=== PATIENT | male | born 1940 | race Caucasian/White ===

== ENCOUNTER 2021-11-13 12:57 | Outpatient (RCR) | payer MEDICARE, SELFPAY ==
[2021-11-13 13:23] VITALS: PULSE 90; TEMP 36.4
--- NOTE | 2021-11-13 15:19 | HP.PCM_ITS ---
History of Present Illness Date of Service: 11/13/21 Chief Complaint: Left plantar foot ulcer History of Wound: Patient is an 81 year old male who presents with an ulcer on the left foot on the lateral plantar surface, just proximal from the 5th toe. Per the patient's , he has had this ulcer about a year. He has a history of Afib on coumadin, insulin controlled type 2 DM, gout, CHF, CKD 3, peripheral vascular disease and a right foot ulcer that required HBOT to help heal. He sees a crm architect in the [place] area and he has been seen at a wound center there starting in 10/09. His states that he developed this sore from his shoe being too tight an rubbing on his foot. From the faxed notes from the [facility], he had a callus removed on 10/18/21. He received antibiotics in the past, Doxycycline then Cipro along with topical gentamicin. Unable to find any culture results. Last Hga1C was 7, per patient's . Left foot x-ray at [facility] on 10/07/21 was unremarkable x-ray examination of the foot. He was referred to us by Bhavin Villagran PA-C because he needs substantial debridement and may need a wound VAC. He presents today with no complaints of fever, chills, nausea and vomiting. He has been wearing a post-surgical shoe on the left foot. Progress of Wound: Left foot ulcer on the lateral plantar surface, proximal to the 5th toe. There is undermining around the entire circumference of the ulcer. He last has a raised, black area on his left lateral leg that has dry, sloughing skin present. When pealing the sloughing skin, the entire raised area easily pealed off, there was thick, white, cheesy exudate present, the base is pink. [facility] Medical History (Updated 11/13/21 @ 16:44 by Alaina Coulter NP, IVÁN-C) Atrial fibrillation Diabetes type 2, uncontrolled Gout Kidney disease Peripheral vascular disease in diabetes mellitus Ulcer of right foot Home Medications diltiazem HCl 30 mg tablet 30 mg PO TID 11/13/21 [History Last Taken Unknown] furosemide 20 mg tablet 20 mg PO BID 11/13/21 [History Last Taken Unknown] spironolactone 25 mg tablet mg 11/13/21 [History Last Taken Unknown] warfarin 5 mg intravenous solution mg IV 11/13/21 [History Last Taken Unknown] Social History (Updated 11/13/21 @ 16:45 by Alaina Coulter NP, [employer]) household members: spouse ROS Constitutional Constitutional: Denies fever(s) or frequent falls Eyes Eyes: Reports requires corrective lenses ENT HEENT: Reports hearing loss Cardiovascular Cardiovascular: Reports dyspnea on exertion, leg edema and leg ulcers; Denies chest pain Respiratory/Chest Respiratory/Chest: Denies cough Gastrointestinal Gastrointestinal: Denies abdominal pain, nausea or vomiting Integumentary Integumentary: Reports skin ulcer and wounds Psychiatric Psychiatric: Denies change in appetite or confusion Vital Signs Vital Signs Vital Signs: 11/13/21 13:23 Temperature 97.5 F L Temperature Source Temporal Pulse Rate 90 Blood Pressure Source Monitor Blood Pressure Position Sitting Blood Pressure Location Right Arm Physical Exam Const alert and no apparent distress General Appearance: cooperative Orientation / Consciousness: awake HEENT normocephalic Resp normal respiratory effort and normal air movement Effort and Inspection: able to speak in complete sentences Cardio regular rate and regular rhythm Cardio Narrative: HR regular rhythm, history of afib Peripheral Pulses: dorsalis pedis pulses present left GI soft to palpation and non-tender Extremity Extremity Narrative: +2-+3 pitting edema bilateral lower extremities. There are thick sloughing plaques of skin present bilaterally where there is hemosiderin staining. The plaques peal off easily. Left dorsalis pedis pulse is +1. Skin Wound Narrative: Left foot ulcer on the lateral plantar surface proximal to the 5th toe. There is 1 cm undermining around the entire circumference of the ulcer. There is a raised, black area on the left lateral leg approx. 1 cm diameter where the flaking plaques are located that easily pealed off with the skin plaques, it had thick,white, cheesy exudate present. The base of the ulcer is pink. Neuro Sensorium / Orientation: awake and alert Psych cooperative Attitude: calm Debridement Note Debridement Note Wound debrided: foot ulcer, plantar surface Laterality: Left Wound Grade/Stage: unstagable Type of Debridement: Excisional debridement Anesthesia Used: 5% Lidocaine Gel Depth: Down to and including healthy tissue and in the subcutaneous layer Percentage of wound debrided: 100 Instrument Used: 3mm curette Tissue Removed: Non viable tissue and slough Severity: Fat Layer Exposed Amount of bleeding with debridement: Mild Bleeding Controlled with: Pressure and Compression and gauze Patient tolerated procedure: Patient tolerated procedure well Debridement Free Text: There is undermining surrounding the entire circumference of the ulcer, unable to determine the true depth of the ulcer Post-Debridement Measurements and Additional Note: Post-Debridement Measurements/Treatment - Nurse 1 - General Ulcer Assessment Start: 11/13/21 13:23 Freq: Status: Active Protocol: SUNSHINE Activity Type Activity Date Activity User E-sign Co-sign Detail Recorded Client Recorded Date Recorded By Document 11/13/21 13:23 WILLIAMS [id number] 11/13/21 13:35 WILLIAMS 11/13/21 13:23 WC - Today's Visit Information Type of service Initial Visit Arrival Mode Wheelchair Patient Identification Verified (Name & Yes ) Blood Sugar Stated by Patient Vital Signs Temperature (97.8 F-99.1 F) 97.5 F L Temperature Source Temporal Pulse Rate (60-100) 90 Pulse Location Monitor Source Monitor Position Sitting Blood Pressure Location Right Arm History Since Last Visit- (Skip if this is Patient's initial visit) Left Footwear Regular Shoe Right Footwear Surgical Shoe with pressure relief insole Pain Scale: 0-10 Numeric Is Patient Pain Free? Yes - Nurse 1 - General Ulcer Measurement Start: 11/13/21 13:23 Freq: Status: Active Protocol: Activity Type Activity Date Activity User E-sign Co-sign Detail Recorded Client Recorded Date Recorded By Document 11/13/21 13:23 WILLIAMS [id number] 11/13/21 13:35 WILLIAMS 11/13/21 13:23 Wound Center Nurse 1 #1 Left Lateral Plantar -Current Size (cm) - Length 0.4 -Current Size (cm) - Width 0.3 -Current Size (cm) - Depth 0.2 -Total Square Cm 0.12 -Date of Last Picture (Recall this 11/13/21 field) -Photo Taken Yes -Tunneling No -Undermining/Tunneling No -Circular Undermining No -Change in Wound Grade/Stage No -Exudate Amt Small -Exudate Type Serosanguineous -Wound Margin Distinct, Outline Attached -Granulation Amt Medium (34-66%) -Granulation Quality Pale,[place] -Slough/Fibrin Yes -Necrosis Amt Large (67-100%) -Necrotic Tissue Type Adherent Slough -Structure Exposed N/A -Texture (Maribel-wound Skin Appearance) Assessed,Callus -Moisture (Maribel-wound Skin Appearance) No Abnormality, Assessed -Color (Maribel-wound Skin Appearance) No Abnormality, Assessed -Temperature (Maribel-wound Skin No Abnormality Appearance) (Pt Warm) -Tenderness on Palpation (Maribel-wound No Skin Appearance) -Ulcer Cleansing Rinsed/ Irrigated with Saline -Foul Odor after Cleansing No -Anesthetic Used 4% Lidocaine Solution Lower Limb Edema Present No WC - Nurse 2 - General Ulcer CM Notes Start: 11/13/21 13:23 Freq: Status: Active Protocol: Activity Type Activity Date Activity User E-sign Co-sign Detail Recorded Client Recorded Date Recorded By Document 11/13/21 13:51 MW [id number] 11/13/21 14:02 MW 11/13/21 13:51 Wound Center Nurse 2 #2 LEFT LATERAL LE -Time 13:59 -Correct Patient Yes -Correct Side, Site, Position Yes -Correct Procedure Yes -Procedure Performed Yes -Type of Procedure Debridement -Clinical Debridement Subcutaneous -Tissue Removed Subcutaneous -Post Debridement (cm) - Length 1.0 -Post Debridement (cm) - Width 1.2 -Post Debridement (cm) - Depth 0.2 -Total Square (Post) (cm) 1.20 -Area of Debridement (cm) - Length 1.0 -Area of Debridement (cm) - Width 1.2 -Total Square (Area) (cm) 1.20 -Tunneling No -Undermining/Tunneling No -Circular Undermining No -Wound/Ulcer Outcome Not Healed -Ulcer Cleansing Rinsed/ Irrigated with Saline -Foul Odor after Cleansing No -Bioengineered Tissue No -Bleeding Controlled with Pressure -Treatment Response Procedure Tolerated Well -Offloading No -Debridement - Subq, 1st 20sq cm No #1 Left Lateral Plantar -Time 13:51 -Correct Patient Yes -Correct Side, Site, Position Yes -Correct Procedure Yes -Procedure Performed Yes -Type of Procedure Debridement -Clinical Debridement Subcutaneous -Tissue Removed Subcutaneous -Post Debridement (cm) - Length 0.6 -Post Debridement (cm) - Width 0.7 -Post Debridement (cm) - Depth 0.3 -Total Square (Post) (cm) 0.42 -Area of Debridement (cm) - Length 0.6 -Area of Debridement (cm) - Width 0.7 -Total Square (Area) (cm) 0.42 -Tunneling No -Undermining/Tunneling No -Circular Undermining No -Wound/Ulcer Outcome Not Healed -Ulcer Cleansing Rinsed/ Irrigated with Saline -Foul Odor after Cleansing No -Bioengineered Tissue No -Bleeding Controlled with Pressure -Treatment Response Procedure Tolerated Well -Offloading No -Debridement - Subq, 1st 20sq cm Yes Pain Scale: 0-10 Numeric Is Patient Pain Free? Yes - Nurse 3 - General Ulcer D/C NN Start: 11/13/21 13:23 Freq: Status: Active Protocol: Activity Type Activity Date Activity User E-sign Co-sign Detail Recorded Client Recorded Date Recorded By Document 11/13/21 15:00 KRAIG [id number] 11/13/21 15:01 KRAIG 11/13/21 15:00 Wound Care Nurse 3 #2 LEFT LATERAL LE -Ulcer Cleansing Rinsed/ Irrigated with Saline -Foul Odor after Cleansing No -Negative Pressure Wound Therapy N/A -Primary Dressing Applied Promogran Tabatha Matter -Primary Dressing Covered/Secured with Dry Gauze & Roll Gauze, Secured with Tape -Promogran Tabatha Matter 1 #1 Left Lateral Plantar -Ulcer Cleansing Rinsed/ Irrigated with Saline -Foul Odor after Cleansing No -Primary Dressing Applied Promogran Tabatha Matter -Primary Dressing Covered/Secured with Dry Gauze & Roll Gauze, Secured with Tape -Promogran Tabatha Matter 0 Left -Lotion applied to leg before No compression wrap -Tubular Bandage Single Layer -Size of Tubigrip Used Size D -Size D ($) 1 Pain Scale: 0-10 Numeric Is Patient Pain Free? Yes - Visit Discharge Discharge Condition Stable Ambulatory Status Ambulatory,Cane ,Wheelchair Transportation Private Auto Accompanied by Medication Reconcilliation completed & Yes provided to patient/care provider Clinical Summary of Care Provided Yes Additional Wound Wound debrided: lateral leg ulcer Laterality: Left Type of Debridement: Excisional debridement Anesthesia Used: 5% Lidocaine Gel Depth: in the subcutaneous layer Percentage of wound debrided: 100 Instrument Used: 3mm curette Tissue Removed: non viable tissue Severity: Fat Layer Exposed Amount of bleeding with debridement: Mild Bleeding Controlled with: Pressure and Compression and gauze Patient tolerated procedure: Patient tolerated procedure well Charges/Coding Visit Charges Office Visits / Consults: 95222 OV L4 New (25 modifier) Procedures Integumentary [id number]: [id number] Polyl subq tissue 20 sq cm/< Assessment/Plan Assessment/Plan (1) 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: CODE(S): E11.621 - Type 2 diabetes mellitus with foot ulcer; L97.529 - Non-pressure chronic ulcer of other part of left foot with unspecified severity (2) Chronic ulcer of left foot with fat layer exposed: CODE(S): L97.522 - Non-pressure chronic ulcer of other part of left foot with fat layer exposed (3) Ulcer of left lower extremity with fat layer exposed: CODE(S): L97.922 - Non-pressure chronic ulcer of unspecified part of left lower leg with fat layer exposed (4) Peripheral vascular disease in diabetes mellitus: CODE(S): E11.51 - Type 2 diabetes mellitus with diabetic peripheral angiopathy without gangrene (5) Diabetes type 2, uncontrolled: PLAN: Plan Patient was evaluated in the wound healing clinic today. A subcutaneous debridement was performed as previously documented. Patient has been seen by a another wound center and a crm architect and was referred here for further evaluation of his left plantar foot ulcer. With the amount of undermining he has present, he would benefit from seeing one of the podiatrists that work at our wound center. This ulcer needs to be de-roofed and may need surgical debridement. I will continue to see him until he is able to establish with one of the podiatrists. The left lateral leg ulcer has a pink base. Will monitor this closely. There is concern with how this presented that it may need to be biopsied. Not comfortable doing a biopsy today due to not knowing his vascular status. Will attempt to obtain his records of previous vascular studies. May need to order current studies depending on how long it has been since his last vascular studies were performed. Wound care - Left plantar foot ulcer, pack Tabatha into the ulcer and top with gauze. May need to use gauze wrap to hold into place. On the left lateral leg ulcer, place Tabatha and cover with gauze daily. Wash both ulcers daily with soap and water. Place single layer tubigrip on left leg for compression. Encouraged patient to lay flat in a bed and not to sleep in a chair. He states that he is not able to get out of bed without significant help, which is why he sleeps in a lift chair. Instructed him to keep legs elevated when sitting to help prevent swelling. Encouraged a low sodium diet with increased protein and vitamin C to help with wound healing. Follow up week with either the crm architect or myself. Call or come in sooner if develop concerns or problems. Time spent with patient, reviewing prior notes and documenting >55 minutes.
== END 2021-11-17 23:59 | disposition home or self-care (01) ==
LOC: WC 12:57
PROVIDERS: PCP Physician Assistant; Visit Provider Nurse Practitioner Family
DX: E11.621 Type 2 diabetes mellitus with foot ulcer (principal); E11.51 Type 2 diabetes mellitus with diabetic peripheral angiopathy without gangrene; L97.522 Non-pressure chronic ulcer of other part of left foot with fat layer exposed; I50.9 Heart failure, unspecified; E11.22 Type 2 diabetes mellitus with diabetic chronic kidney disease; I48.91 Unspecified atrial fibrillation; Z79.4 Long term (current) use of insulin; N18.30 Chronic kidney disease, stage 3 unspecified; Z79.899 Other long term (current) drug therapy; Z79.01 Long term (current) use of anticoagulants
CPT/HCPCS: 11042; 99203; G0463

== ENCOUNTER 2021-12-17 13:30 | Outpatient (RCR) | payer MEDICARE, SELFPAY ==
[2021-11-18 00:41] VITALS: PULSE 90; TEMP 36.4
[2021-11-19 09:46] VITALS: BP 152/77; PULSE 103; RESP 22; TEMP 36.1
--- NOTE | 2021-11-19 10:19 | PCM.WC.HP ---
History of Present Illness Date of Service: 11/19/21 Chief Complaint: Left plantar foot ulcer History of Wound: Patient is an 81 year old male who presents with an ulcer on the left foot on the lateral plantar surface, just proximal from the 5th toe. Per the patient's , he has had this ulcer about a year. He has a history of Afib on coumadin, insulin controlled type 2 DM, gout, CHF, CKD 3, peripheral vascular disease and a right foot ulcer that required HBOT to help heal. Patient denies constitutional symptoms at this time. Patient notes some drainage and pain to the left foot. Along with some redness and swelling. Patient has been offloading site with surgical shoe. Patient has no other complaints at this time. FOR[facility]LY [facility] Medical History Atrial fibrillation Diabetes type 2, uncontrolled Gout Kidney disease Peripheral vascular disease in diabetes mellitus Ulcer of right foot Home Medications diltiazem HCl 30 mg tablet 30 mg PO TID 11/13/21 [History Last Taken Unknown] furosemide 20 mg tablet 20 mg PO BID 11/13/21 [History Last Taken Unknown] spironolactone 25 mg tablet mg 11/13/21 [History Last Taken Unknown] warfarin 5 mg intravenous solution mg IV 11/13/21 [History Last Taken Unknown] Social History household members: spouse ROS Constitutional Constitutional: Denies chills, headache(s) or stops breathing during sleep Eyes Eyes: Denies acute decrease in peripheral vision, blindness or change in vision ENT HEENT: Denies change in voice, dental pain or facial pain Cardiovascular Cardiovascular: Denies abdominal edema, abdominal pain or chest pain with activity Respiratory/Chest Respiratory/Chest: Denies change in phlegm color, chest congestion or dyspnea on exertion Gastrointestinal Gastrointestinal: Denies bloating, change in bowel habits or cramping Genitourinary Genitourinary: Reports dribbling and dysuria; Denies burning urination or difficulty with ejaculations Musculoskeletal Musculoskeletal: Reports loss of height; Denies back pain or deformity Vital Signs Vital Signs Vital Signs: 11/19/21 09:46 Temperature 97 F L Temperature Source Temporal Pulse Rate 103 H Respiratory Rate 22 H Blood Pressure 152/77 H Blood Pressure Mean 102 Blood Pressure Source Monitor Physical Exam Narrative Patient alert oriented person place and time. Patient ambulating surgical shoe to left lower extremity. Vascular: Dorsalis pedis posterior tibial pulses diminished bilaterally. Atrophic skin changes noted. +1 pitting edema to noted to bilateral lower extremity with hemosiderin deposits. Neurologic: Light touch protective sensation absent to bilateral feet. Dermatologic: There are 2 wounds 1 to noted to the anterior lateral left leg with a necrotic base. Debridement postdebridement demonstrates clean granular break base no deep probing or undermining clean postdebridement measurements document nursing notes. No signs of infection. Full-thickness wound noted to the plantar left fifth metatarsal head wound probes down the level of the fifth metatarsal head has significant hyperkeratosis to the periwound area along with some erythema edema no purulent drainage noted at this time upon debridement there is noted to be some healthy bleeding to the site. Pre and postdebridement measurements document nursing notes. 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 No pain with calf squeeze bilaterally. Muscular strength full to bilateral lower extremities. 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 ) Arrival Mode Cane,Wheelchair Transfer Assistance Manual Transfer Assist (Other) x1 Patient Identification Verified (Name & Yes ) Patient Requires Transmission-Based No Precautions Finger Stick Blood Sugar(mg/dl) (if 180 indicated): Blood Sugar Stated by Patient Vital Signs Temperature (97.8 F-99.1 F) 97 F L Temperature Source Temporal Pulse Rate (60-100) 103 H Pulse Location Monitor Respiratory Rate (12-18) 22 H Respiratory rate source Observation Blood Pressure (90/60-120/80) 152/77 H Blood Pressure Mean 102 Source Monitor History Since Last Visit- (Skip if this is Patient's initial visit) Have you changed medications since your No last visit? Any new allergies or adverse reactions No Had a fall/change in ADL's that may No increase risk of falls Signs or symptoms of abuse and/or No neglect since last visit Have you been in the hospital since your No last visit? Has dressing in place as prescribed Yes Has compression in place as prescribed Yes Has offloadiing in place as prescribed Yes Left Footwear Surgical Shoe with pressure relief insole Right Footwear Regular Shoe Pain Scale: 0-10 Numeric Is Patient Pain Free? Yes WC - Nurse 1 - General Ulcer Measurement Start: 11/19/21 09:45 Freq: Status: Active Protocol: Activity Type Activity Date Activity User E-sign Co-sign Detail Recorded Client Recorded Date Recorded By Document 11/19/21 09:46 DL [id number] 11/19/21 09:54 DL 11/19/21 09:46 Wound Center Nurse 1 #2 LEFT LATERAL LE -Current Size (cm) - Length 0.7 -Current Size (cm) - Width 0.8 -Current Size (cm) - Depth 0.1 -Total Square Cm 0.56 -Photo Taken No -Exudate Amt Small -Exudate Type Serosanguineous -Wound Margin Distinct, Outline Attached -Granulation Amt None Present (0 %) -Necrosis Amt Large (67-100%) -Necrotic Tissue Type Eschar -Structure Exposed N/A -Texture (Maribel-wound Skin Appearance) Scarring -Moisture (Maribel-wound Skin Appearance) No Abnormality -Color (Maribel-wound Skin Appearance) Hemosiderin Staining -Temperature (Maribel-wound Skin No Abnormality Appearance) (Pt Warm) -Tenderness on Palpation (Maribel-wound No Skin Appearance) -Ulcer Cleansing Soap and Water -Anesthetic Used 5% Lidocaine Gel #1 Left Lateral Plantar -Current Size (cm) - Length 0.5 -Current Size (cm) - Width 0.8 -Current Size (cm) - Depth 0.4 -Total Square Cm 0.40 -Photo Taken No -Undermining/Tunneling Starts (O'clock 10 ) -Undermining/Tunneling Ends (O'clock) 5 -Maximum Distance (cm) 0.5 -Exudate Type Serosanguineous -Wound Margin Distinct, Outline Attached -Granulation Amt Large (67-100%) -Granulation Quality Red -Necrosis Amt Small (1-33%) -Necrotic Tissue Type Adherent Slough -Structure Exposed N/A -Texture (Maribel-wound Skin Appearance) Scarring -Moisture (Maribel-wound Skin Appearance) Maceration -Color (Maribel-wound Skin Appearance) No Abnormality -Temperature (Maribel-wound Skin No Abnormality Appearance) (Pt Warm) -Ulcer Cleansing Soap and Water -Foul Odor after Cleansing No -Anesthetic Used 5% Lidocaine Gel Right Calf (cm) 36.6 Right Ankle (cm) 24.5 WC - Nurse 2 - General Ulcer CM Notes Start: 11/19/21 09:45 Freq: Status: Active Protocol: Activity Type Activity Date Activity User E-sign Co-sign Detail Recorded Client Recorded Date Recorded By Document 11/19/21 10:03 VICTORINO [id number] 11/19/21 10:14 VICTORINO 11/19/21 10:03 Wound Center Nurse 2 #2 LEFT LATERAL LE -Time 10:13 -Correct Patient Yes -Correct Side, Site, Position Yes -Correct Procedure Yes -Procedure Performed Yes -Type of Procedure Debridement -Clinical Debridement Subcutaneous -Tissue Removed Subcutaneous -Post Debridement (cm) - Length 0.8 -Post Debridement (cm) - Width 0.8 -Post Debridement (cm) - Depth 0.1 -Total Square (Post) (cm) 0.64 -Area of Debridement (cm) - Length 0.8 -Area of Debridement (cm) - Width 0.8 -Total Square (Area) (cm) 0.64 -Tunneling No -Undermining/Tunneling No -Circular Undermining No -Wound/Ulcer Outcome Not Healed -Ulcer Cleansing Rinsed/ Irrigated with Saline -Foul Odor after Cleansing No -Bioengineered Tissue No -Bleeding Controlled with Pressure -Treatment Response Procedure Tolerated Well -Offloading Yes -Type of Offloading Surgical Shoe -Debridement - Subq, 1st 20sq cm No #1 Left Lateral Plantar -Time 10:13 -Correct Patient Yes -Correct Side, Site, Position Yes -Correct Procedure Yes -Procedure Performed Yes -Type of Procedure Debridement -Clinical Debridement Subcutaneous -Tissue Removed Subcutaneous -Post Debridement (cm) - Length 0.6 -Post Debridement (cm) - Width 0.8 -Post Debridement (cm) - Depth 0.4 -Total Square (Post) (cm) 0.48 -Area of Debridement (cm) - Length 0.6 -Area of Debridement (cm) - Width 0.8 -Total Square (Area) (cm) 0.48 -Tunneling No -Undermining/Tunneling No -Circular Undermining No -Wound/Ulcer Outcome Not Healed -Ulcer Cleansing Rinsed/ Irrigated with Saline -Foul Odor after Cleansing No -Bioengineered Tissue No -Bleeding Controlled with Pressure -Treatment Response Procedure Tolerated Well -Offloading Yes -Type of Offloading Surgical Shoe -Debridement - Subq, 1st 20sq cm Yes Pain Scale: 0-10 Numeric Is Patient Pain Free? Yes Assessment/Plan Assessment/Plan (1) Peripheral vascular disease, unspecified: CODE(S): I73.9 - Peripheral vascular disease, unspecified PLAN: Patient examined evaluated, all fine discussed with patient in detail. Due to some erythema edema to the left forefoot concerned about a infection. I have ordered radiographs of the left foot to ensure no bone involvement. I have cultured the site after flushing and debridement. Patient will be started on p.o. doxycycline and ciprofloxacin. The left plantar fifth metatarsal head and lateral leg wound were excisionally debrided down to including level of subcutaneous tissue of all nonviable tissue using a 5 mm dermal curette. Hemostasis obtained with light compression. No no anesthesia due to neuropathy. Patient tolerated procedure well. Pre and postdebridement measurements document nursing notes. Will continue with daily cleansing of foot with soap and water washes, application of silver alginate DSD daily. Patient will heel weight-bear in surgical shoe with a custom made offloading pad to offload the fifth metatarsal head and the left lower extremity. Once we get all of the patient's lab x-rays and arterial studies will create a definitive plan which may include offloading the site with a total contact cast upon resolution of infection versus surgical procedure to remove or offload the fifth metatarsal head which is the apex of the plantar fifth metatarsal head wound site. Patient will follow up in 1 week (2) Type 2 diabetes mellitus with diabetic polyneuropathy: CODE(S): E11.42 - Type 2 diabetes mellitus with diabetic polyneuropathy (3) Non-pressure chronic ulcer of other part of left foot with necrosis of bone: CODE(S): L97.524 - Non-pressure chronic ulcer of other part of left foot with necrosis of bone
--- NOTE | 2021-11-19 11:13 | RAD_ITS ---
INDICATION: chronic ulcer EXAMINATION/TECHNIQUE: X-RAY - LEFT XR Foot Min 3 Views 3 VIEWS COMPARISON: None. FINDINGS: No evidence of cortical irregularity or lucency to suggest a fracture, no evidence of lytic or sclerotic bone lesion is seen. Prominent soft tissue swelling visualized overlying the forefoot, no evidence of periosteal reaction in the underlying bones, no evidence of abnormal densities in the overlying soft tissues. Soft tissue swelling visualized along the lateral aspect of the fifth metatarsophalangeal joints and phalanges. Vascular calcifications are seen. RAD/Foot min 3 Views IMPRESSION: Degenerative changes and soft tissue swelling, no evidence of displaced fracture is seen. Electronically Signed: Gurwinder Marx MD at 16:37 EDT ,
[2021-11-19 11:34] LABS: Absolute Neutrophil Count 6.8 X10^3/uL (2.0-7.7); Basophil# 0.04 X10^3/uL; Basophil% 0.5 % (0-1); Eosinophil# 0.13 X10^3/uL; Eosinophils% 1.5 % (0-5); Hematocrit 36.4 % (40-54); Lymphocyte % 14.7 % (19-41); Mean Corp Hgb Conc 35.7 g/dL (32-36); Mean Corpuscular Hgb 34.7 pg (27.0-32.0); Mean Corpuscular Volume 97.1 fL (80-94); Mean Platelet Vol. 9.3 fl (6.2-12.0); Monocyte# 0.55 X10^3/uL; Monocyte% 6.2 % (0-10); NRBC Flagged by Analyzer 0 % (0-5); Neutrophil # 6.79 X10^3/uL (2.7-7.7); Neutrophil % 76.4 % (47-70); Platelet Count 379 K/mm3 (150-450); RBC Distribution Width CV 14.9 % (11.6-14.6); RBC Distribution Width SD 50.7 fl (35.1-43.9); Red Blood Count 3.75 M/mm3 (4.6-6.2); White Blood Count 8.9 K/mm3 (4.4-11.0)
[2021-11-19 11:35] LABS: Erythrocyte Sedimentation Rate 42 mm/hr (0-20)
[2021-11-19 11:49] LABS: ALB/GLOB Ratio 0.6 RATIO (0.9-2.4); AST(SGOT) 10 U/L (15-37); Alanine Aminotransfer ALT/SGPT 18 U/L (16-61); Albumin, Serum 2.8 g/dL (3.2-5.0); Alkaline Phosphatase 93 U/L (45-117); Anion Gap 2 (5-15); BUN 43 mg/dL (7-18); BUN/Creat Ratio 28.9 RATIO (10-20); Calcium,Total 10.8 mg/dL (8.5-10.1); Chloride 103 mmol/L (98-107); Creatinine, Serum 1.49 mg/dL (0.70-1.30); EST Glomerular Filtration Rate 48 mL/min (>60); Est Glom Filt Rate - Afr Amer 58 mL/min (>60); Globulin 4.4 g/dL (2.2-4.2); Glucose 238 mg/dL (74-106); Potassium 4.4 mmol/L (3.5-5.1); Protein, Total 7.2 g/dL (6.4-8.2); Sodium Level 139 mmol/L (136-145)
[2021-11-19 12:19] LABS: Hemoglobin A1c 7.3 % (3.8-5.6)
[2021-11-26 09:20] VITALS: BP 155/84; PULSE 103; RESP 16; TEMP 36.1
--- NOTE | 2021-11-26 09:37 | PN.PCM_ITS ---
History of Present Illness Date of Service: 11/26/21 Chief Complaint: Left plantar foot ulcer History of Wound: Patient is an 81 year old male who presents with an ulcer on the left foot on the lateral plantar surface, just proximal from the 5th toe. Per the patient's , he has had this ulcer about a year. He has a history of Afib on coumadin, insulin controlled type 2 DM, gout, CHF, CKD 3, peripheral vascular disease and a right foot ulcer that required HBOT to help heal. Patient denies constitutional symptoms at this time. Patient notes some drainage and pain to the left foot. Along with some redness and swelling. Patient has been offloading site with surgical shoe. Patient has no other complaints at this time. Objective Data Objective Data Vital Signs: Vital Signs Temp Pulse Resp BP O2 Del Method 96.9 F L 103 H 16 155/84 H Room Air 11/26/21 09:20 11/26/21 09:20 11/26/21 09:20 11/26/21 09:20 11/26/21 09:20 Oxygen Delivery Method Room Air Lab / Micro Data Result Diagrams: 11/19/21 11:00 11/19/21 11:00 Micro: Microbiology 11/19/21 10:03 Wound Abcess - Left Foot Gram Stain - Final 11/19/21 10:03 Wound Abcess - Left Foot Wound Culture - Final Staphylococcus lugdunensis Enterococcus faecalis Staphylococcus epidermidis 11/19/21 10:03 Wound Abcess - Left Foot Anaerobic Culture - Final Anaerobic cocci Physical Exam Narrative Patient alert oriented person place and time. Patient ambulating surgical shoe to left lower extremity. Vascular: Dorsalis pedis posterior tibial pulses diminished bilaterally. Atrophic skin changes noted. +1 pitting edema to noted to bilateral lower extremity with hemosiderin deposits. Neurologic: Light touch protective sensation absent to bilateral feet. Dermatologic: There are 2 wounds 1 to noted to the anterior lateral left leg with a necrotic base. Debridement postdebridement demonstrates clean granular break base no deep probing or undermining clean postdebridement measurements document nursing notes. No signs of infection. Full-thickness wound noted to the plantar left fifth metatarsal head wound probes down the level of the fifth metatarsal head has significant hyperkeratosis to the periwound area along with some erythema edema no purulent drainage noted at this time upon debridement there is noted to be some healthy bleeding to the site. Pre and postdebridement measurements document nursing notes. 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 No pain with calf squeeze bilaterally. Muscular strength full to bilateral lower extremities. Debridement Note Debridement Note Post-Debridement Measurements and Additional Note: Post-Debridement Measurements/Treatment - Nurse 1 - General Ulcer Assessment Start: 11/19/21 09:45 Freq: Status: Active Protocol: SUNSHINE Activity Type Activity Date Activity User E-sign Co-sign Detail Recorded Client Recorded Date Recorded By Document 11/19/21 09:46 DL [id number] 11/19/21 09:54 DL Document 11/26/21 09:20 BMF [id number] 11/26/21 09:33 BMF 11/19/21 11/26/21 09:46 09:20 - Today's Visit Information Type of service Follow-up Visit Follow-up Visit (Physician/GENERAL OPHTHALMOLOGIST (Physician/GENERAL OPHTHALMOLOGIST ) ) Arrival Mode Cane,Wheelchair Wheelchair Transfer Assistance Manual Other Transfer Assist (Other) x1 1 ASSIST W/ CANE Accompanied by Patient Identification Verified (Name & Yes Yes ) Patient Requires Transmission-Based No No Precautions Finger Stick Blood Sugar(mg/dl) (if 180 indicated): Blood Sugar Stated by Patient Vital Signs Temperature (97.8 F-99.1 F) 97 F L 96.9 F L Temperature Source Temporal Temporal Pulse Rate (60-100) 103 H 103 H Pulse Location Monitor Monitor Respiratory Rate (12-18) 22 H 16 Respiratory rate source Observation Observation Oxygen Delivery Method Room Air Blood Pressure (90/60-120/80) 152/77 H 155/84 H Blood Pressure Mean (mm Hg) 102 107 Source Monitor Monitor Position Sitting Blood Pressure Location Right Arm History Since Last Visit- (Skip if this is Patient's initial visit) Have you changed medications since your No No last visit? Any new allergies or adverse reactions No No Had a fall/change in ADL's that may No No increase risk of falls Signs or symptoms of abuse and/or No No neglect since last visit Have you been in the hospital since your No No last visit? Has dressing in place as prescribed Yes Yes Has compression in place as prescribed Yes Yes Has offloadiing in place as prescribed Yes Yes Experienced any changes in pain level or No management Left Footwear Surgical Shoe Surgical Shoe with pressure with pressure relief insole relief insole Right Footwear Regular Shoe Regular Shoe Pain Scale: 0-10 Numeric Is Patient Pain Free? Yes Yes WC - Nurse 1 - General Ulcer Measurement Start: 11/19/21 09:45 Freq: Status: Active Protocol: Activity Type Activity Date Activity User E-sign Co-sign Detail Recorded Client Recorded Date Recorded By Document 11/19/21 09:46 DL [id number] 11/19/21 09:54 DL Document 11/26/21 09:20 BMF [id number] 11/26/21 09:33 BMF 11/19/21 11/26/21 09:46 09:20 Wound Center Nurse 1 #2 LEFT LATERAL LE -Combined with other wound No -Current Size (cm) - Length 0.7 0.8 -Current Size (cm) - Width 0.8 2.7 -Current Size (cm) - Depth 0.1 0.1 -Total Square Cm 0.56 2.16 -Photo Taken No No -Epithelialization None Present -Tunneling No -Undermining/Tunneling No -Circular Undermining No -Exudate Amt Small Medium -Exudate Type Serosanguineous Serosanguineous -Wound Margin Distinct, Distinct, Outline Outline Attached Attached -Granulation Amt None Present (0 %) -Granulation Quality Red -Slough/Fibrin Yes -Necrosis Amt Large (67-100%) Large (67-100%) -Necrotic Tissue Type Eschar Adherent Slough -Structure Exposed N/A -Texture (Maribel-wound Skin Appearance) Scarring Assessed, Scarring -Moisture (Maribel-wound Skin Appearance) No Abnormality Assessed,Dry/ Scaly -Color (Maribel-wound Skin Appearance) Hemosiderin Assessed, Staining Hemosiderin Staining -Temperature (Maribel-wound Skin No Abnormality No Abnormality Appearance) (Pt Warm) (Pt Warm) -Tenderness on Palpation (Maribel-wound No No Skin Appearance) -Ulcer Cleansing Soap and Water Rinsed/ Irrigated with Saline -Foul Odor after Cleansing No -Anesthetic Used 5% Lidocaine 4% Lidocaine Gel Solution #1 Left Lateral Plantar -Combined with other wound No -Current Size (cm) - Length 0.5 0.8 -Current Size (cm) - Width 0.8 1 -Current Size (cm) - Depth 0.4 0.6 -Total Square Cm 0.40 0.8 -Photo Taken No No -Epithelialization None Present -Tunneling No -Undermining/Tunneling Yes -Undermining/Tunneling Starts (O'clock 10 12 ) -Undermining/Tunneling Ends (O'clock) 5 12 -Maximum Distance (cm) 0.5 0.5 -Circular Undermining Yes -Exudate Amt Medium -Exudate Type Serosanguineous Sanguineous -Wound Margin Distinct, Distinct, Outline Outline Attached Attached -Granulation Amt Large (67-100%) Small (1-33%) -Granulation Quality Red [place] -Slough/Fibrin Yes -Necrosis Amt Small (1-33%) Medium (34-66%) -Necrotic Tissue Type Adherent Slough Adherent Slough -Structure Exposed N/A -Texture (Maribel-wound Skin Appearance) Scarring Assessed, Scarring -Moisture (Maribel-wound Skin Appearance) Maceration Assessed,Dry/ Scaly -Color (Maribel-wound Skin Appearance) No Abnormality Assessed -Temperature (Maribel-wound Skin No Abnormality No Abnormality Appearance) (Pt Warm) (Pt Warm) -Tenderness on Palpation (Maribel-wound No Skin Appearance) -Ulcer Cleansing Soap and Water Rinsed/ Irrigated with Saline -Foul Odor after Cleansing No No -Anesthetic Used 5% Lidocaine 4% Lidocaine Gel Solution Right Calf (cm) 36.6 Right Ankle (cm) 24.5 WC - Nurse 2 - General Ulcer CM Notes Start: 11/19/21 09:45 Freq: Status: Active Protocol: Activity Type Activity Date Activity User E-sign Co-sign Detail Recorded Client Recorded Date Recorded By Document 11/19/21 10:03 VICTORINO [id number] 11/19/21 10:14 VICTORINO 11/19/21 10:03 Wound Center Nurse 2 #2 LEFT LATERAL LE -Time 10:13 -Correct Patient Yes -Correct Side, Site, Position Yes -Correct Procedure Yes -Procedure Performed Yes -Type of Procedure Debridement -Clinical Debridement Subcutaneous -Tissue Removed Subcutaneous -Post Debridement (cm) - Length 0.8 -Post Debridement (cm) - Width 0.8 -Post Debridement (cm) - Depth 0.1 -Total Square (Post) (cm) 0.64 -Area of Debridement (cm) - Length 0.8 -Area of Debridement (cm) - Width 0.8 -Total Square (Area) (cm) 0.64 -Tunneling No -Undermining/Tunneling No -Circular Undermining No -Wound/Ulcer Outcome Not Healed -Ulcer Cleansing Rinsed/ Irrigated with Saline -Foul Odor after Cleansing No -Bioengineered Tissue No -Bleeding Controlled with Pressure -Treatment Response Procedure Tolerated Well -Offloading Yes -Type of Offloading Surgical Shoe -Debridement - Subq, 1st 20sq cm No #1 Left Lateral Plantar -Time 10:13 -Correct Patient Yes -Correct Side, Site, Position Yes -Correct Procedure Yes -Procedure Performed Yes -Type of Procedure Debridement -Clinical Debridement Subcutaneous -Tissue Removed Subcutaneous -Post Debridement (cm) - Length 0.6 -Post Debridement (cm) - Width 0.8 -Post Debridement (cm) - Depth 0.4 -Total Square (Post) (cm) 0.48 -Area of Debridement (cm) - Length 0.6 -Area of Debridement (cm) - Width 0.8 -Total Square (Area) (cm) 0.48 -Tunneling No -Undermining/Tunneling No -Circular Undermining No -Wound/Ulcer Outcome Not Healed -Ulcer Cleansing Rinsed/ Irrigated with Saline -Foul Odor after Cleansing No -Bioengineered Tissue No -Bleeding Controlled with Pressure -Treatment Response Procedure Tolerated Well -Offloading Yes -Type of Offloading Surgical Shoe -Debridement - Subq, 1st 20sq cm Yes Pain Scale: 0-10 Numeric Is Patient Pain Free? Yes WC - Nurse 3 - General Ulcer D/C NN Start: 11/19/21 09:45 Freq: Status: Active Protocol: Activity Type Activity Date Activity User E-sign Co-sign Detail Recorded Client Recorded Date Recorded By Document 11/19/21 10:31 DL [id number] 11/19/21 10:35 DL 11/19/21 10:31 Wound Care Nurse 3 #2 LEFT LATERAL LE -Ulcer Cleansing Rinsed/ Irrigated with Saline -Foul Odor after Cleansing No -Primary Dressing Applied Aquacel AG 2x2 -Primary Dressing Covered/Secured with Dry Gauze, Secured with Tape -Aquacel AG 2x2 1 #1 Left Lateral Plantar -Ulcer Cleansing Rinsed/ Irrigated with Saline -Foul Odor after Cleansing No -Other Dressing aqucel ag -Primary Dressing Covered/Secured with Dry Gauze & Roll Gauze, Secured with Tape Left -Tubular Bandage Double Layer -Size of Tubigrip Used Size D -Size D ($) 2 Treatment Response Procedure Tolerated Well Pain Scale: 0-10 Numeric Is Patient Pain Free? Yes WC - Visit Discharge Discharge Condition Stable Ambulatory Status Ambulatory,Cane ,Wheelchair Transportation Private Auto Assessment/Plan Assessment/Plan (1) Peripheral vascular disease, unspecified: CODE(S): I73.9 - Peripheral vascular disease, unspecified PLAN: Patient examined evaluated, all fine discussed with patient in detail. Resolving cellulitis left foot. Patient to finish course of doxycycline. The left plantar fifth metatarsal head and lateral leg wound were excisionally debrided down to including level of subcutaneous tissue of all nonviable tissue using a 5 mm dermal curette. Hemostasis obtained with light compression. No no anesthesia due to neuropathy. Patient tolerated procedure well. Pre and postdebridement measurements document nursing notes. Will continue with daily cleansing of foot with soap and water washes, application of silver alginate DSD daily. Patient will heel weight-bear in surgical shoe with a custom made offloading pad to offload the fifth metatarsal head and the left lower extremity. Vascular stat studies scheduled for December. Will continue conservative treatment until we receive the results of those. Cultures and radiographs reviewed. No concern for residual deep infection at this time. Patient will continue offloading site in a surgical shoe with offloading pad. If there are any delays in healing we will consider total contact casting versus left fifth metatarsal head resection; however, I feel the patient has significant arterial disease which may limit healing. We will await vascular results. Patient will follow up in 1 week. (2) Type 2 diabetes mellitus with diabetic polyneuropathy: CODE(S): E11.42 - Type 2 diabetes mellitus with diabetic polyneuropathy (3) Non-pressure chronic ulcer of other part of left foot with necrosis of bone: CODE(S): L97.524 - Non-pressure chronic ulcer of other part of left foot with necrosis of bone
[2021-12-03 10:18] VITALS: BP 149/78; PULSE 99; RESP 20; TEMP 36
--- NOTE | 2021-12-03 10:47 | PN.PCM_ITS ---
History of Present Illness Date of Service: 12/03/21 Chief Complaint: Left plantar foot ulcer History of Wound: Patient is an 81 year old male who presents with an ulcer on the left foot on the lateral plantar surface, just proximal from the 5th toe. Per the patient's , he has had this ulcer about a year. He has a history of Afib on coumadin, insulin controlled type 2 DM, gout, CHF, CKD 3, peripheral vascular disease and a right foot ulcer that required HBOT to help heal. Patient denies constitutional symptoms at this time. Patient notes some drainage and pain to the left foot. Along with some redness and swelling. Patient has been offloading site with surgical shoe. Patient has no other complaints at this time. Objective Data Objective Data Vital Signs: Vital Signs Temp Pulse Resp BP O2 Del Method 96.8 F L 99 20 H 149/78 H Room Air 12/03/21 10:18 12/03/21 10:18 12/03/21 10:18 12/03/21 10:18 11/26/21 09:20 Oxygen Delivery Method Room Air Lab / Micro Data Result Diagrams: 11/19/21 11:00 11/19/21 11:00 Micro: Microbiology 11/19/21 10:03 Wound Abcess - Left Foot Gram Stain - Final 11/19/21 10:03 Wound Abcess - Left Foot Wound Culture - Final Staphylococcus lugdunensis Enterococcus faecalis Staphylococcus epidermidis 11/19/21 10:03 Wound Abcess - Left Foot Anaerobic Culture - Final Anaerobic cocci Physical Exam Narrative Patient alert oriented person place and time. Patient ambulating surgical shoe to left lower extremity. Vascular: Dorsalis pedis posterior tibial pulses diminished bilaterally. Atrophic skin changes noted. +1 pitting edema to noted to bilateral lower extremity with hemosiderin deposits. Neurologic: Light touch protective sensation absent to bilateral feet. Dermatologic: There are 2 wounds 1 to noted to the anterior lateral left leg with a necrotic base. Debridement postdebridement demonstrates clean granular break base no deep probing or undermining clean postdebridement measurements document nursing notes. No signs of infection. Full-thickness wound noted to the plantar left fifth metatarsal head wound probes down the level of the fifth metatarsal head has significant hyperkeratosis to the periwound area along with some erythema edema no purulent drainage noted at this time upon debridement there is noted to be some healthy bleeding to the site. Pre and postdebridement measurements document nursing notes. 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 No pain with calf squeeze bilaterally. Muscular strength full to bilateral lower extremities. Debridement Note Debridement Note Post-Debridement Measurements and Additional Note: Post-Debridement Measurements/Treatment - Nurse 1 - General Ulcer Assessment Start: 11/19/21 09:45 Freq: Status: Active Protocol: SUNSHINE Activity Type Activity Date Activity User E-sign Co-sign Detail Recorded Client Recorded Date Recorded By Document 11/19/21 09:46 DL [id number] 11/19/21 09:54 DL Document 11/26/21 09:20 BMF [id number] 11/26/21 09:33 BMF Document 12/03/21 10:18 DL [id number] 12/03/21 10:23 DL 11/19/21 11/26/21 12/03/21 09:46 09:20 10:18 - Today's Visit Information Type of service Follow-up Visit Follow-up Visit Follow-up Visit (Physician/HOME HEALTH CLINICAL SUPERVISOR (Physician/HOME HEALTH CLINICAL SUPERVISOR (Physician/HOME HEALTH CLINICAL SUPERVISOR ) ) ) Arrival Mode Cane,Wheelchair Wheelchair Ambulatory Transfer Assistance Manual Other None Transfer Assist (Other) x1 1 ASSIST W/ CANE Accompanied by Patient Identification Verified (Name & Yes Yes Yes ) Patient Requires Transmission-Based No No No Precautions Finger Stick Blood Sugar(mg/dl) (if 180 145 indicated): Blood Sugar Stated by Stated by Patient Patient Vital Signs Temperature (97.8 F-99.1 F) 97 F L 96.9 F L 96.8 F L Temperature Source Temporal Temporal Temporal Pulse Rate (60-100) 103 H 103 H 99 Pulse Location Monitor Monitor Monitor Respiratory Rate (12-18) 22 H 16 20 H Respiratory rate source Observation Observation Observation Oxygen Delivery Method Room Air Blood Pressure (90/60-120/80) 152/77 H 155/84 H 149/78 H Blood Pressure Mean (mm Hg) 102 107 101 Source Monitor Monitor Monitor Position Sitting Blood Pressure Location Right Arm History Since Last Visit- (Skip if this is Patient's initial visit) Have you changed medications since your No No No last visit? Any new allergies or adverse reactions No No No Had a fall/change in ADL's that may No No No increase risk of falls Signs or symptoms of abuse and/or No No No neglect since last visit Have you been in the hospital since your No No No last visit? Has dressing in place as prescribed Yes Yes Yes Has compression in place as prescribed Yes Yes Yes Has offloadiing in place as prescribed Yes Yes N/A Experienced any changes in pain level or No No management Left Footwear Surgical Shoe Surgical Shoe Surgical Shoe with pressure with pressure with pressure relief insole relief insole relief insole Right Footwear Regular Shoe Regular Shoe Pain Scale: 0-10 Numeric Is Patient Pain Free? Yes Yes Yes WC - Nurse 1 - General Ulcer Measurement Start: 11/19/21 09:45 Freq: Status: Active Protocol: Activity Type Activity Date Activity User E-sign Co-sign Detail Recorded Client Recorded Date Recorded By Document 11/19/21 09:46 DL [id number] 11/19/21 09:54 DL Document 11/26/21 09:20 [facility] [id number] 11/26/21 09:33 BMF Document 12/03/21 10:18 DL [id number] 12/03/21 10:23 DL 11/19/21 11/26/21 12/03/21 09:46 09:20 10:18 Wound Center Nurse 1 #2 LEFT LATERAL LE -Combined with other wound No -Current Size (cm) - Length 0.7 0.8 0.9 -Current Size (cm) - Width 0.8 2.7 0.2 -Current Size (cm) - Depth 0.1 0.1 0.1 -Total Square Cm 0.56 2.16 0.18 -Photo Taken No No No -Epithelialization None Present -Tunneling No -Undermining/Tunneling No -Circular Undermining No -Exudate Amt Small Medium Small -Exudate Type Serosanguineous Serosanguineous Serosanguineous -Wound Margin Distinct, Distinct, Thickened Outline Outline Attached Attached -Granulation Amt None Present (0 Small (1-33%) %) -Granulation Quality Red Red -Slough/Fibrin Yes -Necrosis Amt Large (67-100%) Large (67-100%) Large (67-100%) -Necrotic Tissue Type Eschar Adherent Slough Eschar -Structure Exposed N/A N/A -Texture (Maribel-wound Skin Appearance) Scarring Assessed, Scarring Scarring -Moisture (Maribel-wound Skin Appearance) No Abnormality Assessed,Dry/ Dry/Scaly Scaly -Color (Maribel-wound Skin Appearance) Hemosiderin Assessed, Erythema Staining Hemosiderin Staining -Temperature (Maribel-wound Skin No Abnormality No Abnormality No Abnormality Appearance) (Pt Warm) (Pt Warm) (Pt Warm) -Tenderness on Palpation (Maribel-wound No No No Skin Appearance) -Ulcer Cleansing Soap and Water Rinsed/ Soap and Water Irrigated with Saline -Foul Odor after Cleansing No No -Anesthetic Used 5% Lidocaine 4% Lidocaine 5% Lidocaine Gel Solution Gel #1 Left Lateral Plantar -Combined with other wound No -Current Size (cm) - Length 0.5 0.8 0.7 -Current Size (cm) - Width 0.8 1 0.5 -Current Size (cm) - Depth 0.4 0.6 0.2 -Total Square Cm 0.40 0.8 0.35 -Photo Taken No No No -Epithelialization None Present -Tunneling No -Undermining/Tunneling Yes -Undermining/Tunneling Starts (O'clock 10 12 ) -Undermining/Tunneling Ends (O'clock) 5 12 -Maximum Distance (cm) 0.5 0.5 -Circular Undermining Yes -Exudate Amt Medium Medium -Exudate Type Serosanguineous Sanguineous Serosanguineous -Wound Margin Distinct, Distinct, Distinct, Outline Outline Outline Attached Attached Attached -Granulation Amt Large (67-100%) Small (1-33%) None Present (0 %) -Granulation Quality Red [place] Red -Slough/Fibrin Yes -Necrosis Amt Small (1-33%) Medium (34-66%) Large (67-100%) -Necrotic Tissue Type Adherent Slough Adherent Slough Adherent Slough -Structure Exposed N/A N/A -Texture (Maribel-wound Skin Appearance) Scarring Assessed, Scarring Scarring -Moisture (Maribel-wound Skin Appearance) Maceration Assessed,Dry/ Dry/Scaly Scaly -Color (Maribel-wound Skin Appearance) No Abnormality Assessed Hemosiderin Staining -Temperature (Maribel-wound Skin No Abnormality No Abnormality Appearance) (Pt Warm) (Pt Warm) -Tenderness on Palpation (Maribel-wound No No Skin Appearance) -Ulcer Cleansing Soap and Water Rinsed/ Rinsed/ Irrigated with Irrigated with Saline Saline -Foul Odor after Cleansing No No No -Anesthetic Used 5% Lidocaine 4% Lidocaine 5% Lidocaine Gel Solution Gel Right Calf (cm) 36.6 Right Ankle (cm) 24.5 Left Calf (cm) 36.5 Left Ankle (cm) 22.9 WC - Nurse 2 - General Ulcer CM Notes Start: 11/19/21 09:45 Freq: Status: Active Protocol: Activity Type Activity Date Activity User E-sign Co-sign Detail Recorded Client Recorded Date Recorded By Document 11/19/21 10:03 [id number] 11/19/21 10:14 Document 11/26/21 09:43 [id number] 11/26/21 09:46 Document 12/03/21 10:31 [id number] 12/03/21 10:35 11/19/21 11/26/21 12/03/21 10:03 09:43 10:31 Wound Center Nurse 2 #2 LEFT LATERAL LE -Time 10:13 09:44 10:31 -Correct Patient Yes Yes Yes -Correct Side, Site, Position Yes Yes Yes -Correct Procedure Yes Yes Yes -Procedure Performed Yes Yes Yes -Type of Procedure Debridement Debridement Debridement -Clinical Debridement Subcutaneous Subcutaneous Subcutaneous -Tissue Removed Subcutaneous Subcutaneous Subcutaneous -Post Debridement (cm) - Length 0.8 0.8 0.6 -Post Debridement (cm) - Width 0.8 2.8 1.1 -Post Debridement (cm) - Depth 0.1 0.1 0.1 -Total Square (Post) (cm) 0.64 2.24 0.66 -Area of Debridement (cm) - Length 0.8 0.8 0.6 -Area of Debridement (cm) - Width 0.8 2.8 1.1 -Total Square (Area) (cm) 0.64 2.24 0.66 -Tunneling No No No -Undermining/Tunneling No No No -Circular Undermining No No No -Wound/Ulcer Outcome Not Healed Not Healed Not Healed -Ulcer Cleansing Rinsed/ Rinsed/ Rinsed/ Irrigated with Irrigated with Irrigated with Saline Saline Saline -Foul Odor after Cleansing No No No -Bioengineered Tissue No No No -Bleeding Controlled with Pressure Pressure Pressure -Treatment Response Procedure Procedure Procedure Tolerated Well Tolerated Well Tolerated Well -Offloading Yes No No -Type of Offloading Surgical Shoe -Debridement - Subq, 1st 20sq cm No Yes No #1 Left Lateral Plantar -Time 10:13 09:43 10:32 -Correct Patient Yes Yes Yes -Correct Side, Site, Position Yes Yes Yes -Correct Procedure Yes Yes Yes -Procedure Performed Yes Yes Yes -Type of Procedure Debridement Debridement Debridement -Clinical Debridement Subcutaneous Muscle / Fascia Subcutaneous -Tissue Removed Subcutaneous Muscle Subcutaneous -Post Debridement (cm) - Length 0.6 0.8 0.8 -Post Debridement (cm) - Width 0.8 1.1 0.5 -Post Debridement (cm) - Depth 0.4 0.5 0.3 -Total Square (Post) (cm) 0.48 0.88 0.40 -Area of Debridement (cm) - Length 0.6 0.8 0.8 -Area of Debridement (cm) - Width 0.8 1.1 0.5 -Total Square (Area) (cm) 0.48 0.88 0.40 -Tunneling No No No -Undermining/Tunneling No No No -Circular Undermining No No No -Wound/Ulcer Outcome Not Healed Not Healed Not Healed -Ulcer Cleansing Rinsed/ Rinsed/ Rinsed/ Irrigated with Irrigated with Irrigated with Saline Saline Saline -Foul Odor after Cleansing No No No -Bioengineered Tissue No No No -Bleeding Controlled with Pressure Pressure Pressure -Treatment Response Procedure Procedure Procedure Tolerated Well Tolerated Well Tolerated Well -Offloading Yes Yes Yes -Type of Offloading Surgical Shoe Surgical Shoe Surgical Shoe -Debridement - Subq, 1st 20sq cm Yes No Yes -Debridement - Muscle / Fascia, 1st Yes 20sq cm Pain Scale: 0-10 Numeric Is Patient Pain Free? Yes Yes Yes WC - Nurse 3 - General Ulcer D/C NN Start: 11/19/21 09:45 Freq: Status: Active Protocol: Activity Type Activity Date Activity User E-sign Co-sign Detail Recorded Client Recorded Date Recorded By Document 11/19/21 10:31 DL [id number] 11/19/21 10:35 DL Document 11/26/21 10:08 [facility] [id number] 11/26/21 10:09 BMF 11/19/21 11/26/21 10:31 10:08 Wound Care Nurse 3 #2 LEFT LATERAL LE -Ulcer Cleansing Rinsed/ Rinsed/ Irrigated with Irrigated with Saline Saline -Foul Odor after Cleansing No No -Primary Dressing Applied Aquacel AG 2x2 Aquacel AG 2x2 -Primary Dressing Covered/Secured with Dry Gauze, Dry Gauze & Secured with Roll Gauze, Tape Secured with Tape -Aquacel AG 2x2 1 1 #1 Left Lateral Plantar -Ulcer Cleansing Rinsed/ Rinsed/ Irrigated with Irrigated with Saline Saline -Foul Odor after Cleansing No No -Primary Dressing Applied Aquacel AG 2x2 -Other Dressing aqucel ag -Primary Dressing Covered/Secured with Dry Gauze & Dry Gauze, Roll Gauze, Secured with Secured with Tape Tape -Aquacel AG 2x2 0 Left -Tubular Bandage Double Layer Double Layer -Size of Tubigrip Used Size D Size E -Size D ($) 2 -Size E ($) 1 Treatment Response Procedure Procedure Tolerated Well Tolerated Well Pain Scale: 0-10 Numeric Is Patient Pain Free? Yes Yes WC - Visit Discharge Discharge Condition Stable Stable Ambulatory Status Ambulatory,Cane Wheelchair ,Wheelchair Transportation Private Auto Private Auto Accompanied by Assessment/Plan Assessment/Plan (1) Peripheral vascular disease, unspecified: CODE(S): I73.9 - Peripheral vascular disease, unspecified PLAN: Patient examined evaluated, all findings discussed with patient in detail. The left plantar fifth metatarsal head and lateral leg wound were excisionally debrided down to including level of subcutaneous tissue of all nonviable tissue using a 5 mm dermal curette. Hemostasis obtained with light compression. No no anesthesia due to neuropathy. Patient tolerated procedure well. Pre and postdebridement measurements document nursing notes. Will continue with daily cleansing of foot with soap and water washes, application of silver alginate DSD daily. Patient will heel weight-bear in surgical shoe with a custom made offloading pad to offload the fifth metatarsal head and the left lower extremity. Vascular stat studies scheduled for December. Will continue conservative treatment until we receive the results of those. Cultures and radiographs reviewed. No concern for residual deep infection at this time. Patient will continue offloading site in a surgical shoe with offloading pad. If there are any delays in healing we will consider total contact casting versus left fifth metatarsal head resection; however, I feel the patient has significant arterial disease which may limit healing. We will await vascular results. Patient will follow up in 1 week. (2) Type 2 diabetes mellitus with diabetic polyneuropathy: CODE(S): E11.42 - Type 2 diabetes mellitus with diabetic polyneuropathy (3) Non-pressure chronic ulcer of other part of left foot with necrosis of bone: CODE(S): L97.524 - Non-pressure chronic ulcer of other part of left foot with necrosis of bone
[2021-12-10 10:20] VITALS: BP 126/66; PULSE 97; RESP 18; TEMP 36.7
--- NOTE | 2021-12-10 12:17 | PCM.WC.PN ---
History of Present Illness Date of Service: 12/10/21 Chief Complaint: Left plantar foot ulcer History of Wound: Patient is an 81 year old male who presents with an ulcer on the left foot on the lateral plantar surface, just proximal from the 5th toe. Per the patient's , he has had this ulcer about a year. He has a history of Afib on coumadin, insulin controlled type 2 DM, gout, CHF, CKD 3, peripheral vascular disease and a right foot ulcer that required HBOT to help heal. Patient denies constitutional symptoms at this time. Patient notes some drainage and pain to the left foot. Along with some redness and swelling. Patient has been offloading site with surgical shoe. Patient has no other complaints at this time. Objective Data Objective Data Vital Signs: Vital Signs Temp Pulse Resp BP O2 Del Method 98.0 F 97 18 126/66 H Room Air 12/10/21 10:20 12/10/21 10:20 12/10/21 10:20 12/10/21 10:20 12/10/21 10:20 Oxygen Delivery Method Room Air Lab / Micro Data Result Diagrams: 11/19/21 11:00 11/19/21 11:00 Micro: Microbiology 11/19/21 10:03 Wound Abcess - Left Foot Gram Stain - Final 11/19/21 10:03 Wound Abcess - Left Foot Wound Culture - Final Staphylococcus lugdunensis Enterococcus faecalis Staphylococcus epidermidis 11/19/21 10:03 Wound Abcess - Left Foot Anaerobic Culture - Final Anaerobic cocci Physical Exam Narrative Patient alert oriented person place and time. Patient ambulating surgical shoe to left lower extremity. Vascular: Dorsalis pedis posterior tibial pulses diminished bilaterally. Atrophic skin changes noted. +1 pitting edema to noted to bilateral lower extremity with hemosiderin deposits. Neurologic: Light touch protective sensation absent to bilateral feet. Dermatologic: There are 2 wounds 1 to noted to the anterior lateral left leg with a necrotic base. Debridement postdebridement demonstrates clean granular break base no deep probing or undermining clean postdebridement measurements document nursing notes. No signs of infection. Full-thickness wound noted to the plantar left fifth metatarsal head wound probes down the level of the fifth metatarsal head has significant hyperkeratosis to the periwound area along with some erythema edema no purulent drainage noted at this time upon debridement there is noted to be some healthy bleeding to the site. Pre and postdebridement measurements document nursing notes. 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 No pain with calf squeeze bilaterally. Muscular strength full to bilateral lower extremities. Debridement Note Debridement Note Post-Debridement Measurements and Additional Note: Post-Debridement Measurements/Treatment - Nurse 1 - General Ulcer Assessment Start: 11/19/21 09:45 Freq: Status: Active Protocol: SUNSHINE Activity Type Activity Date Activity User E-sign Co-sign Detail Recorded Client Recorded Date Recorded By Document 11/19/21 09:46 DL [id number] 11/19/21 09:54 DL Document 11/26/21 09:20 BMF [id number] 11/26/21 09:33 BMF Document 12/03/21 10:18 DL [id number] 12/03/21 10:23 DL Document 12/10/21 10:20 MW [id number] 12/10/21 10:32 MW 11/19/21 11/26/21 12/03/21 09:46 09:20 10:18 - Today's Visit Information Type of service Follow-up Visit Follow-up Visit Follow-up Visit (Physician/BUYING INTERN (Physician/BUYING INTERN (Physician/BUYING INTERN ) ) ) Arrival Mode Cane,Wheelchair Wheelchair Ambulatory Transfer Assistance Manual Other None Transfer Assist (Other) x1 1 ASSIST W/ CANE Accompanied by Patient Identification Verified (Name & Yes Yes Yes ) Patient Requires Transmission-Based No No No Precautions Safety Precautions Finger Stick Blood Sugar(mg/dl) (if 180 145 indicated): Blood Sugar Stated by Stated by Patient Patient Vital Signs Temperature (97.8 F-99.1 F) 97 F L 96.9 F L 96.8 F L Temperature Source Temporal Temporal Temporal Pulse Rate (60-100) 103 H 103 H 99 Pulse Location Monitor Monitor Monitor Respiratory Rate (12-18) 22 H 16 20 H Respiratory rate source Observation Observation Observation Oxygen Delivery Method Room Air Blood Pressure (90/60-120/80) 152/77 H 155/84 H 149/78 H Blood Pressure Mean (mm Hg) 102 107 101 Source Monitor Monitor Monitor Position Sitting Blood Pressure Location Right Arm History Since Last Visit- (Skip if this is Patient's initial visit) Have you changed medications since your No No No last visit? Any new allergies or adverse reactions No No No Had a fall/change in ADL's that may No No No increase risk of falls Signs or symptoms of abuse and/or No No No neglect since last visit Have you been in the hospital since your No No No last visit? Has dressing in place as prescribed Yes Yes Yes Has compression in place as prescribed Yes Yes Yes Has offloadiing in place as prescribed Yes Yes N/A Experienced any changes in pain level or No No management Left Footwear Surgical Shoe Surgical Shoe Surgical Shoe with pressure with pressure with pressure relief insole relief insole relief insole Right Footwear Regular Shoe Regular Shoe Pain Scale: 0-10 Numeric Is Patient Pain Free? Yes Yes Yes 12/10/21 10:20 WC - Today's Visit Information Type of service Follow-up Visit (Physician/BUYING INTERN ) Arrival Mode Wheelchair Transfer Assistance None Transfer Assist (Other) Accompanied by Patient Identification Verified (Name & Yes ) Patient Requires Transmission-Based No Precautions Safety Precautions Fall Prevention Finger Stick Blood Sugar(mg/dl) (if 160 indicated): Blood Sugar Stated by Patient Vital Signs Temperature (97.8 F-99.1 F) 98.0 F Temperature Source Temporal Pulse Rate (60-100) 97 Pulse Location Monitor Respiratory Rate (12-18) 18 Respiratory rate source Observation Oxygen Delivery Method Room Air Blood Pressure (90/60-120/80) 126/66 H Blood Pressure Mean (mm Hg) 86 Source Monitor Position Sitting Blood Pressure Location Right Forearm History Since Last Visit- (Skip if this is Patient's initial visit) Have you changed medications since your No last visit? Any new allergies or adverse reactions No Had a fall/change in ADL's that may No increase risk of falls Signs or symptoms of abuse and/or No neglect since last visit Have you been in the hospital since your No last visit? Has dressing in place as prescribed Yes Has compression in place as prescribed Yes Has offloadiing in place as prescribed N/A Experienced any changes in pain level or No management Left Footwear Regular Shoe Right Footwear Surgical Shoe with pressure relief insole Pain Scale: 0-10 Numeric Is Patient Pain Free? Yes - Nurse 1 - General Ulcer Measurement Start: 11/19/21 09:45 Freq: Status: Active Protocol: Activity Type Activity Date Activity User E-sign Co-sign Detail Recorded Client Recorded Date Recorded By Document 11/19/21 09:46 DL [id number] 11/19/21 09:54 DL Document 11/26/21 09:20 BMF [id number] 11/26/21 09:33 BMF Document 12/03/21 10:18 DL [id number] 12/03/21 10:23 DL Document 12/10/21 10:20 MW [id number] 12/10/21 10:32 MW 11/19/21 11/26/21 12/03/21 09:46 09:20 10:18 Wound Center Nurse 1 #2 LEFT LATERAL LE -Combined with other wound No -Current Size (cm) - Length 0.7 0.8 0.9 -Current Size (cm) - Width 0.8 2.7 0.2 -Current Size (cm) - Depth 0.1 0.1 0.1 -Total Square Cm 0.56 2.16 0.18 -Photo Taken No No No -Epithelialization None Present -Tunneling No -Undermining/Tunneling No -Circular Undermining No -Exudate Amt Small Medium Small -Exudate Type Serosanguineous Serosanguineous Serosanguineous -Wound Margin Distinct, Distinct, Thickened Outline Outline Attached Attached -Granulation Amt None Present (0 Small (1-33%) %) -Granulation Quality Red Red -Slough/Fibrin Yes -Necrosis Amt Large (67-100%) Large (67-100%) Large (67-100%) -Necrotic Tissue Type Eschar Adherent Slough Eschar -Structure Exposed N/A N/A -Texture (Maribel-wound Skin Appearance) Scarring Assessed, Scarring Scarring -Moisture (Maribel-wound Skin Appearance) No Abnormality Assessed,Dry/ Dry/Scaly Scaly -Color (Maribel-wound Skin Appearance) Hemosiderin Assessed, Erythema Staining Hemosiderin Staining -Temperature (Maribel-wound Skin No Abnormality No Abnormality No Abnormality Appearance) (Pt Warm) (Pt Warm) (Pt Warm) -Tenderness on Palpation (Maribel-wound No No No Skin Appearance) -Ulcer Cleansing Soap and Water Rinsed/ Soap and Water Irrigated with Saline -Foul Odor after Cleansing No No -Anesthetic Used 5% Lidocaine 4% Lidocaine 5% Lidocaine Gel Solution Gel #1 Left Lateral Plantar -Combined with other wound No -Current Size (cm) - Length 0.5 0.8 0.7 -Current Size (cm) - Width 0.8 1 0.5 -Current Size (cm) - Depth 0.4 0.6 0.2 -Total Square Cm 0.40 0.8 0.35 -Date of Last Picture (Recall this field) -Photo Taken No No No -Epithelialization None Present -Tunneling No -Undermining/Tunneling Yes -Undermining/Tunneling Starts (O'clock 10 12 ) -Undermining/Tunneling Ends (O'clock) 5 12 -Maximum Distance (cm) 0.5 0.5 -Circular Undermining Yes -Exudate Amt Medium Medium -Exudate Type Serosanguineous Sanguineous Serosanguineous -Wound Margin Distinct, Distinct, Distinct, Outline Outline Outline Attached Attached Attached -Granulation Amt Large (67-100%) Small (1-33%) None Present (0 %) -Granulation Quality Red [place] Red -Slough/Fibrin Yes -Necrosis Amt Small (1-33%) Medium (34-66%) Large (67-100%) -Necrotic Tissue Type Adherent Slough Adherent Slough Adherent Slough -Structure Exposed N/A N/A -Texture (Maribel-wound Skin Appearance) Scarring Assessed, Scarring Scarring -Moisture (Maribel-wound Skin Appearance) Maceration Assessed,Dry/ Dry/Scaly Scaly -Color (Maribel-wound Skin Appearance) No Abnormality Assessed Hemosiderin Staining -Temperature (Maribel-wound Skin No Abnormality No Abnormality Appearance) (Pt Warm) (Pt Warm) -Tenderness on Palpation (Maribel-wound No No Skin Appearance) -Ulcer Cleansing Soap and Water Rinsed/ Rinsed/ Irrigated with Irrigated with Saline Saline -Foul Odor after Cleansing No No No -Anesthetic Used 5% Lidocaine 4% Lidocaine 5% Lidocaine Gel Solution Gel Lower Limb Edema Present Right Calf (cm) 36.6 Right Ankle (cm) 24.5 Left Calf (cm) 36.5 Left Ankle (cm) 22.9 12/10/21 10:20 Wound Center Nurse 1 #2 LEFT LATERAL LE -Combined with other wound No -Current Size (cm) - Length 0.1 -Current Size (cm) - Width 0.1 -Current Size (cm) - Depth 0.1 -Total Square Cm 0.01 -Photo Taken No -Epithelialization None Present -Tunneling No -Undermining/Tunneling No -Circular Undermining No -Exudate Amt None Present -Exudate Type -Wound Margin Flat & Intact -Granulation Amt None Present (0 %) -Granulation Quality N/A -Slough/Fibrin Yes -Necrosis Amt Large (67-100%) -Necrotic Tissue Type Adherent Slough -Structure Exposed N/A -Texture (Maribel-wound Skin Appearance) Assessed, Localized Edema ,Scarring -Moisture (Maribel-wound Skin Appearance) Assessed,Dry/ Scaly -Color (Maribel-wound Skin Appearance) Assessed, Hemosiderin Staining -Temperature (Maribel-wound Skin No Abnormality Appearance) (Pt Warm) -Tenderness on Palpation (Maribel-wound Yes Skin Appearance) -Ulcer Cleansing Rinsed/ Irrigated with Saline -Foul Odor after Cleansing No -Anesthetic Used 5% Lidocaine Gel #1 Left Lateral Plantar -Combined with other wound No -Current Size (cm) - Length 0.5 -Current Size (cm) - Width 0.5 -Current Size (cm) - Depth 0.4 -Total Square Cm 0.25 -Date of Last Picture (Recall this 12/10/21 field) -Photo Taken Yes -Epithelialization Small 1-33% -Tunneling No -Undermining/Tunneling No -Undermining/Tunneling Starts (O'clock ) -Undermining/Tunneling Ends (O'clock) -Maximum Distance (cm) -Circular Undermining No -Exudate Amt Small -Exudate Type Serosanguineous -Wound Margin Distinct, Outline Attached -Granulation Amt Large (67-100%) -Granulation Quality Pale -Slough/Fibrin Yes -Necrosis Amt Small (1-33%) -Necrotic Tissue Type Adherent Slough -Structure Exposed Fat Layer Exposed -Texture (Maribel-wound Skin Appearance) Assessed, Localized Edema ,Scarring -Moisture (Maribel-wound Skin Appearance) Assessed,Dry/ Scaly -Color (Maribel-wound Skin Appearance) Assessed, Hemosiderin Staining -Temperature (Maribel-wound Skin No Abnormality Appearance) (Pt Warm) -Tenderness on Palpation (Maribel-wound No Skin Appearance) -Ulcer Cleansing Rinsed/ Irrigated with Saline -Foul Odor after Cleansing No -Anesthetic Used 5% Lidocaine Gel Lower Limb Edema Present Yes Right Calf (cm) Right Ankle (cm) Left Calf (cm) 36.0 Left Ankle (cm) 22.5 - Nurse 2 - General Ulcer CM Notes Start: 11/19/21 09:45 Freq: Status: Active Protocol: Activity Type Activity Date Activity User E-sign Co-sign Detail Recorded Client Recorded Date Recorded By Document 11/19/21 10:03 [id number] 11/19/21 10:14 Document 11/26/21 09:43 [id number] 11/26/21 09:46 Document 12/03/21 10:31 [id number] 12/03/21 10:35 Document 12/10/21 11:02 [id number] 12/10/21 11:05 11/19/21 11/26/21 12/03/21 10:03 09:43 10:31 Wound Center Nurse 2 #2 LEFT LATERAL LE -Time 10:13 09:44 10:31 -Correct Patient Yes Yes Yes -Correct Side, Site, Position Yes Yes Yes -Correct Procedure Yes Yes Yes -Procedure Performed Yes Yes Yes -Type of Procedure Debridement Debridement Debridement -Clinical Debridement Subcutaneous Subcutaneous Subcutaneous -Tissue Removed Subcutaneous Subcutaneous Subcutaneous -Post Debridement (cm) - Length 0.8 0.8 0.6 -Post Debridement (cm) - Width 0.8 2.8 1.1 -Post Debridement (cm) - Depth 0.1 0.1 0.1 -Total Square (Post) (cm) 0.64 2.24 0.66 -Area of Debridement (cm) - Length 0.8 0.8 0.6 -Area of Debridement (cm) - Width 0.8 2.8 1.1 -Total Square (Area) (cm) 0.64 2.24 0.66 -Tunneling No No No -Undermining/Tunneling No No No -Circular Undermining No No No -Wound/Ulcer Outcome Not Healed Not Healed Not Healed -Ulcer Cleansing Rinsed/ Rinsed/ Rinsed/ Irrigated with Irrigated with Irrigated with Saline Saline Saline -Foul Odor after Cleansing No No No -Bioengineered Tissue No No No -Bleeding Controlled with Pressure Pressure Pressure -Treatment Response Procedure Procedure Procedure Tolerated Well Tolerated Well Tolerated Well -Offloading Yes No No -Type of Offloading Surgical Shoe -Debridement - Subq, 1st 20sq cm No Yes No #1 Left Lateral Plantar -Time 10:13 09:43 10:32 -Correct Patient Yes Yes Yes -Correct Side, Site, Position Yes Yes Yes -Correct Procedure Yes Yes Yes -Procedure Performed Yes Yes Yes -Type of Procedure Debridement Debridement Debridement -Clinical Debridement Subcutaneous Muscle / Fascia Subcutaneous -Tissue Removed Subcutaneous Muscle Subcutaneous -Post Debridement (cm) - Length 0.6 0.8 0.8 -Post Debridement (cm) - Width 0.8 1.1 0.5 -Post Debridement (cm) - Depth 0.4 0.5 0.3 -Total Square (Post) (cm) 0.48 0.88 0.40 -Area of Debridement (cm) - Length 0.6 0.8 0.8 -Area of Debridement (cm) - Width 0.8 1.1 0.5 -Total Square (Area) (cm) 0.48 0.88 0.40 -Tunneling No No No -Undermining/Tunneling No No No -Circular Undermining No No No -Wound/Ulcer Outcome Not Healed Not Healed Not Healed -Ulcer Cleansing Rinsed/ Rinsed/ Rinsed/ Irrigated with Irrigated with Irrigated with Saline Saline Saline -Foul Odor after Cleansing No No No -Bioengineered Tissue No No No -Bleeding Controlled with Pressure Pressure Pressure -Treatment Response Procedure Procedure Procedure Tolerated Well Tolerated Well Tolerated Well -Offloading Yes Yes Yes -Type of Offloading Surgical Shoe Surgical Shoe Surgical Shoe -Debridement - Subq, 1st 20sq cm Yes No Yes -Debridement - Muscle / Fascia, 1st Yes 20sq cm Pain Scale: 0-10 Numeric Is Patient Pain Free? Yes Yes Yes 12/10/21 11:02 Wound Center Nurse 2 #2 LEFT LATERAL LE -Time 11:02 -Correct Patient No -Correct Side, Site, Position No -Correct Procedure No -Procedure Performed No -Type of Procedure -Clinical Debridement -Tissue Removed -Post Debridement (cm) - Length 0 -Post Debridement (cm) - Width 0 -Post Debridement (cm) - Depth 0 -Total Square (Post) (cm) 0 -Area of Debridement (cm) - Length 0 -Area of Debridement (cm) - Width 0 -Total Square (Area) (cm) 0 -Tunneling No -Undermining/Tunneling No -Circular Undermining No -Wound/Ulcer Outcome Healed- Epithelialized -Ulcer Cleansing Rinsed/ Irrigated with Saline -Foul Odor after Cleansing No -Bioengineered Tissue No -Bleeding Controlled with Pressure -Treatment Response Procedure Tolerated Well -Offloading Yes -Type of Offloading Surgical Shoe -Debridement - Subq, 1st 20sq cm Yes #1 Left Lateral Plantar -Time 11:03 -Correct Patient Yes -Correct Side, Site, Position Yes -Correct Procedure Yes -Procedure Performed Yes -Type of Procedure Debridement -Clinical Debridement Subcutaneous -Tissue Removed Subcutaneous -Post Debridement (cm) - Length 0.6 -Post Debridement (cm) - Width 0.5 -Post Debridement (cm) - Depth 0.3 -Total Square (Post) (cm) 0.30 -Area of Debridement (cm) - Length 0.6 -Area of Debridement (cm) - Width 0.5 -Total Square (Area) (cm) 0.30 -Tunneling No -Undermining/Tunneling No -Circular Undermining No -Wound/Ulcer Outcome Not Healed -Ulcer Cleansing Rinsed/ Irrigated with Saline -Foul Odor after Cleansing No -Bioengineered Tissue No -Bleeding Controlled with Pressure -Treatment Response Procedure Tolerated Well -Offloading Yes -Type of Offloading Surgical Shoe -Debridement - Subq, 1st 20sq cm Yes -Debridement - Muscle / Fascia, 1st 20sq cm Pain Scale: 0-10 Numeric Is Patient Pain Free? Yes WC - Nurse 3 - General Ulcer D/C NN Start: 11/19/21 09:45 Freq: Status: Active Protocol: Activity Type Activity Date Activity User E-sign Co-sign Detail Recorded Client Recorded Date Recorded By Document 11/19/21 10:31 DL [id number] 11/19/21 10:35 DL Document 11/26/21 10:08 [facility] [id number] 11/26/21 10:09 BMF Document 12/03/21 11:06 [place] [id number] 12/03/21 11:07 AK Document 12/10/21 11:17 BM [id number] 12/10/21 11:19 BMF 11/19/21 11/26/21 12/03/21 10:31 10:08 11:06 Wound Care Nurse 3 #2 LEFT LATERAL LE -Ulcer Cleansing Rinsed/ Rinsed/ Rinsed/ Irrigated with Irrigated with Irrigated with Saline Saline Saline -Foul Odor after Cleansing No No No -Negative Pressure Wound Therapy N/A -Primary Dressing Applied Aquacel AG 2x2 Aquacel AG 2x2 Aquacel AG 2x2 -Primary Dressing Covered/Secured with Dry Gauze, Dry Gauze & Dry Gauze, Secured with Roll Gauze, Secured with Tape Secured with Tape Tape -Aquacel AG 2x2 1 1 1 #1 Left Lateral Plantar -Ulcer Cleansing Rinsed/ Rinsed/ Rinsed/ Irrigated with Irrigated with Irrigated with Saline Saline Saline -Foul Odor after Cleansing No No No -Negative Pressure Wound Therapy N/A -Primary Dressing Applied Aquacel AG 2x2 Aquacel AG 2x2 -Other Dressing aqucel ag -Primary Dressing Covered/Secured with Dry Gauze & Dry Gauze, Dry Gauze & Roll Gauze, Secured with Roll Gauze, Secured with Tape Secured with Tape Tape -Other Covering -Aquacel AG 2x2 0 0 Left -Lotion applied to leg before No compression wrap -Tubular Bandage Double Layer Double Layer Double Layer -Size of Tubigrip Used Size D Size E Size E -Size D ($) 2 -Size E ($) 1 2 Treatment Response Procedure Procedure Tolerated Well Tolerated Well Pain Scale: 0-10 Numeric Is Patient Pain Free? Yes Yes Yes WC - Visit Discharge Discharge Condition Stable Stable Stable Ambulatory Status Ambulatory,Cane Wheelchair Wheelchair ,Wheelchair Transportation Private Auto Private Auto Private Auto Accompanied by Medication Reconcilliation completed & Yes provided to patient/care provider Clinical Summary of Care Provided Yes 12/10/21 11:17 Wound Care Nurse 3 #2 LEFT LATERAL LE -Ulcer Cleansing -Foul Odor after Cleansing -Negative Pressure Wound Therapy -Primary Dressing Applied -Primary Dressing Covered/Secured with -Aquacel AG 2x2 #1 Left Lateral Plantar -Ulcer Cleansing Rinsed/ Irrigated with Saline -Foul Odor after Cleansing No -Negative Pressure Wound Therapy -Primary Dressing Applied Aquacel AG 2x2 -Other Dressing -Primary Dressing Covered/Secured with Dry Gauze, Secured with Tape -Other Covering DRSG PER [place] [employer] TECHNICIAN -Aquacel AG 2x2 1 Left -Lotion applied to leg before compression wrap -Tubular Bandage Double Layer -Size of Tubigrip Used Size E -Size D ($) -Size E ($) 2 Treatment Response Pain Scale: 0-10 Numeric Is Patient Pain Free? Yes WC - Visit Discharge Discharge Condition Stable Ambulatory Status Wheelchair Transportation Private Auto Accompanied by Medication Reconcilliation completed & provided to patient/care provider Clinical Summary of Care Provided Assessment/Plan Assessment/Plan (1) Peripheral vascular disease, unspecified: CODE(S): I73.9 - Peripheral vascular disease, unspecified PLAN: Patient examined evaluated, all findings discussed with patient in detail. The left plantar fifth metatarsal head and lateral leg wound were excisionally debrided down to including level of subcutaneous tissue of all nonviable tissue using a 5 mm dermal curette. Hemostasis obtained with light compression. No no anesthesia due to neuropathy. Patient tolerated procedure well. Pre and postdebridement measurements document nursing notes. Will continue with daily cleansing of foot with soap and water washes, application of silver alginate DSD daily. Patient will heel weight-bear in surgical shoe with a custom made offloading pad to offload the fifth metatarsal head and the left lower extremity. Vascular studies scheduled for December. Will continue conservative treatment until we receive the results of those. Cultures and radiographs reviewed. No concern for residual deep infection at this time. Patient will continue offloading site in a surgical shoe with offloading pad. If there are any delays in healing we will consider total contact casting versus left fifth metatarsal head resection versus percutaneous floating metatarsal osteotomy of the fifth metatarsal; however, I feel the patient has significant arterial disease which may limit healing. We will await vascular results. Patient will follow up in 1 week. (2) Type 2 diabetes mellitus with diabetic polyneuropathy: CODE(S): E11.42 - Type 2 diabetes mellitus with diabetic polyneuropathy (3) Non-pressure chronic ulcer of other part of left foot with necrosis of bone: CODE(S): L97.524 - Non-pressure chronic ulcer of other part of left foot with necrosis of bone
[2021-12-17 13:32] VITALS: BP 128/56; PULSE 100; RESP 16; TEMP 36.4
--- NOTE | 2021-12-17 14:27 | PCM.WC.PN ---
History of Present Illness Date of Service: 12/17/21 Chief Complaint: Left plantar foot ulcer History of Wound: Patient is an 81 year old male who presents with an ulcer on the left foot on the lateral plantar surface, just proximal from the 5th toe. Per the patient's , he has had this ulcer about a year. He has a history of Afib on coumadin, insulin controlled type 2 DM, gout, CHF, CKD 3, peripheral vascular disease and a right foot ulcer that required HBOT to help heal. Patient denies constitutional symptoms at this time. Patient notes some drainage and pain to the left foot. today, he denies redness and swelling. Patient has been offloading site with surgical shoe and limits overall activity. He reports he has a new wound to his left langley. He denies injury and thinks the onset was this past week. His has applied Aquacel Ag to the site as well. Progress of Wound: Improving foot Stable new left leg ulcer Objective Data Objective Data Vital Signs: Vital Signs Temp Pulse Resp BP O2 Del Method 97.6 F L 100 16 128/56 H Room Air 12/17/21 13:32 12/17/21 13:32 12/17/21 13:32 12/17/21 13:32 12/17/21 13:32 Oxygen Delivery Method Room Air Lab / Micro Data Result Diagrams: 11/19/21 11:00 11/19/21 11:00 Micro: Microbiology 11/19/21 10:03 Wound Abcess - Left Foot Gram Stain - Final 11/19/21 10:03 Wound Abcess - Left Foot Wound Culture - Final Staphylococcus lugdunensis Enterococcus faecalis Staphylococcus epidermidis 11/19/21 10:03 Wound Abcess - Left Foot Anaerobic Culture - Final Anaerobic cocci Physical Exam Narrative Patient alert oriented person place and time. Patient ambulating surgical shoe to left lower extremity. Vascular: Dorsalis pedis posterior tibial pulses diminished bilaterally. Atrophic skin changes noted. +1 pitting edema to noted to bilateral lower extremity with hemosiderin deposits. Neurologic: Light touch protective sensation absent to bilateral feet. Dermatologic: There are 2 wounds 1 to noted to the anterior proximal left leg with a granular base. Debridement postdebridement demonstrates clean granular break base no deep probing or undermining clean postdebridement measurements document nursing notes. No signs of infection. Full-thickness wound noted to the plantar left fifth metatarsal head wound probes down the level of the fifth metatarsal head has significant hyperkeratosis to the periwound area along with resolution of erythema, edema, and no purulent drainage noted at this time upon debridement there is noted to be some healthy bleeding to the site. Pre and postdebridement measurements document nursing notes. 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 No pain with calf squeeze bilaterally. Muscular strength full to bilateral lower extremities. Debridement Note Debridement Note Wound debrided: plantar lateral foot, leg (anterior proximal) Laterality: Left Wound Grade/Stage: Type of Debridement: Excisional debridement Anesthesia Used: 4% Lidocaine Solution Depth: in the subcutaneous layer Percentage of wound debrided: 100 Instrument Used: #15 blade Tissue Removed: fibrous, devitalized subcutaneous, biofilm, slough Severity: Fat Layer Exposed Amount of bleeding with debridement: Mild Bleeding Controlled with: Pressure Patient tolerated procedure: Patient tolerated procedure well Post-Debridement Measurements and Additional Note: Post-Debridement Measurements/Treatment - Nurse 1 - General Ulcer Assessment Start: 11/19/21 09:45 Freq: Status: Active Protocol: [email or web address].GOLDEN Activity Type Activity Date Activity User E-sign Co-sign Detail Recorded Client Recorded Date Recorded By Document 11/19/21 09:46 DL [id number] 11/19/21 09:54 DL Document 11/26/21 09:20 BMF [id number] 11/26/21 09:33 BMF Document 12/03/21 10:18 DL [id number] 12/03/21 10:23 DL Document 12/10/21 10:20 MW [id number] 12/10/21 10:32 MW Document 12/17/21 13:32 MW [id number] 12/17/21 13:50 MW 11/19/21 11/26/21 12/03/21 09:46 09:20 10:18 - Today's Visit Information Type of service Follow-up Visit Follow-up Visit Follow-up Visit (Physician/MARKETING DEVELOPER (Physician/MARKETING DEVELOPER (Physician/MARKETING DEVELOPER ) ) ) Arrival Mode Cane,Wheelchair Wheelchair Ambulatory Transfer Assistance Manual Other None Transfer Assist (Other) x1 1 ASSIST W/ CANE Accompanied by Patient Identification Verified (Name & Yes Yes Yes ) Patient Requires Transmission-Based No No No Precautions Safety Precautions Finger Stick Blood Sugar(mg/dl) (if 180 145 indicated): Blood Sugar Stated by Stated by Patient Patient Vital Signs Temperature (97.8 F-99.1 F) 97 F L 96.9 F L 96.8 F L Temperature Source Temporal Temporal Temporal Pulse Rate (60-100) 103 H 103 H 99 Pulse Location Monitor Monitor Monitor Respiratory Rate (12-18) 22 H 16 20 H Respiratory rate source Observation Observation Observation Oxygen Delivery Method Room Air Blood Pressure (90/60-120/80) 152/77 H 155/84 H 149/78 H Blood Pressure Mean (mm Hg) 102 107 101 Source Monitor Monitor Monitor Position Sitting Blood Pressure Location Right Arm History Since Last Visit- (Skip if this is Patient's initial visit) Have you changed medications since your No No No last visit? Any new allergies or adverse reactions No No No Had a fall/change in ADL's that may No No No increase risk of falls Signs or symptoms of abuse and/or No No No neglect since last visit Have you been in the hospital since your No No No last visit? Has dressing in place as prescribed Yes Yes Yes Has compression in place as prescribed Yes Yes Yes Has offloadiing in place as prescribed Yes Yes N/A Experienced any changes in pain level or No No management Left Footwear Surgical Shoe Surgical Shoe Surgical Shoe with pressure with pressure with pressure relief insole relief insole relief insole Right Footwear Regular Shoe Regular Shoe Pain Scale: 0-10 Numeric Is Patient Pain Free? Yes Yes Yes 12/10/21 12/17/21 10:20 13:32 - Today's Visit Information Type of service Follow-up Visit Follow-up Visit (Physician/MARKETING DEVELOPER (Physician/MARKETING DEVELOPER ) ) Arrival Mode Wheelchair Ambulatory,Cane Transfer Assistance None None Transfer Assist (Other) Accompanied by Patient Identification Verified (Name & Yes Yes ) Patient Requires Transmission-Based No No Precautions Safety Precautions Fall Prevention Finger Stick Blood Sugar(mg/dl) (if 160 183 indicated): Blood Sugar Stated by Patient Vital Signs Temperature (97.8 F-99.1 F) 98.0 F 97.6 F L Temperature Source Temporal Temporal Pulse Rate (60-100) 97 100 Pulse Location Monitor Monitor Respiratory Rate (12-18) 18 16 Respiratory rate source Observation Observation Oxygen Delivery Method Room Air Room Air Blood Pressure (90/60-120/80) 126/66 H 128/56 H Blood Pressure Mean (mm Hg) 86 80 Source Monitor Monitor Position Sitting Sitting Blood Pressure Location Right Forearm Right Forearm History Since Last Visit- (Skip if this is Patient's initial visit) Have you changed medications since your No No last visit? Any new allergies or adverse reactions No No Had a fall/change in ADL's that may No No increase risk of falls Signs or symptoms of abuse and/or No No neglect since last visit Have you been in the hospital since your No No last visit? Has dressing in place as prescribed Yes Yes Has compression in place as prescribed Yes Yes Has offloadiing in place as prescribed N/A Experienced any changes in pain level or No No management Left Footwear Regular Shoe Surgical Shoe with pressure relief insole Right Footwear Surgical Shoe Regular Shoe with pressure relief insole Pain Scale: 0-10 Numeric Is Patient Pain Free? Yes Yes WC - Nurse 1 - General Ulcer Measurement Start: 11/19/21 09:45 Freq: Status: Active Protocol: Activity Type Activity Date Activity User E-sign Co-sign Detail Recorded Client Recorded Date Recorded By Document 11/19/21 09:46 DL [id number] 11/19/21 09:54 DL Document 11/26/21 09:20 BMF [id number] 11/26/21 09:33 BMF Document 12/03/21 10:18 DL [id number] 12/03/21 10:23 DL Document 12/10/21 10:20 MW [id number] 12/10/21 10:32 MW Document 12/17/21 13:32 MW [id number] 12/17/21 13:50 MW 11/19/21 11/26/21 12/03/21 09:46 09:20 10:18 Wound Center Nurse 1 #2 LEFT LATERAL LE -Combined with other wound No -Current Size (cm) - Length 0.7 0.8 0.9 -Current Size (cm) - Width 0.8 2.7 0.2 -Current Size (cm) - Depth 0.1 0.1 0.1 -Total Square Cm 0.56 2.16 0.18 -Photo Taken No No No -Epithelialization None Present -Tunneling No -Undermining/Tunneling No -Circular Undermining No -Exudate Amt Small Medium Small -Exudate Type Serosanguineous Serosanguineous Serosanguineous -Wound Margin Distinct, Distinct, Thickened Outline Outline Attached Attached -Granulation Amt None Present (0 Small (1-33%) %) -Granulation Quality Red Red -Slough/Fibrin Yes -Necrosis Amt Large (67-100%) Large (67-100%) Large (67-100%) -Necrotic Tissue Type Eschar Adherent Slough Eschar -Structure Exposed N/A N/A -Texture (Maribel-wound Skin Appearance) Scarring Assessed, Scarring Scarring -Moisture (Maribel-wound Skin Appearance) No Abnormality Assessed,Dry/ Dry/Scaly Scaly -Color (Maribel-wound Skin Appearance) Hemosiderin Assessed, Erythema Staining Hemosiderin Staining -Temperature (Maribel-wound Skin No Abnormality No Abnormality No Abnormality Appearance) (Pt Warm) (Pt Warm) (Pt Warm) -Tenderness on Palpation (Maribel-wound No No No Skin Appearance) -Ulcer Cleansing Soap and Water Rinsed/ Soap and Water Irrigated with Saline -Foul Odor after Cleansing No No -Anesthetic Used 5% Lidocaine 4% Lidocaine 5% Lidocaine Gel Solution Gel #3 right superior langley -Combined with other wound -Current Size (cm) - Length -Current Size (cm) - Width -Current Size (cm) - Depth -Total Square Cm -Date of Last Picture (Recall this field) -Photo Taken -Epithelialization -Undermining/Tunneling -Circular Undermining -Exudate Amt -Exudate Type -Wound Margin -Granulation Amt -Granulation Quality -Slough/Fibrin -Necrosis Amt -Necrotic Tissue Type -Structure Exposed -Texture (Maribel-wound Skin Appearance) -Moisture (Maribel-wound Skin Appearance) -Color (Maribel-wound Skin Appearance) -Temperature (Maribel-wound Skin Appearance) -Tenderness on Palpation (Maribel-wound Skin Appearance) -Ulcer Cleansing -Foul Odor after Cleansing -Anesthetic Used #1 Left Lateral Plantar -Combined with other wound No -Current Size (cm) - Length 0.5 0.8 0.7 -Current Size (cm) - Width 0.8 1 0.5 -Current Size (cm) - Depth 0.4 0.6 0.2 -Total Square Cm 0.40 0.8 0.35 -Date of Last Picture (Recall this field) -Photo Taken No No No -Epithelialization None Present -Tunneling No -Undermining/Tunneling Yes -Undermining/Tunneling Starts (O'clock 10 12 ) -Undermining/Tunneling Ends (O'clock) 5 12 -Maximum Distance (cm) 0.5 0.5 -Circular Undermining Yes -Exudate Amt Medium Medium -Exudate Type Serosanguineous Sanguineous Serosanguineous -Wound Margin Distinct, Distinct, Distinct, Outline Outline Outline Attached Attached Attached -Granulation Amt Large (67-100%) Small (1-33%) None Present (0 %) -Granulation Quality Red [employer] Red -Slough/Fibrin Yes -Necrosis Amt Small (1-33%) Medium (34-66%) Large (67-100%) -Necrotic Tissue Type Adherent Slough Adherent Slough Adherent Slough -Structure Exposed N/A N/A -Texture (Maribel-wound Skin Appearance) Scarring Assessed, Scarring Scarring -Moisture (Maribel-wound Skin Appearance) Maceration Assessed,Dry/ Dry/Scaly Scaly -Color (Maribel-wound Skin Appearance) No Abnormality Assessed Hemosiderin Staining -Temperature (Maribel-wound Skin No Abnormality No Abnormality Appearance) (Pt Warm) (Pt Warm) -Tenderness on Palpation (Maribel-wound No No Skin Appearance) -Ulcer Cleansing Soap and Water Rinsed/ Rinsed/ Irrigated with Irrigated with Saline Saline -Foul Odor after Cleansing No No No -Anesthetic Used 5% Lidocaine 4% Lidocaine 5% Lidocaine Gel Solution Gel Lower Limb Edema Present Right Calf (cm) 36.6 Right Ankle (cm) 24.5 Left Calf (cm) 36.5 Left Ankle (cm) 22.9 12/10/21 12/17/21 10:20 13:32 Wound Center Nurse 1 #2 LEFT LATERAL LE -Combined with other wound No -Current Size (cm) - Length 0.1 -Current Size (cm) - Width 0.1 -Current Size (cm) - Depth 0.1 -Total Square Cm 0.01 -Photo Taken No -Epithelialization None Present -Tunneling No -Undermining/Tunneling No -Circular Undermining No -Exudate Amt None Present -Exudate Type -Wound Margin Flat & Intact -Granulation Amt None Present (0 %) -Granulation Quality N/A -Slough/Fibrin Yes -Necrosis Amt Large (67-100%) -Necrotic Tissue Type Adherent Slough -Structure Exposed N/A -Texture (Maribel-wound Skin Appearance) Assessed, Localized Edema ,Scarring -Moisture (Maribel-wound Skin Appearance) Assessed,Dry/ Scaly -Color (Maribel-wound Skin Appearance) Assessed, Hemosiderin Staining -Temperature (Maribel-wound Skin No Abnormality Appearance) (Pt Warm) -Tenderness on Palpation (Maribel-wound Yes Skin Appearance) -Ulcer Cleansing Rinsed/ Irrigated with Saline -Foul Odor after Cleansing No -Anesthetic Used 5% Lidocaine Gel #3 right superior langley -Combined with other wound No -Current Size (cm) - Length 0.6 -Current Size (cm) - Width 0.3 -Current Size (cm) - Depth 0.1 -Total Square Cm 0.18 -Date of Last Picture (Recall this 12/17/21 field) -Photo Taken Yes -Epithelialization None Present -Undermining/Tunneling No -Circular Undermining No -Exudate Amt Small -Exudate Type Serosanguineous -Wound Margin Flat & Intact -Granulation Amt Large (67-100%) -Granulation Quality Red -Slough/Fibrin Yes -Necrosis Amt None Present (0 %) -Necrotic Tissue Type Adherent Slough -Structure Exposed N/A -Texture (Maribel-wound Skin Appearance) Assessed -Moisture (Maribel-wound Skin Appearance) Assessed,Dry/ Scaly -Color (Maribel-wound Skin Appearance) Assessed, Hemosiderin Staining -Temperature (Maribel-wound Skin No Abnormality Appearance) (Pt Warm) -Tenderness on Palpation (Maribel-wound No Skin Appearance) -Ulcer Cleansing Rinsed/ Irrigated with Saline -Foul Odor after Cleansing No -Anesthetic Used 5% Lidocaine Gel #1 Left Lateral Plantar -Combined with other wound No No -Current Size (cm) - Length 0.5 0.2 -Current Size (cm) - Width 0.5 0.2 -Current Size (cm) - Depth 0.4 0.1 -Total Square Cm 0.25 0.04 -Date of Last Picture (Recall this 12/10/21 12/17/21 field) -Photo Taken Yes Yes -Epithelialization Small 1-33% Medium 34-66% -Tunneling No No -Undermining/Tunneling No No -Undermining/Tunneling Starts (O'clock ) -Undermining/Tunneling Ends (O'clock) -Maximum Distance (cm) -Circular Undermining No No -Exudate Amt Small Small -Exudate Type Serosanguineous Serosanguineous -Wound Margin Distinct, Flat & Intact Outline Attached -Granulation Amt Large (67-100%) Small (1-33%) -Granulation Quality Pale [employer] -Slough/Fibrin Yes Yes -Necrosis Amt Small (1-33%) Small (1-33%) -Necrotic Tissue Type Adherent Slough -Structure Exposed Fat Layer N/A Exposed -Texture (Maribel-wound Skin Appearance) Assessed, Assessed, Localized Edema Localized Edema ,Scarring -Moisture (Maribel-wound Skin Appearance) Assessed,Dry/ Assessed, Scaly Maceration -Color (Maribel-wound Skin Appearance) Assessed, Assessed Hemosiderin Staining -Temperature (Maribel-wound Skin No Abnormality No Abnormality Appearance) (Pt Warm) (Pt Warm) -Tenderness on Palpation (Maribel-wound No No Skin Appearance) -Ulcer Cleansing Rinsed/ Rinsed/ Irrigated with Irrigated with Saline Saline -Foul Odor after Cleansing No No -Anesthetic Used 5% Lidocaine 5% Lidocaine Gel Gel Lower Limb Edema Present Yes Yes Right Calf (cm) Right Ankle (cm) Left Calf (cm) 36.0 36.0 Left Ankle (cm) 22.5 24.0 WC - Nurse 2 - General Ulcer CM Notes Start: 11/19/21 09:45 Freq: Status: Active Protocol: Activity Type Activity Date Activity User E-sign Co-sign Detail Recorded Client Recorded Date Recorded By Document 11/19/21 10:03 [id number] 11/19/21 10:14 Document 11/26/21 09:43 [id number] 11/26/21 09:46 Document 12/03/21 10:31 [id number] 12/03/21 10:35 Document 12/10/21 11:02 [id number] 12/10/21 11:05 Edit Result 12/10/21 11:02 JF (1) [id number] 12/11/21 07:29 PL (1) #2 LEFT LATERAL LE - Debridement - Subq, 1st 20sq cm Yes => No 11/19/21 11/26/21 08 10:03 09:43 10:31 Wound Center Nurse 2 #2 LEFT LATERAL LE -Time 10:13 09:44 10:31 -Correct Patient Yes Yes Yes -Correct Side, Site, Position Yes Yes Yes -Correct Procedure Yes Yes Yes -Procedure Performed Yes Yes Yes -Type of Procedure Debridement Debridement Debridement -Clinical Debridement Subcutaneous Subcutaneous Subcutaneous -Tissue Removed Subcutaneous Subcutaneous Subcutaneous -Post Debridement (cm) - Length 0.8 0.8 0.6 -Post Debridement (cm) - Width 0.8 2.8 1.1 -Post Debridement (cm) - Depth 0.1 0.1 0.1 -Total Square (Post) (cm) 0.64 2.24 0.66 -Area of Debridement (cm) - Length 0.8 0.8 0.6 -Area of Debridement (cm) - Width 0.8 2.8 1.1 -Total Square (Area) (cm) 0.64 2.24 0.66 -Tunneling No No No -Undermining/Tunneling No No No -Circular Undermining No No No -Wound/Ulcer Outcome Not Healed Not Healed Not Healed -Ulcer Cleansing Rinsed/ Rinsed/ Rinsed/ Irrigated with Irrigated with Irrigated with Saline Saline Saline -Foul Odor after Cleansing No No No -Bioengineered Tissue No No No -Bleeding Controlled with Pressure Pressure Pressure -Treatment Response Procedure Procedure Procedure Tolerated Well Tolerated Well Tolerated Well -Offloading Yes No No -Type of Offloading Surgical Shoe -Debridement - Subq, 1st 20sq cm No Yes No #1 Left Lateral Plantar -Time 10: 09:43 10:32 -Correct Patient Yes Yes Yes -Correct Side, Site, Position Yes Yes Yes -Correct Procedure Yes Yes Yes -Procedure Performed Yes Yes Yes -Type of Procedure Debridement Debridement Debridement -Clinical Debridement Subcutaneous Muscle / Fascia Subcutaneous -Tissue Removed Subcutaneous Muscle Subcutaneous -Post Debridement (cm) - Length 0.6 0.8 0.8 -Post Debridement (cm) - Width 0.8 1.1 0.5 -Post Debridement (cm) - Depth 0.4 0.5 0.3 -Total Square (Post) (cm) 0.48 0.88 0.40 -Area of Debridement (cm) - Length 0.6 0.8 0.8 -Area of Debridement (cm) - Width 0.8 1.1 0.5 -Total Square (Area) (cm) 0.48 0.88 0.40 -Tunneling No No No -Undermining/Tunneling No No No -Circular Undermining No No No -Wound/Ulcer Outcome Not Healed Not Healed Not Healed -Ulcer Cleansing Rinsed/ Rinsed/ Rinsed/ Irrigated with Irrigated with Irrigated with Saline Saline Saline -Foul Odor after Cleansing No No No -Bioengineered Tissue No No No -Bleeding Controlled with Pressure Pressure Pressure -Treatment Response Procedure Procedure Procedure Tolerated Well Tolerated Well Tolerated Well -Offloading Yes Yes Yes -Type of Offloading Surgical Shoe Surgical Shoe Surgical Shoe -Debridement - Subq, 1st 20sq cm Yes No Yes -Debridement - Muscle / Fascia, 1st Yes 20sq cm Pain Scale: 0-10 Numeric Is Patient Pain Free? Yes Yes Yes 12/10/21 11:02 Wound Center Nurse 2 #2 LEFT LATERAL LE -Time 11:02 -Correct Patient No -Correct Side, Site, Position No -Correct Procedure No -Procedure Performed No -Type of Procedure -Clinical Debridement -Tissue Removed -Post Debridement (cm) - Length 0 -Post Debridement (cm) - Width 0 -Post Debridement (cm) - Depth 0 -Total Square (Post) (cm) 0 -Area of Debridement (cm) - Length 0 -Area of Debridement (cm) - Width 0 -Total Square (Area) (cm) 0 -Tunneling No -Undermining/Tunneling No -Circular Undermining No -Wound/Ulcer Outcome Healed- Epithelialized -Ulcer Cleansing Rinsed/ Irrigated with Saline -Foul Odor after Cleansing No -Bioengineered Tissue No -Bleeding Controlled with Pressure -Treatment Response Procedure Tolerated Well -Offloading Yes -Type of Offloading Surgical Shoe -Debridement - Subq, 1st 20sq cm No #1 Left Lateral Plantar -Time 11:03 -Correct Patient Yes -Correct Side, Site, Position Yes -Correct Procedure Yes -Procedure Performed Yes -Type of Procedure Debridement -Clinical Debridement Subcutaneous -Tissue Removed Subcutaneous -Post Debridement (cm) - Length 0.6 -Post Debridement (cm) - Width 0.5 -Post Debridement (cm) - Depth 0.3 -Total Square (Post) (cm) 0.30 -Area of Debridement (cm) - Length 0.6 -Area of Debridement (cm) - Width 0.5 -Total Square (Area) (cm) 0.30 -Tunneling No -Undermining/Tunneling No -Circular Undermining No -Wound/Ulcer Outcome Not Healed -Ulcer Cleansing Rinsed/ Irrigated with Saline -Foul Odor after Cleansing No -Bioengineered Tissue No -Bleeding Controlled with Pressure -Treatment Response Procedure Tolerated Well -Offloading Yes -Type of Offloading Surgical Shoe -Debridement - Subq, 1st 20sq cm Yes -Debridement - Muscle / Fascia, 1st 20sq cm Pain Scale: 0-10 Numeric Is Patient Pain Free? Yes WC - Nurse 3 - General Ulcer D/C NN Start: 11/19/21 09:45 Freq: Status: Active Protocol: Activity Type Activity Date Activity User E-sign Co-sign Detail Recorded Client Recorded Date Recorded By Document 11/19/21 10:31 DL [id number] 11/19/21 10:35 DL Document 11/26/21 10:08 [facility] [id number] 11/26/21 10:09 BM Document 12/03/21 11:06 [place] [id number] 12/03/21 11:07 [place] Document 12/10/21 11:17 [facility] [id number] 12/10/21 11:19 BMF 11/19/21 11/26/21 12/03/21 10:31 10:08 11:06 Wound Care Nurse 3 #2 LEFT LATERAL LE -Ulcer Cleansing Rinsed/ Rinsed/ Rinsed/ Irrigated with Irrigated with Irrigated with Saline Saline Saline -Foul Odor after Cleansing No No No -Negative Pressure Wound Therapy N/A -Primary Dressing Applied Aquacel AG 2x2 Aquacel AG 2x2 Aquacel AG 2x2 -Primary Dressing Covered/Secured with Dry Gauze, Dry Gauze & Dry Gauze, Secured with Roll Gauze, Secured with Tape Secured with Tape Tape -Aquacel AG 2x2 1 1 1 #1 Left Lateral Plantar -Ulcer Cleansing Rinsed/ Rinsed/ Rinsed/ Irrigated with Irrigated with Irrigated with Saline Saline Saline -Foul Odor after Cleansing No No No -Negative Pressure Wound Therapy N/A -Primary Dressing Applied Aquacel AG 2x2 Aquacel AG 2x2 -Other Dressing aqucel ag -Primary Dressing Covered/Secured with Dry Gauze & Dry Gauze, Dry Gauze & Roll Gauze, Secured with Roll Gauze, Secured with Tape Secured with Tape Tape -Other Covering -Aquacel AG 2x2 0 0 Left -Lotion applied to leg before No compression wrap -Tubular Bandage Double Layer Double Layer Double Layer -Size of Tubigrip Used Size D Size E Size E -Size D ($) 2 -Size E ($) 1 2 Treatment Response Procedure Procedure Tolerated Well Tolerated Well Pain Scale: 0-10 Numeric Is Patient Pain Free? Yes Yes Yes WC - Visit Discharge Discharge Condition Stable Stable Stable Ambulatory Status Ambulatory,Cane Wheelchair Wheelchair ,Wheelchair Transportation Private Auto Private Auto Private Auto Accompanied by Medication Reconcilliation completed & Yes provided to patient/care provider Clinical Summary of Care Provided Yes 12/10/21 11:17 Wound Care Nurse 3 #2 LEFT LATERAL LE -Ulcer Cleansing -Foul Odor after Cleansing -Negative Pressure Wound Therapy -Primary Dressing Applied -Primary Dressing Covered/Secured with -Aquacel AG 2x2 #1 Left Lateral Plantar -Ulcer Cleansing Rinsed/ Irrigated with Saline -Foul Odor after Cleansing No -Negative Pressure Wound Therapy -Primary Dressing Applied Aquacel AG 2x2 -Other Dressing -Primary Dressing Covered/Secured with Dry Gauze, Secured with Tape -Other Covering DRSG PER [place] GEAR MACHINE OPERATOR GENERAL -Aquacel AG 2x2 1 Left -Lotion applied to leg before compression wrap -Tubular Bandage Double Layer -Size of Tubigrip Used Size E -Size D ($) -Size E ($) 2 Treatment Response Pain Scale: 0-10 Numeric Is Patient Pain Free? Yes WC - Visit Discharge Discharge Condition Stable Ambulatory Status Wheelchair Transportation Private Auto Accompanied by Medication Reconcilliation completed & provided to patient/care provider Clinical Summary of Care Provided Assessment/Plan Assessment/Plan (1) Peripheral vascular disease, unspecified: CODE(S): I73.9 - Peripheral vascular disease, unspecified PLAN: Patient examined evaluated, all findings discussed with patient in detail. The left plantar fifth metatarsal head and anterior proximal leg wound were excisionally debrided down to including level of subcutaneous tissue of all nonviable tissue using a 15 blade scalpel. Hemostasis obtained with light compression. No no anesthesia due to neuropathy. Patient tolerated procedure well. Pre and postdebridement measurements document nursing notes. Will continue with daily cleansing of foot with soap and water washes, application of silver alginate DSD daily. Patient will heel weight-bear in surgical shoe with a custom made offloading pad to offload the fifth metatarsal head and the left lower extremity. Vascular studies scheduled for December. Will continue conservative treatment until we receive the results of those. Cultures and radiographs reviewed previously. No concern for residual deep infection at this time. Continue Tubigrip for low-grade edema management until his vascular status is confirmed. I recommended nutritional supplementation to optimize healing. Jacob samples were provided and he will cook pickled meat a box of these at the cafeteria in the hospital. If there are any delays in healing we will consider total contact casting versus left fifth metatarsal head resection versus percutaneous floating metatarsal osteotomy of the fifth metatarsal; however, I feel the patient has significant arterial disease which may limit healing. We will await vascular results. His new leg ulcer is noted and was addressed today. Patient will follow up in 1 week. The medical decision making level is low. There is noted low risk of morbidity after considering this treatment plan and diagnostic data. The problems addressed require a low medical decision making level which includes two or more minor problems, a stable chronic illness, or an acute uncomplicated illness or injury. (2) Type 2 diabetes mellitus with diabetic polyneuropathy: CODE(S): E11.42 - Type 2 diabetes mellitus with diabetic polyneuropathy (3) Non-pressure chronic ulcer of other part of left foot with necrosis of bone: CODE(S): L97.524 - Non-pressure chronic ulcer of other part of left foot with necrosis of bone (4) Unspecified protein-calorie malnutrition: CODE(S): E46 - Unspecified protein-calorie malnutrition (5) Non-pressure chronic ulcer of unspecified part of left lower leg with fat layer exposed: CODE(S): L97.922 - Non-pressure chronic ulcer of unspecified part of left lower leg with fat layer exposed
== END 2021-12-18 23:59 | disposition home or self-care (01) ==
LOC: WC 13:30
PROVIDERS: PCP Physician Assistant; Referring Provider Podiatrist; Visit Provider Podiatrist
DX: E11.621 Type 2 diabetes mellitus with foot ulcer (principal); E11.51 Type 2 diabetes mellitus with diabetic peripheral angiopathy without gangrene; L97.522 Non-pressure chronic ulcer of other part of left foot with fat layer exposed; I50.9 Heart failure, unspecified; E11.22 Type 2 diabetes mellitus with diabetic chronic kidney disease; E11.42 Type 2 diabetes mellitus with diabetic polyneuropathy; N18.30 Chronic kidney disease, stage 3 unspecified; M79.672 Pain in left foot
CPT/HCPCS: 11042; 11043; 36415; 73630; 80053; 83036; 85025; 85652; 86140; 87070; 87075; 87077; 87186; 87205

== ENCOUNTER 2022-01-14 10:30 | Outpatient (RCR) | payer MEDICARE, SELFPAY ==
[2021-12-19 00:39] VITALS: BP 128/56; PULSE 100; RESP 16; TEMP 36.4
[2021-12-24 13:57] VITALS: BP 154/73; PULSE 95; TEMP 36.6
--- NOTE | 2021-12-24 15:00 | PCM.WC.PN ---
History of Present Illness Date of Service: 12/24/21 Chief Complaint: Left plantar foot ulcer History of Wound: Patient is an 81 year old male who presents with an ulcer on the left foot on the lateral plantar surface, just proximal from the 5th toe. He has a history of Afib on coumadin, insulin controlled type 2 DM, gout, CHF, CKD 3, peripheral vascular disease and a right foot ulcer that required HBOT to help it heal. Patient denies constitutional symptoms at this time. Patient notes some drainage and pain to the left foot. today, he denies redness and swelling. Patient has been offloading site with surgical shoe and limits overall activity. His new left langley wound from last week has healed and he denies drainage. His has applied Aquacel Ag to all of the wound sites. Progress of Wound: healed anterior leg ulcer improving lateral leg ulcer improving plantar lateral foot ulcer Objective Data Objective Data Vital Signs: Vital Signs Temp Pulse Resp BP 98 F 95 16 154/73 H 12/24/21 13:57 12/24/21 13:57 12/19/21 00:39 12/24/21 13:57 Physical Exam Narrative Patient alert oriented person place and time. Patient ambulating surgical shoe to left lower extremity. Vascular: Dorsalis pedis posterior tibial pulses diminished bilaterally. Atrophic skin changes noted. +1 pitting edema to noted to bilateral lower extremity with hemosiderin deposits. Neurologic: Light touch protective sensation absent to bilateral feet. Dermatologic: anterior proximal left leg ulcer healed with full epithelialization. Decreased size lateral leg ulcer site with 100% granular base. No signs of infection. Full-thickness wound noted to the plantar left fifth metatarsal head wound no longer probes down the level of the fifth metatarsal head and it has decreased fibrous tissue. there is resolution of erythema, edema, and no purulent drainage noted at this time upon debridement there is noted to be some healthy bleeding to the site. Pre and postdebridement measurements document nursing notes. 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 No pain with calf squeeze bilaterally. Muscular strength full to bilateral lower extremities. Debridement Note Debridement Note Wound debrided: plantar lateral foot, leg lateral Laterality: Left Wound Grade/Stage: foot-2, leg -1 Type of Debridement: Excisional debridement Anesthesia Used: 4% Lidocaine Solution Depth: in the subcutaneous layer Percentage of wound debrided: 100 Instrument Used: #15 blade Tissue Removed: fibrous, devitalized subcutaneous, biofilm, slough Severity: Fat Layer Exposed Amount of bleeding with debridement: Mild Bleeding Controlled with: Pressure Patient tolerated procedure: Patient tolerated procedure well Post-Debridement Measurements and Additional Note: Post-Debridement Measurements/Treatment - Nurse 1 - General Ulcer Assessment Start: 12/24/21 13:57 Freq: Status: Active Protocol: SUNSHINE Activity Type Activity Date Activity User E-sign Co-sign Detail Recorded Client Recorded Date Recorded By Document 12/24/21 13:57 KRAIG [id number] 12/24/21 14:03 KRAIG 12/24/21 13:57 WC - Today's Visit Information Type of service Follow-up Visit (Physician/IT SERVICE TECHNICIAN ) Arrival Mode Wheelchair Patient Identification Verified (Name & Yes ) Patient Requires Transmission-Based No Precautions Vital Signs Temperature (97.8 F-99.1 F) 98 F Temperature Source Temporal Pulse Rate (60-100) 95 Blood Pressure (90/60-120/80) 154/73 H Blood Pressure Mean (mm Hg) 100 Source Monitor History Since Last Visit- (Skip if this is Patient's initial visit) Have you changed medications since your No last visit? Any new allergies or adverse reactions No Had a fall/change in ADL's that may No increase risk of falls Signs or symptoms of abuse and/or No neglect since last visit Have you been in the hospital since your No last visit? Has dressing in place as prescribed Yes Has compression in place as prescribed Yes Has offloadiing in place as prescribed Yes Experienced any changes in pain level or No management Left Footwear Surgical Shoe with pressure relief insole Right Footwear Regular Shoe Pain Scale: 0-10 Numeric Is Patient Pain Free? No - Nurse 1 - General Ulcer Measurement Start: 12/24/21 13:57 Freq: Status: Active Protocol: Activity Type Activity Date Activity User E-sign Co-sign Detail Recorded Client Recorded Date Recorded By Document 12/24/21 13:57 KRAIG [id number] 12/24/21 14:03 KRAIG 12/24/21 13:57 Wound Center Nurse 1 #3 left superior langley -Combined with other wound No -Current Size (cm) - Length 1 -Current Size (cm) - Width 0.3 -Current Size (cm) - Depth 0.1 -Total Square Cm 0.3 -Photo Taken No -Tunneling No -Undermining/Tunneling No -Circular Undermining No -Change in Wound Grade/Stage No -Exudate Amt Medium -Exudate Type Serosanguineous -Wound Margin Distinct, Outline Attached -Granulation Amt Medium (34-66%) -Granulation Quality [place],Red -Slough/Fibrin Yes -Necrosis Amt Small (1-33%) -Necrotic Tissue Type Adherent Slough -Structure Exposed N/A -Texture (Maribel-wound Skin Appearance) No Abnormality, Assessed -Moisture (Maribel-wound Skin Appearance) No Abnormality, Assessed -Color (Maribel-wound Skin Appearance) No Abnormality, Assessed -Temperature (Maribel-wound Skin No Abnormality Appearance) (Pt Warm) -Tenderness on Palpation (Maribel-wound No Skin Appearance) -Ulcer Cleansing Rinsed/ Irrigated with Saline -Foul Odor after Cleansing No -Anesthetic Used 5% Lidocaine Gel #1 Left Lateral Plantar -Current Size (cm) - Length 0.3 -Current Size (cm) - Width 0.3 -Current Size (cm) - Depth 0.3 -Total Square Cm 0.09 -Photo Taken No -Tunneling No -Undermining/Tunneling No -Circular Undermining No -Change in Wound Grade/Stage No -Exudate Amt Medium -Exudate Type Serosanguineous -Wound Margin Distinct, Outline Attached -Granulation Amt Small (1-33%) -Granulation Quality N/A -Slough/Fibrin Yes -Necrosis Amt Large (67-100%) -Necrotic Tissue Type Adherent Slough -Structure Exposed N/A -Texture (Maribel-wound Skin Appearance) Assessed,Callus -Moisture (Maribel-wound Skin Appearance) No Abnormality, Assessed -Color (Maribel-wound Skin Appearance) No Abnormality, Assessed -Temperature (Maribel-wound Skin No Abnormality Appearance) (Pt Warm) -Tenderness on Palpation (Maribel-wound No Skin Appearance) -Ulcer Cleansing Rinsed/ Irrigated with Saline -Foul Odor after Cleansing No -Anesthetic Used 5% Lidocaine Gel WC - Nurse 2 - General Ulcer CM Notes Start: 12/24/21 13:57 Freq: Status: Active Protocol: Activity Type Activity Date Activity User E-sign Co-sign Detail Recorded Client Recorded Date Recorded By Document 12/24/21 14:20 PL [id number] 12/24/21 14:23 PL 12/24/21 14:20 Wound Center Nurse 2 #3 left superior langley -Time 14:10 -Correct Patient Yes -Correct Side, Site, Position Yes -Correct Procedure Yes -Procedure Performed Yes -Type of Procedure Debridement -Clinical Debridement Subcutaneous -Tissue Removed Subcutaneous -Post Debridement (cm) - Length 1.0 -Post Debridement (cm) - Width 0.3 -Post Debridement (cm) - Depth 0.1 -Total Square (Post) (cm) 0.30 -Area of Debridement (cm) - Length 1.0 -Area of Debridement (cm) - Width 0.3 -Total Square (Area) (cm) 0.30 -Tunneling No -Undermining/Tunneling No -Circular Undermining No -Wound/Ulcer Outcome Not Healed -Ulcer Cleansing Rinsed/ Irrigated with Saline -Foul Odor after Cleansing No -Bioengineered Tissue No -Bleeding Controlled with Pressure -Treatment Response Procedure Tolerated Well -Debridement - Subq, 1st 20sq cm No #1 Left Lateral Plantar -Time 14:10 -Correct Patient Yes -Correct Side, Site, Position Yes -Correct Procedure Yes -Procedure Performed Yes -Type of Procedure Debridement -Clinical Debridement Subcutaneous -Tissue Removed Subcutaneous -Post Debridement (cm) - Length 0.3 -Post Debridement (cm) - Width 0.3 -Post Debridement (cm) - Depth 0.3 -Total Square (Post) (cm) 0.09 -Area of Debridement (cm) - Length 0.3 -Area of Debridement (cm) - Width 0.3 -Total Square (Area) (cm) 0.09 -Tunneling No -Undermining/Tunneling No -Circular Undermining No -Wound/Ulcer Outcome Not Healed -Ulcer Cleansing Rinsed/ Irrigated with Saline -Foul Odor after Cleansing No -Bioengineered Tissue No -Bleeding Controlled with Pressure -Treatment Response Procedure Tolerated Well -Debridement - Subq, 1st 20sq cm Yes Pain Scale: 0-10 Numeric Is Patient Pain Free? Yes WC - Nurse 3 - General Ulcer D/C NN Start: 12/24/21 13:57 Freq: Status: Active Protocol: Activity Type Activity Date Activity User E-sign Co-sign Detail Recorded Client Recorded Date Recorded By Document 12/24/21 14:37 ML [id number] 12/24/21 14:38 ML 12/24/21 14:37 Wound Care Nurse 3 #3 left superior langley -Ulcer Cleansing Rinsed/ Irrigated with Saline -Primary Dressing Applied Aquacel AG 4x4 -Primary Dressing Covered/Secured with Dry Gauze & Roll Gauze, Secured with Tape -Aquacel AG 4x4 1 #1 Left Lateral Plantar -Ulcer Cleansing Rinsed/ Irrigated with Saline -Primary Dressing Applied Aquacel AG 4x4 -Primary Dressing Covered/Secured with Dry Gauze & Roll Gauze, Secured with Tape -Aquacel AG 4x4 0 Left -Tubular Bandage Single Layer -Size of Tubigrip Used Size E -Size E ($) 1 Pain Scale: 0-10 Numeric Is Patient Pain Free? Yes Assessment/Plan Assessment/Plan (1) Peripheral vascular disease, unspecified: CODE(S): I73.9 - Peripheral vascular disease, unspecified PLAN: Patient examined evaluated, all findings discussed with patient in detail. The left plantar fifth metatarsal head and lateral leg wound were excisionally debrided down to including level of subcutaneous tissue of all nonviable tissue using a 15 blade scalpel. Hemostasis obtained with light compression. No no anesthesia due to neuropathy. Patient tolerated procedure well. Pre and postdebridement measurements document nursing notes. Will continue with daily cleansing of foot with soap and water washes, application of silver alginate DSD daily. Patient will heel weight-bear in surgical shoe with a custom made offloading pad to offload the fifth metatarsal head and the left lower extremity. Vascular studies scheduled for December. Will continue conservative treatment until we receive the results of those. Cultures and radiographs reviewed previously. No concern for residual deep infection at this time. Continue Tubigrip for low-grade edema management until his vascular status is confirmed. I recommended nutritional supplementation to optimize healing. He started home Jacob use and tolerated this so far. If there are any delays in healing we will consider total contact casting versus left fifth metatarsal head resection versus percutaneous floating metatarsal osteotomy of the fifth metatarsal; however, I feel the patient has significant arterial disease which may limit healing. We will await vascular results. Patient will follow up in 1 week. (2) Type 2 diabetes mellitus with diabetic polyneuropathy: CODE(S): E11.42 - Type 2 diabetes mellitus with diabetic polyneuropathy (3) Non-pressure chronic ulcer of other part of left foot with necrosis of bone: CODE(S): L97.524 - Non-pressure chronic ulcer of other part of left foot with necrosis of bone (4) Unspecified protein-calorie malnutrition: CODE(S): E46 - Unspecified protein-calorie malnutrition (5) Non-pressure chronic ulcer of unspecified part of left lower leg with fat layer exposed: CODE(S): L97.922 - Non-pressure chronic ulcer of unspecified part of left lower leg with fat layer exposed
--- NOTE | 2021-12-30 10:57 | ART_ITS ---
Reason For Study: PVD Procedure A bilateral lower extremity continuous wave Doppler with analog waveform analysis,segmental pressures,and ankle brachial indexes without exercise. Left Segmental Pressures Left brachial= 132mmHg. Left posterior tibial artery = 92mmHg. Left dorsalis pedis artery = >254mmHg. Left digit = 43 mmHg. Right Segmental Pressures Right brachial= 122mmHg. Right posterior tibial artery = >254mmHg. Right dorsalis pedis artery = 92mmHg. Right digit = 81 mmHg. Indices The right ankle brachial index by the posterior tibial artery is NC. The right ankle brachial index by the dorsalis pedis is 0.70. The right digital-brachial index is 0.61. The left ankle brachial index by the posterior tibial artery is 0.70. The left ankle brachial index by the dorsalis pedis is NC. The left digital-brachial index is 0.33. VL/Lower Ext Art Exam w/o Exercis Interpretation Summary Biphasic Doppler waveforms are noted at ankle level on the right. Biphasic and monophasic Doppler waveforms are noted at ankle level on the left. Resting ankle-brachial indices are moderately diminished bilaterally. The right digital-brachial index is mildly diminished. The left digital- brachial index is moderately to severely diminished. There is evidence of moderate arterial occlusive disease at ankle level bilater ally. There is evidence of mild arterial occlusive disease at digital level on the right. Ther e is evidence of [id number] arterial occlusive disease at digital level on the left. Ordering Physician: Sukumar Bishop Referring Physician: Bhavin Villagran Performed By: Italia Ruffin RDCS/ALICIA
[2021-12-31 10:17] VITALS: RESP 16; TEMP 35.9
--- NOTE | 2021-12-31 11:03 | PCM.WC.PN ---
History of Present Illness Date of Service: 12/31/21 Chief Complaint: Left plantar foot ulcer History of Wound: Patient is an 81 year old male who presents with an ulcer on the left foot on the lateral plantar surface, just proximal from the 5th toe. He has a history of Afib on coumadin, insulin controlled type 2 DM, gout, CHF, CKD 3, peripheral vascular disease and a right foot ulcer that required HBOT to help it heal. Patient denies constitutional symptoms at this time. Patient notes some drainage and pain to the left foot. today, he denies redness and swelling. Patient has been offloading site with surgical shoe and limits overall activity. His new left langley wound from last week has healed and he denies drainage. His has applied Aquacel Ag to all of the wound sites. Progress of Wound: healed anterior leg ulcer improving lateral leg ulcer improving plantar lateral foot ulcer Objective Data Objective Data Vital Signs: Vital Signs Temp Pulse Resp BP O2 Del Method 96.7 F L 95 16 154/73 H Room Air 12/31/21 10:17 12/24/21 13:57 12/31/21 10:17 12/24/21 13:57 12/31/21 10:17 Oxygen Delivery Method Room Air Radiography Diagnostic Testing: Radiology Impression Extremity Arterial Study 12/30/21 10:57 Interpretation Summary Biphasic Doppler waveforms are noted at ankle level on the right. Biphasic and monophasic Doppler waveforms are noted at ankle level on the left. Resting ankle-brachial indices are moderately diminished bilaterally. The right digital-brachial index is mildly diminished. The left digital- brachial index is moderately to severely diminished. There is evidence of moderate arterial occlusive disease at ankle level bilaterally. There is evidence of mild arterial occlusive disease at digital level on the right. There is evidence of [id number] arterial occlusive disease at digital level on the left. Ordering Physician: Sukumar Bishop Referring Physician: Bhavin Villagran Performed By: Italia Ruffin RDCS/RVT Physical Exam Narrative Patient alert oriented person place and time. Patient ambulating surgical shoe to left lower extremity. Vascular: Dorsalis pedis posterior tibial pulses diminished bilaterally. Atrophic skin changes noted. +1 pitting edema to noted to bilateral lower extremity with hemosiderin deposits. Neurologic: Light touch protective sensation absent to bilateral feet. Dermatologic: Full-thickness wound to anterior lateral left leg. No signs of infection. Full-thickness wound noted to the plantar left fifth metatarsal head wound no longer probes down the level of the fifth metatarsal head and it has decreased fibrous tissue. there is resolution of erythema, edema, and no purulent drainage noted at this time upon debridement there is noted to be some healthy bleeding to the site. Pre and postdebridement measurements document nursing notes. 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 No pain with calf squeeze bilaterally. Muscular strength full to bilateral lower extremities. Debridement Note Debridement Note Post-Debridement Measurements and Additional Note: Post-Debridement Measurements/Treatment - Nurse 1 - General Ulcer Assessment Start: 12/24/21 13:57 Freq: Status: Active Protocol: .LOWEXPushpa Activity Type Activity Date Activity User E-sign Co-sign Detail Recorded Client Recorded Date Recorded By Document 12/24/21 13:57 OR [id number] 12/24/21 14:03 OR Document 12/31/21 10:17 [id number] 12/31/21 10:28 12/24/21 12/31/21 13:57 10:17 - Today's Visit Information Type of service Follow-up Visit Follow-up Visit (Physician/MACHINE SHOP INSTRUCTOR (Physician/MACHINE SHOP INSTRUCTOR ) ) Arrival Mode Wheelchair Wheelchair Accompanied by Patient Identification Verified (Name & Yes Yes ) Patient Requires Transmission-Based No No Precautions Vital Signs Temperature (97.8 F-99.1 F) 98 F 96.7 F L Temperature Source Temporal Temporal Pulse Rate (60-100) 95 Pulse Location Monitor Respiratory Rate (12-18) 16 Respiratory rate source Observation Oxygen Delivery Method Room Air Blood Pressure (90/60-120/80) 154/73 H Blood Pressure Mean (mm Hg) 100 Source Monitor Monitor Position Sitting Blood Pressure Location Left Arm History Since Last Visit- (Skip if this is Patient's initial visit) Have you changed medications since your No No last visit? Any new allergies or adverse reactions No No Had a fall/change in ADL's that may No No increase risk of falls Signs or symptoms of abuse and/or No No neglect since last visit Have you been in the hospital since your No No last visit? Has dressing in place as prescribed Yes Yes Has compression in place as prescribed Yes Yes Has offloadiing in place as prescribed Yes Yes Experienced any changes in pain level or No No management Left Footwear Surgical Shoe Surgical Shoe with pressure with pressure relief insole relief insole Right Footwear Regular Shoe Regular Shoe Pain Scale: 0-10 Numeric Is Patient Pain Free? No Yes WC - Nurse 1 - General Ulcer Measurement Start: 12/24/21 13:57 Freq: Status: Active Protocol: Activity Type Activity Date Activity User E-sign Co-sign Detail Recorded Client Recorded Date Recorded By Document 12/24/21 13:57 OR [id number] 12/24/21 14:03 OR Document 12/31/21 10:17 [id number] 12/31/21 10:28 MW 12/24/21 12/31/21 13:57 10:17 Wound Center Nurse 1 #3 left superior langley -Combined with other wound No No -Current Size (cm) - Length 1 1.0 -Current Size (cm) - Width 0.3 0.3 -Current Size (cm) - Depth 0.1 0.1 -Total Square Cm 0.3 0.30 -Photo Taken No No -Epithelialization None Present -Tunneling No No -Undermining/Tunneling No No -Circular Undermining No No -Change in Wound Grade/Stage No -Exudate Amt Medium Small -Exudate Type Serosanguineous Serosanguineous -Wound Margin Distinct, Flat & Intact Outline Attached -Granulation Amt Medium (34-66%) Medium (34-66%) -Granulation Quality [place],Red Red -Slough/Fibrin Yes Yes -Necrosis Amt Small (1-33%) Small (1-33%) -Necrotic Tissue Type Adherent Slough Adherent Slough -Structure Exposed N/A N/A -Texture (Maribel-wound Skin Appearance) No Abnormality, Assessed, Assessed Localized Edema -Moisture (Maribel-wound Skin Appearance) No Abnormality, Assessed,Dry/ Assessed Scaly -Color (Maribel-wound Skin Appearance) No Abnormality, Assessed, Assessed Hemosiderin Staining -Temperature (Maribel-wound Skin No Abnormality No Abnormality Appearance) (Pt Warm) (Pt Warm) -Tenderness on Palpation (Maribel-wound No No Skin Appearance) -Ulcer Cleansing Rinsed/ Rinsed/ Irrigated with Irrigated with Saline Saline -Foul Odor after Cleansing No No -Anesthetic Used 5% Lidocaine 5% Lidocaine Gel Gel #1 Left Lateral Plantar -Combined with other wound No -Current Size (cm) - Length 0.3 0.1 -Current Size (cm) - Width 0.3 0.1 -Current Size (cm) - Depth 0.3 0.1 -Total Square Cm 0.09 0.01 -Photo Taken No No -Epithelialization Large 67-100% -Tunneling No No -Undermining/Tunneling No No -Circular Undermining No No -Change in Wound Grade/Stage No -Exudate Amt Medium None Present -Exudate Type Serosanguineous -Wound Margin Distinct, Flat & Intact Outline Attached -Granulation Amt Small (1-33%) None Present (0 %) -Granulation Quality N/A N/A -Slough/Fibrin Yes Yes -Necrosis Amt Large (67-100%) Small (1-33%) -Necrotic Tissue Type Adherent Slough Adherent Slough -Structure Exposed N/A N/A -Texture (Maribel-wound Skin Appearance) Assessed,Callus Assessed,Callus ,Localized Edema -Moisture (Maribel-wound Skin Appearance) No Abnormality, Assessed,Dry/ Assessed Scaly -Color (Maribel-wound Skin Appearance) No Abnormality, Assessed Assessed -Temperature (Maribel-wound Skin No Abnormality No Abnormality Appearance) (Pt Warm) (Pt Warm) -Tenderness on Palpation (Maribel-wound No No Skin Appearance) -Ulcer Cleansing Rinsed/ Rinsed/ Irrigated with Irrigated with Saline Saline -Foul Odor after Cleansing No No -Anesthetic Used 5% Lidocaine 5% Lidocaine Gel Gel Lower Limb Edema Present Yes Left Calf (cm) 36.5 Left Ankle (cm) 22.0 WC - Nurse 2 - General Ulcer CM Notes Start: 12/24/21 13:57 Freq: Status: Active Protocol: Activity Type Activity Date Activity User E-sign Co-sign Detail Recorded Client Recorded Date Recorded By Document 12/24/21 14:20 PL [id number] 12/24/21 14:23 PL Document 12/31/21 10:45 [id number] 12/31/21 10:47 VICTORINO 12/24/21 12/31/21 14:20 10:45 Wound Center Nurse 2 #3 left superior langley -Time 14:10 10:46 -Correct Patient Yes Yes -Correct Side, Site, Position Yes Yes -Correct Procedure Yes Yes -Procedure Performed Yes Yes -Type of Procedure Debridement Debridement -Clinical Debridement Subcutaneous Subcutaneous -Tissue Removed Subcutaneous Subcutaneous -Post Debridement (cm) - Length 1.0 1.0 -Post Debridement (cm) - Width 0.3 0.4 -Post Debridement (cm) - Depth 0.1 0.1 -Total Square (Post) (cm) 0.30 0.40 -Area of Debridement (cm) - Length 1.0 1.0 -Area of Debridement (cm) - Width 0.3 0.4 -Total Square (Area) (cm) 0.30 0.40 -Tunneling No No -Undermining/Tunneling No No -Circular Undermining No No -Wound/Ulcer Outcome Not Healed Not Healed -Ulcer Cleansing Rinsed/ Rinsed/ Irrigated with Irrigated with Saline Saline -Foul Odor after Cleansing No No -Bioengineered Tissue No No -Bleeding Controlled with Pressure Pressure -Treatment Response Procedure Procedure Tolerated Well Tolerated Well -Offloading Yes -Type of Offloading Surgical Shoe -Debridement - Subq, 1st 20sq cm No Yes #1 Left Lateral Plantar -Time 14:10 10:46 -Correct Patient Yes Yes -Correct Side, Site, Position Yes Yes -Correct Procedure Yes Yes -Procedure Performed Yes Yes -Type of Procedure Debridement Debridement -Clinical Debridement Subcutaneous Subcutaneous -Tissue Removed Subcutaneous Subcutaneous -Post Debridement (cm) - Length 0.3 0.2 -Post Debridement (cm) - Width 0.3 0.1 -Post Debridement (cm) - Depth 0.3 0.3 -Total Square (Post) (cm) 0.09 0.02 -Area of Debridement (cm) - Length 0.3 0.2 -Area of Debridement (cm) - Width 0.3 0.1 -Total Square (Area) (cm) 0.09 0.02 -Tunneling No No -Undermining/Tunneling No No -Circular Undermining No No -Wound/Ulcer Outcome Not Healed Not Healed -Ulcer Cleansing Rinsed/ Rinsed/ Irrigated with Irrigated with Saline Saline -Foul Odor after Cleansing No No -Bioengineered Tissue No No -Bleeding Controlled with Pressure Pressure -Treatment Response Procedure Procedure Tolerated Well Tolerated Well -Offloading Yes -Type of Offloading Surgical Shoe -Debridement - Subq, 1st 20sq cm Yes No Pain Scale: 0-10 Numeric Is Patient Pain Free? Yes Yes WC - Nurse 3 - General Ulcer D/C NN Start: 12/24/21 13:57 Freq: Status: Active Protocol: Activity Type Activity Date Activity User E-sign Co-sign Detail Recorded Client Recorded Date Recorded By Document 12/24/21 14:37 ML [id number] 12/24/21 14:38 ML 12/24/21 14:37 Wound Care Nurse 3 #3 left superior langley -Ulcer Cleansing Rinsed/ Irrigated with Saline -Primary Dressing Applied Aquacel AG 4x4 -Primary Dressing Covered/Secured with Dry Gauze & Roll Gauze, Secured with Tape -Aquacel AG 4x4 1 #1 Left Lateral Plantar -Ulcer Cleansing Rinsed/ Irrigated with Saline -Primary Dressing Applied Aquacel AG 4x4 -Primary Dressing Covered/Secured with Dry Gauze & Roll Gauze, Secured with Tape -Aquacel AG 4x4 0 Left -Tubular Bandage Single Layer -Size of Tubigrip Used Size E -Size E ($) 1 Pain Scale: 0-10 Numeric Is Patient Pain Free? Yes Assessment/Plan Assessment/Plan (1) Peripheral vascular disease, unspecified: CODE(S): I73.9 - Peripheral vascular disease, unspecified PLAN: Patient examined evaluated, all findings discussed with patient in detail. The left plantar fifth metatarsal head and lateral leg wound were excisionally debrided down to including level of subcutaneous tissue of all nonviable tissue using a 15 blade scalpel. Hemostasis obtained with light compression. No no anesthesia due to neuropathy. Patient tolerated procedure well. Pre and postdebridement measurements document nursing notes. Will continue with daily cleansing of foot with soap and water washes, application of silver alginate DSD daily. Patient will heel weight-bear in surgical shoe with a custom made offloading pad to offload the fifth metatarsal head and the left lower extremity. Arterial studies demonstrate 0.33 TBI on the left. We will refer to vascular surgery for additional work-up. Will continue conservative treatment until we receive the results of those. Continue Tubigrip for low-grade edema management until his vascular status is confirmed. I recommended nutritional supplementation to optimize healing. He started home Jacob use and tolerated this so far. If there are any delays in healing we will consider total contact casting versus left fifth metatarsal head resection versus percutaneous floating metatarsal osteotomy of the fifth metatarsal; however, I feel the patient has significant arterial disease which may limit healing. Wound appears to be healing well at this time. Patient will follow up in 1 week. (2) Type 2 diabetes mellitus with diabetic polyneuropathy: CODE(S): E11.42 - Type 2 diabetes mellitus with diabetic polyneuropathy (3) Non-pressure chronic ulcer of other part of left foot with necrosis of bone: CODE(S): L97.524 - Non-pressure chronic ulcer of other part of left foot with necrosis of bone (4) Unspecified protein-calorie malnutrition: CODE(S): E46 - Unspecified protein-calorie malnutrition (5) Non-pressure chronic ulcer of unspecified part of left lower leg with fat layer exposed: CODE(S): L97.922 - Non-pressure chronic ulcer of unspecified part of left lower leg with fat layer exposed
[2022-01-07 09:57] VITALS: BP 168/85; PULSE 104; RESP 16; TEMP 36.3
--- NOTE | 2022-01-07 10:32 | PN.PCM_ITS ---
History of Present Illness Date of Service: 01/07/22 Chief Complaint: Left plantar foot ulcer History of Wound: Patient is an 81 year old male who presents with an ulcer on the left foot on the lateral plantar surface, just proximal from the 5th toe. He has a history of Afib on coumadin, insulin controlled type 2 DM, gout, CHF, CKD 3, peripheral vascular disease and a right foot ulcer that required HBOT to help it heal. Patient denies constitutional symptoms at this time. Patient notes some drainage and pain to the left foot. today, he denies redness and swelling. Patient has been offloading site with surgical shoe and limits overall activity. His new left langley wound from last week has healed and he denies drainage. His has applied Aquacel Ag to all of the wound sites. Progress of Wound: healed anterior leg ulcer improving lateral leg ulcer improving plantar lateral foot ulcer Objective Data Objective Data Vital Signs: Vital Signs Temp Pulse Resp BP O2 Del Method 97.3 F L 104 H 16 168/85 H Room Air 01/07/22 09:57 01/07/22 09:57 01/07/22 09:57 01/07/22 09:57 01/07/22 09:57 Oxygen Delivery Method Room Air Physical Exam Narrative Patient alert oriented person place and time. Patient ambulating surgical shoe to left lower extremity. Vascular: Dorsalis pedis posterior tibial pulses diminished bilaterally. Atrophic skin changes noted. +1 pitting edema to noted to bilateral lower extremity with hemosiderin deposits. Neurologic: Light touch protective sensation absent to bilateral feet. Dermatologic: Full-thickness wound to anterior lateral left leg. No signs of infection. Full-thickness wound noted to the plantar left fifth metatarsal head wound no longer probes down the level of the fifth metatarsal head and it has decreased fibrous tissue. there is resolution of erythema, edema, and no purulent drainage noted at this time upon debridement there is noted to be some healthy bleeding to the site. Pre and postdebridement measurements document nursing notes. 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 No pain with calf squeeze bilaterally. Muscular strength full to bilateral lower extremities. Debridement Note Debridement Note Post-Debridement Measurements and Additional Note: Post-Debridement Measurements/Treatment WC - Nurse 1 - General Ulcer Assessment Start: 12/24/21 13:57 Freq: Status: Active Protocol: WC.LOWEXT Activity Type Activity Date Activity User E-sign Co-sign Detail Recorded Client Recorded Date Recorded By Document 12/24/21 13:57 AK [id number] 12/24/21 14:03 AK Document 12/31/21 10:17 MW [id number] 12/31/21 10:28 MW Document 01/07/22 09:57 BM [id number] 01/07/22 10:10 BMF 12/24/21 12/31/21 01/07/22 13:57 10:17 09:57 WC - Today's Visit Information Type of service Follow-up Visit Follow-up Visit Follow-up Visit (Physician/SENIOR WEB APPLICATIONS DEVELOPER (Physician/SENIOR WEB APPLICATIONS DEVELOPER (Physician/SENIOR WEB APPLICATIONS DEVELOPER ) ) ) Arrival Mode Wheelchair Wheelchair Wheelchair Transfer Assistance Other Transfer Assist (Other) 1 stand by Accompanied by Patient Identification Verified (Name & Yes Yes Yes ) Patient Requires Transmission-Based No No No Precautions Vital Signs Temperature (97.8 F-99.1 F) 98 F 96.7 F L 97.3 F L Temperature Source Temporal Temporal Temporal Pulse Rate (60-100) 95 104 H Pulse Location Monitor Monitor Respiratory Rate (12-18) 16 16 Respiratory rate source Observation Observation Oxygen Delivery Method Room Air Room Air Blood Pressure (90/60-120/80) 154/73 H 168/85 H Blood Pressure Mean (mm Hg) 100 112 Source Monitor Monitor Monitor Position Sitting Sitting Blood Pressure Location Left Arm Right Arm History Since Last Visit- (Skip if this is Patient's initial visit) Have you changed medications since your No No No last visit? Any new allergies or adverse reactions No No No Had a fall/change in ADL's that may No No No increase risk of falls Signs or symptoms of abuse and/or No No No neglect since last visit Have you been in the hospital since your No No No last visit? Has dressing in place as prescribed Yes Yes Yes Has compression in place as prescribed Yes Yes Yes Has offloadiing in place as prescribed Yes Yes Yes Experienced any changes in pain level or No No No management Left Footwear Surgical Shoe Surgical Shoe Surgical Shoe with pressure with pressure with pressure relief insole relief insole relief insole Right Footwear Regular Shoe Regular Shoe Diabetic Shoe Pain Scale: 0-10 Numeric Is Patient Pain Free? No Yes Yes WC - Nurse 1 - General Ulcer Measurement Start: 12/24/21 13:57 Freq: Status: Active Protocol: Activity Type Activity Date Activity User E-sign Co-sign Detail Recorded Client Recorded Date Recorded By Document 12/24/21 13:57 AK [id number] 12/24/21 14:03 AK Document 12/31/21 10:17 MW [id number] 12/31/21 10:28 MW Document 01/07/22 09:57 BM [id number] 01/07/22 10:10 BMF 12/24/21 12/31/21 01/07/22 13:57 10:17 09:57 Wound Center Nurse 1 #3 left superior langley -Combined with other wound No No No -Current Size (cm) - Length 1 1.0 0.1 -Current Size (cm) - Width 0.3 0.3 0.1 -Current Size (cm) - Depth 0.1 0.1 0.1 -Total Square Cm 0.3 0.30 0.01 -Date of Last Picture (Recall this 01/07/22 field) -Photo Taken No No Yes -Epithelialization None Present Large 67-100% -Tunneling No No No -Undermining/Tunneling No No No -Circular Undermining No No No -Change in Wound Grade/Stage No -Exudate Amt Medium Small None Present -Exudate Type Serosanguineous Serosanguineous -Wound Margin Distinct, Flat & Intact Outline Attached -Granulation Amt Medium (34-66%) Medium (34-66%) -Granulation Quality Regal,Red Red -Slough/Fibrin Yes Yes -Necrosis Amt Small (1-33%) Small (1-33%) -Necrotic Tissue Type Adherent Slough Adherent Slough -Structure Exposed N/A N/A -Texture (Maribel-wound Skin Appearance) No Abnormality, Assessed, Assessed, Assessed Localized Edema Scarring -Moisture (Maribel-wound Skin Appearance) No Abnormality, Assessed,Dry/ Assessed,Dry/ Assessed Scaly Scaly -Color (Maribel-wound Skin Appearance) No Abnormality, Assessed, Assessed Assessed Hemosiderin Staining -Temperature (Maribel-wound Skin No Abnormality No Abnormality No Abnormality Appearance) (Pt Warm) (Pt Warm) (Pt Warm) -Tenderness on Palpation (Maribel-wound No No No Skin Appearance) -Ulcer Cleansing Rinsed/ Rinsed/ Rinsed/ Irrigated with Irrigated with Irrigated with Saline Saline Saline -Foul Odor after Cleansing No No No -Anesthetic Used 5% Lidocaine 5% Lidocaine Gel Gel #1 Left Lateral Plantar -Combined with other wound No No -Current Size (cm) - Length 0.3 0.1 0.1 -Current Size (cm) - Width 0.3 0.1 0.1 -Current Size (cm) - Depth 0.3 0.1 0.1 -Total Square Cm 0.09 0.01 0.01 -Date of Last Picture (Recall this 01/07/22 field) -Photo Taken No No Yes -Epithelialization Large 67-100% Large 67-100% -Tunneling No No No -Undermining/Tunneling No No No -Circular Undermining No No No -Change in Wound Grade/Stage No -Exudate Amt Medium None Present -Exudate Type Serosanguineous -Wound Margin Distinct, Flat & Intact Outline Attached -Granulation Amt Small (1-33%) None Present (0 %) -Granulation Quality N/A N/A -Slough/Fibrin Yes Yes -Necrosis Amt Large (67-100%) Small (1-33%) -Necrotic Tissue Type Adherent Slough Adherent Slough -Structure Exposed N/A N/A -Texture (Maribel-wound Skin Appearance) Assessed,Callus Assessed,Callus Assessed,Callus ,Localized ,Scarring Edema -Moisture (Maribel-wound Skin Appearance) No Abnormality, Assessed,Dry/ Assessed,Dry/ Assessed Scaly Scaly -Color (Maribel-wound Skin Appearance) No Abnormality, Assessed Assessed Assessed -Temperature (Maribel-wound Skin No Abnormality No Abnormality No Abnormality Appearance) (Pt Warm) (Pt Warm) (Pt Warm) -Tenderness on Palpation (Maribel-wound No No No Skin Appearance) -Ulcer Cleansing Rinsed/ Rinsed/ Rinsed/ Irrigated with Irrigated with Irrigated with Saline Saline Saline -Foul Odor after Cleansing No No No -Anesthetic Used 5% Lidocaine 5% Lidocaine Gel Gel Lower Limb Edema Present Yes Yes Left Calf (cm) 36.5 36 Left Ankle (cm) 22.0 23 WC - Nurse 2 - General Ulcer CM Notes Start: 12/24/21 13:57 Freq: Status: Active Protocol: Activity Type Activity Date Activity User E-sign Co-sign Detail Recorded Client Recorded Date Recorded By Document 12/24/21 14:20 EMMANUEL [id number] 12/24/21 14:23 PL Document 12/31/21 10:45 VICTORINO [id number] 12/31/21 10:47 VICTORINO 12/24/21 12/31/21 14:20 10:45 Wound Center Nurse 2 #3 left superior langley -Time 14:10 10:46 -Correct Patient Yes Yes -Correct Side, Site, Position Yes Yes -Correct Procedure Yes Yes -Procedure Performed Yes Yes -Type of Procedure Debridement Debridement -Clinical Debridement Subcutaneous Subcutaneous -Tissue Removed Subcutaneous Subcutaneous -Post Debridement (cm) - Length 1.0 1.0 -Post Debridement (cm) - Width 0.3 0.4 -Post Debridement (cm) - Depth 0.1 0.1 -Total Square (Post) (cm) 0.30 0.40 -Area of Debridement (cm) - Length 1.0 1.0 -Area of Debridement (cm) - Width 0.3 0.4 -Total Square (Area) (cm) 0.30 0.40 -Tunneling No No -Undermining/Tunneling No No -Circular Undermining No No -Wound/Ulcer Outcome Not Healed Not Healed -Ulcer Cleansing Rinsed/ Rinsed/ Irrigated with Irrigated with Saline Saline -Foul Odor after Cleansing No No -Bioengineered Tissue No No -Bleeding Controlled with Pressure Pressure -Treatment Response Procedure Procedure Tolerated Well Tolerated Well -Offloading Yes -Type of Offloading Surgical Shoe -Debridement - Subq, 1st 20sq cm No Yes #1 Left Lateral Plantar -Time 14:10 10:46 -Correct Patient Yes Yes -Correct Side, Site, Position Yes Yes -Correct Procedure Yes Yes -Procedure Performed Yes Yes -Type of Procedure Debridement Debridement -Clinical Debridement Subcutaneous Subcutaneous -Tissue Removed Subcutaneous Subcutaneous -Post Debridement (cm) - Length 0.3 0.2 -Post Debridement (cm) - Width 0.3 0.1 -Post Debridement (cm) - Depth 0.3 0.3 -Total Square (Post) (cm) 0.09 0.02 -Area of Debridement (cm) - Length 0.3 0.2 -Area of Debridement (cm) - Width 0.3 0.1 -Total Square (Area) (cm) 0.09 0.02 -Tunneling No No -Undermining/Tunneling No No -Circular Undermining No No -Wound/Ulcer Outcome Not Healed Not Healed -Ulcer Cleansing Rinsed/ Rinsed/ Irrigated with Irrigated with Saline Saline -Foul Odor after Cleansing No No -Bioengineered Tissue No No -Bleeding Controlled with Pressure Pressure -Treatment Response Procedure Procedure Tolerated Well Tolerated Well -Offloading Yes -Type of Offloading Surgical Shoe -Debridement - Subq, 1st 20sq cm Yes No Pain Scale: 0-10 Numeric Is Patient Pain Free? Yes Yes - Nurse 3 - General Ulcer D/C NN Start: 12/24/21 13:57 Freq: Status: Active Protocol: Activity Type Activity Date Activity User E-sign Co-sign Detail Recorded Client Recorded Date Recorded By Document 12/24/21 14:37 ML [id number] 12/24/21 14:38 ML Document 12/31/21 11:03 [facility] [id number] 12/31/21 11:04 [facility] 12/24/21 12/31/21 14:37 11:03 Wound Care Nurse 3 #3 left superior langley -Ulcer Cleansing Rinsed/ Rinsed/ Irrigated with Irrigated with Saline Saline -Foul Odor after Cleansing No -Primary Dressing Applied Aquacel AG 4x4 Aquacel AG 2x2 -Primary Dressing Covered/Secured with Dry Gauze & Dry Gauze, Roll Gauze, Secured with Secured with Tape Tape -Aquacel AG 4x4 1 -Aquacel AG 2x2 1 #1 Left Lateral Plantar -Ulcer Cleansing Rinsed/ Rinsed/ Irrigated with Irrigated with Saline Saline -Foul Odor after Cleansing No -Primary Dressing Applied Aquacel AG 4x4 C Hydrogel ($) -Primary Dressing Covered/Secured with Dry Gauze & Dry Gauze & Roll Gauze, Roll Gauze, Secured with Secured with Tape Tape -Aquacel AG 4x4 0 Left -Tubular Bandage Single Layer Double Layer -Size of Tubigrip Used Size E Size D -Size D ($) 1 -Size E ($) 1 Treatment Response Procedure Tolerated Well Pain Scale: 0-10 Numeric Is Patient Pain Free? Yes Yes WC - Visit Discharge Discharge Condition Stable Ambulatory Status Wheelchair Transportation Private Auto Accompanied by Assessment/Plan Assessment/Plan (1) Peripheral vascular disease, unspecified: CODE(S): I73.9 - Peripheral vascular disease, unspecified PLAN: Patient examined evaluated, all findings discussed with patient in detail. Lateral left leg wound healed. Plantar fifth metatarsal head on the left side improving, focal area of purulent drainage today. This was flushed and cultured and antibiotics were sent to the pharmacy consisting of doxycycline and ciprofloxacin. The left plantar fifth metatarsal head and lateral leg wound were excisionally debrided down to including level of subcutaneous tissue of all nonviable tissue using a 15 blade scalpel. Hemostasis obtained with light compression. No no anesthesia due to neuropathy. Patient tolerated procedure well. Pre and postdebridement measurements document nursing notes. Will continue with daily cleansing of foot with soap and water washes, apply Bactroban and DSD to left foot wound. Patient will heel weight-bear in surgical shoe with a custom made offloading pad to offload the fifth metatarsal head and the left lower extremity. Arterial studies demonstrate 0.33 TBI on the left. We will refer to vascular surgery for additional work-up. Will continue conservative treatment until we receive the results of those. Continue Tubigrip for low-grade edema management until his vascular status is confirmed. I recommended nutritional supplementation to optimize healing. He started home Jacob use and tolerated this so far. If there are any delays in healing we will consider total contact casting versus left fifth metatarsal head resection versus percutaneous floating metatarsal osteotomy of the fifth metatarsal; however, I feel the patient has significant arterial disease which may limit healing. Wound appears to be healing well at this time. Patient will follow up in 1 week. (2) Type 2 diabetes mellitus with diabetic polyneuropathy: CODE(S): E11.42 - Type 2 diabetes mellitus with diabetic polyneuropathy (3) Non-pressure chronic ulcer of other part of left foot with necrosis of bone: CODE(S): L97.524 - Non-pressure chronic ulcer of other part of left foot with necrosis of bone (4) Unspecified protein-calorie malnutrition: CODE(S): E46 - Unspecified protein-calorie malnutrition (5) Non-pressure chronic ulcer of unspecified part of left lower leg with fat layer exposed: CODE(S): L97.922 - Non-pressure chronic ulcer of unspecified part of left lower leg with fat layer exposed
[2022-01-14 10:40] VITALS: TEMP 36.2
--- NOTE | 2022-01-14 12:16 | PN.PCM_ITS ---
History of Present Illness Date of Service: 01/14/22 Chief Complaint: Left plantar foot ulcer History of Wound: Patient is an 81 year old male who presents with an ulcer on the left foot on the lateral plantar surface, just proximal from the 5th toe. He has a history of Afib on coumadin, insulin controlled type 2 DM, gout, CHF, CKD 3, peripheral vascular disease and a right foot ulcer that required HBOT to help it heal. Patient denies constitutional symptoms at this time. Patient notes some drainage and pain to the left foot. today, he denies redness and swelling. Patient has been offloading site with surgical shoe and limits overall activity. His new left langley wound from last week has healed and he denies drainage. His has applied Aquacel Ag to all of the wound sites. Progress of Wound: healed anterior leg ulcer improving lateral leg ulcer improving plantar lateral foot ulcer Objective Data Objective Data Vital Signs: Vital Signs Temp Pulse Resp BP O2 Del Method 97.2 F L 104 H 16 168/85 H Room Air 01/14/22 10:40 01/07/22 09:57 01/07/22 09:57 01/07/22 09:57 01/07/22 09:57 Oxygen Delivery Method Room Air Lab / Micro Data Micro: Microbiology 01/07/22 10:28 Wound Abcess - Left Foot Gram Stain - Final 01/07/22 10:28 Wound Abcess - Left Foot Wound Culture - Final Coag Negative Staph Presumptive Micrococcus spp. Actinomyces neuii Physical Exam Narrative Patient alert oriented person place and time. Patient ambulating surgical shoe to left lower extremity. Vascular: Dorsalis pedis posterior tibial pulses diminished bilaterally. Atrophic skin changes noted. +1 pitting edema to noted to bilateral lower extremity with hemosiderin deposits. Neurologic: Light touch protective sensation absent to bilateral feet. Dermatologic: Full-thickness wound to anterior lateral left leg. No signs of infection. Full-thickness wound noted to the plantar left fifth metatarsal head wound no longer probes down the level of the fifth metatarsal head and it has decreased fibrous tissue. there is resolution of erythema, edema, and no purulent drainage noted at this time upon debridement there is noted to be some healthy bleeding to the site. Pre and postdebridement measurements document nursing notes. New wound to the lateral leg secondary to wheelchair trauma bumped. Wound is superficial stable no signs of infection deep probing or undermining. 100% granular base. 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 No pain with calf squeeze bilaterally. Muscular strength full to bilateral lower extremities. Debridement Note Debridement Note Post-Debridement Measurements and Additional Note: Post-Debridement Measurements/Treatment - Nurse 1 - General Ulcer Assessment Start: 12/24/21 13:57 Freq: Status: Active Protocol: SUNSHINE Activity Type Activity Date Activity User E-sign Co-sign Detail Recorded Client Recorded Date Recorded By Document 12/24/21 13:57 AK [id number] 12/24/21 14:03 AK Document 12/31/21 10:17 MW [id number] 12/31/21 10:28 MW Document 01/07/22 09:57 [facility] [id number] 01/07/22 10:10 BMF Document 01/14/22 10:40 AK [id number] 01/14/22 10:56 AK 12/24/21 12/31/21 01/07/22 13:57 10:17 09:57 - Today's Visit Information Type of service Follow-up Visit Follow-up Visit Follow-up Visit (Physician/RECORDS CUSTODIAN (Physician/RECORDS CUSTODIAN (Physician/RECORDS CUSTODIAN ) ) ) Arrival Mode Wheelchair Wheelchair Wheelchair Transfer Assistance Other Transfer Assist (Other) 1 stand by Accompanied by Patient Identification Verified (Name & Yes Yes Yes ) Patient Requires Transmission-Based No No No Precautions Vital Signs Temperature (97.8 F-99.1 F) 98 F 96.7 F L 97.3 F L Temperature Source Temporal Temporal Temporal Pulse Rate (60-100) 95 104 H Pulse Location Monitor Monitor Respiratory Rate (12-18) 16 16 Respiratory rate source Observation Observation Oxygen Delivery Method Room Air Room Air Blood Pressure (90/60-120/80) 154/73 H 168/85 H Blood Pressure Mean (mm Hg) 100 112 Source Monitor Monitor Monitor Position Sitting Sitting Blood Pressure Location Left Arm Right Arm History Since Last Visit- (Skip if this is Patient's initial visit) Have you changed medications since your No No No last visit? Any new allergies or adverse reactions No No No Had a fall/change in ADL's that may No No No increase risk of falls Signs or symptoms of abuse and/or No No No neglect since last visit Have you been in the hospital since your No No No last visit? Has dressing in place as prescribed Yes Yes Yes Has compression in place as prescribed Yes Yes Yes Has offloadiing in place as prescribed Yes Yes Yes Experienced any changes in pain level or No No No management Left Footwear Surgical Shoe Surgical Shoe Surgical Shoe with pressure with pressure with pressure relief insole relief insole relief insole Right Footwear Regular Shoe Regular Shoe Diabetic Shoe Pain Scale: 0-10 Numeric Is Patient Pain Free? No Yes Yes 01/14/22 10:40 WC - Today's Visit Information Type of service Follow-up Visit (Physician/RECORDS CUSTODIAN ) Arrival Mode Ambulatory Transfer Assistance Transfer Assist (Other) Accompanied by Patient Identification Verified (Name & No ) Patient Requires Transmission-Based No Precautions Vital Signs Temperature (97.8 F-99.1 F) 97.2 F L Temperature Source Temporal Pulse Rate (60-100) Pulse Location Respiratory Rate (12-18) Respiratory rate source Oxygen Delivery Method Blood Pressure (90/60-120/80) Blood Pressure Mean (mm Hg) Source Position Blood Pressure Location History Since Last Visit- (Skip if this is Patient's initial visit) Have you changed medications since your No last visit? Any new allergies or adverse reactions No Had a fall/change in ADL's that may No increase risk of falls Signs or symptoms of abuse and/or No neglect since last visit Have you been in the hospital since your No last visit? Has dressing in place as prescribed Yes Has compression in place as prescribed N/A Has offloadiing in place as prescribed N/A Experienced any changes in pain level or No management Left Footwear Regular Shoe Right Footwear Regular Shoe Pain Scale: 0-10 Numeric Is Patient Pain Free? Yes - Nurse 1 - General Ulcer Measurement Start: 12/24/21 13:57 Freq: Status: Active Protocol: Activity Type Activity Date Activity User E-sign Co-sign Detail Recorded Client Recorded Date Recorded By Document 12/24/21 13:57 AK [id number] 12/24/21 14:03 AK Document 12/31/21 10:17 MW [id number] 12/31/21 10:28 MW Document 01/07/22 09:57 [facility] [id number] 01/07/22 10:10 BM Document 01/14/22 10:40 AK [id number] 01/14/22 10:56 AK 12/24/21 12/31/21 01/07/22 13:57 10:17 09:57 Wound Center Nurse 1 #3 left superior langley -Combined with other wound No No No -Current Size (cm) - Length 1 1.0 0.1 -Current Size (cm) - Width 0.3 0.3 0.1 -Current Size (cm) - Depth 0.1 0.1 0.1 -Total Square Cm 0.3 0.30 0.01 -Date of Last Picture (Recall this 01/07/22 field) -Photo Taken No No Yes -Epithelialization None Present Large 67-100% -Tunneling No No No -Undermining/Tunneling No No No -Circular Undermining No No No -Change in Wound Grade/Stage No -Exudate Amt Medium Small None Present -Exudate Type Serosanguineous Serosanguineous -Wound Margin Distinct, Flat & Intact Outline Attached -Granulation Amt Medium (34-66%) Medium (34-66%) -Granulation Quality [place],Red Red -Slough/Fibrin Yes Yes -Necrosis Amt Small (1-33%) Small (1-33%) -Necrotic Tissue Type Adherent Slough Adherent Slough -Structure Exposed N/A N/A -Texture (Maribel-wound Skin Appearance) No Abnormality, Assessed, Assessed, Assessed Localized Edema Scarring -Moisture (Maribel-wound Skin Appearance) No Abnormality, Assessed,Dry/ Assessed,Dry/ Assessed Scaly Scaly -Color (Maribel-wound Skin Appearance) No Abnormality, Assessed, Assessed Assessed Hemosiderin Staining -Temperature (Maribel-wound Skin No Abnormality No Abnormality No Abnormality Appearance) (Pt Warm) (Pt Warm) (Pt Warm) -Tenderness on Palpation (Maribel-wound No No No Skin Appearance) -Ulcer Cleansing Rinsed/ Rinsed/ Rinsed/ Irrigated with Irrigated with Irrigated with Saline Saline Saline -Foul Odor after Cleansing No No No -Anesthetic Used 5% Lidocaine 5% Lidocaine Gel Gel #4 R lateral langley -Current Size (cm) - Length -Current Size (cm) - Width -Current Size (cm) - Depth -Total Square Cm -Date of Last Picture (Recall this field) -Photo Taken -Tunneling -Undermining/Tunneling -Circular Undermining -Change in Wound Grade/Stage -Exudate Amt -Exudate Type -Wound Margin -Granulation Amt -Granulation Quality -Slough/Fibrin -Necrosis Amt -Structure Exposed -Texture (Maribel-wound Skin Appearance) -Moisture (Maribel-wound Skin Appearance) -Color (Maribel-wound Skin Appearance) -Temperature (Maribel-wound Skin Appearance) -Tenderness on Palpation (Maribel-wound Skin Appearance) -Ulcer Cleansing -Foul Odor after Cleansing -Anesthetic Used #1 Left Lateral Plantar -Combined with other wound No No -Current Size (cm) - Length 0.3 0.1 0.1 -Current Size (cm) - Width 0.3 0.1 0.1 -Current Size (cm) - Depth 0.3 0.1 0.1 -Total Square Cm 0.09 0.01 0.01 -Date of Last Picture (Recall this 01/07/22 field) -Photo Taken No No Yes -Epithelialization Large 67-100% Large 67-100% -Tunneling No No No -Undermining/Tunneling No No No -Circular Undermining No No No -Change in Wound Grade/Stage No -Exudate Amt Medium None Present -Exudate Type Serosanguineous -Wound Margin Distinct, Flat & Intact Outline Attached -Granulation Amt Small (1-33%) None Present (0 %) -Granulation Quality N/A N/A -Slough/Fibrin Yes Yes -Necrosis Amt Large (67-100%) Small (1-33%) -Necrotic Tissue Type Adherent Slough Adherent Slough -Structure Exposed N/A N/A -Texture (Maribel-wound Skin Appearance) Assessed,Callus Assessed,Callus Assessed,Callus ,Localized ,Scarring Edema -Moisture (Maribel-wound Skin Appearance) No Abnormality, Assessed,Dry/ Assessed,Dry/ Assessed Scaly Scaly -Color (Maribel-wound Skin Appearance) No Abnormality, Assessed Assessed Assessed -Temperature (Maribel-wound Skin No Abnormality No Abnormality No Abnormality Appearance) (Pt Warm) (Pt Warm) (Pt Warm) -Tenderness on Palpation (Maribel-wound No No No Skin Appearance) -Ulcer Cleansing Rinsed/ Rinsed/ Rinsed/ Irrigated with Irrigated with Irrigated with Saline Saline Saline -Foul Odor after Cleansing No No No -Anesthetic Used 5% Lidocaine 5% Lidocaine Gel Gel Lower Limb Edema Present Yes Yes Right Calf (cm) Right Ankle (cm) Left Calf (cm) 36.5 36 Left Ankle (cm) 22.0 23 01/14/22 10:40 Wound Center Nurse 1 #3 left superior langley -Combined with other wound -Current Size (cm) - Length -Current Size (cm) - Width -Current Size (cm) - Depth -Total Square Cm -Date of Last Picture (Recall this field) -Photo Taken -Epithelialization -Tunneling -Undermining/Tunneling -Circular Undermining -Change in Wound Grade/Stage -Exudate Amt -Exudate Type -Wound Margin -Granulation Amt -Granulation Quality -Slough/Fibrin -Necrosis Amt -Necrotic Tissue Type -Structure Exposed -Texture (Maribel-wound Skin Appearance) -Moisture (Maribel-wound Skin Appearance) -Color (Maribel-wound Skin Appearance) -Temperature (Maribel-wound Skin Appearance) -Tenderness on Palpation (Maribel-wound Skin Appearance) -Ulcer Cleansing -Foul Odor after Cleansing -Anesthetic Used #4 R lateral langley -Current Size (cm) - Length 3.5 -Current Size (cm) - Width 2.2 -Current Size (cm) - Depth 0.1 -Total Square Cm 7.70 -Date of Last Picture (Recall this 01/14/22 field) -Photo Taken Yes -Tunneling No -Undermining/Tunneling No -Circular Undermining No -Change in Wound Grade/Stage No -Exudate Amt Large -Exudate Type Serosanguineous -Wound Margin Distinct, Outline Attached -Granulation Amt None Present (0 %) -Granulation Quality N/A -Slough/Fibrin No -Necrosis Amt None Present (0 %) -Structure Exposed N/A -Texture (Maribel-wound Skin Appearance) No Abnormality, Assessed -Moisture (Maribel-wound Skin Appearance) No Abnormality, Assessed -Color (Maribel-wound Skin Appearance) No Abnormality, Assessed -Temperature (Maribel-wound Skin No Abnormality Appearance) (Pt Warm) -Tenderness on Palpation (Maribel-wound No Skin Appearance) -Ulcer Cleansing Rinsed/ Irrigated with Saline -Foul Odor after Cleansing No -Anesthetic Used 5% Lidocaine Gel #1 Left Lateral Plantar -Combined with other wound No -Current Size (cm) - Length 0.2 -Current Size (cm) - Width 0.2 -Current Size (cm) - Depth 0.2 -Total Square Cm 0.04 -Date of Last Picture (Recall this 01/14/22 field) -Photo Taken Yes -Epithelialization -Tunneling No -Undermining/Tunneling No -Circular Undermining No -Change in Wound Grade/Stage No -Exudate Amt None Present -Exudate Type -Wound Margin -Granulation Amt -Granulation Quality N/A -Slough/Fibrin No -Necrosis Amt None Present (0 %) -Necrotic Tissue Type -Structure Exposed N/A -Texture (Maribel-wound Skin Appearance) Assessed,Callus -Moisture (Maribel-wound Skin Appearance) No Abnormality, Assessed -Color (Maribel-wound Skin Appearance) No Abnormality, Assessed -Temperature (Maribel-wound Skin No Abnormality Appearance) (Pt Warm) -Tenderness on Palpation (Maribel-wound No Skin Appearance) -Ulcer Cleansing Rinsed/ Irrigated with Saline -Foul Odor after Cleansing No -Anesthetic Used 5% Lidocaine Gel Lower Limb Edema Present No Right Calf (cm) 36 Right Ankle (cm) 24 Left Calf (cm) Left Ankle (cm) WC - Nurse 2 - General Ulcer CM Notes Start: 12/24/21 13:57 Freq: Status: Active Protocol: Activity Type Activity Date Activity User E-sign Co-sign Detail Recorded Client Recorded Date Recorded By Document 12/24/21 14:20 [id number] 12/24/21 14:23 Document 12/31/21 10:45 [id number] 12/31/21 10:47 Document 01/07/22 10:34 [id number] 01/07/22 10:36 Document 01/14/22 11:10 [id number] 01/14/22 11:13 12/24/21 12/31/21 01/07/22 14:20 10:45 10:34 Wound Center Nurse 2 #3 left superior langley -Time 14:10 10:46 -Correct Patient Yes Yes No -Correct Side, Site, Position Yes Yes No -Correct Procedure Yes Yes No -Procedure Performed Yes Yes No -Type of Procedure Debridement Debridement -Clinical Debridement Subcutaneous Subcutaneous -Tissue Removed Subcutaneous Subcutaneous -Post Debridement (cm) - Length 1.0 1.0 0 -Post Debridement (cm) - Width 0.3 0.4 0 -Post Debridement (cm) - Depth 0.1 0.1 0 -Total Square (Post) (cm) 0.30 0.40 0 -Area of Debridement (cm) - Length 1.0 1.0 0 -Area of Debridement (cm) - Width 0.3 0.4 0 -Total Square (Area) (cm) 0.30 0.40 0 -Tunneling No No -Undermining/Tunneling No No -Circular Undermining No No -Wound/Ulcer Outcome Not Healed Not Healed Healed- Epithelialized -Ulcer Cleansing Rinsed/ Rinsed/ Irrigated with Irrigated with Saline Saline -Foul Odor after Cleansing No No -Bioengineered Tissue No No -Bleeding Controlled with Pressure Pressure -Treatment Response Procedure Procedure Tolerated Well Tolerated Well -Offloading Yes -Type of Offloading Surgical Shoe -Debridement - Subq, 1st 20sq cm No Yes #4 R lateral langley -Time -Correct Patient -Correct Side, Site, Position -Correct Procedure -Procedure Performed -Type of Procedure -Clinical Debridement -Tissue Removed -Post Debridement (cm) - Length -Post Debridement (cm) - Width -Post Debridement (cm) - Depth -Total Square (Post) (cm) -Area of Debridement (cm) - Length -Area of Debridement (cm) - Width -Total Square (Area) (cm) -Tunneling -Undermining/Tunneling -Circular Undermining -Wound/Ulcer Outcome -Ulcer Cleansing -Foul Odor after Cleansing -Bioengineered Tissue -Bleeding Controlled with -Treatment Response -Offloading -Debridement - Subq, 20sq cm #1 Left Lateral Plantar -Time 14:10 10:46 10:35 -Correct Patient Yes Yes Yes -Correct Side, Site, Position Yes Yes Yes -Correct Procedure Yes Yes Yes -Procedure Performed Yes Yes Yes -Type of Procedure Debridement Debridement Debridement -Clinical Debridement Subcutaneous Subcutaneous Subcutaneous -Tissue Removed Subcutaneous Subcutaneous Subcutaneous -Post Debridement (cm) - Length 0.3 0.2 0.4 -Post Debridement (cm) - Width 0.3 0.1 0.2 -Post Debridement (cm) - Depth 0.3 0.3 0.5 -Total Square (Post) (cm) 0.09 0.02 0.08 -Area of Debridement (cm) - Length 0.3 0.2 0.4 -Area of Debridement (cm) - Width 0.3 0.1 0.2 -Total Square (Area) (cm) 0.09 0.02 0.08 -Tunneling No No No -Undermining/Tunneling No No No -Circular Undermining No No No -Wound/Ulcer Outcome Not Healed Not Healed Not Healed -Ulcer Cleansing Rinsed/ Rinsed/ Rinsed/ Irrigated with Irrigated with Irrigated with Saline Saline Saline -Foul Odor after Cleansing No No No -Bioengineered Tissue No No No -Bleeding Controlled with Pressure Pressure Pressure -Treatment Response Procedure Procedure Procedure Tolerated Well Tolerated Well Tolerated Well -Offloading Yes Yes -Type of Offloading Surgical Shoe Surgical Shoe -Debridement - Subq, 1st 20sq cm Yes No Yes Pain Scale: 0-10 Numeric Is Patient Pain Free? Yes Yes Yes 01/14/22 11:10 Wound Center Nurse 2 #3 left superior langley -Time -Correct Patient -Correct Side, Site, Position -Correct Procedure -Procedure Performed -Type of Procedure -Clinical Debridement -Tissue Removed -Post Debridement (cm) - Length -Post Debridement (cm) - Width -Post Debridement (cm) - Depth -Total Square (Post) (cm) -Area of Debridement (cm) - Length -Area of Debridement (cm) - Width -Total Square (Area) (cm) -Tunneling -Undermining/Tunneling -Circular Undermining -Wound/Ulcer Outcome -Ulcer Cleansing -Foul Odor after Cleansing -Bioengineered Tissue -Bleeding Controlled with -Treatment Response -Offloading -Type of Offloading -Debridement - Subq, 1st 20sq cm #4 R lateral langley -Time 11:10 -Correct Patient Yes -Correct Side, Site, Position Yes -Correct Procedure Yes -Procedure Performed Yes -Type of Procedure Debridement -Clinical Debridement Subcutaneous -Tissue Removed Subcutaneous -Post Debridement (cm) - Length 3.5 -Post Debridement (cm) - Width 2.3 -Post Debridement (cm) - Depth 0.1 -Total Square (Post) (cm) 8.05 -Area of Debridement (cm) - Length 3.5 -Area of Debridement (cm) - Width 2.3 -Total Square (Area) (cm) 8.05 -Tunneling No -Undermining/Tunneling No -Circular Undermining No -Wound/Ulcer Outcome Not Healed -Ulcer Cleansing Rinsed/ Irrigated with Saline -Foul Odor after Cleansing No -Bioengineered Tissue No -Bleeding Controlled with Pressure -Treatment Response Procedure Tolerated Well -Offloading No -Debridement - Subq, 1st 20sq cm Yes #1 Left Lateral Plantar -Time 11:11 -Correct Patient Yes -Correct Side, Site, Position Yes -Correct Procedure Yes -Procedure Performed Yes -Type of Procedure Debridement -Clinical Debridement Subcutaneous -Tissue Removed Subcutaneous -Post Debridement (cm) - Length 0.3 -Post Debridement (cm) - Width 0.2 -Post Debridement (cm) - Depth 0.4 -Total Square (Post) (cm) 0.06 -Area of Debridement (cm) - Length 0.3 -Area of Debridement (cm) - Width 0.2 -Total Square (Area) (cm) 0.06 -Tunneling No -Undermining/Tunneling No -Circular Undermining No -Wound/Ulcer Outcome Not Healed -Ulcer Cleansing Rinsed/ Irrigated with Saline -Foul Odor after Cleansing No -Bioengineered Tissue No -Bleeding Controlled with Pressure -Treatment Response Procedure Tolerated Well -Offloading Yes -Type of Offloading Surgical Shoe -Debridement - Subq, 1st 20sq cm Yes Pain Scale: 0-10 Numeric Is Patient Pain Free? Yes WC - Nurse 3 - General Ulcer D/C NN Start: 12/24/21 13:57 Freq: Status: Active Protocol: Activity Type Activity Date Activity User E-sign Co-sign Detail Recorded Client Recorded Date Recorded By Document 12/24/21 14:37 ML [id number] 12/24/21 14:38 ML Document 12/31/21 11:03 [facility] [id number] 12/31/21 11:04 BMF Document 01/07/22 10:47 RB [id number] 01/07/22 10:48 RB Document 01/14/22 11:19 MW [id number] 01/14/22 11:21 MW 12/24/21 12/31/21 01/07/22 14:37 11:03 10:47 Wound Care Nurse 3 #3 left superior langley -Ulcer Cleansing Rinsed/ Rinsed/ Irrigated with Irrigated with Saline Saline -Foul Odor after Cleansing No -Primary Dressing Applied Aquacel AG 4x4 Aquacel AG 2x2 -Primary Dressing Covered/Secured with Dry Gauze & Dry Gauze, Roll Gauze, Secured with Secured with Tape Tape -Aquacel AG 4x4 1 -Aquacel AG 2x2 1 #4 R lateral langley -Ulcer Cleansing -Foul Odor after Cleansing -Negative Pressure Wound Therapy -Primary Dressing Applied -Primary Dressing Covered/Secured with #1 Left Lateral Plantar -Ulcer Cleansing Rinsed/ Rinsed/ Irrigated with Irrigated with Saline Saline -Foul Odor after Cleansing No -Negative Pressure Wound Therapy -Primary Dressing Applied Aquacel AG 4x4 C Hydrogel ($) -Other Dressing bactroban -Primary Dressing Covered/Secured with Dry Gauze & Dry Gauze & Dry Gauze, Roll Gauze, Roll Gauze, Secured with Secured with Secured with Tape Tape Tape -Aquacel AG 4x4 0 Right -Lotion applied to leg before compression wrap -Tubular Bandage -Size of Tubigrip Used -Size E ($) -Stockings Left -Lotion applied to leg before compression wrap -Tubular Bandage Single Layer Double Layer -Size of Tubigrip Used Size E Size D -Size D ($) 1 -Size E ($) 1 -Other double layer tubigrip Treatment Response Procedure Procedure Tolerated Well Tolerated Well Pain Scale: 0-10 Numeric Is Patient Pain Free? Yes Yes Yes Teaching: Wound Center Dressing Your Wound -Person Taught -Teaching Method -Response to teaching WC - Visit Discharge Discharge Condition Stable Stable Ambulatory Status Wheelchair Wheelchair Transportation Private Auto Private Auto Accompanied by Medication Reconcilliation completed & No provided to patient/care provider Clinical Summary of Care Provided Yes 01/14/22 11:19 Wound Care Nurse 3 #3 left superior langley -Ulcer Cleansing -Foul Odor after Cleansing -Primary Dressing Applied -Primary Dressing Covered/Secured with -Aquacel AG 4x4 -Aquacel AG 2x2 #4 R lateral langley -Ulcer Cleansing Rinsed/ Irrigated with Saline -Foul Odor after Cleansing No -Negative Pressure Wound Therapy N/A -Primary Dressing Applied C Hydrogel ($) -Primary Dressing Covered/Secured with Dry Gauze & Roll Gauze, Secured with Tape #1 Left Lateral Plantar -Ulcer Cleansing Rinsed/ Irrigated with Saline -Foul Odor after Cleansing No -Negative Pressure Wound Therapy N/A -Primary Dressing Applied -Other Dressing C.HYDROGEL -Primary Dressing Covered/Secured with Dry Gauze & Roll Gauze, Secured with Tape -Aquacel AG 4x4 Right -Lotion applied to leg before No compression wrap -Tubular Bandage Single Layer -Size of Tubigrip Used Size E -Size E ($) 1 -Stockings No Left -Lotion applied to leg before No compression wrap -Tubular Bandage -Size of Tubigrip Used -Size D ($) -Size E ($) -Other SINGLE LAYER TUBIGRIP Treatment Response Procedure Tolerated Well Pain Scale: 0-10 Numeric Is Patient Pain Free? Yes Teaching: Wound Center Dressing Your Wound -Person Taught Patient -Teaching Method Discussion -Response to teaching Verbalize understanding WC - Visit Discharge Discharge Condition Stable Ambulatory Status Wheelchair Transportation Private Auto Accompanied by Medication Reconcilliation completed & No provided to patient/care provider Clinical Summary of Care Provided Yes Assessment/Plan Assessment/Plan (1) Peripheral vascular disease, unspecified: CODE(S): I73.9 - Peripheral vascular disease, unspecified PLAN: Patient examined evaluated, all findings discussed with patient in detail. Lateral left leg wound healed. Improving plantar left fifth metatarsal head wound. Will consider elective floating metatarsal osteotomy to offload. Patient DVI 0.33 on this side. Patient is following up with vascular next week The left plantar fifth metatarsal head and lateral leg wound were excisionally d ebrided down to including level of subcutaneous tissue of all nonviable tissue using a 15 blade scalpel. Hemostasis obtained with light compression. No no anesthesia due to neuropathy. Patient tolerated procedure well. Pre and postdebridement measurements document nursing notes. Will continue with daily cleansing of foot with soap and water washes, apply Bactroban and DSD to left foot wound. Patient will heel weight-bear in surgical shoe with a custom made offloading pad to offload the fifth metatarsal head and the left lower extremity. Will continue conservative treatment until we receive the results of those. Continue Tubigrip for low-grade edema management until his vascular status is confirmed. I recommended nutritional supplementation to optimize healing. He started home Jacob use and tolerated this so far. If there are any delays in healing we will consider total contact casting versus left fifth metatarsal head resection versus percutaneous floating metatarsal osteotomy of the fifth metatarsal; however, I feel the patient has significant arterial disease which may limit healing. Wound appears to be healing well at this time. New wound to right lateral leg stable this was excisionally debrided down to including level subcutaneous tissue of all nonviable tissue using #15 blade without incident patient tolerated procedure well. Patient hemostasis obtained with light compression note anesthesia used. Pre and postdebridement measurements document nursing notes. This will be dressed with hydrogel DSD and Tubigrip Patient will follow up in 1 week. (2) Type 2 diabetes mellitus with diabetic polyneuropathy: CODE(S): E11.42 - Type 2 diabetes mellitus with diabetic polyneuropathy (3) Non-pressure chronic ulcer of other part of left foot with necrosis of bone: CODE(S): L97.524 - Non-pressure chronic ulcer of other part of left foot with necrosis of bone (4) Unspecified protein-calorie malnutrition: CODE(S): E46 - Unspecified protein-calorie malnutrition (5) Non-pressure chronic ulcer of unspecified part of left lower leg with fat layer exposed: CODE(S): L97.922 - Non-pressure chronic ulcer of unspecified part of left lower leg with fat layer exposed
== END 2022-01-17 23:59 | disposition home or self-care (01) ==
LOC: WC 10:30
PROVIDERS: PCP Physician Assistant; Referring Provider Podiatrist; Visit Provider Podiatrist
DX: E11.621 Type 2 diabetes mellitus with foot ulcer (principal); E11.51 Type 2 diabetes mellitus with diabetic peripheral angiopathy without gangrene; L97.522 Non-pressure chronic ulcer of other part of left foot with fat layer exposed; L97.822 Non-pressure chronic ulcer of other part of left lower leg with fat layer exposed; I50.9 Heart failure, unspecified; E11.22 Type 2 diabetes mellitus with diabetic chronic kidney disease; N18.30 Chronic kidney disease, stage 3 unspecified; M20.42 Other hammer toe(s) (acquired), left foot; Z79.01 Long term (current) use of anticoagulants
CPT/HCPCS: 11042; 87070; 87075; 87077; 87186; 87205; 93923

== ENCOUNTER 2022-01-28 09:45 | Outpatient (RCR) | payer MEDICARE, SELFPAY ==
[2022-01-18 01:30] VITALS: BP 168/85; PULSE 104; RESP 16; TEMP 36.2
[2022-01-21 09:25] VITALS: BP 154/74; PULSE 93; RESP 16; TEMP 35.9
--- NOTE | 2022-01-21 10:33 | PN.PCM_ITS ---
History of Present Illness Date of Service: 01/21/22 Chief Complaint: Left plantar foot ulcer History of Wound: Patient is an 81 year old male who presents with an ulcer on the left foot on the lateral plantar surface, just proximal from the 5th toe. He has a history of Afib on coumadin, insulin controlled type 2 DM, gout, CHF, CKD 3, peripheral vascular disease and a right foot ulcer that required HBOT to help it heal. Patient denies constitutional symptoms at this time. Patient notes some drainage and pain to the left foot. today, he denies redness and swelling. Patient has been offloading site with surgical shoe and limits overall activity. His new left langley wound from last week has healed and he denies drainage. Applying Bactroban to the left plantar foot. No new complaints at this time. Objective Data Objective Data Vital Signs: Vital Signs Temp Pulse Resp BP O2 Del Method 96.6 F L 93 16 154/74 H Room Air 01/21/22 09:25 01/21/22 09:25 01/21/22 09:25 01/21/22 09:25 01/21/22 09:25 Oxygen Delivery Method Room Air Physical Exam Narrative Patient alert oriented person place and time. Patient ambulating surgical shoe to left lower extremity. Vascular: Dorsalis pedis posterior tibial pulses diminished bilaterally. Atrophic skin changes noted. +1 pitting edema to noted to bilateral lower extremity with hemosiderin deposits. Neurologic: Light touch protective sensation absent to bilateral feet. Dermatologic: Left lateral leg wound healed. Full-thickness wound to anterior lateral right leg. Stable 100% granular base with no deep probing or undermining. No signs of infection. Full-thickness wound noted to the plantar left fifth metatarsal head wound no longer probes down the level of the fifth metatarsal head and it has decreased fibrous tissue. there is resolution of erythema, edema, and no purulent drainage noted at this time upon debridement there is noted to be some healthy bleeding to the site. Pre and postdebridement measurements document nursing notes. 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 No pain with calf squeeze bilaterally. Muscular strength full to bilateral lower extremities. 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 ) Arrival Mode Ambulatory,Cane Transfer Assistance None Accompanied by Patient Identification Verified (Name & Yes ) Patient Requires Transmission-Based No Precautions Vital Signs Temperature (97.8 F-99.1 F) 96.6 F L Temperature Source Temporal Pulse Rate (60-100) 93 Pulse Location Monitor Respiratory Rate (12-18) 16 Respiratory rate source Observation Oxygen Delivery Method Room Air Blood Pressure (90/60-120/80) 154/74 H Blood Pressure Mean (mm Hg) 100 Source Monitor Position Sitting Blood Pressure Location Left Arm History Since Last Visit- (Skip if this is Patient's initial visit) Have you changed medications since your No last visit? Any new allergies or adverse reactions No Had a fall/change in ADL's that may No increase risk of falls Signs or symptoms of abuse and/or No neglect since last visit Have you been in the hospital since your No last visit? Has dressing in place as prescribed Yes Has compression in place as prescribed Yes Has offloadiing in place as prescribed Yes Experienced any changes in pain level or No management Left Footwear Surgical Shoe with pressure relief insole Right Footwear Regular Shoe Pain Scale: 0-10 Numeric Is Patient Pain Free? Yes - Nurse 1 - General Ulcer Measurement Start: 01/21/22 09:25 Freq: Status: Active Protocol: Activity Type Activity Date Activity User E-sign Co-sign Detail Recorded Client Recorded Date Recorded By Document 01/21/22 09:25 [facility] [id number] 01/21/22 09:39 [facility] 01/21/22 09:25 Wound Center Nurse 1 #4 R lateral langley -Combined with other wound No -Current Size (cm) - Length 3.2 -Current Size (cm) - Width 1.5 -Current Size (cm) - Depth 0.1 -Total Square Cm 4.80 -Date of Last Picture (Recall this 01/21/22 field) -Photo Taken Yes -Epithelialization Small 1-33% -Tunneling No -Undermining/Tunneling No -Circular Undermining No -Exudate Amt Medium -Exudate Type Serosanguineous -Wound Margin Flat & Intact -Granulation Amt Medium (34-66%) -Granulation Quality Red -Slough/Fibrin Yes -Necrosis Amt Medium (34-66%) -Necrotic Tissue Type Adherent Slough -Texture (Maribel-wound Skin Appearance) Assessed, Scarring -Moisture (Maribel-wound Skin Appearance) Assessed,Dry/ Scaly -Color (Maribel-wound Skin Appearance) Assessed, Hemosiderin Staining -Temperature (Maribel-wound Skin No Abnormality Appearance) (Pt Warm) -Tenderness on Palpation (Maribel-wound No Skin Appearance) -Ulcer Cleansing Rinsed/ Irrigated with Saline -Foul Odor after Cleansing No -Anesthetic Used 5% Lidocaine Gel #1 Left Lateral Plantar -Combined with other wound No -Current Size (cm) - Length 0.3 -Current Size (cm) - Width 0.1 -Current Size (cm) - Depth 0.5 -Total Square Cm 0.03 -Date of Last Picture (Recall this 01/21/22 field) -Photo Taken Yes -Epithelialization None Present -Tunneling No -Undermining/Tunneling Yes -Undermining/Tunneling Starts (O'clock 12 ) -Undermining/Tunneling Ends (O'clock) 12 -Maximum Distance (cm) 0.3 -Circular Undermining Yes -Exudate Amt Small -Exudate Type Serous -Wound Margin Distinct, Outline Attached -Granulation Amt Large (67-100%) -Granulation Quality Rodney -Slough/Fibrin No -Necrosis Amt None Present (0 %) -Texture (Maribel-wound Skin Appearance) Assessed,Callus ,Scarring -Moisture (Maribel-wound Skin Appearance) Assessed, Maceration -Color (Maribel-wound Skin Appearance) Assessed,Palor -Temperature (Maribel-wound Skin No Abnormality Appearance) (Pt Warm) -Tenderness on Palpation (Maribel-wound No Skin Appearance) -Ulcer Cleansing Rinsed/ Irrigated with Saline -Foul Odor after Cleansing No -Anesthetic Used 5% Lidocaine Gel Lower Limb Edema Present Yes Left Calf (cm) 35.5 Left Ankle (cm) 22.3 WC - Nurse 2 - General Ulcer CM Notes Start: 01/21/22 09:25 Freq: Status: Active Protocol: Activity Type Activity Date Activity User E-sign Co-sign Detail Recorded Client Recorded Date Recorded By Document 01/21/22 09:48 [facility] [id number] 01/21/22 09:51 [facility] 01/21/22 09:48 Wound Center Nurse 2 #4 R lateral langley -Time 09:50 -Correct Patient Yes -Correct Side, Site, Position Yes -Correct Procedure Yes -Procedure Performed Yes -Type of Procedure Debridement -Clinical Debridement Subcutaneous -Tissue Removed Subcutaneous -Post Debridement (cm) - Length 3.2 -Post Debridement (cm) - Width 1.6 -Post Debridement (cm) - Depth 0.1 -Total Square (Post) (cm) 5.12 -Area of Debridement (cm) - Length 3.2 -Area of Debridement (cm) - Width 1.6 -Total Square (Area) (cm) 5.12 -Tunneling No -Undermining/Tunneling No -Circular Undermining No -Wound/Ulcer Outcome Not Healed -Ulcer Cleansing Rinsed/ Irrigated with Saline -Foul Odor after Cleansing No -Bioengineered Tissue No -Bleeding Controlled with Pressure -Treatment Response Procedure Tolerated Well -Offloading No -Debridement - Subq, 1st 20sq cm Yes #1 Left Lateral Plantar -Time 09:48 -Correct Patient Yes -Correct Side, Site, Position Yes -Correct Procedure Yes -Procedure Performed Yes -Type of Procedure Debridement -Clinical Debridement Subcutaneous -Tissue Removed Subcutaneous -Post Debridement (cm) - Length 0.4 -Post Debridement (cm) - Width 0.2 -Post Debridement (cm) - Depth 0.4 -Total Square (Post) (cm) 0.08 -Area of Debridement (cm) - Length 0.4 -Area of Debridement (cm) - Width 0.2 -Total Square (Area) (cm) 0.08 -Tunneling No -Undermining/Tunneling No -Circular Undermining No -Wound/Ulcer Outcome Not Healed -Ulcer Cleansing Rinsed/ Irrigated with Saline -Foul Odor after Cleansing No -Bioengineered Tissue No -Bleeding Controlled with Pressure -Treatment Response Procedure Tolerated Well -Offloading Yes -Type of Offloading Surgical Shoe -Debridement - Subq, 1st 20sq cm No Pain Scale: 0-10 Numeric Is Patient Pain Free? Yes WC - Nurse 3 - General Ulcer D/C NN Start: 01/21/22 09:25 Freq: Status: Active Protocol: Activity Type Activity Date Activity User E-sign Co-sign Detail Recorded Client Recorded Date Recorded By Document 01/21/22 09:56 MW [id number] 01/21/22 09:57 MW Edit Result 01/21/22 09:56 MW (1) [id number] 01/21/22 09:58 MW (1) Notes: => Dressing applied per Jolie Pandya RN 01/21/22 09:56 Wound Care Nurse 3 #4 R lateral langley -Ulcer Cleansing Rinsed/ Irrigated with Saline -Foul Odor after Cleansing No -Negative Pressure Wound Therapy N/A -Primary Dressing Applied NonAdherent Contact Layer -Other Dressing c.hydrogel -Primary Dressing Covered/Secured with Dry Gauze & Roll Gauze, Secured with Tape #1 Left Lateral Plantar -Ulcer Cleansing Rinsed/ Irrigated with Saline -Foul Odor after Cleansing No -Negative Pressure Wound Therapy N/A -Primary Dressing Applied NonAdherent Contact Layer -Other Dressing c.hydrogel -Primary Dressing Covered/Secured with Dry Gauze & Roll Gauze, Secured with Tape Treatment Response Procedure Tolerated Well Pain Scale: 0-10 Numeric Is Patient Pain Free? Yes Teaching: Wound Center Dressing Your Wound -Person Taught Patient,Family -Teaching Method Discussion -Response to teaching Verbalize understanding WC - Visit Discharge Discharge Condition Stable Ambulatory Status Ambulatory Transportation Private Auto Accompanied by Medication Reconcilliation completed & No provided to patient/care provider Clinical Summary of Care Provided Yes Notes: Dressing applied per Jolie Pandya RNinstallation tech/Plan Assessment/Plan (1) Peripheral vascular disease, unspecified: CODE(S): I73.9 - Peripheral vascular disease, unspecified PLAN: Patient examined evaluated, all findings discussed with patient in detail. Lateral left leg wound healed. Improving plantar left fifth metatarsal head wound. Will consider elective floating metatarsal osteotomy to offload. Patient TBI 0.33 on this side. Patient is following up with vascular this week on , 01/23/2022. The left plantar fifth metatarsal head and lateral leg wound were excisionally debrided down to including level of subcutaneous tissue of all nonviable tissue using a 15 blade scalpel. Hemostasis obtained with light compression. No no anesthesia due to neuropathy. Patient tolerated procedure well. Pre and postdebridement measurements document nursing notes. Will continue with daily cleansing of foot with soap and water washes, apply Bactroban and DSD to left foot wound. Patient will heel weight-bear in surgical shoe with a custom made offloading pad to offload the fifth metatarsal head and the left lower extremity. Will continue conservative treatment until we receive the results of those. Continue Tubigrip for low-grade edema management until his vascular status is confirmed. I recommended nutritional supplementation to optimize healing. He started home Jacob use and tolerated this so far. If there are any delays in healing we will consider total contact casting versus left fifth metatarsal head resection versus percutaneous floating metatarsal osteotomy of the fifth metatarsal; however, I feel the patient has significant arterial disease which may limit healing. Wound appears to be healing well at this time. New wound to right lateral leg stable this was excisionally debrided down to including level subcutaneous tissue of all nonviable tissue using #15 blade wi thout incident patient tolerated procedure well. Patient hemostasis obtained with light compression note anesthesia used. Pre and postdebridement measurements document nursing notes. This will be dressed with hydrogel DSD and Tubigrip Patient will follow up in 1 week. (2) Type 2 diabetes mellitus with diabetic polyneuropathy: CODE(S): E11.42 - Type 2 diabetes mellitus with diabetic polyneuropathy (3) Non-pressure chronic ulcer of other part of left foot with necrosis of bone: CODE(S): L97.524 - Non-pressure chronic ulcer of other part of left foot with necrosis of bone (4) Unspecified protein-calorie malnutrition: CODE(S): E46 - Unspecified protein-calorie malnutrition (5) Non-pressure chronic ulcer of unspecified part of left lower leg with fat layer exposed: CODE(S): L97.922 - Non-pressure chronic ulcer of unspecified part of left lower leg with fat layer exposed
[2022-01-28 09:51] VITALS: BP 163/85; PULSE 97; RESP 16; TEMP 36.3
--- NOTE | 2022-01-28 10:39 | PCM.WC.PN ---
History of Present Illness Date of Service: 01/28/22 Chief Complaint: Left plantar foot ulcer History of Wound: Patient is an 81 year old male who presents with an ulcer on the left foot on the lateral plantar surface, just proximal from the 5th toe. He has a history of Afib on coumadin, insulin controlled type 2 DM, gout, CHF, CKD 3, peripheral vascular disease and a right foot ulcer that required HBOT to help it heal. Patient denies constitutional symptoms at this time. Patient notes some drainage and pain to the left foot. today, he denies redness and swelling. Patient has been offloading site with surgical shoe and limits overall activity. His new left langley wound from last week has healed and he denies drainage. Applying Bactroban to the left plantar foot. No new complaints at this time. Objective Data Objective Data Vital Signs: Vital Signs Temp Pulse Resp BP O2 Del Method 97.4 F L 97 16 163/85 H Room Air 01/28/22 09:51 01/28/22 09:51 01/28/22 09:51 01/28/22 09:51 01/28/22 09:51 Oxygen Delivery Method Room Air Physical Exam Narrative Patient alert oriented person place and time. Patient ambulating surgical shoe to left lower extremity. Vascular: Dorsalis pedis posterior tibial pulses diminished bilaterally. Atrophic skin changes noted. +1 pitting edema to noted to bilateral lower extremity with hemosiderin deposits. Neurologic: Light touch protective sensation absent to bilateral feet. Dermatologic: Left lateral leg wound healed. Full-thickness wound to anterior lateral right leg. Stable 100% granular base with no deep probing or undermining. No signs of infection. Full-thickness wound noted to the plantar left fifth metatarsal head wound no longer probes down the level of the fifth metatarsal head and it has decreased fibrous tissue. there is resolution of erythema, edema, and no purulent drainage noted at this time upon debridement there is noted to be some healthy bleeding to the site. Pre and postdebridement measurements document nursing notes. 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 No pain with calf squeeze bilaterally. Muscular strength full to bilateral lower extremities. Debridement Note Debridement Note Post-Debridement Measurements and Additional Note: Post-Debridement Measurements/Treatment WC - Nurse 1 - General Ulcer Assessment Start: 01/21/22 09:25 Freq: Status: Active Protocol: SUNSHINE Activity Type Activity Date Activity User E-sign Co-sign Detail Recorded Client Recorded Date Recorded By Document 01/21/22 09:25 [facility] [id number] 01/21/22 09:39 [facility] Document 01/28/22 09:51 [facility] [id number] 01/28/22 09:59 [facility] 01/21/22 01/28/22 09:25 09:51 - Today's Visit Information Type of service Follow-up Visit Follow-up Visit (Physician/SENIOR INTERNET SALES CONSULTANT (Physician/SENIOR INTERNET SALES CONSULTANT ) ) Arrival Mode Ambulatory,Cane Ambulatory,Cane ,Wheelchair Transfer Assistance None None Accompanied by Patient Identification Verified (Name & Yes Yes ) Patient Requires Transmission-Based No No Precautions Vital Signs Temperature (97.8 F-99.1 F) 96.6 F L 97.4 F L Temperature Source Temporal Temporal Pulse Rate (60-100) 93 97 Pulse Location Monitor Monitor Respiratory Rate (12-18) 16 16 Respiratory rate source Observation Observation Oxygen Delivery Method Room Air Room Air Blood Pressure (90/60-120/80) 154/74 H 163/85 H Blood Pressure Mean (mm Hg) 100 111 Source Monitor Monitor Position Sitting Sitting Blood Pressure Location Left Arm Left Arm History Since Last Visit- (Skip if this is Patient's initial visit) Have you changed medications since your No No last visit? Any new allergies or adverse reactions No No Had a fall/change in ADL's that may No No increase risk of falls Signs or symptoms of abuse and/or No No neglect since last visit Have you been in the hospital since your No No last visit? Has dressing in place as prescribed Yes Yes Has compression in place as prescribed Yes Yes Has offloadiing in place as prescribed Yes Yes Experienced any changes in pain level or No No management Left Footwear Surgical Shoe Surgical Shoe with pressure with pressure relief insole relief insole Right Footwear Regular Shoe Regular Shoe Pain Scale: 0-10 Numeric Is Patient Pain Free? Yes Yes - Nurse 1 - General Ulcer Measurement Start: 01/21/22 09:25 Freq: Status: Active Protocol: Activity Type Activity Date Activity User E-sign Co-sign Detail Recorded Client Recorded Date Recorded By Document 01/21/22 09:25 [facility] [id number] 01/21/22 09:39 [facility] Document 01/28/22 09:51 [facility] [id number] 01/28/22 09:59 BM 01/21/22 01/28/22 09:25 09:51 Wound Center Nurse 1 #4 R lateral langley -Combined with other wound No No -Current Size (cm) - Length 3.2 1.3 -Current Size (cm) - Width 1.5 0.8 -Current Size (cm) - Depth 0.1 0.1 -Total Square Cm 4.80 1.04 -Date of Last Picture (Recall this 01/21/22 01/28/22 field) -Photo Taken Yes Yes -Epithelialization Small 1-33% Medium 34-66% -Tunneling No No -Undermining/Tunneling No No -Circular Undermining No No -Exudate Amt Medium Small -Exudate Type Serosanguineous Serosanguineous -Wound Margin Flat & Intact Flat & Intact -Granulation Amt Medium (34-66%) Large (67-100%) -Granulation Quality Red Red -Slough/Fibrin Yes No -Necrosis Amt Medium (34-66%) None Present (0 %) -Necrotic Tissue Type Adherent Slough -Texture (Maribel-wound Skin Appearance) Assessed, Assessed, Scarring Scarring -Moisture (Maribel-wound Skin Appearance) Assessed,Dry/ Assessed,Dry/ Scaly Scaly -Color (Maribel-wound Skin Appearance) Assessed, Assessed Hemosiderin Staining -Temperature (Maribel-wound Skin No Abnormality No Abnormality Appearance) (Pt Warm) (Pt Warm) -Tenderness on Palpation (Maribel-wound No No Skin Appearance) -Ulcer Cleansing Rinsed/ Rinsed/ Irrigated with Irrigated with Saline Saline -Foul Odor after Cleansing No No -Anesthetic Used 5% Lidocaine 5% Lidocaine Gel Gel #1 Left Lateral Plantar -Combined with other wound No No -Current Size (cm) - Length 0.3 0.1 -Current Size (cm) - Width 0.1 0.1 -Current Size (cm) - Depth 0.5 0.1 -Total Square Cm 0.03 0.01 -Date of Last Picture (Recall this 01/21/22 01/28/22 field) -Photo Taken Yes Yes -Epithelialization None Present Medium 34-66% -Tunneling No No -Undermining/Tunneling Yes No -Undermining/Tunneling Starts (O'clock 12 ) -Undermining/Tunneling Ends (O'clock) 12 -Maximum Distance (cm) 0.3 -Circular Undermining Yes No -Exudate Amt Small None Present -Exudate Type Serous -Wound Margin Distinct, Distinct, Outline Outline Attached Attached -Granulation Amt Large (67-100%) None Present (0 %) -Granulation Quality Pender -Slough/Fibrin No Yes -Necrosis Amt None Present (0 Large (67-100%) %) -Necrotic Tissue Type Adherent Slough -Texture (Maribel-wound Skin Appearance) Assessed,Callus Callus,Scarring ,Scarring -Moisture (Maribel-wound Skin Appearance) Assessed, Assessed,Dry/ Maceration Scaly -Color (Maribel-wound Skin Appearance) Assessed,Palor Assessed -Temperature (Maribel-wound Skin No Abnormality No Abnormality Appearance) (Pt Warm) (Pt Warm) -Tenderness on Palpation (Maribel-wound No No Skin Appearance) -Ulcer Cleansing Rinsed/ Soap and Water Irrigated with Saline -Foul Odor after Cleansing No No -Anesthetic Used 5% Lidocaine 5% Lidocaine Gel Gel Lower Limb Edema Present Yes Yes Right Calf (cm) 36.5 Point of Measurement (cm from the medial 24 instep) Left Calf (cm) 35.5 36.6 Left Ankle (cm) 22.3 22.7 WC - Nurse 2 - General Ulcer CM Notes Start: 01/21/22 09:25 Freq: Status: Active Protocol: Activity Type Activity Date Activity User E-sign Co-sign Detail Recorded Client Recorded Date Recorded By Document 01/21/22 09:48 [id number] 01/21/22 09:51 Document 01/28/22 10:23 [id number] 01/28/22 10:25 01/21/22 01/28/22 09:48 10:23 Wound Center Nurse 2 #4 R lateral langley -Time 09:50 10:23 -Correct Patient Yes Yes -Correct Side, Site, Position Yes Yes -Correct Procedure Yes Yes -Procedure Performed Yes Yes -Type of Procedure Debridement Debridement -Clinical Debridement Subcutaneous Subcutaneous -Tissue Removed Subcutaneous Subcutaneous -Post Debridement (cm) - Length 3.2 1.4 -Post Debridement (cm) - Width 1.6 0.8 -Post Debridement (cm) - Depth 0.1 0.1 -Total Square (Post) (cm) 5.12 1.12 -Area of Debridement (cm) - Length 3.2 1.4 -Area of Debridement (cm) - Width 1.6 0.8 -Total Square (Area) (cm) 5.12 1.12 -Tunneling No No -Undermining/Tunneling No No -Circular Undermining No No -Wound/Ulcer Outcome Not Healed Not Healed -Ulcer Cleansing Rinsed/ Rinsed/ Irrigated with Irrigated with Saline Saline -Foul Odor after Cleansing No No -Bioengineered Tissue No No -Bleeding Controlled with Pressure Pressure -Treatment Response Procedure Procedure Tolerated Well Tolerated Well -Offloading No No -Debridement - Subq, 1st 20sq cm Yes Yes #1 Left Lateral Plantar -Time 09:48 10:24 -Correct Patient Yes Yes -Correct Side, Site, Position Yes Yes -Correct Procedure Yes Yes -Procedure Performed Yes Yes -Type of Procedure Debridement Debridement -Clinical Debridement Subcutaneous Subcutaneous -Tissue Removed Subcutaneous Subcutaneous -Post Debridement (cm) - Length 0.4 0.3 -Post Debridement (cm) - Width 0.2 0.2 -Post Debridement (cm) - Depth 0.4 0.2 -Total Square (Post) (cm) 0.08 0.06 -Area of Debridement (cm) - Length 0.4 0.3 -Area of Debridement (cm) - Width 0.2 0.2 -Total Square (Area) (cm) 0.08 0.06 -Tunneling No No -Undermining/Tunneling No No -Circular Undermining No No -Wound/Ulcer Outcome Not Healed Not Healed -Ulcer Cleansing Rinsed/ Rinsed/ Irrigated with Irrigated with Saline Saline -Foul Odor after Cleansing No No -Bioengineered Tissue No No -Bleeding Controlled with Pressure Pressure -Treatment Response Procedure Procedure Tolerated Well Tolerated Well -Offloading Yes No -Type of Offloading Surgical Shoe -Debridement - Subq, 1st 20sq cm No No Pain Scale: 0-10 Numeric Is Patient Pain Free? Yes Yes WC - Nurse 3 - General Ulcer D/C NN Start: 01/21/22 09:25 Freq: Status: Active Protocol: Activity Type Activity Date Activity User E-sign Co-sign Detail Recorded Client Recorded Date Recorded By Document 01/21/22 09:56 MW [id number] 01/21/22 09:57 MW Edit Result 01/21/22 09:56 MW (1) [id number] 01/21/22 09:58 MW (1) Notes: => Dressing applied per Jolie Pandya RN 01/21/22 09:56 Wound Care Nurse 3 #4 R lateral langley -Ulcer Cleansing Rinsed/ Irrigated with Saline -Foul Odor after Cleansing No -Negative Pressure Wound Therapy N/A -Primary Dressing Applied NonAdherent Contact Layer -Other Dressing c.hydrogel -Primary Dressing Covered/Secured with Dry Gauze & Roll Gauze, Secured with Tape #1 Left Lateral Plantar -Ulcer Cleansing Rinsed/ Irrigated with Saline -Foul Odor after Cleansing No -Negative Pressure Wound Therapy N/A -Primary Dressing Applied NonAdherent Contact Layer -Other Dressing c.hydrogel -Primary Dressing Covered/Secured with Dry Gauze & Roll Gauze, Secured with Tape Treatment Response Procedure Tolerated Well Pain Scale: 0-10 Numeric Is Patient Pain Free? Yes Teaching: Wound Center Dressing Your Wound -Person Taught Patient,Family -Teaching Method Discussion -Response to teaching Verbalize understanding WC - Visit Discharge Discharge Condition Stable Ambulatory Status Ambulatory Transportation Private Auto Accompanied by Medication Reconcilliation completed & No provided to patient/care provider Clinical Summary of Care Provided Yes Notes: Dressing applied per Jolie Pandya RNcereal miller/Plan Assessment/Plan (1) Peripheral vascular disease, unspecified: CODE(S): I73.9 - Peripheral vascular disease, unspecified PLAN: Patient examined evaluated, all findings discussed with patient in detail. Lateral left leg wound healed. Improving plantar left fifth metatarsal head wound. Will consider elective floating metatarsal osteotomy to offload. Patient TBI 0.33 on this side. Patient awaiting vascular intervention. We will consider elective floating metatarsal osteotomy percutaneously to left fifth metatarsal head offload the wound internally The left plantar fifth metatarsal head and lateral leg wound were excisionally debrided down to including level of subcutaneous tissue of all nonviable tissue using a 15 blade scalpel. Hemostasis obtained with light compression. No no anesthesia due to neuropathy. Patient tolerated procedure well. Pre and postdebridement measurements document nursing notes. Will continue with daily cleansing of foot with soap and water washes, apply Bactroban and DSD to left foot wound. Patient will heel weight-bear in surgical shoe with a custom made offloading pad to offload the fifth metatarsal head and the left lower extremity. Will continue conservative treatment until we receive the results of those. Continue Tubigrip for low-grade edema management until his vascular status is confirmed. I recommended nutritional supplementation to optimize healing. He started home Jacob use and tolerated this so far. If there are any delays in healing we will consider total contact casting versus left fifth metatarsal head resection versus percutaneous floating metatarsal osteotomy of the fifth metatarsal; however, I feel the patient has significant arterial disease which may limit healing. Wound appears to be healing well at this time. New wound to right lateral leg stable this was excisionally debrided down to including level subcutaneous tissue of all nonviable tissue using #15 blade without incident patient tolerated procedure well. Patient hemostasis obtained with light compression note anesthesia used. Pre and postdebridement measurements document nursing notes. This will be dressed with hydrogel DSD and Tubigrip Patient will follow up in 1 week. (2) Type 2 diabetes mellitus with diabetic polyneuropathy: CODE(S): E11.42 - Type 2 diabetes mellitus with diabetic polyneuropathy (3) Non-pressure chronic ulcer of other part of left foot with necrosis of bone: CODE(S): L97.524 - Non-pressure chronic ulcer of other part of left foot with necrosis of bone (4) Unspecified protein-calorie malnutrition: CODE(S): E46 - Unspecified protein-calorie malnutrition (5) Non-pressure chronic ulcer of unspecified part of left lower leg with fat layer exposed: CODE(S): L97.922 - Non-pressure chronic ulcer of unspecified part of left lower leg with fat layer exposed
== END 2022-02-17 23:59 | disposition home or self-care (01) ==
LOC: WC 09:45
PROVIDERS: PCP Physician Assistant; Referring Provider Podiatrist; Visit Provider Podiatrist
DX: E11.621 Type 2 diabetes mellitus with foot ulcer (principal); E11.51 Type 2 diabetes mellitus with diabetic peripheral angiopathy without gangrene; L97.524 Non-pressure chronic ulcer of other part of left foot with necrosis of bone; I50.9 Heart failure, unspecified; E11.22 Type 2 diabetes mellitus with diabetic chronic kidney disease; N18.30 Chronic kidney disease, stage 3 unspecified
CPT/HCPCS: 11042

== ENCOUNTER 2022-02-12 07:01 | Day surgery (SDC) | payer MEDICARE, SELFPAY ==
[2022-02-06 12:27] LABS: Hematocrit 38.9 % (40-54); Hemoglobin 13.3 g/dL (13.0-16.5); Mean Corp Hgb Conc 34.2 g/dL (32-36); Mean Corpuscular Volume 93.7 fL (80-94); Mean Platelet Vol. 8.8 fl (6.2-12.0); Platelet Count 271 K/mm3 (150-450); RBC Distribution Width CV 15.1 % (11.6-14.6); RBC Distribution Width SD 51.2 fl (35.1-43.9); Red Blood Count 4.15 M/mm3 (4.6-6.2); White Blood Count 8.8 K/mm3 (4.4-11.0)
[2022-02-06 12:51] LABS: Anion Gap 4 (5-15); BUN 44 mg/dL (7-18); BUN/Creat Ratio 29.3 RATIO (10-20); Calcium,Total 11.7 mg/dL (8.5-10.1); Chloride 105 mmol/L (98-107); EST Glomerular Filtration Rate 48 mL/min (>60); Est Glom Filt Rate - Afr Amer 58 mL/min (>60); Glucose 168 mg/dL (74-106); Potassium 4.4 mmol/L (3.5-5.1); Sodium Level 140 mmol/L (136-145)
[2022-02-12 07:10] LABS: INR Fingerstick 1.9; Prothrombin Time Fingerstick 22.8 SEC (11.7-14.9)
--- NOTE | 2022-02-12 08:06 | PCM.HP.BLA ---
History and Physical Visit Reasons:?2-3 week follow up Chief Complaint: wounds on lower leg Is patient in pain?: No Allergies No Known Allergies Allergy (Unverified 01/23/22 13:14) Medications diltiazem HCl 30 mg tablet 120 mg PO DAILY 11/13/21 [History Confirmed 01/23/22] furosemide 20 mg tablet 40 mg PO BID 11/13/21 [History Confirmed 01/23/22] spironolactone 25 mg tablet 25 mg PO BID 11/13/21 [History Confirmed 01/23/22] acetaminophen 325 mg capsule 325 mg PO Q6H PRN Pain 11/19/21 [History Confirmed 01/23/22] cholecalciferol (vitamin D3) 50 mcg (2,000 unit) capsule (Vitamin D3) 50 mcg PO DAILY 11/19/21 [History Confirmed 01/23/22] clopidogrel 75 mg tablet 75 mg PO DAILY 11/19/21 [History Confirmed 01/23/22] elderberry fruit 200 mg capsule mg PO DAILY 11/19/21 [History Confirmed 01/23/22] grape seed extract 25 mg capsule mg PO BID 11/19/21 [History Confirmed 01/23/22] levothyroxine 75 mcg capsule 75 mcg PO DAILY 11/19/21 [History Confirmed 01/23/22] magnesium 100 mg capsule 500 mg PO DAILY 11/19/21 [History Confirmed 01/23/22] potassium 99 mg tablet 198 mg PO BID 11/19/21 [History Confirmed 01/23/22] vit C 30 mg-s.cook 250 mg-celery seed 75 mg-grape seed extrt capsule (Tart Cook) 1 cap PO BID 11/19/21 [History Confirmed 01/23/22] warfarin 10 mg tablet 10 mg PO MOTUTHFRSA 11/19/21 [History Confirmed 01/23/22] zinc 25 mg tablet 25 mg PO DAILY 11/19/21 [History Confirmed 01/23/22] warfarin 10 mg tablet 5 mg PO SUWE 01/07/22 [History Confirmed 01/23/22] PFS Medical History? Atrial fibrillation Diabetes type 2, uncontrolled Gout Kidney disease Peripheral vascular disease in diabetes mellitus Ulcer of right foot Social History? household members:? spouse HPI HPI HPI: SHABNAM MONDRAGON, is a 81 M who presents to the office today for follow up of left foot wound. It continues to improve with off loading and local care. He is also found to have a necrotic 5th metatarsal head which Dr. Bishop thinks would benefit from surgery/excision. With his moderate PAD, and severely diminished TBI, there is concern for poor wound healing of surgical incisions. ROS General General: Yes weakness; No weight change, appetite, fatigue, colon cancer or breast cancer HEENT HEENT: No difficulty swallowing, eye injury, eye surgery, swollen glands or hoarseness Endo Endocrine: No thyroid disease, diabetes mellitus, thyroid cancer, Hair loss, heat intolerance or cold intolerance Skin Skin: No rash or changing moles Musc Musculoskeletal: Yes joint pain; No back problems, arthritis, rheumatoid arthritis or gout Additional Details: muscle weakness Cardio Cardiovascular: Yes shortness of breat with exertion; No murmur, pacemaker, heart disease, atrial fibrillation, high blood pressure, heart attack, heart stent, palpitations or chest pain Psych Psychiatric: No depression, anxiety or hearing voices Resp Respiratory: No shortness of breath, No sleep apnea, No cough, No COPD, No asthma, No emphysema and No wheezing Gastro Gastrointestinal: No abdominal pain, No nausea or vomiting, No diarrhea, Yes constipation, No blood in stool, No acid reflux, No hemorrhoids, No ulcers, No gallbladder problem and No black,tarry stools Additional Details: bloating Wes Hematologic: Yes blood thinners, No blood disorders, No bleeding, No anemia and No blood clots Neuro Neurologic: No system reviewed and no additional complaints, except as documented, No as per HPI, No abnormal gait, No abnormal hearing, No abnormal movements, No abnormal speech, No behavioral changes, No burning sensations, No confusion, No convulsions, No disequilibrium, No dizziness, No localized weakness, No frequent falls, No headache(s), No lack of coordination, No loss of vision, No memory loss, No numbness, No other visual disturbances, No radicular pain, No restless legs, No sensory deficit, No syncope, No tingling, No tremor(s), Yes weakness and No other Exam Const General: cooperative, healthy appearing, comfortable, no acute distress and well developed Nutritional Appearance: well nourished Orientation: alert, awake and oriented x3 HENMT Head: normocephalic and atraumatic Ears: hearing grossly normal bilaterally Nose: external nose normal Eyes General: appearance normal, both eyes and all related structures EOM: EOM intact bilaterally Neck Neck: normal visual inspection and trachea midline Resp Effort & Inspection: normal respiratory effort, able to speak in complete sentences, symmetric chest movement, no audible wheezes, not labored, no stridor and no use of accessory muscles Cardio Rate: regular rate Rhythm: regular rhythm Skin General: no rashes or lesions noted and no erythema Neuro Cranial Nerves: CN's II-XI intact bilaterally and EOM intact bilaterally Speech: speech normal Gait: normal gait Motor: strength 5/5 throughout Sensory Exam: no sensory deficits noted Extremities Pulses: Absent: Left Dorsalis Pedis Pulse and Left Posterior Tibial Pulse Lower Extremity Edema: None: Bilateral Veins: Left: Lipodermatosclerosis Psych Appearance: grossly normal and well kempt Mental Status: mental status grossly normal Mood: congruent mood Speech and Movement: speech and movement normal Thought Content: normal Judgment: judgment good Coding Level of Care Code Off vis,est,level 2 Diagnoses Peripheral vascular disease, unspecified? I73.9 Assessment and Plan Assessment and Plan (1) Peripheral vascular disease, unspecified: ?Status:?Chronic ?Plan: -with plans for potential foot surgery, excision of bone, would benefit from optimal perfusion if able to fix endovascular -plan angio, will utilize some CO2 to decrease contrast burden
--- NOTE | 2022-02-12 12:16 | PCM.OPRPT ---
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 He is a finally nearly resolved bilaterally his spinner frame for the like to perform excision of metatarsal bone to help prevent further wound development. He has abnormal ABIs with severely diminished TBI's suggest he may have some difficulty with surgical wound healing so was taken off angiography to assess for any opportunity to improve. Description of procedure: Upon obtaining informed consent and verification of correct patient procedure and site the patient was taken to the [facility] where he was positioned prepped and draped in usual sterile fashion. Time was performed and conscious sedation was administered with intermittent doses of Versed and fentanyl. The skin overlying the right common femoral artery was anesthetized with 1% lidocaine and the vessel assessed with ultrasound. Under ultrasound guidance the right common femoral artery was accessed in retrograde fashion using micropuncture needle and wire. This was then exchanged for micropuncture sheath through which a Semblee_ wire was advanced to the abdominal aorta with fluoroscopic guidance. Micropuncture sheath was exchanged out for a short 5 [place] sheath through the 5 [place] sheath and Omni Flush catheter was advanced into the abdominal aorta and subtraction aortogram with CO2 angiography was performed. We then used the Omni Flush catheter and a Glidewire to navigate into the contralateral iliac system initially advancing the catheter into the distal external leg artery. In this location sequential angiography utilizing CO2 was performed left lower extremity with limited evaluation of the tibial vessels. The Glidewire was then readvanced and navigated into the superficial femoral artery and ultimately advanced into the above-knee popliteal artery. The Omni Flush cath was exchanged for a glide catheter which was advanced into the above-knee popliteal artery. The wire was withdrawn and repeat angiography using CO2 and contrast was performed which gave satisfactory evaluation of the tibial vessels. The majority the patient's occlusive process was in the distal tibials in the pedal vessels and no lesions that were appropriate endovascular invention were identified. The wire was then readvanced through the glide catheter and the catheter and 5 [place] sheath exchanged for the StarClose sheath. StarClose device was then deployed in standard fashion followed by 2 minutes of manual pressure after which satisfactory stasis was noted. The occlusion case patient was awakened with sedation taken to the recovery area for bedrest and anticipated discharged home. Radiographic findings: Abdominal aorta normal caliber with no significant atherosclerosis or occlusion. Right common iliac artery normal caliber with no significant atherosclerosis or stenosis, right external artery widely patent tortuous vessel with no significant atherosclerosis or stenosis. The right common femoral artery was not able to be evaluated due to artifact from prior hip replacement. The right superficial femoral artery and profundofemoral artery origins appear to be patent. Left common iliac artery widely patent with no significant atherosclerosis or stenosis, very tortuous vessel. Left external iliac artery widely patent with no atherosclerosis or stenosis. The left common femoral artery was not able to be evaluated due to prior hip replacement. The left profundofemoral artery is patent with no significant atherosclerosis or stenosis, left superficial artery widely patent with no same atherosclerosis or stenosis. Left popliteal artery has mild diffuse atherosclerosis with no significant stenosis. The left anterior tibial artery is patent with a proximal 2 to 3 cm with occlusion and multiple collaterals but no reconstitution. The tibioperoneal trunk is large caliber widely patent with no significant atherosclerosis. Peroneal artery is normal caliber with moderate diffuse atherosclerosis but no areas of focal stenosis. The posterior tibial artery is patent with mild diffuse atherosclerosis with dwindling caliber and occlusion in the mid lower leg. There is no reconstitution of the posterior tibial artery but there were multiple significant collaterals which fill the medial aspect and the plantar surface of the foot. The peroneal artery is patent to the ankle again with multiple collaterals in the lower leg and proximal foot. Complications None
== END 2022-02-12 12:05 | disposition home or self-care (01) ==
PROVIDERS: PCP Physician Assistant; Referring Provider Surgery Trauma Surgery; Visit Provider Surgery Trauma Surgery
DX: E11.51 Type 2 diabetes mellitus with diabetic peripheral angiopathy without gangrene (principal); I70.25 Atherosclerosis of native arteries of other extremities with ulceration; E11.621 Type 2 diabetes mellitus with foot ulcer; I70.402 Unspecified atherosclerosis of autologous vein bypass graft(s) of the extremities, left leg; I48.91 Unspecified atrial fibrillation; Z79.01 Long term (current) use of anticoagulants; Z79.02 Long term (current) use of antithrombotics/antiplatelets; Z79.899 Other long term (current) drug therapy; M10.9 Gout, unspecified
CPT/HCPCS: 36200; 36245; 36415; 36416; 75625; 75710; 76937; 80048; 85027; 85610; 99152; 99153; C1769; J7030; Q9967; C1760

== ENCOUNTER 2022-03-11 10:00 | Outpatient (RCR) | payer MEDICARE, SELFPAY ==
[2022-02-18 00:30] VITALS: BP 163/85; PULSE 97; RESP 16; TEMP 36.3
[2022-02-25 10:32] VITALS: BP 194/83; PULSE 96; RESP 18; TEMP 36.4
--- NOTE | 2022-02-25 11:24 | PCM.WC.PN ---
History of Present Illness Date of Service: 02/25/22 Chief Complaint: Left plantar foot ulcer History of Wound: Patient is an 81 year old male who presents with an ulcer on the left foot on the lateral plantar surface, just proximal from the 5th toe. He has a history of Afib on coumadin, insulin controlled type 2 DM, gout, CHF, CKD 3, peripheral vascular disease and a right foot ulcer that required HBOT to help it heal. Patient denies constitutional symptoms at this time. Patient notes some drainage and pain to the left foot. today, he denies redness and swelling. Patient has been offloading site with surgical shoe and limits overall activity. His new left langley wound from last week has healed and he denies drainage. Applying Bactroban to the left plantar foot. No new complaints at this time. Objective Data Objective Data Vital Signs: Vital Signs Temp Pulse Resp BP O2 Del Method 97.6 F L 96 18 194/83 H Room Air 02/25/22 10:32 02/25/22 10:32 02/25/22 10:32 02/25/22 10:32 02/25/22 10:32 Oxygen Delivery Method Room Air Physical Exam Narrative Neurovascular status unchanged from previous visit. Dermatologic: Plantar left fifth metatarsal head wound. Wound stable unchanged from previous visit. There is significant periwound callus. No deep probing or undermining at this time. No acute signs of infection. 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 This is subsequently plantar flexing the fifth metatarsal head creating an apex for wound formation. 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 ) Arrival Mode Wheelchair Transfer Assistance Other Transfer Assist (Other) 1 Accompanied by Patient Identification Verified (Name & Yes ) Patient Requires Transmission-Based No Precautions Vital Signs Temperature (97.8 F-99.1 F) 97.6 F L Temperature Source Temporal Pulse Rate (60-100) 96 Pulse Location Monitor Respiratory Rate (12-18) 18 Respiratory rate source Observation Oxygen Delivery Method Room Air Blood Pressure (90/60-120/80) 194/83 H Blood Pressure Mean (mm Hg) 120 Source Monitor Position Sitting Blood Pressure Location Left Arm History Since Last Visit- (Skip if this is Patient's initial visit) Have you changed medications since your No last visit? Any new allergies or adverse reactions No Had a fall/change in ADL's that may No increase risk of falls Signs or symptoms of abuse and/or No neglect since last visit Have you been in the hospital since your No last visit? Has dressing in place as prescribed Yes Has compression in place as prescribed Yes Has offloadiing in place as prescribed Yes Experienced any changes in pain level or No management Left Footwear Surgical Shoe with pressure relief insole Right Footwear Diabetic Shoe Pain Scale: 0-10 Numeric Is Patient Pain Free? Yes WC - Nurse 1 - General Ulcer Measurement Start: 02/25/22 10:32 Freq: Status: Active Protocol: Activity Type Activity Date Activity User E-sign Co-sign Detail Recorded Client Recorded Date Recorded By Document 02/25/22 10:32 [facility] [id number] 02/25/22 10:37 [facility] 02/25/22 10:32 Wound Center Nurse 1 #4 R lateral langley -Combined with other wound No -Current Size (cm) - Length 0 -Current Size (cm) - Width 0 -Current Size (cm) - Depth 0 -Total Square Cm 0 -Date of Last Picture (Recall this 02/25/22 field) -Photo Taken Yes -Epithelialization Large 67-100% -Texture (Maribel-wound Skin Appearance) Assessed, Scarring -Moisture (Maribel-wound Skin Appearance) Assessed,Dry/ Scaly -Color (Maribel-wound Skin Appearance) Assessed #1 Left Lateral Plantar -Combined with other wound No -Current Size (cm) - Length 0.1 -Current Size (cm) - Width 0.1 -Current Size (cm) - Depth 0.1 -Total Square Cm 0.01 -Epithelialization Large 67-100% -Tunneling No -Undermining/Tunneling No -Circular Undermining No -Classification - Thickness Partial Thickness -Exudate Amt None Present -Wound Margin Distinct, Outline Attached -Texture (Maribel-wound Skin Appearance) Assessed, Scarring -Moisture (Maribel-wound Skin Appearance) Assessed,Dry/ Scaly -Color (Maribel-wound Skin Appearance) Assessed -Temperature (Maribel-wound Skin No Abnormality Appearance) (Pt Warm) -Tenderness on Palpation (Maribel-wound No Skin Appearance) -Ulcer Cleansing Soap and Water -Foul Odor after Cleansing No -Anesthetic Used 5% Lidocaine Gel Lower Limb Edema Present Yes Left Calf (cm) 35.5 Left Ankle (cm) 25.8 WC - Nurse 2 - General Ulcer CM Notes Start: 02/25/22 10:32 Freq: Status: Active Protocol: Activity Type Activity Date Activity User E-sign Co-sign Detail Recorded Client Recorded Date Recorded By Document 02/25/22 11:06 [facility] [id number] 02/25/22 11:09 [facility] 02/25/22 11:06 Wound Center Nurse 2 #4 R lateral langley -Correct Patient No -Correct Side, Site, Position No -Correct Procedure No -Procedure Performed No -Post Debridement (cm) - Length 0 -Post Debridement (cm) - Width 0 -Post Debridement (cm) - Depth 0 -Total Square (Post) (cm) 0 -Area of Debridement (cm) - Length 0 -Area of Debridement (cm) - Width 0 -Total Square (Area) (cm) 0 -Wound/Ulcer Outcome Healed- Epithelialized #1 Left Lateral Plantar -Time 11:07 -Correct Patient Yes -Correct Side, Site, Position Yes -Correct Procedure Yes -Procedure Performed Yes -Type of Procedure Debridement -Clinical Debridement Subcutaneous -Tissue Removed Subcutaneous -Post Debridement (cm) - Length 0.6 -Post Debridement (cm) - Width 0.2 -Post Debridement (cm) - Depth 0.5 -Total Square (Post) (cm) 0.12 -Area of Debridement (cm) - Length 0.6 -Area of Debridement (cm) - Width 0.2 -Total Square (Area) (cm) 0.12 -Tunneling No -Undermining/Tunneling No -Circular Undermining No -Wound/Ulcer Outcome Not Healed -Ulcer Cleansing Rinsed/ Irrigated with Saline -Foul Odor after Cleansing No -Bioengineered Tissue No -Bleeding Controlled with Pressure -Treatment Response Procedure Tolerated Well -Offloading Yes -Type of Offloading Surgical Shoe -Debridement - Subq, 1st 20sq cm Yes Pain Scale: 0-10 Numeric Is Patient Pain Free? Yes Assessment/Plan Assessment/Plan (1) Peripheral vascular disease, unspecified: CODE(S): I73.9 - Peripheral vascular disease, unspecified PLAN: Exam performed. Patient underwent angiogram left lower extremity 02/12/2022. Demonstrate improved blood flow to the tibial vessels, unable to improve small vessels distally. Due to this we will refer patient to Dr. Gallagher for possible additional intervention. Patient has had a chronic nonhealing wound noted to the plantar left fifth metatarsal head. This is not healed despite offloading, local wound care. I have discussed in detail performing a elective floating metatarsal osteotomy to offload the plantar left fifth metatarsal head wound. Due to poor arterial disease we have deferred this. We will consider proceeding if arterial status could be improved. Today the wound was excisionally debrided down to including level subcutaneous tissue of all nonviable tissue using a 3 mm dermal curette without incident. Patient tolerated procedure well. No anesthesia due to neuropathy. Hemostasis obtained with light compression.. Postdebridement measurements document nursing notes. Today wound was dressed with Tabatha DSD and Tubigrip for compression. Patient will continue performing this daily at home. Patient has heel weightbearing in surgical shoe with offloading site to the fifth metatarsal head. Patient will follow up in 2 weeks. We will consider additional total contact casting. (2) Type 2 diabetes mellitus with diabetic polyneuropathy: CODE(S): E11.42 - Type 2 diabetes mellitus with diabetic polyneuropathy (3) Non-pressure chronic ulcer of other part of left foot with necrosis of bone: CODE(S): L97.524 - Non-pressure chronic ulcer of other part of left foot with necrosis of bone (4) Unspecified protein-calorie malnutrition: CODE(S): E46 - Unspecified protein-calorie malnutrition (5) Non-pressure chronic ulcer of unspecified part of left lower leg with fat layer exposed: CODE(S): L97.922 - Non-pressure chronic ulcer of unspecified part of left lower leg with fat layer exposed
[2022-03-11 10:14] VITALS: BP 178/83; PULSE 96; RESP 22; TEMP 36.3
--- NOTE | 2022-03-11 11:29 | PCM.WC.PN ---
History of Present Illness Date of Service: 03/11/22 Chief Complaint: Left plantar foot ulcer History of Wound: Patient is an 81 year old male who presents with an ulcer on the left foot on the lateral plantar surface, just proximal from the 5th toe. He has a history of Afib on coumadin, insulin controlled type 2 DM, gout, CHF, CKD 3, peripheral vascular disease and a right foot ulcer that required HBOT to help it heal. Patient denies constitutional symptoms at this time. Patient notes some drainage and pain to the left foot. today, he denies redness and swelling. Patient has been offloading site with surgical shoe and limits overall activity. His new left langley wound from last week has healed and he denies drainage. Applying Bactroban to the left plantar foot. No new complaints at this time. Objective Data Objective Data Vital Signs: Vital Signs Temp Pulse Resp BP O2 Del Method 97.4 F L 96 22 H 178/83 H Room Air 03/11/22 10:14 03/11/22 10:14 03/11/22 10:14 03/11/22 10:14 02/25/22 10:32 Oxygen Delivery Method Room Air Physical Exam Narrative Neurovascular status unchanged from previous visit. Dermatologic: Plantar left fifth metatarsal head wound. Wound stable unchanged from previous visit. There is significant periwound callus. No deep probing or undermining at this time. No acute signs of infection. 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 This is subsequently plantar flexing the fifth metatarsal head creating an apex for wound formation. Debridement Note Debridement Note Post-Debridement Measurements and Additional Note: Post-Debridement Measurements/Treatment - Nurse 1 - General Ulcer Assessment Start: 02/25/22 10:32 Freq: Status: Active Protocol: YVETTE.GOLDEN Activity Type Activity Date Activity User E-sign Co-sign Detail Recorded Client Recorded Date Recorded By Document 02/25/22 10:32 BMF [id number] 02/25/22 10:37 BMF Document 03/11/22 10:14 DL [id number] 03/11/22 10:18 DL Edit Result 03/11/22 10:14 DL (1) [id number] 03/11/22 10:22 DL (1) Pulse Rate (60-100) => 96 Pulse Location => Monitor Blood Pressure (90/60-120/80) => 178/83 H Blood Pressure Mean (mm Hg) => 114 02/25/22 03/11/22 10:32 10:14 - Today's Visit Information Type of service Follow-up Visit (Physician/LANDSCAPE PHOTOGRAPHER ) Arrival Mode Wheelchair Wheelchair Transfer Assistance Other Manual Transfer Assist (Other) 1 x1 Accompanied by Patient Identification Verified (Name & Yes Yes ) Patient Requires Transmission-Based No No Precautions Finger Stick Blood Sugar(mg/dl) (if 159 indicated): Vital Signs Temperature (97.8 F-99.1 F) 97.6 F L 97.4 F L Temperature Source Temporal Temporal Pulse Rate (60-100) 96 96 Pulse Location Monitor Monitor Respiratory Rate (12-18) 18 22 H Respiratory rate source Observation Observation Oxygen Delivery Method Room Air Blood Pressure (90/60-120/80) 194/83 H 178/83 H Blood Pressure Mean (mm Hg) 120 114 Source Monitor Position Sitting Blood Pressure Location Left Arm History Since Last Visit- (Skip if this is Patient's initial visit) Have you changed medications since your No No last visit? Any new allergies or adverse reactions No No Had a fall/change in ADL's that may No No increase risk of falls Signs or symptoms of abuse and/or No No neglect since last visit Have you been in the hospital since your No No last visit? Has dressing in place as prescribed Yes Yes Has compression in place as prescribed Yes No Has offloadiing in place as prescribed Yes Yes Experienced any changes in pain level or No No management Left Footwear Surgical Shoe with pressure relief insole Right Footwear Diabetic Shoe Pain Scale: 0-10 Numeric Is Patient Pain Free? Yes Yes - Nurse 1 - General Ulcer Measurement Start: 02/25/22 10:32 Freq: Status: Active Protocol: Activity Type Activity Date Activity User E-sign Co-sign Detail Recorded Client Recorded Date Recorded By Document 02/25/22 10:32 [facility] [id number] 02/25/22 10:37 [facility] Document 03/11/22 10:14 DL [id number] 03/11/22 10:18 DL 02/25/22 03/11/22 10:32 10:14 Wound Center Nurse 1 #4 R lateral langley -Combined with other wound No -Current Size (cm) - Length 0 -Current Size (cm) - Width 0 -Current Size (cm) - Depth 0 -Total Square Cm 0 -Date of Last Picture (Recall this 02/25/22 field) -Photo Taken Yes -Epithelialization Large 67-100% -Texture (Maribel-wound Skin Appearance) Assessed, Scarring -Moisture (Maribel-wound Skin Appearance) Assessed,Dry/ Scaly -Color (Maribel-wound Skin Appearance) Assessed #1 Left Lateral Plantar -Combined with other wound No -Current Size (cm) - Length 0.1 0.7 -Current Size (cm) - Width 0.1 0.1 -Current Size (cm) - Depth 0.1 0.5 -Total Square Cm 0.01 0.07 -Photo Taken Yes -Epithelialization Large 67-100% -Tunneling No -Undermining/Tunneling No -Circular Undermining No -Classification - Thickness Partial Thickness -Exudate Amt None Present Small -Exudate Type Purulent -Wound Margin Distinct, Thickened Outline Attached -Granulation Amt None Present (0 %) -Necrosis Amt Small (1-33%) -Necrotic Tissue Type Eschar -Texture (Maribel-wound Skin Appearance) Assessed, Callus,Scarring Scarring -Moisture (Maribel-wound Skin Appearance) Assessed,Dry/ Dry/Scaly Scaly -Color (Maribel-wound Skin Appearance) Assessed Hemosiderin Staining -Temperature (Maribel-wound Skin No Abnormality No Abnormality Appearance) (Pt Warm) (Pt Warm) -Tenderness on Palpation (Maribel-wound No No Skin Appearance) -Ulcer Cleansing Soap and Water Soap and Water -Foul Odor after Cleansing No No -Anesthetic Used 5% Lidocaine 5% Lidocaine Gel Gel Lower Limb Edema Present Yes Right Calf (cm) 37.2 Right Ankle (cm) 24.6 Left Calf (cm) 35.5 Left Ankle (cm) 25.8 WC - Nurse 2 - General Ulcer CM Notes Start: 02/25/22 10:32 Freq: Status: Active Protocol: Activity Type Activity Date Activity User E-sign Co-sign Detail Recorded Client Recorded Date Recorded By Document 02/25/22 11:06 VICTORINO [id number] 02/25/22 11:09 Document 03/11/22 10:43 VICTORINO [id number] 03/11/22 10:45 JF 02/25/22 03/11/22 11:06 10:43 Wound Center Nurse 2 #4 R lateral langley -Correct Patient No -Correct Side, Site, Position No -Correct Procedure No -Procedure Performed No -Post Debridement (cm) - Length 0 -Post Debridement (cm) - Width 0 -Post Debridement (cm) - Depth 0 -Total Square (Post) (cm) 0 -Area of Debridement (cm) - Length 0 -Area of Debridement (cm) - Width 0 -Total Square (Area) (cm) 0 -Wound/Ulcer Outcome Healed- Epithelialized #1 Left Lateral Plantar -Time 11:07 -Correct Patient Yes Yes -Correct Side, Site, Position Yes Yes -Correct Procedure Yes Yes -Procedure Performed Yes Yes -Type of Procedure Debridement Debridement -Clinical Debridement Subcutaneous Subcutaneous -Tissue Removed Subcutaneous Subcutaneous -Post Debridement (cm) - Length 0.6 0.3 -Post Debridement (cm) - Width 0.2 0.2 -Post Debridement (cm) - Depth 0.5 0.8 -Total Square (Post) (cm) 0.12 0.06 -Area of Debridement (cm) - Length 0.6 0.3 -Area of Debridement (cm) - Width 0.2 0.2 -Total Square (Area) (cm) 0.12 0.06 -Tunneling No No -Undermining/Tunneling No No -Circular Undermining No No -Wound/Ulcer Outcome Not Healed Not Healed -Ulcer Cleansing Rinsed/ Rinsed/ Irrigated with Irrigated with Saline Saline -Foul Odor after Cleansing No No -Bioengineered Tissue No No -Bleeding Controlled with Pressure Pressure -Treatment Response Procedure Procedure Tolerated Well Tolerated Well -Offloading Yes Yes -Type of Offloading Surgical Shoe Surgical Shoe -Debridement - Subq, 1st 20sq cm Yes Yes Pain Scale: 0-10 Numeric Is Patient Pain Free? Yes Yes WC - Nurse 3 - General Ulcer D/C NN Start: 02/25/22 10:32 Freq: Status: Active Protocol: Activity Type Activity Date Activity User E-sign Co-sign Detail Recorded Client Recorded Date Recorded By Document 02/25/22 11:28 DL [id number] 02/25/22 11:29 DL Document 03/11/22 10:47 MW [id number] 03/11/22 10:49 MW 02/25/22 03/11/22 11:28 10:47 Wound Care Nurse 3 #1 Left Lateral Plantar -Ulcer Cleansing Rinsed/ Rinsed/ Irrigated with Irrigated with Saline Saline -Foul Odor after Cleansing No No -Negative Pressure Wound Therapy N/A -Primary Dressing Applied Promogran Promogran Tabatha Matter Tabatha Matter -Primary Dressing Covered/Secured with Dry Gauze, Dry Gauze, Secured with Secured with Tape Tape -Other Covering tugigrip -Promogran Tabatha Matter 1 1 Right -Lotion applied to leg before No compression wrap -Tubular Bandage Single Layer -Size of Tubigrip Used Size E -Size E ($) 1 Left -Lotion applied to leg before No compression wrap -Tubular Bandage Single Layer -Size of Tubigrip Used Size E -Size E ($) 1 Treatment Response Procedure Procedure Tolerated Well Tolerated Well Pain Scale: 0-10 Numeric Is Patient Pain Free? Yes Yes Teaching: Wound Center Dressing Your Wound -Person Taught Patient,Family -Teaching Method Discussion, Demonstration -Response to teaching Verbalize understanding WC - Visit Discharge Discharge Condition Stable Stable Ambulatory Status Wheelchair Wheelchair Transportation Private Auto Private Auto Accompanied by Medication Reconcilliation completed & No provided to patient/care provider Clinical Summary of Care Provided Yes Assessment/Plan Assessment/Plan (1) Peripheral vascular disease, unspecified: CODE(S): I73.9 - Peripheral vascular disease, unspecified PLAN: Exam performed. Patient underwent angiogram left lower extremity 02/12/2022. Demonstrate improved blood flow to the tibial vessels, unable to improve small vessels distally. Due to this we will refer patient to Dr. Gallagher for possible additional intervention. Patient has had a chronic nonhealing wound noted to the plantar left fifth metatarsal head. This is not healed despite offloading, local wound care. will hold off surgery at this time. Today the wound was excisionally debrided down to including level subcutaneous tissue of all nonviable tissue using a 3 mm dermal curette without incident. Patient tolerated procedure well. No anesthesia due to neuropathy. Hemostasis obtained with light compression.. Postdebridement measurements document nursing notes. Today wound was dressed with Tabatha DSD and Tubigrip for compression. Patient will continue performing this daily at home. Patient has heel weightbearing in surgical shoe with offloading site to the fifth metatarsal head. Patient will follow up in 2 weeks. We will consider additional total contact casting. (2) Type 2 diabetes mellitus with diabetic polyneuropathy: CODE(S): E11.42 - Type 2 diabetes mellitus with diabetic polyneuropathy (3) Non-pressure chronic ulcer of other part of left foot with necrosis of bone: CODE(S): L97.524 - Non-pressure chronic ulcer of other part of left foot with necrosis of bone (4) Unspecified protein-calorie malnutrition: CODE(S): E46 - Unspecified protein-calorie malnutrition (5) Non-pressure chronic ulcer of unspecified part of left lower leg with fat layer exposed: CODE(S): L97.922 - Non-pressure chronic ulcer of unspecified part of left lower leg with fat layer exposed
== END 2022-03-19 23:59 | disposition home or self-care (01) ==
LOC: WC 10:00
PROVIDERS: PCP Physician Assistant; Referring Provider Podiatrist; Visit Provider Podiatrist
DX: E11.621 Type 2 diabetes mellitus with foot ulcer (principal); E11.51 Type 2 diabetes mellitus with diabetic peripheral angiopathy without gangrene; L97.522 Non-pressure chronic ulcer of other part of left foot with fat layer exposed; I50.9 Heart failure, unspecified; E11.22 Type 2 diabetes mellitus with diabetic chronic kidney disease; I48.91 Unspecified atrial fibrillation; N18.30 Chronic kidney disease, stage 3 unspecified; M79.672 Pain in left foot; Z79.01 Long term (current) use of anticoagulants
CPT/HCPCS: 11042

== ENCOUNTER 2022-04-01 10:15 | Outpatient (RCR) | payer MEDICARE, SELFPAY ==
[2022-03-20 00:28] VITALS: BP 178/83; PULSE 96; RESP 22; TEMP 36.3
[2022-03-25 10:15] VITALS: BP 162/64; RESP 16; TEMP 36
--- NOTE | 2022-03-25 10:42 | PCM.WC.PN ---
History of Present Illness Date of Service: 03/25/22 Chief Complaint: Left plantar foot ulcer History of Wound: Patient is an 81 year old male who presents with an ulcer on the left foot on the lateral plantar surface, just proximal from the 5th toe. He has a history of Afib on coumadin, insulin controlled type 2 DM, gout, CHF, CKD 3, peripheral vascular disease and a right foot ulcer that required HBOT to help it heal. Patient denies constitutional symptoms at this time. Patient notes some drainage and pain to the left foot. today, he denies redness and swelling. Patient notes his ambulatory status is simply to transition from bathroom to chair and chair to bathroom. Patient been noncompliant with elevation. Notes some increased drainage today. Notes increased wound size. No other complaints Objective Data Objective Data Vital Signs: Vital Signs Temp Pulse Resp BP O2 Del Method 96.8 F L 96 16 162/64 H Room Air 03/25/22 10:15 03/20/22 00:28 03/25/22 10:15 03/25/22 10:15 03/25/22 10:15 Oxygen Delivery Method Room Air Physical Exam Narrative Neurovascular status unchanged from previous visit. Dermatologic: Plantar left fifth metatarsal head wound. Increased size today. Purulent drainage today. There is significant periwound callus. No deep probing or undermining at this time. No acute signs of infection. 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 This is subsequently plantar flexing the fifth metatarsal head creating an apex for wound formation. Debridement Note Debridement Note Post-Debridement Measurements and Additional Note: Post-Debridement Measurements/Treatment - Nurse 1 - General Ulcer Assessment Start: 03/25/22 10:15 Freq: Status: Active Protocol: WC.LOWEXT Activity Type Activity Date Activity User E-sign Co-sign Detail Recorded Client Recorded Date Recorded By Document 03/25/22 10:15 [facility] [id number] 03/25/22 10:25 [facility] 03/25/22 10:15 - Today's Visit Information Type of service Follow-up Visit (Physician/RUBBER GOODS TESTER ) Arrival Mode Ambulatory,Cane Transfer Assistance None Accompanied by Patient Identification Verified (Name & Yes ) Patient Requires Transmission-Based No Precautions Vital Signs Temperature (97.8 F-99.1 F) 96.8 F L Temperature Source Temporal Respiratory Rate (12-18) 16 Respiratory rate source Observation Oxygen Delivery Method Room Air Blood Pressure (90/60-120/80) 162/64 H Blood Pressure Mean (mm Hg) 96 Source Monitor Position Sitting Blood Pressure Location Left Arm History Since Last Visit- (Skip if this is Patient's initial visit) Have you changed medications since your No last visit? Any new allergies or adverse reactions No Had a fall/change in ADL's that may No increase risk of falls Signs or symptoms of abuse and/or No neglect since last visit Have you been in the hospital since your No last visit? Has dressing in place as prescribed Yes Has compression in place as prescribed Yes Has offloadiing in place as prescribed Yes Experienced any changes in pain level or No management Left Footwear Surgical Shoe with pressure relief insole Right Footwear Diabetic Shoe Pain Scale: 0-10 Numeric Is Patient Pain Free? Yes WC - Nurse 1 - General Ulcer Measurement Start: 03/25/22 10:15 Freq: Status: Active Protocol: Activity Type Activity Date Activity User E-sign Co-sign Detail Recorded Client Recorded Date Recorded By Document 03/25/22 10:15 [facility] [id number] 03/25/22 10:25 [facility] 03/25/22 10:15 Wound Center Nurse 1 #1 Left Lateral Plantar -Combined with other wound No -Current Size (cm) - Length 0.5 -Current Size (cm) - Width 0.4 -Current Size (cm) - Depth 0.6 -Total Square Cm 0.20 -Date of Last Picture (Recall this 03/25/22 field) -Photo Taken Yes -Epithelialization None Present -Tunneling No -Undermining/Tunneling No -Circular Undermining No -Exudate Amt Medium -Exudate Type Purulent -Wound Margin Distinct, Outline Attached -Granulation Amt Large (67-100%) -Granulation Quality Red -Slough/Fibrin No -Necrosis Amt None Present (0 %) -Texture (Maribel-wound Skin Appearance) Assessed, Scarring -Moisture (Maribel-wound Skin Appearance) Assessed, Maceration -Color (Maribel-wound Skin Appearance) Assessed, Erythema -Temperature (Maribel-wound Skin No Abnormality Appearance) (Pt Warm) -Tenderness on Palpation (Maribel-wound No Skin Appearance) -Ulcer Cleansing Rinsed/ Irrigated with Saline -Foul Odor after Cleansing No -Anesthetic Used 5% Lidocaine Gel Assessment/Plan Assessment/Plan (1) Peripheral vascular disease, unspecified: CODE(S): I73.9 - Peripheral vascular disease, unspecified PLAN: Exam performed. Patient underwent angiogram left lower extremity 02/12/2022. Demonstrate improved blood flow to the tibial vessels, unable to improve small vessels distally. Patient has had a chronic nonhealing wound noted to the plantar left fifth metatarsal head. This is not healed despite offloading, local wound care. will hold off surgery at this time due to vascular status. Today the wound was excisionally debrided down to including level subcutaneous tissue of all nonviable tissue using a 3 mm dermal curette without incident. Patient tolerated procedure well. No anesthesia due to neuropathy. Hemostasis obtained with light compression.. Postdebridement measurements document nursing notes. Wound cultured. Prescription for doxycycline ciprofloxacin ordered. Today wound was dressed with Tabatha DSD and Tubigrip for compression. Patient will continue performing this daily at home. Patient has heel weightbearing in surgical shoe with offloading site to the fifth metatarsal head. Patient will follow up in 2 weeks. We will consider additional total contact casting. (2) Type 2 diabetes mellitus with diabetic polyneuropathy: CODE(S): E11.42 - Type 2 diabetes mellitus with diabetic polyneuropathy (3) Non-pressure chronic ulcer of other part of left foot with necrosis of bone: CODE(S): L97.524 - Non-pressure chronic ulcer of other part of left foot with necrosis of bone (4) Unspecified protein-calorie malnutrition: CODE(S): E46 - Unspecified protein-calorie malnutrition (5) Non-pressure chronic ulcer of unspecified part of left lower leg with fat layer exposed: CODE(S): L97.922 - Non-pressure chronic ulcer of unspecified part of left lower leg with fat layer exposed
[2022-04-01 10:30] VITALS: BP 137/94; PULSE 103; RESP 18; TEMP 35.6
--- NOTE | 2022-04-01 10:56 | PCM.WC.PN ---
History of Present Illness Date of Service: 04/01/22 Chief Complaint: Left plantar foot ulcer History of Wound: Patient is an 81 year old male who presents with an ulcer on the left foot on the lateral plantar surface, just proximal from the 5th toe. He has a history of Afib on coumadin, insulin controlled type 2 DM, gout, CHF, CKD 3, peripheral vascular disease and a right foot ulcer that required HBOT to help it heal. Patient denies constitutional symptoms at this time. Patient notes some drainage and pain to the left foot. today, he denies redness and swelling. Patient notes his ambulatory status is simply to transition from bathroom to chair and chair to bathroom. Patient been noncompliant with elevation. Notes some increased drainage today. Notes increased wound size. No other complaints Objective Data Objective Data Vital Signs: Vital Signs Temp Pulse Resp BP O2 Del Method 96.1 F L 103 H 18 137/94 H Room Air 04/01/22 10:30 04/01/22 10:30 04/01/22 10:30 04/01/22 10:30 04/01/22 10:30 Oxygen Delivery Method Room Air Lab / Micro Data Micro: Microbiology 03/25/22 10:40 Wound Abcess - Left Foot Gram Stain - Final 03/25/22 10:40 Wound Abcess - Left Foot Wound Culture - Final Enterococcus faecalis Staphylococcus epidermidis 03/25/22 10:40 Wound Abcess - Left Foot Anaerobic Culture - Final No anaerobic bacteria isolated. Physical Exam Narrative Neurovascular status unchanged from previous visit. Dermatologic: Plantar left fifth metatarsal head wound. Increased size today. Purulent drainage today. There is significant periwound callus. No deep probing or undermining at this time. No acute signs of infection. 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 This is subsequently plantar flexing the fifth metatarsal head creating an apex for wound formation. Debridement Note Debridement Note Post-Debridement Measurements and Additional Note: Post-Debridement Measurements/Treatment YVETTE - Nurse 1 - General Ulcer Assessment Start: 03/25/22 10:15 Freq: Status: Active Protocol: YVETTE.LOWEXT Activity Type Activity Date Activity User E-sign Co-sign Detail Recorded Client Recorded Date Recorded By Document 03/25/22 10:[address] [facility] [id number] 03/25/22 10:[address] [facility] Document 04/01/22 10:30 MW [id number] 04/01/22 10:38 MW 03/25/22 04/01/22 10:15 10:30 - Today's Visit Information Type of service Follow-up Visit Follow-up Visit (Physician/COMPUTER EDUCATION TEACHER (Physician/COMPUTER EDUCATION TEACHER ) ) Arrival Mode Ambulatory,Cane Wheelchair Transfer Assistance None None Accompanied by Patient Identification Verified (Name & Yes Yes ) Patient Requires Transmission-Based No No Precautions Safety Precautions Fall Prevention Finger Stick Blood Sugar(mg/dl) (if 170 indicated): Blood Sugar Stated by Patient Vital Signs Temperature (97.8 F-99.1 F) 96.8 F L 96.1 F L Temperature Source Temporal Temporal Pulse Rate (60-100) 103 H Pulse Location Monitor Respiratory Rate (12-18) 16 18 Respiratory rate source Observation Observation Oxygen Delivery Method Room Air Room Air Blood Pressure (90/60-120/80) 162/64 H 137/94 H Blood Pressure Mean (mm Hg) 96 108 Source Monitor Monitor Position Sitting Supine Blood Pressure Location Left Arm Right Forearm History Since Last Visit- (Skip if this is Patient's initial visit) Have you changed medications since your No No last visit? Any new allergies or adverse reactions No No Had a fall/change in ADL's that may No No increase risk of falls Signs or symptoms of abuse and/or No No neglect since last visit Have you been in the hospital since your No No last visit? Has dressing in place as prescribed Yes Yes Has compression in place as prescribed Yes Yes Has offloadiing in place as prescribed Yes N/A Experienced any changes in pain level or No No management Left Footwear Surgical Shoe Surgical Shoe with pressure with pressure relief insole relief insole Right Footwear Diabetic Shoe Regular Shoe Pain Scale: 0-10 Numeric Is Patient Pain Free? Yes Yes - Nurse 1 - General Ulcer Measurement Start: 03/25/22 10:15 Freq: Status: Active Protocol: Activity Type Activity Date Activity User E-sign Co-sign Detail Recorded Client Recorded Date Recorded By Document 03/25/22 10:[address] [facility] [id number] 03/25/22 10:[address] [facility] Document 04/01/22 10:30 MW [id number] 04/01/22 10:38 MW 03/25/22 04/01/22 10:15 10:30 Wound Center Nurse 1 #1 Left Lateral Plantar -Combined with other wound No No -Current Size (cm) - Length 0.5 0.3 -Current Size (cm) - Width 0.4 0.2 -Current Size (cm) - Depth 0.6 0.4 -Total Square Cm 0.20 0.06 -Date of Last Picture (Recall this 03/25/22 04/01/22 field) -Photo Taken Yes Yes -Epithelialization None Present Small 1-33% -Tunneling No No -Undermining/Tunneling No No -Circular Undermining No No -Exudate Amt Medium Small -Exudate Type Purulent Serosanguineous -Wound Margin Distinct, Flat & Intact Outline Attached -Granulation Amt Large (67-100%) None Present (0 %) -Granulation Quality Red N/A -Slough/Fibrin No Yes -Necrosis Amt None Present (0 Large (67-100%) %) -Necrotic Tissue Type Adherent Slough -Structure Exposed N/A -Texture (Maribel-wound Skin Appearance) Assessed, Assessed, Scarring Localized Edema ,Scarring -Moisture (Maribel-wound Skin Appearance) Assessed, Assessed, Maceration Maceration -Color (Maribel-wound Skin Appearance) Assessed, No Abnormality, Erythema Assessed -Temperature (Maribel-wound Skin No Abnormality No Abnormality Appearance) (Pt Warm) (Pt Warm) -Tenderness on Palpation (Maribel-wound No No Skin Appearance) -Ulcer Cleansing Rinsed/ Soap and Water Irrigated with Saline -Foul Odor after Cleansing No No -Anesthetic Used 5% Lidocaine 5% Lidocaine Gel Gel Lower Limb Edema Present No WC - Nurse 2 - General Ulcer CM Notes Start: 03/25/22 10:15 Freq: Status: Active Protocol: Activity Type Activity Date Activity User E-sign Co-sign Detail Recorded Client Recorded Date Recorded By Document 03/25/22 10:45 [id number] 03/25/22 10:46 Document 04/01/22 10:52 VICTORINO [id number] 04/01/22 10:53 03/25/22 04/01/22 10:45 10:52 Wound Center Nurse 2 #1 Left Lateral Plantar -Time 10:45 10:52 -Correct Patient Yes Yes -Correct Side, Site, Position Yes Yes -Correct Procedure Yes Yes -Procedure Performed Yes Yes -Type of Procedure Debridement Debridement -Clinical Debridement Subcutaneous Subcutaneous -Tissue Removed Subcutaneous Subcutaneous -Post Debridement (cm) - Length 0.5 0.3 -Post Debridement (cm) - Width 0.5 0.3 -Post Debridement (cm) - Depth 0.7 0.4 -Total Square (Post) (cm) 0.25 0.09 -Area of Debridement (cm) - Length 0.5 0.3 -Area of Debridement (cm) - Width 0.5 0.3 -Total Square (Area) (cm) 0.25 0.09 -Tunneling No No -Undermining/Tunneling No No -Circular Undermining No No -Wound/Ulcer Outcome Not Healed Not Healed -Ulcer Cleansing Rinsed/ Rinsed/ Irrigated with Irrigated with Saline Saline -Foul Odor after Cleansing No No -Bioengineered Tissue No No -Bleeding Controlled with Pressure Pressure -Treatment Response Procedure Procedure Tolerated Well Tolerated Well -Offloading Yes Yes -Type of Offloading Surgical Shoe Surgical Shoe -Assistive Device(s) Wheelchair -Debridement - Subq, 1st 20sq cm Yes Yes Pain Scale: 0-10 Numeric Is Patient Pain Free? Yes Yes - Nurse 3 - General Ulcer D/C NN Start: 03/25/22 10:15 Freq: Status: Active Protocol: Activity Type Activity Date Activity User E-sign Co-sign Detail Recorded Client Recorded Date Recorded By Document 03/25/22 14:29 MI [id number] 03/25/22 14:30 MI 03/25/22 14:29 Wound Care Nurse 3 #1 Left Lateral Plantar -Ulcer Cleansing Rinsed/ Irrigated with Saline -Foul Odor after Cleansing No -Primary Dressing Applied Promogran Tabatha Matter -Primary Dressing Covered/Secured with Dry Gauze, Secured with Tape -Other Covering tubigrip -Promogran Tabatha Matter 1 Treatment Response Procedure Tolerated Well Pain Scale: 0-10 Numeric Is Patient Pain Free? Yes - Visit Discharge Discharge Condition Stable Ambulatory Status Wheelchair Transportation Private Auto Accompanied by Assessment/Plan Assessment/Plan (1) Peripheral vascular disease, unspecified: CODE(S): I73.9 - Peripheral vascular disease, unspecified PLAN: Exam performed. Patient underwent angiogram left lower extremity 02/12/2022. Demonstrate improved blood flow to the tibial vessels, unable to improve small vessels distally. Patient has had a chronic nonhealing wound noted to the plantar left fifth metatarsal head. This has not healed despite offloading, local wound care. Today the wound was excisionally debrided down to including level subcutaneous tissue of all nonviable tissue using a 3 mm dermal curette without incident. Patient tolerated procedure well. No anesthesia due to neuropathy. Hemostasis obtained with light compression. Postdebridement measurements document nursing notes. Today wound was dressed with Tabatha DSD and Tubigrip for compression. Patient will continue performing this daily at home. Patient has heel weightbearing in surgical shoe with offloading site to the fifth metatarsal head. Patient will follow up in 2 weeks. At this time patient will be evaluated by vascular surgery in [place] by Dr. sweeney. Pending any intervention, will likely plan for a floating 5th metatarsal osteotomy on left side. (2) Type 2 diabetes mellitus with diabetic polyneuropathy: CODE(S): E11.42 - Type 2 diabetes mellitus with diabetic polyneuropathy (3) Non-pressure chronic ulcer of other part of left foot with necrosis of bone: CODE(S): L97.524 - Non-pressure chronic ulcer of other part of left foot with necrosis of bone (4) Unspecified protein-calorie malnutrition: CODE(S): E46 - Unspecified protein-calorie malnutrition (5) Non-pressure chronic ulcer of unspecified part of left lower leg with fat layer exposed: CODE(S): L97.922 - Non-pressure chronic ulcer of unspecified part of left lower leg with fat layer exposed
== END 2022-04-19 23:59 | disposition home or self-care (01) ==
LOC: WC 10:15
PROVIDERS: PCP Physician Assistant; Referring Provider Podiatrist; Visit Provider Podiatrist
DX: E11.621 Type 2 diabetes mellitus with foot ulcer (principal); E11.51 Type 2 diabetes mellitus with diabetic peripheral angiopathy without gangrene; L97.522 Non-pressure chronic ulcer of other part of left foot with fat layer exposed; I50.9 Heart failure, unspecified; E11.22 Type 2 diabetes mellitus with diabetic chronic kidney disease; E11.42 Type 2 diabetes mellitus with diabetic polyneuropathy; I48.91 Unspecified atrial fibrillation; N18.30 Chronic kidney disease, stage 3 unspecified
CPT/HCPCS: 11042; 87070; 87075; 87077; 87186; 87205

== ENCOUNTER 2022-05-06 10:30 | Outpatient (RCR) | payer MEDICARE, SELFPAY ==
[2022-04-20 00:24] VITALS: BP 137/94; PULSE 103; RESP 18; TEMP 35.6
[2022-04-22 10:18] VITALS: BP 148/82; PULSE 110; RESP 16; TEMP 35.8
--- NOTE | 2022-04-22 10:48 | PCM.WC.PN ---
History of Present Illness Date of Service: 04/22/22 Chief Complaint: Left plantar foot ulcer History of Wound: Patient is an 81 year old male who presents with an ulcer on the left foot on the lateral plantar surface, just proximal from the 5th toe. He has a history of Afib on coumadin, insulin controlled type 2 DM, gout, CHF, CKD 3, peripheral vascular disease and a right foot ulcer that required HBOT to help it heal. Patient denies constitutional symptoms at this time. Patient notes some drainage and pain to the left foot. today, he denies redness and swelling. Patient notes his ambulatory status is simply to transition from bathroom to chair and chair to bathroom. Patient been noncompliant with elevation. Notes some increased drainage today. Notes increased wound size. No other complaints Objective Data Objective Data Vital Signs: Vital Signs Temp Pulse Resp BP O2 Del Method 96.4 F L 110 H 16 148/82 H Room Air 04/22/22 10:18 04/22/22 10:18 04/22/22 10:18 04/22/22 10:18 04/22/22 10:18 Oxygen Delivery Method Room Air Physical Exam Narrative Neurovascular status unchanged from previous visit. Dermatologic: Plantar left fifth metatarsal head wound. Increased size today. Purulent drainage today. There is significant periwound callus. No deep probing or undermining at this time. No acute signs of infection. 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 This is subsequently plantar flexing the fifth metatarsal head creating an apex for wound formation. Debridement Note Debridement Note Post-Debridement Measurements and Additional Note: Post-Debridement Measurements/Treatment - Nurse 1 - General Ulcer Assessment Start: 04/22/22 10:17 Freq: Status: Active Protocol: WC.LOWEXT Activity Type Activity Date Activity User E-sign Co-sign Detail Recorded Client Recorded Date Recorded By Document 04/22/22 10:18 [facility] [id number] 04/22/22 10:25 [facility] 04/22/22 10:18 - Today's Visit Information Type of service Follow-up Visit (Physician/RESOURCE ANALYST ) Arrival Mode Cane,Wheelchair Transfer Assistance Other Transfer Assist (Other) 1 Accompanied by Patient Identification Verified (Name & Yes ) Patient Requires Transmission-Based No Precautions Vital Signs Temperature (97.8 F-99.1 F) 96.4 F L Temperature Source Temporal Pulse Rate (60-100) 110 H Pulse Location Monitor Respiratory Rate (12-18) 16 Respiratory rate source Observation Oxygen Delivery Method Room Air Blood Pressure (90/60-120/80) 148/82 H Blood Pressure Mean (mm Hg) 104 Source Monitor Position Sitting Blood Pressure Location Left Arm History Since Last Visit- (Skip if this is Patient's initial visit) Have you changed medications since your No last visit? Any new allergies or adverse reactions No Had a fall/change in ADL's that may No increase risk of falls Signs or symptoms of abuse and/or No neglect since last visit Have you been in the hospital since your No last visit? Has dressing in place as prescribed Yes Has compression in place as prescribed N/A Has offloadiing in place as prescribed N/A Experienced any changes in pain level or No management Left Footwear Surgical Shoe with pressure relief insole Right Footwear Regular Shoe Pain Scale: 0-10 Numeric Is Patient Pain Free? Yes WC - Nurse 1 - General Ulcer Measurement Start: 04/22/22 10:17 Freq: Status: Active Protocol: Activity Type Activity Date Activity User E-sign Co-sign Detail Recorded Client Recorded Date Recorded By Document 04/22/22 10:18 [facility] [id number] 04/22/22 10:25 [facility] 04/22/22 10:18 Wound Center Nurse 1 #1 Left Lateral Plantar -Combined with other wound No -Current Size (cm) - Length 0.4 -Current Size (cm) - Width 0.2 -Current Size (cm) - Depth 0.8 -Total Square Cm 0.08 -Date of Last Picture (Recall this 04/22/22 field) -Photo Taken Yes -Epithelialization None Present -Tunneling No -Undermining/Tunneling Yes -Undermining/Tunneling Starts (O'clock 12 ) -Undermining/Tunneling Ends (O'clock) 12 -Maximum Distance (cm) 0.2 -Circular Undermining Yes -Exudate Amt Small -Exudate Type Serous -Wound Margin Distinct, Outline Attached -Granulation Amt Large (67-100%) -Granulation Quality Red -Slough/Fibrin No -Necrosis Amt None Present (0 %) -Texture (Maribel-wound Skin Appearance) Assessed, Scarring -Moisture (Maribel-wound Skin Appearance) Assessed,Dry/ Scaly -Color (Maribel-wound Skin Appearance) Assessed -Temperature (Maribel-wound Skin No Abnormality Appearance) (Pt Warm) -Tenderness on Palpation (Maribel-wound No Skin Appearance) -Ulcer Cleansing Rinsed/ Irrigated with Saline -Foul Odor after Cleansing No -Anesthetic Used 5% Lidocaine Gel WC - Nurse 2 - General Ulcer CM Notes Start: 04/22/22 10:17 Freq: Status: Active Protocol: Activity Type Activity Date Activity User E-sign Co-sign Detail Recorded Client Recorded Date Recorded By Document 04/22/22 10:31 VICTORINO [id number] 04/22/22 10:34 JF 04/22/22 10:31 Wound Center Nurse 2 -Time 10:32 -Correct Patient Yes -Correct Side, Site, Position Yes -Correct Procedure Yes -Procedure Performed Yes -Type of Procedure Debridement -Clinical Debridement Subcutaneous -Tissue Removed Subcutaneous -Post Debridement (cm) - Length 0.3 -Post Debridement (cm) - Width 0.2 -Post Debridement (cm) - Depth 0.6 -Total Square (Post) (cm) 0.06 -Area of Debridement (cm) - Length 0.3 -Area of Debridement (cm) - Width 0.2 -Total Square (Area) (cm) 0.06 -Tunneling No -Undermining/Tunneling No -Circular Undermining No -Wound/Ulcer Outcome Not Healed -Ulcer Cleansing Rinsed/ Irrigated with Saline -Foul Odor after Cleansing No -Bioengineered Tissue No -Bleeding Controlled with Pressure -Treatment Response Procedure Tolerated Well -Offloading Yes -Type of Offloading Surgical Shoe -Assistive Device(s) Wheelchair -Debridement - Subq, 1st 20sq cm Yes Pain Scale: 0-10 Numeric Is Patient Pain Free? Yes - Nurse 3 - General Ulcer D/C NN Start: 04/22/22 10:17 Freq: Status: Active Protocol: Activity Type Activity Date Activity User E-sign Co-sign Detail Recorded Client Recorded Date Recorded By Document 04/22/22 10:40 DL [id number] 04/22/22 10:41 DL 04/22/22 10:40 Wound Care Nurse 3 #1 Left Lateral Plantar -Ulcer Cleansing Rinsed/ Irrigated with Saline -Foul Odor after Cleansing No -Primary Dressing Applied Promogran Tabatha Matter -Primary Dressing Covered/Secured with Dry Gauze & Roll Gauze, Secured with Tape -Promogran Tabatha Matter 1 Left -Tubular Bandage Single Layer -Size of Tubigrip Used Size E -Size E ($) 1 Pain Scale: 0-10 Numeric Is Patient Pain Free? Yes WC - Visit Discharge Discharge Condition Stable Ambulatory Status Wheelchair Transportation Private Auto Facility Type Home Health Orders Sent Yes Assessment/Plan Assessment/Plan (1) Peripheral vascular disease, unspecified: CODE(S): I73.9 - Peripheral vascular disease, unspecified PLAN: Exam performed. patient pending revascularization 05/14/[address] Gallagher. Patient has had a chronic nonhealing wound noted to the plantar left fifth metatarsal head. This has not healed despite offloading, local wound care. Today the wound was excisionally debrided down to including level subcutaneous tissue of all nonviable tissue using a 3 mm dermal curette without incident. Patient tolerated procedure well. No anesthesia due to neuropathy. Hemostasis obtained with light compression. Postdebridement measurements document nursing notes. Today wound was dressed with Tabatha DSD and Tubigrip for compression. Patient will continue performing this daily at home. Patient has heel weightbearing in surgical shoe with offloading site to the fifth metatarsal head. Patient will follow up in 2 weeks. Will schedule elective floating metatarsal osteotomy to left foot for within 2 weeks of that date. (2) Type 2 diabetes mellitus with diabetic polyneuropathy: CODE(S): E11.42 - Type 2 diabetes mellitus with diabetic polyneuropathy (3) Non-pressure chronic ulcer of other part of left foot with necrosis of bone: CODE(S): L97.524 - Non-pressure chronic ulcer of other part of left foot with necrosis of bone (4) Unspecified protein-calorie malnutrition: CODE(S): E46 - Unspecified protein-calorie malnutrition (5) Non-pressure chronic ulcer of unspecified part of left lower leg with fat layer exposed: CODE(S): L97.922 - Non-pressure chronic ulcer of unspecified part of left lower leg with fat layer exposed
[2022-05-06 11:01] VITALS: BP 131/63; PULSE 96; RESP 20; TEMP 36.8
--- NOTE | 2022-05-06 12:06 | PCM.WC.PN ---
History of Present Illness Date of Service: 05/06/22 Chief Complaint: Left plantar foot ulcer History of Wound: Patient is an 81 year old male who presents with an ulcer on the left foot on the lateral plantar surface, just proximal from the 5th toe. He has a history of Afib on coumadin, insulin controlled type 2 DM, gout, CHF, CKD 3, peripheral vascular disease and a right foot ulcer that required HBOT to help it heal. Patient denies constitutional symptoms at this time. Patient notes some drainage and pain to the left foot. today, he denies redness and swelling. Patient notes his ambulatory status is simply to transition from bathroom to chair and chair to bathroom. Patient been noncompliant with elevation. Notes some increased drainage today. Notes increased wound size. No other complaints Objective Data Objective Data Vital Signs: Vital Signs Temp Pulse Resp BP O2 Del Method 98.2 F 96 20 H 131/63 H Room Air 05/06/22 11:01 05/06/22 11:01 05/06/22 11:01 05/06/22 11:01 04/22/22 10:18 Oxygen Delivery Method Room Air Physical Exam Narrative Neurovascular status unchanged from previous visit. Dermatologic: Plantar left fifth metatarsal head wound. Increased size today. Purulent drainage today. There is significant periwound callus. No deep probing or undermining at this time. No acute signs of infection. 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 This is subsequently plantar flexing the fifth metatarsal head creating an apex for wound formation. Debridement Note Debridement Note Post-Debridement Measurements and Additional Note: Post-Debridement Measurements/Treatment - Nurse 1 - General Ulcer Assessment Start: 04/22/22 10:17 Freq: Status: Active Protocol: [email or web address] Activity Type Activity Date Activity User E-sign Co-sign Detail Recorded Client Recorded Date Recorded By Document 04/22/22 10:18 [facility] [id number] 04/22/22 10:25 BM Document 05/06/22 11:01 DL [id number] 05/06/22 11:08 DL 04/22/22 05/06/22 10:18 11:01 - Today's Visit Information Type of service Follow-up Visit Follow-up Visit (Physician/ROAD GANG SUPERVISOR (Physician/ROAD GANG SUPERVISOR ) ) Arrival Mode Cane,Wheelchair Wheelchair Transfer Assistance Other Manual Transfer Assist (Other) 1 x1 Accompanied by Patient Identification Verified (Name & Yes Yes ) Patient Requires Transmission-Based No No Precautions Finger Stick Blood Sugar(mg/dl) (if 205 indicated): Blood Sugar Stated by Patient Vital Signs Temperature (97.8 F-99.1 F) 96.4 F L 98.2 F Temperature Source Temporal Temporal Pulse Rate (60-100) 110 H 96 Pulse Location Monitor Monitor Respiratory Rate (12-18) 16 20 H Respiratory rate source Observation Observation Oxygen Delivery Method Room Air Blood Pressure (90/60-120/80) 148/82 H 131/63 H Blood Pressure Mean (mm Hg) 104 85 Source Monitor Monitor Position Sitting Blood Pressure Location Left Arm History Since Last Visit- (Skip if this is Patient's initial visit) Have you changed medications since your No No last visit? Any new allergies or adverse reactions No No Had a fall/change in ADL's that may No No increase risk of falls Signs or symptoms of abuse and/or No No neglect since last visit Have you been in the hospital since your No No last visit? Has dressing in place as prescribed Yes Yes Has compression in place as prescribed N/A Yes Has offloadiing in place as prescribed N/A N/A Experienced any changes in pain level or No No management Left Footwear Surgical Shoe with pressure relief insole Right Footwear Regular Shoe Surgical Shoe with pressure relief insole Pain Scale: 0-10 Numeric Is Patient Pain Free? Yes Yes WC - Nurse 1 - General Ulcer Measurement Start: 04/22/22 10:17 Freq: Status: Active Protocol: Activity Type Activity Date Activity User E-sign Co-sign Detail Recorded Client Recorded Date Recorded By Document 04/22/22 10:18 [facility] [id number] 04/22/22 10:25 [facility] Document 05/06/22 11:01 DL [id number] 05/06/22 11:08 DL 04/22/22 05/06/22 10:18 11:01 Wound Center Nurse 1 #1 Left Lateral Plantar -Combined with other wound No -Current Size (cm) - Length 0.4 0.1 -Current Size (cm) - Width 0.2 0.1 -Current Size (cm) - Depth 0.8 0.1 -Total Square Cm 0.08 0.01 -Date of Last Picture (Recall this 04/22/22 field) -Photo Taken Yes Yes -Epithelialization None Present -Tunneling No -Undermining/Tunneling Yes -Undermining/Tunneling Starts (O'clock 12 ) -Undermining/Tunneling Ends (O'clock) 12 -Maximum Distance (cm) 0.2 -Circular Undermining Yes -Exudate Amt Small None Present -Exudate Type Serous -Wound Margin Distinct, Thickened Outline Attached -Granulation Amt Large (67-100%) Large (67-100%) -Granulation Quality [place] -Slough/Fibrin No -Necrosis Amt None Present (0 None Present (0 %) %) -Structure Exposed N/A -Texture (Maribel-wound Skin Appearance) Assessed, Scarring Scarring -Moisture (Maribel-wound Skin Appearance) Assessed,Dry/ No Abnormality Scaly -Color (Maribel-wound Skin Appearance) Assessed No Abnormality -Temperature (Maribel-wound Skin No Abnormality No Abnormality Appearance) (Pt Warm) (Pt Warm) -Tenderness on Palpation (Maribel-wound No Skin Appearance) -Ulcer Cleansing Rinsed/ Rinsed/ Irrigated with Irrigated with Saline Saline -Foul Odor after Cleansing No No -Anesthetic Used 5% Lidocaine 5% Lidocaine Gel Gel WC - Nurse 2 - General Ulcer CM Notes Start: 04/22/22 10:17 Freq: Status: Active Protocol: Activity Type Activity Date Activity User E-sign Co-sign Detail Recorded Client Recorded Date Recorded By Document 04/22/22 10:31 [id number] 04/22/22 10:34 Document 05/06/22 11:15 [id number] 05/06/22 11:16 04/22/22 05/06/22 10:31 11:15 Wound Center Nurse 2 #1 Left Lateral Plantar -Time 10:32 11:15 -Correct Patient Yes Yes -Correct Side, Site, Position Yes Yes -Correct Procedure Yes Yes -Procedure Performed Yes Yes -Type of Procedure Debridement Debridement -Clinical Debridement Subcutaneous Subcutaneous -Tissue Removed Subcutaneous Subcutaneous -Post Debridement (cm) - Length 0.3 0.2 -Post Debridement (cm) - Width 0.2 0.2 -Post Debridement (cm) - Depth 0.6 0.4 -Total Square (Post) (cm) 0.06 0.04 -Area of Debridement (cm) - Length 0.3 0.2 -Area of Debridement (cm) - Width 0.2 0.2 -Total Square (Area) (cm) 0.06 0.04 -Tunneling No No -Undermining/Tunneling No No -Circular Undermining No No -Wound/Ulcer Outcome Not Healed Not Healed -Ulcer Cleansing Rinsed/ Rinsed/ Irrigated with Irrigated with Saline Saline -Foul Odor after Cleansing No No -Bioengineered Tissue No No -Bleeding Controlled with Pressure Pressure -Treatment Response Procedure Procedure Tolerated Well Tolerated Well -Offloading Yes No -Type of Offloading Surgical Shoe -Assistive Device(s) Wheelchair -Debridement - Subq, 1st 20sq cm Yes Yes Pain Scale: 0-10 Numeric Is Patient Pain Free? Yes Yes - Nurse 3 - General Ulcer D/C NN Start: 04/22/22 10:17 Freq: Status: Active Protocol: Activity Type Activity Date Activity User E-sign Co-sign Detail Recorded Client Recorded Date Recorded By Document 04/22/22 10:40 DL [id number] 04/22/22 10:41 DL Document 05/06/22 11:40 [facility] [id number] 05/06/22 11:40 [facility] 04/22/22 05/06/22 10:40 11:40 Wound Care Nurse 3 #1 Left Lateral Plantar -Ulcer Cleansing Rinsed/ Rinsed/ Irrigated with Irrigated with Saline Saline -Foul Odor after Cleansing No No -Primary Dressing Applied Promogran Tabatha Matter -Other Dressing HYDROGEL -Primary Dressing Covered/Secured with Dry Gauze & Dry Gauze, Roll Gauze, Secured with Secured with Tape Tape -Promogran Tabatha Matter 1 Left -Tubular Bandage Single Layer Single Layer -Size of Tubigrip Used Size E Size E -Size E ($) 1 2 -Other SENT EXTRA ONE. PT REFUSES ON THE R Treatment Response Procedure Tolerated Well Pain Scale: 0-10 Numeric Is Patient Pain Free? Yes Yes - Visit Discharge Discharge Condition Stable Stable Ambulatory Status Wheelchair Wheelchair Transportation Private Auto Private Auto Accompanied by Facility Type Home Health Orders Sent Yes Assessment/Plan Assessment/Plan (1) Peripheral vascular disease, unspecified: CODE(S): I73.9 - Peripheral vascular disease, unspecified PLAN: Exam performed. patient pending revascularization 05/14/[address] Gallagher. This was canceled due to risk and worsening weakening of the patient. Patient has had a chronic nonhealing wound noted to the plantar left fifth metatarsal head. This has not healed despite offloading, local wound care. Today the wound was excisionally debrided down to including level subcutaneous tissue of all nonviable tissue using a 3 mm dermal curette without incident. Patient tolerated procedure well. No anesthesia due to neuropathy. Hemostasis obtained with light compression. Postdebridement measurements document nursing notes. Today wound was dressed with Tabatha DSD and Tubigrip for compression. Patient will continue performing this daily at home. Patient has heel weightbearing in surgical shoe with offloading site to the fifth metatarsal head. Patient will follow up in 2 weeks. We will delay surgical intervention at this time requesting Dr. Barth for notes. (2) Type 2 diabetes mellitus with diabetic polyneuropathy: CODE(S): E11.42 - Type 2 diabetes mellitus with diabetic polyneuropathy (3) Non-pressure chronic ulcer of other part of left foot with necrosis of bone: CODE(S): L97.524 - Non-pressure chronic ulcer of other part of left foot with necrosis of bone (4) Unspecified protein-calorie malnutrition: CODE(S): E46 - Unspecified protein-calorie malnutrition (5) Non-pressure chronic ulcer of unspecified part of left lower leg with fat layer exposed: CODE(S): L97.922 - Non-pressure chronic ulcer of unspecified part of left lower leg with fat layer exposed
== END 2022-05-06 16:14 | disposition home or self-care (01) ==
LOC: WC 10:30
PROVIDERS: PCP Physician Assistant; Referring Provider Podiatrist; Visit Provider Podiatrist
DX: E11.621 Type 2 diabetes mellitus with foot ulcer (principal); E11.51 Type 2 diabetes mellitus with diabetic peripheral angiopathy without gangrene; L97.524 Non-pressure chronic ulcer of other part of left foot with necrosis of bone; I50.9 Heart failure, unspecified; E11.22 Type 2 diabetes mellitus with diabetic chronic kidney disease; N18.30 Chronic kidney disease, stage 3 unspecified; M20.40 Other hammer toe(s) (acquired), unspecified foot
CPT/HCPCS: 11042

== ENCOUNTER 2023-04-02 16:10 | Inpatient (IN) | payer MEDICARE, SELFPAY ==
[2023-04-02] VITALS (8 sets, daily range): BP systolic 139–205; BP diastolic 55–142; PULSE 80–101; RESP 14–19; TEMP 36.5–37.2; O2SAT 96–99; BMI 33.5; BMI 33.6
--- NOTE | 2023-04-02 16:18 | EDS_ITS ---
HPI History of Present Illness Chief Complaint: Wound PFSH PFS Medical History Atrial fibrillation Diabetes type 2, uncontrolled Gout Kidney disease Peripheral vascular disease in diabetes mellitus Ulcer of right foot Home Medications spironolactone 25 mg tablet 25 mg PO BID BLOOD PRESSURE 11/13/21 [History Last Taken 04/02/23] clopidogrel 75 mg tablet 75 mg PO DAILY BLOOD THINNER 11/19/21 [History Last Taken 04/02/23] potassium 99 mg tablet 99 mg PO DAILY SUPPLEMENT 11/19/21 [History Last Taken 04/02/23] warfarin 10 mg tablet 5 mg PO DAILY BLOOD THINNER 01/07/22 [History Last Taken 04/02/23] TRIPLE MAGNSIUM 1 cap PO DAILY SUPPLEMENT 04/02/23 [History Last Taken 04/02/23] allopurinol 100 mg tablet 200 mg PO DAILY GOUT 04/02/23 [History Last Taken 04/02/23] furosemide 40 mg tablet 40 mg PO BID FLUID 04/02/23 [History Last Taken 04/02/23] levothyroxine 75 mcg tablet 75 mcg PO DAILY THYROID 04/02/23 [History Last Taken 04/02/23] rosuvastatin 5 mg tablet 5 mg PO DAILY CHOLESTEROL 04/02/23 [History Last Taken 04/02/23] Allergy/AdvReac Type Severity Reaction Status Date / Time No Known Allergies Allergy Verified 04/02/23 16:11 Social History household members: spouse Smoking Status: Never smoker EXAM Physical Exam Const Vital Signs: 04/02/23 16:11 04/02/23 16:55 04/02/23 18:14 Temperature 98.9 F 97.8 F 98.2 F Temperature Source Temporal Oral Oral Pulse Rate 101 H 86 89 Respiratory Rate 18 19 H 17 Blood Pressure 173/142 H 182/55 H 205/83 H Blood Pressure Mean 152 97 123 Pulse Ox 99 99 99 Oxygen Delivery Method Room Air Room Air Room Air 04/02/23 18:15 Temperature 98.2 F Temperature Source Oral Pulse Rate 89 Respiratory Rate 17 Blood Pressure 205/93 H Blood Pressure Mean 130 Pulse Ox 99 Oxygen Delivery Method Room Air MDM MDM MDM Narrative Medical decision making narrative: HISTORY OF PRESENT ILLNESS: 83-year-old male here with concern for wound. Notes he was sent in for necrotic ulcer of right upper [place] by Dr. Childress. REVIEW OF SYSTEMS: Pertinent positives: Wound Pertinent negatives: Fever, chills PHYSICAL EXAM: Nursing triage notes reviewed, Vital signs reviewed Constitutional: please see mdm HENT: MMM Eyes: Pupils equal round and reactive to light, Extraocular muscles intact Neck: No stridor, no JVD, full neck ROM Lungs: Clear to auscultation, No wheezing or rales. No increased work of breathing, no conversational dyspnea, no accessory muscle use, no nasal flaring. No respiratory distress noted Heart: Regular rate and rhythm, No murmurs, No rubs and No gallops, 2+ distal pulses (radial, femoral, posterior tibial) in all extremities Abdomen: Soft, there is no tenderness, rigidity, rebound or guarding, no obvious peritoneal signs, no palpable pulsatile abdominal masses, no auscultated abdominal bruit : No CVAT Extremities: 1+ pitting edema bilaterally Neuro: No focal neurological deficits, cranial nerves II through XII intact, 5/5 strength in all extremities. Intact sensation to light touch in all extremities, 2+ reflexes bilateral patella tendons. Normal gait. No ataxia. Skin: 2 x 2 centimeter black necrotic eschar with surrounding erythema, no crepitus bullae fluctuance or induration noted MEDICAL DECISION MAKING: Chief Complaint: Wound External records reviewed: Last podiatry visit in April 2022 Factors affecting care: Atrial fibrillation on Coumadin, type 2 diabetes, CKD 3, CHF, gout and peripheral vascular disease Social determinants of health: none History obtained from others: The patient's Consults: Internal medicine [facility] Narrative: Patient presented hemodynamically stable, afebrile. Right lower extremity with approximately 2 x 2 centimeter necrotic eschar with surrounding cellulitis I considered the following differential diagnosis: Cellulitis, necrotizing fasciitis, osteomyelitis Patient's clinical exam is not consistent with necrotizing fasciitis as there is no crepitus, bullae or pain on proportion to exam. ALL IMAGES (IF OBTAINED) HAVE BEEN PERSONALLY REVIEWED AND INTERPRETED BY MYSELF. X-ray of the patient's tibia was read reviewed myself shows no evidence of bony infection ESR, CRP elevated consistent with systemic inflammation Lactate is wnl indicating no end-organ hypoperfusion and/or hypoxia. CBC pending The patient and/or family, caregivers express understanding. The patient and/or family, caregivers agrees with the plan. Shared decision making: I will have a discussion with the patient and or visitors regarding risk/benefits of further testing or admission. They will be made aware of of the risk/benefits inherent in this decision they will be given the opportunity to voice understanding. Total critical care time today provided was at least 0 minutes. This excludes separately billable procedures. Critical care time (if documented) is secondary to the patient having high probability of clinically significant/life threateni ng deterioration in the patient's condition which required my urgent intervention. Impression: 1. Lower extremity cellulitis 2. History of type 2 diabetes 3. Hypertension Dispo: Admit for IV antibiotics Lab Data Labs: Laboratory Results - last 24 hr 04/02/23 17:00 ESR 31 H Sodium 145 Potassium 3.6 Chloride 111 H Carbon Dioxide 30.0 Anion Gap 4 L BUN 43 H Creatinine 1.56 H Estim Creat Clear Calc 34.10 Est GFR (MDRD) Af Amer 55 L Est GFR (MDRD) Non-Af 45 L BUN/Creatinine Ratio 27.6 H Glucose 168 H Lactic Acid 1.7 Calcium 10.3 H Total Bilirubin 0.80 AST 10 L ALT 11 L Alkaline Phosphatase 116 C-React Prot Ext Range 18.70 H Total Protein 7.3 Albumin 3.2 Globulin 4.1 Albumin/Globulin Ratio 0.8 L Radiography Diagnostic Testing: Clinical Impression(s) from Imaging Studies Tibia/Fibula X-Ray 04/02/23 17:00 IMPRESSION: No fracture or malalignment. Degenerative changes of the knee. Electronically Signed: Billy Boothe MD at 17:36 EST , Discharge Plan Triage Chief Complaint: Wound ED Provider: Hector Solomon Dx/Rx/DC Orders Prescriptions: No Action spironolactone 25 mg Tablet 25 mg PO BID clopidogrel 75 mg Tablet 75 mg PO DAILY potassium 99 mg Tablet 99 mg PO DAILY warfarin 10 mg tablet 5 mg PO DAILY Patient Comments: PER ANTCOAGULATION SUMMARY REPORT, TAKE 1/2 OF A 10MG TABLET (5MG) BY MOUTH ONCE DAILY UNTIL 04/16/23. TAKE ONE 10MG TABLET ON 12-28-23 THEN RESUME TAKING HALF OF A TABLET (5MG) THEREAFTER UNTIL 04/23/22 allopurinol 100 mg tablet 200 mg PO DAILY furosemide 40 mg tablet 40 mg PO BID levothyroxine 75 mcg tablet 75 mcg PO DAILY rosuvastatin 5 mg tablet 5 mg PO DAILY TRIPLE MAGNSIUM 400 mg capsule 1 cap PO DAILY Patient Comments: OTC PRODUCT THAT CONTAINS: MAGNESIUM CITRATE MAGNESIUM OXIDE MAGNESIUM ASPERTATE Primary Care Provider: Sukumar Childress Referrals: Bhavin Villagran PA-C [Non-Staff] -
--- NOTE | 2023-04-02 17:00 | RAD_ITS ---
INDICATION: lower leg pain EXAMINATION/TECHNIQUE: X-RAY - RIGHT XR Tibia/Fibula 2 Views 4 images COMPARISON: No relevant prior comparison study available FINDINGS: SOFT TISSUES: Mild soft tissue swelling diffusely. Diffuse vascular calcifications. No radiopaque foreign body. BONES/JOINTS: No acute fracture or subluxation.. Alignment maintained at the knee and ankle. Tricompartmental degenerative changes of the knee. No sclerotic or destructive changes observed. RAD/Tibia & Fibula 2 Views IMPRESSION: No fracture or malalignment. Degenerative changes of the knee. Electronically Signed: Billy Boothe MD at 17:36 EST ,
[2023-04-02] MEDS: 0.9% Normal Saline (500mL Bag) 500 ML 1000 ML IV (17:03)
[2023-04-02 17:26] LABS: ALB/GLOB Ratio 0.8 RATIO (0.9-2.4); AST(SGOT) 10 U/L (15-37); Alanine Aminotransfer ALT/SGPT 11 U/L (16-61); Albumin, Serum 3.2 g/dL (3.2-5.0); Alkaline Phosphatase 116 U/L (45-117); Anion Gap 4 (5-15); BUN 43 mg/dL (7-18); BUN/Creat Ratio 27.6 RATIO (10-20); Calcium,Total 10.3 mg/dL (8.5-10.1); Chloride 111 mmol/L (98-107); Creatinine, Serum 1.56 mg/dL (0.70-1.30); EST Glomerular Filtration Rate 45 mL/min (>60); Est Glom Filt Rate - Afr Amer 55 mL/min (>60); Globulin 4.1 g/dL (2.2-4.2); Glucose 168 mg/dL (74-106); Potassium 3.6 mmol/L (3.5-5.1); Protein, Total 7.3 g/dL (6.4-8.2); Sodium Level 145 mmol/L (136-145)
[2023-04-02 17:31] LABS: Lactic Acid 1.7 mmol/L (0.4-1.9)
[2023-04-02] MEDS: Vancomycin IV 1,000 MG/200 ML BAG 200 MG IV ×2 (17:33→21:37)
[2023-04-02 17:35] LABS: Erythrocyte Sedimentation Rate 31 mm/hr (0-20)
[2023-04-02 18:27] LABS: Absolute Lymphocyte Count 1.04 X10^3/uL (0.83-4.51); Basophil# 0.06 X10^3/uL; Basophil% 0.7 % (0-1); Eosinophil# 0.11 X10^3/uL; Eosinophils% 1.2 % (0-5); Hematocrit 28.7 % (40-54); Hemoglobin 10.6 g/dL (13.0-16.5); Lymphocyte # 1.04 X10^3/ul (0.83-4.51); Lymphocyte % 11.8 % (19-41); Mean Corp Hgb Conc 36.9 g/dL (32-36); Mean Corpuscular Hgb 35.1 pg (27.0-32.0); Monocyte# 0.53 X10^3/uL; NRBC Flagged by Analyzer 0 % (0-5); Neutrophil # 7.03 X10^3/uL (2.7-7.7); Neutrophil % 79.8 % (47-70); Platelet Count 292 K/mm3 (150-450); RBC Distribution Width CV 16.1 % (11.6-14.6); Red Blood Count 3.02 M/mm3 (4.6-6.2); White Blood Count 8.8 K/mm3 (4.4-11.0)
--- NOTE | 2023-04-02 18:59 | PCM.HP.STD ---
HPI - General General Date of Admission: 04/02/23 Date of Service: 04/02/23 Chief Complaint: R langley eschar HPI Narrative SHABNAM MONDRAGON, is a 83-year-old male history of CKD, hypertension, diabetes, A-fib, PVD, gout, hypothyroidism who presented to [facility] 04/02/2023 for necrotic ulcer of right upper langley by his PCP Dr. Childress. Patient in ED has white blood cell count within normal limits, ESR of 31, CRP of 18.7, tib-fib x-ray with mild soft tissue swelling diffusely and vascular calcifications with no other focal findings. Given poor circulation and location of the wound there is high concern the patient will fill outpatient management and admission for IV antibiotics requested. Patient given dose of vancomycin in ED and hospitalist contacted for admission. Spoke with patient and at bedside, patient has chronic problems with both lower extremities and often leaves his legs to dangle and had a blister on the right side which popped open and then returned to this area that became dark, started 3 weeks ago and initially got better but then has been worse prompting him to see his primary care physician who sent him to the ED. He has not been on antibiotics for this yet. There is some erythema and redness in lower extremities and said this comes and goes chronically and she is not sure what is new and what is not. Patient denies fevers or chills, reports some chronic leg and arm pain with some increased pain around the wound on the right leg but he has no other focal complaints. [facility] Medical History (Updated 04/02/23 @ 19:[address] Jie Chin MD) Atrial fibrillation Diabetes type 2, uncontrolled Gout Kidney disease Peripheral vascular disease in diabetes mellitus Ulcer of right foot Home Medications spironolactone 25 mg tablet 25 mg PO BID BLOOD PRESSURE 11/13/21 [History Last Taken 04/02/23] clopidogrel 75 mg tablet 75 mg PO DAILY BLOOD THINNER 11/19/21 [History Last Taken 04/02/23] potassium 99 mg tablet 99 mg PO DAILY SUPPLEMENT 11/19/21 [History Last Taken 04/02/23] warfarin 10 mg tablet 5 mg PO DAILY BLOOD THINNER 01/07/22 [History Last Taken 04/02/23] TRIPLE MAGNSIUM 1 cap PO DAILY SUPPLEMENT 04/02/23 [History Last Taken 04/02/23] allopurinol 100 mg tablet 200 mg PO DAILY GOUT 04/02/23 [History Last Taken 04/02/23] furosemide 40 mg tablet 40 mg PO BID FLUID 04/02/23 [History Last Taken 04/02/23] levothyroxine 75 mcg tablet 75 mcg PO DAILY THYROID 04/02/23 [History Last Taken 04/02/23] rosuvastatin 5 mg tablet 5 mg PO DAILY CHOLESTEROL 04/02/23 [History Last Taken 04/02/23] Allergy/AdvReac Type Severity Reaction Status Date / Time No Known Allergies Allergy Verified 04/02/23 16:11 Social History household members: spouse Smoking Status: Never smoker ROS ROS Narrative General: Denies fever/chills HENT: Denies headache, denies stuffy nose, denies sore throat EYES: Denies changes in vision Resp: Denies cough, denies shortness of breath Cardiac: Denies chest pain GI: Denies abdominal pain, denies changes in bowel, denies nausea/vomiting : Denies changes in urination Extremity: Has some chronic bilateral lower extremity changes MSK: Denies weakness Neuro: Denies any numbness/tingling Heme: Denies any new bleeding Skin: Chronic changes in bilateral lower extremities, right langley eschar noted Psychiatric: No complaints voiced Vital Signs Vital Signs Vital Signs: 04/02/23 16:11 04/02/23 16:55 04/02/23 18:14 Temperature 98.9 F 97.8 F 98.2 F Temperature Source Temporal Oral Oral Pulse Rate 101 H 86 89 Respiratory Rate 18 19 H 17 Blood Pressure 173/142 H 182/55 H 205/83 H Blood Pressure Mean 152 97 123 Pulse Ox 99 99 99 Oxygen Delivery Method Room Air Room Air Room Air 04/02/23 18:15 Temperature 98.2 F Temperature Source Oral Pulse Rate 89 Respiratory Rate 17 Blood Pressure 205/93 H Blood Pressure Mean 130 Pulse Ox 99 Oxygen Delivery Method Room Air Weight Weight: 100.108 kg Body Mass Index (BMI) 33.5 Physical Exam Narrative General: Alert, no apparent distress HEENT: Atraumatic, normocephalic Eyes: Anicteric, normal conjunctiva, extraocular movements grossly intact Neck: Supple Respiratory: Clear to auscultation bilaterally, normal respiratory effort Cardiovascular: Regular rate GI: Soft, nontender, nondistended Extremities: Patient with chronic changes in bilateral lower extremities, some scattered blisters, irregular redness, 1.5 x 1 inch eschar on right langley without active drainage or purulence or fluctuance Musculoskeletal: Moving all extremities Neuro: No overt focal neurological deficits Skin: As above Psych: Cooperative Results Lab / Micro Data 04/02/23 17:00 04/02/23 17:00 Labs: Laboratory Results - last 24 hr 04/02/23 17:00: WBC 8.8, RBC 3.02 L, Hgb 10.6 L, Hct 28.7 L, MCV 95.0 H, MCH 35.1 H, MCHC 36.9 H, RDW Std Deviation 55.0 H, RDW Coeff of Myrtle 16.1 H, Plt Count 292, MPV 10.0, Immature Gran % (Auto) 0.500, Neut % (Auto) 79.8 H, Lymph % (Auto) 11.8 L, [place] % (Auto) 6.0, Eos % (Auto) 1.2, Baso % (Auto) 0.7, Absolute Neuts (auto) 7.0, Absolute Lymphs (auto) 1.04, Nucleated RBC % 0, ESR 31 H, Sodium 145, Potassium 3.6, Chloride 111 H, Carbon Dioxide 30.0, Anion Gap 4 L, BUN 43 H, Creatinine 1.56 H, Estim Creat Clear Calc 34.10, Est GFR (MDRD) Af Amer 55 L, Est GFR (MDRD) Non-Af 45 L, BUN/Creatinine Ratio 27.6 H, Glucose 168 H, Lactic Acid 1.7, Calcium 10.3 H, Total Bilirubin 0.80, AST 10 L, ALT 11 L, Alkaline Phosphatase 116, C-React Prot Ext Range 18.70 H, Total Protein 7.3, Albumin 3.2, Globulin 4.1, Albumin/Globulin Ratio 0.8 L Imagaing Radiology Impression Tibia/Fibula X-Ray 04/02/23 17:00 IMPRESSION: No fracture or malalignment. Degenerative changes of the knee. Electronically Signed: Billy Boothe MD at 17:36 EST , Assessment & Plan Assessment/Plan (1) Leg ulcer, left: (2) Type 2 diabetes mellitus with diabetic polyneuropathy: (3) Atrial fibrillation: (4) Diabetes type 2, uncontrolled: (5) Kidney disease: PLAN: Plan #R langley ulcer with eschar -Has some erythema on both lower extremities and chronic changes of unclear chronicity, does have black eschar over right langley with no purulence or drainage at this time -Started on vancomycin in the ED, will continue, presently nothing to culture -Wound care consulted, pending eval can consider if plastics needs involved for debridement -While CRP and ESR are slightly elevated do not feel imaging or lab studies consistent with osteo this time -Will repeat ESR and CRP in the a.m. #HTN -Patient on spironolactone and Lasix, will continue this -Patient significantly hypertensive in ED with blood pressure 205/93 -Adding Coreg given additional history of A-fib not on rate control\ -As needed medication added as well #Hypothyroidism -Continue Synthroid # A-fib/PVD -Patient not on beta-kiko but not tachycardic, given his significant hypertension will start small dose of Coreg -Continue Coumadin and Plavix, will check INR #?hx DM -On patient's chart he has a history of type 2 diabetes however is not on any medication for diabetes, will check A1c, will add sliding scale insulin and glucose checks at this time pending results # CKD stage IIIa -Seems to be at baseline -Supportive care # Gout -Continue allopurinol #Hypothyroidism -Continue Synthroid #DVT ppx: On Coumadin, INR ordered to assess if patient is therapeutic Jie Chin MD Time spent in the patient's overall evaluation,decision-making process, review of diagnostic data, adjustment of management, discussion with other providers, nursing nursing and ancillary staff involved in patient's care documentation, 55 minutes Charges/Coding Visit Charges Inpatient E&M: 41486 Init Hosp L2
[2023-04-02 20:12] LABS: International Normalized Ratio 2.9; Prothrombin Time (Protime)PT. 30.3 SECONDS (11.7-14.9)
[2023-04-02] MEDS: 0.9% Normal Saline (250mL Bag) 250 ML 15 ML IV (21:37)
[2023-04-02] MEDS: Insulin Lispro 100 UNIT/ML INSULN.PEN SC (21:46)
[2023-04-02] MEDS: Spironolactone 25 MG Tablet PO (21:47)
[2023-04-02] MEDS: Furosemide 40 MG Tablet PO (21:47)
[2023-04-02] MEDS: Carvedilol 6.25 MG Tablet PO (21:48)
--- NOTE | 2023-04-02 22:03 | PCM.RX.CS ---
Consult Antibiotic Management Pharmacy has been consulted to manage selected antiobiotic: Vancomycin Type of Intervention Type of Consult: New start Labs Labs: Sodium 145 mmol/L (136-145) 04/02/23 17:00 Potassium 3.6 mmol/L (3.5-5.1) 04/02/23 17:00 Chloride 111 mmol/L (98-107) H 04/02/23 17:00 Carbon Dioxide 30.0 mmol/L (21.0-32.0) 04/02/23 17:00 Anion Gap 4 (5-15) L 04/02/23 17:00 BUN 43 mg/dL (7-18) H 04/02/23 17:00 Creatinine 1.56 mg/dL (0.70-1.30) H 04/02/23 17:00 Est GFR (MDRD) Af Amer 55 mL/min (>60) L 04/02/23 17:00 Est GFR (MDRD) Non-Af 45 mL/min (>60) L 04/02/23 17:00 BUN/Creatinine Ratio 27.6 RATIO (10-20) H 04/02/23 17:00 Glucose 168 mg/dL (74-106) H 04/02/23 17:00 Dosing Weight Weight used for dosin.1 kg Estimated Creatinine Clearance Estimated Creatinine Clearance: 40 Goal Trough Goal Trough: 15-20 mcg/mL Pharmacy Plan for Drug Dosing Pharmacy Plan for Drug Dosing: Pharmacy Service will continue to monitor and adjust dosing as required. Follow-Up Labs Follow-Up Labs: Trough: Vancomycin Date/Time Labs Ordered Labs to be done on [date and time ordered]: 04/04 @ 2504
[2023-04-02 22:51] LABS: Bedside Glucose 167 mg/dL (74-106)
[2023-04-03] VITALS (9 sets, daily range): BP systolic 103–157; BP diastolic 44–55; PULSE 70–89; RESP 14–18; TEMP 35.8–36.8; O2SAT 96–99
[2023-04-03] MEDS: Levothyroxine 75 MCG Tablet PO (05:42)
[2023-04-03] MEDS: Vancomycin HCl 750 MG in 0.9% Normal Saline (250mL Bag) 250 ML 250 MG IV ×2 (05:43→17:01)
[2023-04-03 06:09] LABS: International Normalized Ratio 2.8; Prothrombin Time (Protime)PT. 29.5 SECONDS (11.7-14.9)
[2023-04-03 06:16] LABS: ALB/GLOB Ratio 0.9 RATIO (0.9-2.4); AST(SGOT) 8 U/L (15-37); Alanine Aminotransfer ALT/SGPT 9 U/L (16-61); Albumin, Serum 2.8 g/dL (3.2-5.0); Alkaline Phosphatase 89 U/L (45-117); Anion Gap 4 (5-15); BUN 38 mg/dL (7-18); BUN/Creat Ratio 29.7 RATIO (10-20); Calcium,Total 9.2 mg/dL (8.5-10.1); Chloride 113 mmol/L (98-107); Creatinine, Serum 1.28 mg/dL (0.70-1.30); EST Glomerular Filtration Rate 57 mL/min (>60); Est Glom Filt Rate - Afr Amer 69 mL/min (>60); Estimated Creatinine Clearance 41.56 ml/min; Globulin 3.2 g/dL (2.2-4.2); Glucose 163 mg/dL (74-106); Potassium 3.3 mmol/L (3.5-5.1); Sodium Level 146 mmol/L (136-145)
[2023-04-03 06:20] LABS: Erythrocyte Sedimentation Rate 24 mm/hr (0-20)
[2023-04-03 06:22] LABS: Absolute Lymphocyte Count 1.36 X10^3/uL (0.83-4.51); Absolute Neutrophil Count 4.9 X10^3/uL (2.0-7.7); Basophil# 0.04 X10^3/uL; Basophil% 0.6 % (0-1); Eosinophil# 0.13 X10^3/uL; Eosinophils% 1.9 % (0-5); Hematocrit 26.3 % (40-54); Hemoglobin 8.8 g/dL (13.0-16.5); Lymphocyte # 1.36 X10^3/ul (0.83-4.51); Lymphocyte % 19.5 % (19-41); Mean Corp Hgb Conc 33.5 g/dL (32-36); Mean Corpuscular Hgb 32.7 pg (27.0-32.0); Mean Corpuscular Volume 97.8 fL (80-94); Mean Platelet Vol. 9.8 fl (6.2-12.0); Monocyte# 0.54 X10^3/uL; Monocyte% 7.7 % (0-10); NRBC Flagged by Analyzer 0 % (0-5); Neutrophil # 4.88 X10^3/uL (2.7-7.7); Neutrophil % 69.9 % (47-70); Platelet Count 259 K/mm3 (150-450); RBC Distribution Width CV 16.2 % (11.6-14.6); RBC Distribution Width SD 55.8 fl (35.1-43.9); Red Blood Count 2.69 M/mm3 (4.6-6.2)
[2023-04-03] MEDS: Clopidogrel Bisulfate 75 MG Tablet PO (09:29)
[2023-04-03] MEDS: Furosemide 40 MG Tablet PO (09:29)
[2023-04-03] MEDS: Potassium Chloride Oral Tablet 20 MEQ 40 MEQ PO (09:30)
[2023-04-03] MEDS: Allopurinol 100 MG Tablet 200 MG PO (09:30)
[2023-04-03] MEDS: Spironolactone 25 MG Tablet PO (09:30)
[2023-04-03] MEDS: Carvedilol 6.25 MG Tablet PO ×2 (09:30→21:06)
[2023-04-03 09:40] LABS: Bedside Glucose 200 mg/dL (74-106)
--- NOTE | 2023-04-03 11:15 | CASEMGMT ---
Addendum entered by Roopa Bravo 04/03/23 15:49: Per therapy, pt ambulated 100 [address] hallway and they state pt is safe to discharge home. Addendum entered by Roopa Bravo 04/03/23 11:48: states they have 2 grand-dtr's that are nurses that can also help if needed. Original Note: RN?CM?CHINESE LANGUAGE PROFESSOR?CM?to room to meet with patient for initial transition planning/care coordination?assessment.?RN?CM?introduced self and role at [facility].? Pt voices understanding and consents to?assessment?at this time.? Pt sitting up in chair in room in no distress at this time.? @ bedside. Pt is A/O at this time. All questions answered by and pt. Care providers, pharmacy, and demographics verified/updated at this time. PCP: Dr Childress Specialists: Dr Ace-inside contractor sales in [place], Dr Schuster-unarmed security officer in [place]. Pt has been to [facility] wound center in the past (about 1-2 yrs ago, per ). She plans to take pt back there again. Preferred Pharmacy: [facility] Insurance: [facility] A/B Prescription Benefit:?Yes-[employer] Living Will/HPOA:? Pt does not currently have LW/HCPOA and is interested in completed HCPOA. SWTri, made aware. Pt and made aware, if SW unable to meet w/pt prior to discharge that appt can be scheduled w/SW to complete as an OP. They voice understanding. LNOK: , rCis. 10 children Living Arrangements: Lives w/his and son, Bria, in 2-story home w/ramp entrance. FFSU. assists pt w/bathing and dressing and does home mgnt tasks. Son helps w/home maintenance and does some cooking. or son get groceries. Transportation:?Pt does not drive. and son both drive. DME: States has the following DME:?BSC, RTS, cane, CPAP, pulse ox, lift chair, functioning glucometer w/sufficient supplies. Pt sleeps in the lift chair d/t is difficult getting in/out of bed. He has a shower chair, but does not use. states no need for further DME at this time.? HHC/SNF: Has been to Rehab unit @ [facility] in the past and has had a HHC from [place] in the past. Discussed discharge planning, including SNF, HHC, and OP therapy. and pt decline any services. They do not want pt to go to a SNF and feel pt will be safe to return home and they both decline wanting HHC or OP therapy. states she does wound care @ home and plans to continue to do so when pt returns home. CM?to follow for any further discharge planning/needs.? Pt and voice no further concerns/needs at this time.? Advised them to ask for?CM?if any further questions/concerns/needs arise.? They voice understanding. PLAN:??Home w/family support and discharge plans in place. PT/OT evals pending. Sridevi BSN?RN?CM
[2023-04-03] MEDS: Insulin Lispro 100 UNIT/ML INSULN.PEN SC ×3 (11:38→21:08)
--- NOTE | 2023-04-03 11:57 | CASEMGMT ---
Social Work Pt had indicated to he wanted to complete POA for healthcare. SW met w/pt and in room. Pt does not want to do the paperwork without his son reviewing it first. SW reviewed the document w/pt and , explained to them that they can have 2 witnesses or a notary sign it. They state understanding. SW gave them the blank forms and they will complete on their own. CASSY Hernandez
[2023-04-03 12:28] LABS: Bedside Glucose 199 mg/dL (74-106)
--- NOTE | 2023-04-03 12:48 | WOUNDNOTE ---
wound photo: right langley
--- NOTE | 2023-04-03 14:12 | PCM.PN.HOSP ---
Reason for Visit Reason for Visit: Diagnoses Type 2 diabetes mellitus with diabetic polyneuropathy (04/02/23) Unspecified atrial fibrillation (04/02/23) Non-pressure chronic ulcer of unspecified part of left lower leg with unspecified severity (04/02/23) Disorder of kidney and ureter, unspecified (04/02/23) Subjective Subjective Patient admitted yesterday due to concern for right lower extremity cellulitis with chronic wounds requiring IV antibiotics. Patient seen at bedside this morning, present. Patient was sitting comfortably in bed, no acute distress. Has been tolerating IV antibiotics without issue. Has not gotten out of bed yet this morning but is fairly insistent that he wants to go home. Patient's is very reasonable, states she understands that the patient likely needs a few days of IV antibiotics before returning home. Patient lives at home with his , has family members in the area able to help with his care. Patient is fairly limited at home, is able to get up to the bathroom and kitchen and back to his chair, but otherwise does not move much more than that. He denies any fevers or chills, or any other pain or discomfort this morning. No other acute concerns. Objective Data Objective Data Vital Signs: Vital Signs Temp Pulse Resp BP Pulse Ox O2 Del Method 96.5 F L 70 14 103/44 L 97 Room Air 04/03/23 11:40 04/03/23 11:40 04/03/23 11:40 04/03/23 11:40 04/03/23 11:40 04/03/23 11:40 Oxygen Delivery Method Room Air Weight: 100.3 kg Body Mass Index (BMI) 33.6 Intake & Output: Intake and Output for Last 24 Hours 04/01/23 04/02/23 04/03/23 23:59 23:59 23:59 Intake Total 900 / 900 1225.75 / 1225.75 Output Total 200 / 200 800 / 800 Balance 700 / 700 425.75 / 425.75 Lab / Micro Data 04/03/23 05:50 04/03/23 05:50 Labs: Laboratory Results - last 24 hr 04/02/23 17:00: WBC 8.8, RBC 3.02 L, Hgb 10.6 L, Hct 28.7 L, MCV 95.0 H, MCH 35.1 H, MCHC 36.9 H, RDW Std Deviation 55.0 H, RDW Coeff of Myrtle 16.1 H, Plt Count 292, MPV 10.0, Immature Gran % (Auto) 0.500, Neut % (Auto) 79.8 H, Lymph % (Auto) 11.8 L, [place] % (Auto) 6.0, Eos % (Auto) 1.2, Baso % (Auto) 0.7, Absolute Neuts (auto) 7.0, Absolute Lymphs (auto) 1.04, Nucleated RBC % 0, ESR 31 H, Sodium 145, Potassium 3.6, Chloride 111 H, Carbon Dioxide 30.0, Anion Gap 4 L, BUN 43 H, Creatinine 1.56 H, Estim Creat Clear Calc 34.10, Est GFR (MDRD) Af Amer 55 L, Est GFR (MDRD) Non-Af 45 L, BUN/Creatinine Ratio 27.6 H, Glucose 168 H, Lactic Acid 1.7, Calcium 10.3 H, Total Bilirubin 0.80, AST 10 L, ALT 11 L, Alkaline Phosphatase 116, C-React Prot Ext Range 18.70 H, Total Protein 7.3, Albumin 3.2, Globulin 4.1, Albumin/Globulin Ratio 0.8 L 04/02/23 19:40: PT 30.3 H, INR 2.9 04/02/23 21:44: POC Glucose 167 H 04/03/23 05:50: WBC 7.0, RBC 2.69 L, Hgb 8.8 L, Hct 26.3 L, MCV 97.8 H, MCH 32.7 H, MCHC 33.5 D, RDW Std Deviation 55.8 H, RDW Coeff of Myrtle 16.2 H, Plt Count 259, MPV 9.8, Immature Gran % (Auto) 0.400, Neut % (Auto) 69.9, Lymph % (Auto) 19.5, [place] % (Auto) 7.7, Eos % (Auto) 1.9, Baso % (Auto) 0.6, Absolute Neuts (auto) 4.9, Absolute Lymphs (auto) 1.36, Nucleated RBC % 0, ESR 24 H, PT 29.5 H, INR 2.8, Sodium 146 H, Potassium 3.3 L, Chloride 113 H, Carbon Dioxide 29.0, Anion Gap 4 L, BUN 38 H, Creatinine 1.28, Estim Creat Clear Calc 41.56, Est GFR (MDRD) Af Amer 69, Est GFR (MDRD) Non-Af 57 L, BUN/Creatinine Ratio 29.7 H, Glucose 163 H, Hemoglobin A1c 7.0 H, Calcium 9.2, Total Bilirubin 0.70, AST 8 L, ALT 9 L, Alkaline Phosphatase 89, C-React Prot Ext Range 20.70 H, Total Protein 6.0 L, Albumin 2.8 L, Globulin 3.2, Albumin/Globulin Ratio 0.9 04/03/23 09:05: POC Glucose 200 H 04/03/23 11:37: POC Glucose 199 H Radiography Diagnostic Testing: Radiology Impression Tibia/Fibula X-Ray 04/02/23 17:00 IMPRESSION: No fracture or malalignment. Degenerative changes of the knee. Electronically Signed: Billy Boothe MD at 17:36 EST Reading Location ID and State: [facility] / [place] Tel , Service support , Physical Exam Const alert Constitutional Narrative: Elderly male, obese, sitting comfortably in bed, conversing normally, mild distress due to anxiety from being in the hospital. General Appearance: cooperative and comfortable HEENT normocephalic, head/scalp atraumatic, hearing grossly normal bilaterally, nasal mucous membranes and turbinates normal and moist oral mucous membranes Eyes PERRL, EOMs intact bilaterally and conjunctivae normal Neck full ROM, no lymphadenopathy and supple Lymph Lymphatic: no lymphadenopathy noted Chest inspection of chest normal Resp normal respiratory effort, normal air movement, no use of accessory muscles and clear to auscultation bilaterally Cardio regular rate, regular rhythm, no murmurs and peripheral pulses 2+ throughout GI normal to inspection, nondistended, normoactive bowel sounds, soft to palpation, non-tender and non-distended Back/Spine normal ROM Extremity Extremity Narrative: Chronic bilateral lower extremity changes with some scattered blisters and irregular redness. Does have 1.5 to 1 inch eschar on right langley without active drainage, purulence or fluctuance. See wound care note for picture of legs. Skin no rashes or lesions noted Neuro moves all extremities and no focal motor deficits Speech: speech normal Psych mental status grossly normal Assessment & Plan Assessment/Plan (1) Cellulitis of right leg: PLAN: Plan Patient is an 83-year-old male who presented to [facility] ED on 04/02/2023 with concern for right lower extremity cellulitis. 1. Right langley ulcer with eschar, concern for RLE cellulitis Chronic venous stasis changes on bilateral lower extremities. Does have black eschar over right langley, no purulence or drainage. See wound care note for image of right langley wound. ESR and CRP mildly elevated on admit, stable on recheck. Tib?fib x-ray with mild soft tissue swelling diffusely vascular calcifications, no other focal findings. Started on IV vancomycin on admission. ? Wound care following. Continue IV vancomycin for now. Given stable ESR and CRP, no need for further lab or imaging studies at this point. If patient remains stable tomorrow, will likely plan to de-escalate to p.o. antibiotics in preparation for discharge. PT/OT/case management following as below. 2. Essential hypertension On home spironolactone and Lasix. Hypertensive on admission to BP 205/93. Low-dose Coreg added on admission given A-fib not on rate control as noted below. ? Blood pressure improved with addition of Coreg. Continue spironolactone, Lasix and Coreg. 3. Debility Patient lives at home with . Is fairly debilitated at baseline, able to walk slowly with 4-point walker to bathroom and kitchen with at home then back to chair or bed. ? PT/OT/case management following. Likely home on discharge, possibly with home health care. Chronic medical conditions: ? Hypothyroidism: Continue home Synthroid. ? A-fib, PVD: Initiated on low-dose Coreg on admission given hypotension as noted above. Continue home Coumadin and Plavix. INR 2.8 on admit, within goal range. ? Type 2 diabetes mellitus: A1c 7.0% on 04/03. Not on home medications. Continue sliding scale insulin while inpatient. ? CKD stage IIIa: Creatinine at baseline, stable. ? Gout: Continue home allopurinol. DVT prophylaxis: Coumadin CODE STATUS: Full code, verified Expected disposition: Home, 1 to 2 days Total clinical time spent by myself addressing the patient's medical issues, reviewing all the data, and collaborating with patient's care team: 35 minutes. Charges/Coding Visit Charges Inpatient E&M: 31833 Subs Hosp L2
--- NOTE | 2023-04-03 16:01 | CHAPLAIN ---
Type of Pastoral Visit _x__ Initial Visit ___ Follow-up Visit ___ On-call Visit ___ General Patient Visit ___ Spiritual Assessment ___ Family Conference ___ Bereavement ___ Rapid Response ___ Code Blue ___ Other (describe below) Pastoral Care Referral From _x__ Patient ___ Family ___ Nurse ___ Physician ___ Nurse Orthopaedic ___ Industrial Engineering ___ Other (describe below) Sacrament/Intervention _x__ Active listening ___ Anointing ___ Taoism ___ Bereavement ___ Communion _x__ Denise exploration ___ ___ Life review _x__ Prayer ___ Reconciliation ___ Sacrament of Sick _x__ Supportive presence ___ Wedding ___ Other (describe below) Pastoral Comments patient and spouse are in the room; pt is welcoming and identifies self as someone who believes in prayer and God; spouse details more about their denise beliefs; pt is concerned for his healing and states this is his only concern; prayer and presence given
[2023-04-03 17:24] LABS: Bedside Glucose 231 mg/dL (74-106)
[2023-04-03 21:30] LABS: Bedside Glucose 232 mg/dL (74-106)
[2023-04-04 03:00] VITALS: BP 162/60; PULSE 78; RESP 16; TEMP 36.8; O2SAT 98
[2023-04-04] MEDS: Vancomycin Trough/Random Due 1 LAB MC (05:35)
[2023-04-04] MEDS: Levothyroxine 75 MCG Tablet PO (05:39)
[2023-04-04 05:55] LABS: International Normalized Ratio 2.3; Prothrombin Time (Protime)PT. 25.8 SECONDS (11.7-14.9)
[2023-04-04 06:05] LABS: Bedside Glucose 160 mg/dL (74-106)
[2023-04-04 06:10] LABS: Vancomycin, Trough Level 23.4 ug/mL (5.0-15.0)
--- NOTE | 2023-04-04 06:41 | PCM.RX.CS ---
Consult Antibiotic Management Pharmacy has been consulted to manage selected antiobiotic: Vancomycin Type of Intervention Type of Consult: Follow-up Labs Labs: Sodium 146 mmol/L (136-145) H 04/03/23 05:50 Potassium 3.3 mmol/L (3.5-5.1) L 04/03/23 05:50 Chloride 113 mmol/L (98-107) H 04/03/23 05:50 Carbon Dioxide 29.0 mmol/L (21.0-32.0) 04/03/23 05:50 Anion Gap 4 (5-15) L 04/03/23 05:50 BUN 38 mg/dL (7-18) H 04/03/23 05:50 Creatinine 1.28 mg/dL (0.70-1.30) 04/03/23 05:50 Est GFR (MDRD) Af Amer 69 mL/min (>60) 04/03/23 05:50 Est GFR (MDRD) Non-Af 57 mL/min (>60) L 04/03/23 05:50 BUN/Creatinine Ratio 29.7 RATIO (10-20) H 04/03/23 05:50 Glucose 163 mg/dL (74-106) H 04/03/23 05:50 Vancomycin Trough 23.4 ug/mL (5.0-15.0) H 04/04/23 05:35 Pharmacy Plan for Drug Dosing Pharmacy Plan for Drug Dosing: Pharmacy Service will continue to monitor and adjust dosing as required. TROUGH 23.4 @ 12.5 HOURS. HOLD DOSE AND DRAW RANDOM LEVEL IN 8 HOURS Follow-Up Labs Follow-Up Labs: Trough: Vancomycin Date/Time Labs Ordered Labs to be done on [date and time ordered]: 04/04 @ 1330
[2023-04-04 07:45] LABS: Hematocrit 26.6 % (40-54); Hemoglobin 8.7 g/dL (13.0-16.5); Mean Corp Hgb Conc 32.7 g/dL (32-36); Mean Corpuscular Hgb 31.9 pg (27.0-32.0); Mean Corpuscular Volume 97.4 fL (80-94); Mean Platelet Vol. 9.3 fl (6.2-12.0); Platelet Count 239 K/mm3 (150-450); RBC Distribution Width CV 16.1 % (11.6-14.6); RBC Distribution Width SD 55.5 fl (35.1-43.9); Red Blood Count 2.73 M/mm3 (4.6-6.2); White Blood Count 7.8 K/mm3 (4.4-11.0)
[2023-04-04 07:53] LABS: Anion Gap 2 (5-15); BUN 42 mg/dL (7-18); BUN/Creat Ratio 29.2 RATIO (10-20); Calcium,Total 10.2 mg/dL (8.5-10.1); Chloride 110 mmol/L (98-107); Creatinine, Serum 1.44 mg/dL (0.70-1.30); EST Glomerular Filtration Rate 50 mL/min (>60); Est Glom Filt Rate - Afr Amer 60 mL/min (>60); Estimated Creatinine Clearance 36.94 ml/min; Glucose 170 mg/dL (74-106); Potassium 3.7 mmol/L (3.5-5.1); Sodium Level 141 mmol/L (136-145)
[2023-04-04 08:06] LABS: Bedside Glucose 155 mg/dL (74-106)
[2023-04-04 08:14] VITALS: BP 137/51; PULSE 66; RESP 16; TEMP 36.1; O2SAT 99
[2023-04-04] MEDS: Insulin Lispro 100 UNIT/ML INSULN.PEN SC (08:20)
[2023-04-04] MEDS: Furosemide 40 MG Tablet PO (10:12)
[2023-04-04] MEDS: Allopurinol 100 MG Tablet 200 MG PO (10:12)
[2023-04-04] MEDS: Clopidogrel Bisulfate 75 MG Tablet PO (10:12)
[2023-04-04] MEDS: Spironolactone 25 MG Tablet PO (10:12)
[2023-04-04] MEDS: Carvedilol 6.25 MG Tablet PO (10:12)
--- NOTE | 2023-04-04 10:34 | DCINST_ITS ---
Discharge Instructions Diet Discharge Diet: No restrictions Activity Discharge Activity: No Restrictions Weight Bearing Status: Full weight bearing Follow Up Care Please Follow Up With: Sukumar Childress MD When: As needed Test Results: Test results from this visit will be discussed in further detail at your follow- up appointment, if applicable. Pending Tests Upon Discharge: None Discharge Plan Admission Admit Date/Time: 04/02/23 19:00 Primary Reason for Your Visit: Right leg cellulitis Attending Provider: Kelvin Bonds Primary Care Provider: Sukumar Childress Consulting Providers: Jie Chin Instructions Additional Instructions / Restrictions: Please take your antibiotics as noted below to complete a 7-day course. Please take the carvedilol medication as noted below for your blood pressure. Continue all other home medications as normal. Follow-up with your primary care doctor as needed. Follow-up with the wound care center as instructed. Discharge Orders/Prescriptions Prescriptions: New carvedilol 6.25 mg Tablet 6.25 mg PO BID 30 Days Qty: 60 0RF amoxicillin-pot clavulanate 875-125 mg tablet 1 tab PO BID 5 Days Qty: 10 0RF Continued spironolactone 25 mg Tablet 25 mg PO BID clopidogrel 75 mg Tablet 75 mg PO DAILY warfarin 10 mg tablet 5 mg PO DAILY Patient Comments: PER ANTCOAGULATION SUMMARY REPORT, TAKE 1/2 OF A 10MG TABLET (5MG) BY MOUTH ONCE DAILY UNTIL 04/16/23. TAKE ONE 10MG TABLET ON 04-16-23 THEN RESUME TAKING HALF OF A TABLET (5MG) THEREAFTER UNTIL 04/23/22 allopurinol 100 mg tablet 200 mg PO DAILY furosemide 40 mg tablet 40 mg PO BID levothyroxine 75 mcg tablet 75 mcg PO DAILY rosuvastatin 5 mg tablet 5 mg PO DAILY TRIPLE MAGNSIUM 400 mg capsule 1 cap PO DAILY Patient Comments: OTC PRODUCT THAT CONTAINS: MAGNESIUM CITRATE MAGNESIUM OXIDE MAGNESIUM ASPERTATE Discontinued potassium 99 mg Tablet 99 mg PO DAILY Referrals / Follow Up: Bhavin Villagran PA-C [Non-Staff] - Sukumar Childress MD [Primary Care Provider] - Disposition Disposition (needs filled in before D/C Order can be placed): Home, Self Care
--- NOTE | 2023-04-04 10:37 | DS.PCM_ITS ---
Providers Date of Admission: 04/02/23 Date of Discharge: 04/04/23 Primary Care Physician: Dr. 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 1. Right langley ulcer with eschar, concern for RLE cellulitis Chronic venous stasis changes on bilateral lower extremities. Does have black eschar over right langley, no purulence or drainage. See wound care note for image of right langley wound. ESR and CRP mildly elevated on admit, stable on recheck. Tib?fib x-ray with mild soft tissue swelling diffusely vascular calcifications, no other focal findings. Started on IV vancomycin on admission. ? Wound care following. Continue IV vancomycin for now. Given stable ESR and CRP, no need for further lab or imaging studies at this point. If patient remains stable tomorrow, will likely plan to de-escalate to p.o. antibiotics in preparation for discharge. PT/OT/case management following as below. 2. Essential hypertension On home spironolactone and Lasix. Hypertensive on admission to BP 205/93. Low- dose Coreg added on admission given A-fib not on rate control as noted below. ? Blood pressure improved with addition of Coreg. Continue spironolactone, Lasix and Coreg. 3. Debility Patient lives at home with . Is fairly debilitated at baseline, able to walk slowly with 4-point walker to bathroom and kitchen with at home then back to chair or bed. ? PT/OT/case management following. Likely home on discharge, possibly with home health care. Chronic medical conditions: ? Hypothyroidism: Continue home Synthroid. ? A-fib, PVD: Initiated on low-dose Coreg on admission given hypotension as noted above. Continue home Coumadin and Plavix. INR 2.8 on admit, within goal range. ? Type 2 diabetes mellitus: A1c 7.0% on 04/03. Not on home medications. Continue sliding scale insulin while inpatient. ? CKD stage IIIa: Creatinine at baseline, stable. ? Gout: Continue home allopurinol. DVT prophylaxis: Coumadin CODE STATUS: Full code, verified Expected disposition: Home, 1 to 2 days Total clinical time spent by myself addressing the patient's medical issues, reviewing all the data, and collaborating with patient's care team: 35 minutes. Medications at Discharge Home Medications spironolactone 25 mg tablet 25 mg PO BID BLOOD PRESSURE 11/13/21 clopidogrel 75 mg tablet 75 mg PO DAILY BLOOD THINNER 11/19/21 warfarin 10 mg tablet 5 mg PO DAILY BLOOD THINNER 01/07/22 TRIPLE MAGNSIUM 1 cap PO DAILY SUPPLEMENT 04/02/23 allopurinol 100 mg tablet 200 mg PO DAILY GOUT 04/02/23 furosemide 40 mg tablet 40 mg PO BID FLUID 04/02/23 levothyroxine 75 mcg tablet 75 mcg PO DAILY THYROID 04/02/23 rosuvastatin 5 mg tablet 5 mg PO DAILY CHOLESTEROL 04/02/23 amoxicillin 875 mg-potassium clavulanate 125 mg tablet 1 tab PO BID 5 days #10 tabs 04/04/23 carvedilol 6.25 mg tablet 6.25 mg PO BID 30 days #60 tabs 04/04/23 Hospital Course Operations None Procedures - (Tibia/fibula x-ray) Summary of Care Provided Minutes Spent on Discharge: 35 Hospital Course: Patient is an 83-year-old male who presented to [facility] ED on 04/02/2023 with concern for right lower extremity cellulitis. Short hospital course as noted below. Patient was stable for discharge home on 04/04. 1. Right langley ulcer with eschar, suspected RLE cellulitis Chronic venous stasis changes on bilateral lower extremities. Does have black eschar over right langley, no purulence or drainage. See wound care note for image of right langley wound. ESR and CRP mildly elevated on admit, stable on recheck. Tib?fib x-ray with mild soft tissue swelling diffusely vascular calcifications, no other focal findings. ? Wound care followed. Noted chronic venous stasis changes, possibly some sort of dermatitis or psoriasis as well, possible cellulitis. Recommended follow-up at wound healing center post discharge to monitor the wound and for possible debridement. Treated with IV vancomycin while inpatient, discharged on p.o. Augmentin to complete 7-day course total. 2. Essential hypertension On home spironolactone and Lasix. Hypertensive on admission to BP 205/93. Low- dose Coreg added on admission given A-fib not on rate control as noted below. ? Blood pressure improved with addition of Coreg. Discharged on spironolactone, Lasix and Coreg. 3. Debility Patient lives at home with . Is fairly debilitated at baseline, able to walk slowly with 4-point walker to bathroom and kitchen with at home then back to chair or bed. ? PT/OT/case management followed. Patient has chronic debility but notably has very good set up at home and good family support. Okay for home without home health care on discharge. Chronic medical conditions: ? Hypothyroidism: Continued home Synthroid. ? A-fib, PVD: Initiated on low-dose Coreg on admission given hypotension as noted above. Continued home Coumadin and Plavix. INR 2.8 on admit, within goal range. ? Type 2 diabetes mellitus: A1c 7.0% on 04/03. Not on home medications. Sliding scale insulin while inpatient. Outpatient follow-up. ? CKD stage IIIa: Creatinine at baseline, stable. ? Gout: Continued home allopurinol. Total clinical time spent by myself addressing the patient's discharge needs: 35 minutes. Physical Exam Const alert Constitutional Narrative: Elderly male, obese, sitting comfortably in bed, conversing normally, no acute distress. General Appearance: cooperative and comfortable HEENT normocephalic, head/scalp atraumatic, hearing grossly normal bilaterally, nasal mucous membranes and turbinates normal and moist oral mucous membranes Eyes PERRL, EOMs intact bilaterally and conjunctivae normal Neck full ROM, no lymphadenopathy and supple Lymph Lymphatic: no lymphadenopathy noted Chest inspection of chest normal Resp normal respiratory effort, normal air movement, no use of accessory muscles and clear to auscultation bilaterally Cardio regular rate, regular rhythm, no murmurs and peripheral pulses 2+ throughout GI normal to inspection, nondistended, normoactive bowel sounds, soft to palpation, non-tender and non-distended Back/Spine normal ROM Extremity Extremity Narrative: Chronic bilateral lower extremity changes with some scattered blisters and irregular redness. Does have 1.5 to 1 inch eschar on right langley without active drainage, purulence or fluctuance. See wound care note for picture of legs. Skin no rashes or lesions noted Neuro moves all extremities and no focal motor deficits Speech: speech normal Psych mental status grossly normal Weight / BMI Weight Weight: 100.3 kg Body Mass Index (BMI) 33.6 ABG / Lab / Microbiology Data 04/04/23 07:25 04/04/23 07:25 Laboratory: Laboratory Results - last 24 hr 04/03/23 05:50: Hemoglobin A1c 7.0 H 04/03/23 11:37: POC Glucose 199 H 04/03/23 16:57: POC Glucose 231 H 04/03/23 21:08: POC Glucose 232 H 04/04/23 05:35: PT 25.8 H, INR 2.3, Vancomycin Trough 23.4 H 04/04/23 05:43: POC Glucose 160 H 04/04/23 07:25: WBC 7.8, RBC 2.73 L, Hgb 8.7 L, Hct 26.6 L, MCV 97.4 H, MCH 31.9, MCHC 32.7, RDW Std Deviation 55.5 H, RDW Coeff of Myrtle 16.1 H, Plt Count 239, MPV 9.3, Sodium 141, Potassium 3.7, Chloride 110 H, Carbon Dioxide 29.0, Anion Gap 2 L, BUN 42 H, Creatinine 1.44 H, Estim Creat Clear Calc 36.94, Est GFR (MDRD) Af Amer 60, Est GFR (MDRD) Non-Af 50 L, BUN/Creatinine Ratio 29.2 H, Glucose 170 H, Calcium 10.2 H 04/04/23 07:48: POC Glucose 155 H D/C Instructions Discharge Diet: No restrictions Weight Bearing Status: Full weight bearing Pending Tests Upon Discharge: None Please Follow Up With: Sukumar Childress MD When: As needed Meaningful Use Info Meaningful Use Diagnoses (Choose all that apply): None applicable Discharge Plan Admission Admit Date/Time: 04/02/23 19:00 Primary Reason for Your Visit: Right leg cellulitis Attending Provider: Kelvin Bonds Primary Care Provider: Sukumar Childress Consulting Providers: Jie Chin Instructions Additional Instructions / Restrictions: Please take your antibiotics as noted below to complete a 7-day course. Please take the carvedilol medication as noted below for your blood pressure. Continue all other home medications as normal. Follow-up with your primary care doctor as needed. Follow-up with the wound care center as instructed. Discharge Orders/Prescriptions Prescriptions: New carvedilol 6.25 mg Tablet 6.25 mg PO BID 30 Days Qty: 60 0RF amoxicillin-pot clavulanate 875-125 mg tablet 1 tab PO BID 5 Days Qty: 10 0RF Continued spironolactone 25 mg Tablet 25 mg PO BID clopidogrel 75 mg Tablet 75 mg PO DAILY warfarin 10 mg tablet 5 mg PO DAILY Patient Comments: PER ANTCOAGULATION SUMMARY REPORT, TAKE 1/2 OF A 10MG TABLET (5MG) BY MOUTH ONCE DAILY UNTIL 04/16/23. TAKE ONE 10MG TABLET ON 04-16-23 THEN RESUME TAKING HALF OF A TABLET (5MG) THEREAFTER UNTIL 04/23/22 allopurinol 100 mg tablet 200 mg PO DAILY furosemide 40 mg tablet 40 mg PO BID levothyroxine 75 mcg tablet 75 mcg PO DAILY rosuvastatin 5 mg tablet 5 mg PO DAILY TRIPLE MAGNSIUM 400 mg capsule 1 cap PO DAILY Patient Comments: OTC PRODUCT THAT CONTAINS: MAGNESIUM CITRATE MAGNESIUM OXIDE MAGNESIUM ASPERTATE Discontinued potassium 99 mg Tablet 99 mg PO DAILY Referrals / Follow Up: Bhavin Villagran PA-C [Non-Staff] - Sukumar Childress MD [Primary Care Provider] - Disposition Disposition (needs filled in before D/C Order can be placed): Home, Self Care Charges/Coding Visit Charges Inpatient E&M: 52361 Disch Hosp >30min
[2023-04-04 11:28] VITALS: BP 129/58; PULSE 71; RESP 18; TEMP 36.2; O2SAT 99
== END 2023-04-04 11:30 | disposition home or self-care (01) | DRG 300 ==
LOC: ED 18:35 → ICU 04-03 07:05
PROVIDERS: Admitting Provider Internal Medicine; Emergency Provider Emergency Medicine; PCP Family Medicine; Visit Provider Hospitalist
DX: I87.2 Venous insufficiency (chronic) (peripheral) (principal); L97.819 Non-pressure chronic ulcer of other part of right lower leg with unspecified severity; L03.115 Cellulitis of right lower limb; E11.22 Type 2 diabetes mellitus with diabetic chronic kidney disease; E11.42 Type 2 diabetes mellitus with diabetic polyneuropathy; N18.31 Chronic kidney disease, stage 3a; E11.51 Type 2 diabetes mellitus with diabetic peripheral angiopathy without gangrene; I48.91 Unspecified atrial fibrillation; Z79.4 Long term (current) use of insulin; E03.9 Hypothyroidism, unspecified; I12.9 Hypertensive chronic kidney disease with stage 1 through stage 4 chronic kidney disease, or unspecified chronic kidney disease; M10.9 Gout, unspecified; R54 Age-related physical debility; E66.9 Obesity, unspecified; Z68.33 Body mass index [BMI] 33.0-33.9, adult; Z79.01 Long term (current) use of anticoagulants; Z79.02 Long term (current) use of antithrombotics/antiplatelets; Z79.899 Other long term (current) drug therapy
CPT/HCPCS: 73590; 80048; 80053; 80202; 82962; 83036; 83605; 85025; 85027; 85610; 85652; 86140; 90471; 97110; 97116; 97162; 97166; 99283; J7030; J7050

== ENCOUNTER 2023-04-15 10:45 | Outpatient (RCR) | payer MEDICARE, SELFPAY ==
[2023-04-08 10:15] VITALS: BP 111/38; PULSE 74; RESP 20; TEMP 36.1; BMI 33.4
--- NOTE | 2023-04-08 11:26 | HP.PCM_ITS ---
History of Present Illness Date of Service: 04/08/23 Chief Complaint: Right langley blister that is open with blood clot in center. History of Wound: 83-year-old white male with history of A-fib diabetes and lower leg edema. Has some discoloration to the lower legs which might be part of his vascular problem. I developed a blister on his right langley that burst and then bled and now has a drying hematoma on the right tuberosity. Patient was recently hospitalized on IV antibiotics and has been given oral antibiotics but no one has cultured it. [facility] Medical History Atrial fibrillation Diabetes type 2, uncontrolled Gout Kidney disease Peripheral vascular disease in diabetes mellitus Ulcer of right foot Home Medications spironolactone 25 mg tablet 25 mg PO BID BLOOD PRESSURE 11/13/21 [History Last Taken 04/02/23] clopidogrel 75 mg tablet 75 mg PO DAILY BLOOD THINNER 11/19/21 [History Last Taken 04/02/23] warfarin 10 mg tablet 5 mg PO DAILY BLOOD THINNER 01/07/22 [History Last Taken 04/02/23] TRIPLE MAGNSIUM 1 cap PO DAILY SUPPLEMENT 04/02/23 [History Last Taken 04/02/23] allopurinol 100 mg tablet 200 mg PO DAILY GOUT 04/02/23 [History Last Taken 04/02/23] furosemide 40 mg tablet 40 mg PO BID FLUID 04/02/23 [History Last Taken 04/02/23] levothyroxine 75 mcg tablet 75 mcg PO DAILY THYROID 04/02/23 [History Last Taken 04/02/23] rosuvastatin 5 mg tablet 5 mg PO DAILY CHOLESTEROL 04/02/23 [History Last Taken 04/02/23] amoxicillin 875 mg-potassium clavulanate 125 mg tablet 1 tab PO BID 5 days #10 tabs 04/04/23 [Rx Last Taken Unknown] carvedilol 6.25 mg tablet 6.25 mg PO BID 30 days #60 tabs 04/04/23 [Rx Last Taken Unknown] Allergy/AdvReac Type Severity Reaction Status Date / Time No Known Allergies Allergy Verified 04/02/23 16:11 Social History household members: spouse Smoking Status: Former smoker ROS Constitutional Constitutional: Reports systems reviewed and no addt'l complaints, except as documented Eyes Eyes: Reports systems reviewed and no addt'l complaints, except as documented ENT HEENT: Reports systems reviewed and no addt'l complaints, except as documented Cardiovascular Cardiovascular: Reports systems reviewed and no addt'l complaints, except as documented Respiratory/Chest Respiratory/Chest: Reports systems reviewed and no addt'l complaints, except as documented Gastrointestinal Gastrointestinal: Reports systems reviewed and no addt'l complaints, except as documented Genitourinary Genitourinary: Reports systems reviewed and no addt'l complaints, except as documented Musculoskeletal Musculoskeletal: Reports systems reviewed and no addt'l complaints, except as documented Integumentary Integumentary: Reports wounds and other Details: Right langley hematoma with blood dried that has to be treated Neurologic Neurologic: Reports systems reviewed and no addt'l complaints, except as docume nted Psychiatric Psychiatric: Reports systems reviewed and no addt'l complaints, except as documented Endocrine Endocrinology: Reports systems reviewed and no addt'l complaints, except as documented Hematologic/Lymphatic Hematologic/Lymphatic: Reports systems reviewed and no addt'l complaints, except as documented Allergic/Immunologic Allergic/Immunologic: Reports systems reviewed and no addt'l complaints, except as documented Vital Signs Vital Signs Vital Signs: 04/08/23 10:15 Temperature 97 F L Temperature Source Temporal Pulse Rate 74 Respiratory Rate 20 H Blood Pressure 111/38 L Blood Pressure Mean 62 Blood Pressure Source Monitor Weight Weight: 220 lb 0.271 oz Body Mass Index (BMI) 33.4 Physical Exam Const oriented x3 General Appearance: cooperative Exam Limitations: no limitations HEENT normocephalic Resp normal respiratory effort Effort and Inspection: able to speak in complete sentences Auscultation: clear to auscultation bilaterally Cardio regular rate and regular rhythm Palpation: normal PMI Rate: regular rate Rhythm: regular rhythm Extremity Extremity Narrative: Discoloration from knee to foot with swelling not pitting. Open wound with a dried hematoma on langley. Also has very dry scaly skin on lower extremity to foot General Extremity: edema Skin no rashes or lesions noted Neuro oriented x3 Psych Appearance: grossly normal Speech: normal speech Thought Content: normal thought content Judgement: judgement good Debridement Note Debridement Note Wound debrided: Right langley open wound from blister Type of Debridement: Excisional debridement Anesthesia Used: 5% Lidocaine Gel Depth: in the subcutaneous layer Percentage of wound debrided: 100 Instrument Used: 7mm curette and #15 blade Tissue Removed: Old blood Severity: Fat Layer Exposed Amount of bleeding with debridement: None Bleeding Controlled with: Compression and gauze Patient tolerated procedure: Patient tolerated procedure well Post-Debridement Measurements and Additional Note: Post-Debridement Measurements/Treatment WC - Nurse 1 - General Ulcer Assessment Start: 04/08/23 10:15 Freq: Status: Active Protocol: SUNSHINE Activity Type Activity Date Activity User E-sign Co-sign Detail Recorded Client Recorded Date Recorded By Document 04/08/23 10:15 DL Desktop 04/08/23 10:39 DL 04/08/23 10:15 WC - Today's Visit Information Type of service Initial Visit Arrival Mode Wheelchair Transfer Assistance None Patient Identification Verified (Name & Yes ) Patient Requires Transmission-Based No Precautions Height and Weight Height 5 ft 8 in Weight 220 lb 0.271 oz Weight in Pounds 220.0 lbs Body Mass Index (BMI) 33.4 BMI Classification Obese BSA - Gui 2.13 Vital Signs Temperature (97.8 F-99.1 F) 97 F L Temperature Source Temporal Pulse Rate (60-100) 74 Pulse Location Monitor Respiratory Rate (12-18) 20 H Respiratory rate source Observation Blood Pressure (90/60-120/80) 111/38 L Blood Pressure Mean (mm Hg) 62 Source Monitor History Since Last Visit- (Skip if this is Patient's initial visit) Left Footwear Regular Shoe Right Footwear Regular Shoe Pain Scale: 0-10 Numeric Is Patient Pain Free? Yes Lower Extremity Assessment/ Foot Assessment/ Toe Nail Assessment Left -Posterior Tibial Palpable No -Dorsalis Pedis Palpable Yes -Dorsalis Pedis Doppler Multiphasic -Extremity Color Hemosiderin -Hair Growth on Legs No -Hair Growth on Toes No -Temperature of Extremity Warm -Capillary Refill Greater than 3 Seconds -Dependent Rubor No -Blanched when Elevated No -Lipodermatosclerosis No -Other Deformity No -Prior Foot Ulcer No -Charcot Joint No -Prior Amputation No -Thick Yes -Discolored Yes -Deformed Yes -Improper Length & Hygeine Yes Right -Posterior Tibial Palpable No -Posterior Tibial Doppler Monophasic -Dorsalis Pedis Palpable No -Dorsalis Pedis Doppler Monophasic -Extremity Color Hemosiderin -Hair Growth on Legs No -Hair Growth on Toes No -Temperature of Extremity Warm -Capillary Refill Greater than 3 Seconds -Dependent Rubor No -Blanched when Elevated No -Lipodermatosclerosis No -Other Deformity Yes -Prior Foot Ulcer No -Charcot Joint No -Prior Amputation No -Thick Yes -Discolored Yes -Deformed Yes -Improper Length & Hygeine Yes Neuropathy Assessment Feet - Top Side and Bottom <Entered> (a) Communication Assessment Preferred language Spanish Able to Read Yes Able to Write No Communication Tools None Right Hearing Abillity Use of Hearing Aid Left Hearing Abillity Use of Hearing Aid Visual Assistive Devices None Teaching Assessment Preferences Verbal,Written Barriers to Learning Knowledge Deficit Readiness To Learn Fair Willingness to Engage in Self Management Low Activies Readiness to Engage in Self Management Low Activities Anxiety Level Calm Cooperation Cooperative Perception Coherent Interest in Health Problem Asks Questions Education Importance Acknowledges Need Does Patient Smoke tobacco or other No substances Smoking Status Former smoker Is Patient Diabetic Yes Functional Assessment Recent Decline in Ability to Perform Denies Any Declines Culture/Zoroastrian/[employer] Cultural/Zoroastrian Needs that may affect No Treatment Plan Would you allow our [facility] veterinary physiologist to No meet you for the purpose of spiritual/ emotional support? [employer] to contact place of oriental orthodox No Teaching: Wound Center Eliminating Foot Pressure -Person Taught Patient Dressing Your Wound -Person Taught Patient *Wound/Skin Impairment -Person Taught Patient *Debridement -Person Taught Patient Diagnostic Tests Ordered -Person Taught Patient (a) 1 - _ WC - Nurse 1 - General Ulcer Measurement Start: 04/08/23 10:15 Freq: Status: Active Protocol: Activity Type Activity Date Activity User E-sign Co-sign Detail Recorded Client Recorded Date Recorded By Document 04/08/23 10:15 DL Desktop 04/08/23 10:39 DL 04/08/23 10:15 Wound Center Nurse 1 #5 R Knee -Current Size (cm) - Length 2.2 -Current Size (cm) - Width 2.1 -Current Size (cm) - Depth 0.1 -Total Square Cm 4.62 -Photo Taken Yes -Classification - Thickness Unclassifiable (Eschar Covered ) -Exudate Amt Medium -Exudate Type Serosanguineous -Wound Margin Distinct, Outline Attached -Granulation Amt None Present (0 %) -Necrosis Amt Large (67-100%) -Necrotic Tissue Type Eschar -Structure Exposed N/A -Texture (Maribel-wound Skin Appearance) Localized Edema ,Scarring -Moisture (Maribel-wound Skin Appearance) Dry/Scaly -Color (Maribel-wound Skin Appearance) Erythema, Hemosiderin Staining -Temperature (Maribel-wound Skin No Abnormality Appearance) (Pt Warm) -Tenderness on Palpation (Maribel-wound No Skin Appearance) -Ulcer Cleansing Soap and Water -Foul Odor after Cleansing No -Anesthetic Used 5% Lidocaine Gel Right Calf (cm) 38.5 Right Ankle (cm) 25 Left Calf (cm) 37.5 Left Ankle (cm) 24.3 WC - Nurse 2 - General Ulcer CM Notes Start: 04/08/23 10:15 Freq: Status: Active Protocol: Activity Type Activity Date Activity User E-sign Co-sign Detail Recorded Client Recorded Date Recorded By Document 04/08/23 11:03 MW Desktop 04/08/23 11:04 MW 04/08/23 11:03 Wound Center Nurse 2 #5 R Knee -Time 11:03 -Correct Patient Yes -Correct Side, Site, Position Yes -Correct Procedure Yes -Procedure Performed Yes -Type of Procedure Debridement -Clinical Debridement Subcutaneous -Tissue Removed Subcutaneous -Post Debridement (cm) - Length 2.3 -Post Debridement (cm) - Width 2.3 -Post Debridement (cm) - Depth 0.3 -Total Square (Post) (cm) 5.29 -Area of Debridement (cm) - Length 2.3 -Area of Debridement (cm) - Width 2.3 -Total Square (Area) (cm) 5.29 -Tunneling No -Undermining/Tunneling No -Circular Undermining No -Wound/Ulcer Outcome Not Healed -Ulcer Cleansing Rinsed/ Irrigated with Saline -Foul Odor after Cleansing No -Bioengineered Tissue No -Treatment Response Procedure Tolerated Well -Offloading No -Debridement - Subq, 1st 20sq cm Yes Pain Scale: 0-10 Numeric Is Patient Pain Free? Yes Assessment/Plan Assessment/Plan (1) Diabetes type 2, uncontrolled: QUALIFIERS: Glycemic state: with hyperglycemia Qualified Code(s): E11.65 - Type 2 diabetes mellitus with hyperglycemia (2) Peripheral vascular disease in diabetes mellitus: CODE(S): E11.51 - Type 2 diabetes mellitus with diabetic peripheral angiopathy without gangrene (3) Non-pressure ulcer of right lower extremity: CODE(S): L97.919 - Non-pressure chronic ulcer of unspecified part of right lower leg with unspecified severity QUALIFIERS: Non-pressure ulcer stage: with fat layer exposed Qualified Code(s): L97.912 - Non-pressure chronic ulcer of unspecified part of right lower leg with fat layer exposed PLAN: Wash right leg with antibacterial soap and water pat dry apply fibrin call to wound base moistened with Adaptic over top cultures were obtained will be called in when results were obtained Patient is to wear double layer Tubigrip's to the right leg (4) PAD (peripheral artery disease): CODE(S): I73.9 - Peripheral vascular disease, unspecified
[2023-04-15 10:46] VITALS: RESP 16; TEMP 36.1; BMI 33.4
--- NOTE | 2023-04-15 12:30 | PN.PCM_ITS ---
History of Present Illness Date of Service: 04/15/23 Chief Complaint: Right langley blister that is open with blood clot in center. History of Wound: 83-year-old white male with history of A-fib diabetes and lower leg edema. Has some discoloration to the lower legs which might be part of his vascular problem. I developed a blister on his right langley that burst and then bled and now has a drying hematoma on the right tuberosity. Patient was recently hospitalized on IV antibiotics and has been given oral antibiotics but no one has cultured it. Progress of Wound: Tried to remove most of the black eschar and necrotic tissue underneath I did say week at 60% off. Still has necrotic tissue that needs to be debrided has an odor. Patient is not only growing bacteria but has some anaerobes and they are also. Will already started him on ciprofloxacin and then we added in Flagyl for now. We will switch up his product to Aquacel Ag to help debride some of that slough out. has been doing a good job of taking care of him. Subjective Subjective was agreeable with plan of care Objective Data Objective Data Size has not changed in fact is a little bit bigger I think because of the infection now that were on the right antibiotics we should see some healing occur. Still has odor coming out debrided a lot of black eschar with some solidified slough underneath. Will change up the product to Aquacel silver to help with the debriding and will follow him up in 2 weeks. Vital Signs: Vital Signs Temp Pulse Resp BP O2 Del Method 96.9 F L 74 16 111/38 L Room Air 04/15/23 10:46 04/08/23 10:15 04/15/23 10:46 04/08/23 10:15 04/15/23 10:46 Oxygen Delivery Method Room Air Weight: 220 lb 0.271 oz Body Mass Index (BMI) 33.4 Lab / Micro Data Attestation: I reviewed the patient's lab results. Micro: Microbiology 04/08/23 11:00 Wound - Leg, Right Gram Stain - Final 04/08/23 11:00 Wound - Leg, Right Wound Culture - Final Morganella morganii sp morgani 04/08/23 11:00 Wound - Leg, Right Anaerobic Culture - Final Bacteroides fragilis Physical Exam Const oriented x3 General Appearance: cooperative Exam Limitations: no limitations HEENT normocephalic Resp normal respiratory effort Effort and Inspection: able to speak in complete sentences Auscultation: clear to auscultation bilaterally Cardio regular rate and regular rhythm Palpation: normal PMI Rate: regular rate Rhythm: regular rhythm Extremity Extremity Narrative: Discoloration from knee to foot with swelling not pitting. Open wound with a dried hematoma on langley. Also has very dry scaly skin on lower extremity to foot General Extremity: edema Skin no rashes or lesions noted Neuro oriented x3 Psych Appearance: grossly normal Speech: normal speech Thought Content: normal thought content Judgement: judgement good Debridement Note Debridement Note Wound debrided: Right langley open wound from blister Type of Debridement: Excisional debridement Anesthesia Used: 5% Lidocaine Gel and Cetacaine Depth: in the subcutaneous layer Percentage of wound debrided: 100 Instrument Used: 7mm curette and #15 blade (With forceps) Tissue Removed: Old blood slough devitalized tissue Severity: Fat Layer Exposed Amount of bleeding with debridement: None Bleeding Controlled with: Compression and gauze Patient tolerated procedure: Patient tolerated procedure well Post-Debridement Measurements and Additional Note: Post-Debridement Measurements/Treatment - Nurse 1 - General Ulcer Assessment Start: 04/08/23 10:15 Freq: Status: Active Protocol: [email or web address] Activity Type Activity Date Activity User E-sign Co-sign Detail Recorded Client Recorded Date Recorded By Document 04/08/23 10:15 DL Desktop 04/08/23 10:39 DL Document 04/15/23 10:46 [facility] Desktop 04/15/23 10:55 BM 04/08/23 04/15/23 10:15 10:46 - Today's Visit Information Type of service Initial Visit Follow-up Visit (Physician/PLASTIC INJECTION MOLD MAKER ) Arrival Mode Wheelchair Ambulatory,Cane Transfer Assistance None Other Transfer Assist (Other) 2 max Accompanied by Patient Identification Verified (Name & Yes Yes ) Patient Requires Transmission-Based No No Precautions Height and Weight Height 5 ft 8 in Weight 220 lb 0.271 oz Weight in Pounds 220.0 lbs Body Mass Index (BMI) 33.4 33.4 BMI Classification Obese Obese BSA - Gui 2.13 Vital Signs Temperature (97.8 F-99.1 F) 97 F L 96.9 F L Temperature Source Temporal Temporal Pulse Rate (60-100) 74 Pulse Location Monitor Monitor Respiratory Rate (12-18) 20 H 16 Respiratory rate source Observation Observation Oxygen Delivery Method Room Air Blood Pressure (90/60-120/80) 111/38 L Blood Pressure Mean (mm Hg) 62 Source Monitor Monitor Position Sitting Blood Pressure Location Right Arm History Since Last Visit- (Skip if this is Patient's initial visit) Have you changed medications since your No last visit? Any new allergies or adverse reactions No Had a fall/change in ADL's that may No increase risk of falls Signs or symptoms of abuse and/or No neglect since last visit Have you been in the hospital since your No last visit? Has dressing in place as prescribed Yes Has compression in place as prescribed Yes Has offloadiing in place as prescribed N/A Experienced any changes in pain level or No management Left Footwear Regular Shoe Diabetic Shoe Right Footwear Regular Shoe Diabetic Shoe Pain Scale: 0-10 Numeric Is Patient Pain Free? Yes Yes Lower Extremity Assessment/ Foot Assessment/ Toe Nail Assessment Left -Posterior Tibial Palpable No -Dorsalis Pedis Palpable Yes -Dorsalis Pedis Doppler Multiphasic -Extremity Color Hemosiderin -Hair Growth on Legs No -Hair Growth on Toes No -Temperature of Extremity Warm -Capillary Refill Greater than 3 Seconds -Dependent Rubor No -Blanched when Elevated No -Lipodermatosclerosis No -Other Deformity No -Prior Foot Ulcer No -Charcot Joint No -Prior Amputation No -Thick Yes -Discolored Yes -Deformed Yes -Improper Length & Hygeine Yes Right -Posterior Tibial Palpable No -Posterior Tibial Doppler Monophasic -Dorsalis Pedis Palpable No -Dorsalis Pedis Doppler Monophasic -Extremity Color Hemosiderin -Hair Growth on Legs No -Hair Growth on Toes No -Temperature of Extremity Warm -Capillary Refill Greater than 3 Seconds -Dependent Rubor No -Blanched when Elevated No -Lipodermatosclerosis No -Other Deformity Yes -Prior Foot Ulcer No -Charcot Joint No -Prior Amputation No -Thick Yes -Discolored Yes -Deformed Yes -Improper Length & Hygeine Yes Neuropathy Assessment Feet - Top Side and Bottom <Entered> (a) Communication Assessment Preferred language [place]er Able to Read Yes Able to Write No Communication Tools None Right Hearing Abillity Use of Hearing Aid Left Hearing Abillity Use of Hearing Aid Visual Assistive Devices None Teaching Assessment Preferences Verbal,Written Barriers to Learning Knowledge Deficit Readiness To Learn Fair Willingness to Engage in Self Management Low Activies Readiness to Engage in Self Management Low Activities Anxiety Level Calm Cooperation Cooperative Perception Coherent Interest in Health Problem Asks Questions Education Importance Acknowledges Need Does Patient Smoke tobacco or other No substances Smoking Status Former smoker Is Patient Diabetic Yes Functional Assessment Recent Decline in Ability to Perform Denies Any Declines Culture/Scientologist/Corporate Travel Consultant Cultural/Scientologist Needs that may affect No Treatment Plan Would you allow our hospital peer financial counselor to No meet you for the purpose of spiritual/ emotional support? Corporate Travel Consultant to contact place of anabaptist No Teaching: Wound Center Eliminating Foot Pressure -Person Taught Patient Dressing Your Wound -Person Taught Patient *Wound/Skin Impairment -Person Taught Patient *Debridement -Person Taught Patient Diagnostic Tests Ordered -Person Taught Patient (a) 1 - _ WC - Nurse 1 - General Ulcer Measurement Start: 04/08/23 10:15 Freq: Status: Active Protocol: Activity Type Activity Date Activity User E-sign Co-sign Detail Recorded Client Recorded Date Recorded By Document 04/08/23 10:15 DL Desktop 04/08/23 10:39 DL Document 04/15/23 10:46 [facility] Desktop 04/15/23 10:55 BMF 04/08/23 04/15/23 10:15 10:46 Wound Center Nurse 1 #5 R Langley -Current Size (cm) - Length 2.2 2.8 -Current Size (cm) - Width 2.1 3.6 -Current Size (cm) - Depth 0.1 0.1 -Total Square Cm 4.62 10.08 -Photo Taken Yes Yes -Classification - Thickness Unclassifiable (Eschar Covered ) -Exudate Amt Medium Small -Exudate Type Serosanguineous Serosanguineous -Wound Margin Distinct, Distinct, Outline Outline Attached Attached -Granulation Amt None Present (0 None Present (0 %) %) -Necrosis Amt Large (67-100%) Large (67-100%) -Necrotic Tissue Type Eschar Eschar -Structure Exposed N/A N/A -Texture (Maribel-wound Skin Appearance) Localized Edema Scarring ,Scarring -Moisture (Maribel-wound Skin Appearance) Dry/Scaly Dry/Scaly -Color (Maribel-wound Skin Appearance) Erythema, Hemosiderin Hemosiderin Staining Staining -Temperature (Maribel-wound Skin No Abnormality No Abnormality Appearance) (Pt Warm) (Pt Warm) -Tenderness on Palpation (Maribel-wound No Yes Skin Appearance) -Ulcer Cleansing Soap and Water Soap and Water -Foul Odor after Cleansing No No -Anesthetic Used 5% Lidocaine 5% Lidocaine Gel Gel Right Calf (cm) 38.5 Right Ankle (cm) 25 Left Calf (cm) 37.5 Left Ankle (cm) 24.3 WC - Nurse 2 - General Ulcer CM Notes Start: 04/08/23 10:15 Freq: Status: Active Protocol: Activity Type Activity Date Activity User E-sign Co-sign Detail Recorded Client Recorded Date Recorded By Document 04/08/23 11:03 MW Desktop 04/08/23 11:04 MW Document 04/15/23 11:04 MW Desktop 04/15/23 11:12 MW 04/08/23 04/15/23 11:03 11:04 Wound Center Nurse 2 #5 R Langley -Time 11:03 11:05 -Correct Patient Yes Yes -Correct Side, Site, Position Yes Yes -Correct Procedure Yes Yes -Procedure Performed Yes Yes -Type of Procedure Debridement Debridement -Clinical Debridement Subcutaneous Subcutaneous -Tissue Removed Subcutaneous Subcutaneous -Post Debridement (cm) - Length 2.3 2.7 -Post Debridement (cm) - Width 2.3 2.5 -Post Debridement (cm) - Depth 0.3 0.3 -Total Square (Post) (cm) 5.29 6.75 -Area of Debridement (cm) - Length 2.3 2.7 -Area of Debridement (cm) - Width 2.3 2.5 -Total Square (Area) (cm) 5.29 6.75 -Tunneling No No -Undermining/Tunneling No No -Circular Undermining No No -Wound/Ulcer Outcome Not Healed Not Healed -Ulcer Cleansing Rinsed/ Rinsed/ Irrigated with Irrigated with Saline Saline -Foul Odor after Cleansing No No -Bioengineered Tissue No No -Bleeding Controlled with Pressure -Treatment Response Procedure Procedure Tolerated Well Tolerated Well -Offloading No No -Debridement - Subq, 1st 20sq cm Yes Yes Pain Scale: 0-10 Numeric Is Patient Pain Free? Yes Yes WC - Nurse 3 - General Ulcer D/C NN Start: 04/08/23 10:15 Freq: Status: Active Protocol: Activity Type Activity Date Activity User E-sign Co-sign Detail Recorded Client Recorded Date Recorded By Document 04/15/23 11:15 MW Desktop 04/15/23 11:16 MW Document 04/15/23 11:22 DL Desktop 04/15/23 11:23 DL 04/15/23 04/15/23 11:15 11:22 Wound Care Center Nurse 3 #5 R Langley -Ulcer Cleansing Rinsed/ Rinsed/ Irrigated with Irrigated with Saline Saline -Foul Odor after Cleansing No No -Negative Pressure Wound Therapy N/A -Primary Dressing Applied Aquacel AG 4x4, Aquacel AG 4x4, NonAdherent NonAdherent Contact Layer Contact Layer -Primary Dressing Covered/Secured with Dry Gauze & Dry Gauze, Roll Gauze, Secured with Secured with Tape Tape -Aquacel AG 4x4 2 1 Right -Lotion applied to leg before No compression wrap -Tubular Bandage Double Layer -Size of Tubigrip Used Size E -Size E ($) 2 -Stockings Yes Treatment Response Procedure Procedure Tolerated Well Tolerated Well Pain Scale: 0-10 Numeric Is Patient Pain Free? Yes Yes Teaching: Wound Center Dressing Your Wound -Person Taught Patient,Family -Teaching Method Discussion, Demonstration -Response to teaching Verbalize understanding WC - Visit Discharge Discharge Condition Stable Stable Ambulatory Status Wheelchair Wheelchair Transportation Private Auto Private Auto Accompanied by Medication Reconcilliation completed & No provided to patient/care provider Clinical Summary of Care Provided Yes Assessment/Plan Assessment/Plan (1) Diabetes type 2, uncontrolled: QUALIFIERS: Glycemic state: with hyperglycemia Qualified Code(s): E11.65 - Type 2 diabetes mellitus with hyperglycemia (2) Peripheral vascular disease in diabetes mellitus: CODE(S): E11.51 - Type 2 diabetes mellitus with diabetic peripheral angiopathy without gangrene (3) Non-pressure ulcer of right lower extremity: CODE(S): L97.919 - Non-pressure chronic ulcer of unspecified part of right lower leg with unspecified severity QUALIFIERS: Non-pressure ulcer stage: with fat layer exposed Qualified Code(s): L97.912 - Non-pressure chronic ulcer of unspecified part of right lower leg with fat layer exposed PLAN: Wash right leg with antibacterial soap and water pat dry apply Aquacel Ag l to wound base moistened with Adaptic over top and a gauze dressing over top daily dressings Patient is to wear double layer Tubigrip's to the right leg Also suggested AmLactin cream to lower leg for dry skin and scales of old skin. Follow-up in 2 weeks (4) PAD (peripheral artery disease): CODE(S): I73.9 - Peripheral vascular disease, unspecified
== END 2023-04-19 23:59 | disposition home or self-care (01) ==
LOC: WC 10:45
PROVIDERS: PCP Family Medicine; Referring Provider Hospitalist; Visit Provider Nurse Practitioner
DX: E11.622 Type 2 diabetes mellitus with other skin ulcer (principal); E11.51 Type 2 diabetes mellitus with diabetic peripheral angiopathy without gangrene; L97.812 Non-pressure chronic ulcer of other part of right lower leg with fat layer exposed; E11.40 Type 2 diabetes mellitus with diabetic neuropathy, unspecified; I48.91 Unspecified atrial fibrillation; Z79.02 Long term (current) use of antithrombotics/antiplatelets; Z79.01 Long term (current) use of anticoagulants; Z87.891 Personal history of nicotine dependence; M10.9 Gout, unspecified; R60.0 Localized edema; Z79.899 Other long term (current) drug therapy
CPT/HCPCS: 11042; 87070; 87075; 87077; 87186; 87205; 99203; G0463

== ENCOUNTER 2023-05-20 11:00 | Outpatient (RCR) | payer MEDICARE, SELFPAY ==
[2023-04-20 00:50] VITALS: BP 111/38; PULSE 74; RESP 16; TEMP 36.1; BMI 33.4
[2023-04-29 10:50] VITALS: RESP 16; TEMP 35.7; BMI 33.4
--- NOTE | 2023-04-29 12:33 | PCM.WC.PN ---
History of Present Illness Date of Service: 04/29/23 Chief Complaint: Right langley blister that is open with blood clot in center. History of Wound: 83-year-old white male with history of A-fib diabetes and lower leg edema. Has some discoloration to the lower legs which might be part of his vascular problem. I developed a blister on his right langley that burst and then bled and now has a drying hematoma on the right tuberosity. Patient was recently hospitalized on IV antibiotics and has been given oral antibiotics but no one has cultured it. Progress of Wound: Today was their 61 wedding anniversary. His right langley still has slough and old scabbing that is very hard to get out from that hematoma. Patient is not very tolerant to debridement very difficult to get the slough and old blood off. Subjective Subjective is agreeable to continue using the same product that we have been and may be using a single Tubigrip on his leg the double because some pressure cutting into the back of his leg because he sits all day in a chair. Objective Data Objective Data No sign of infection just hard to debride the area because of the hardness of the hematoma. Will continue to debride with the silver Ag and follow them up in 2 weeks Vital Signs: Vital Signs Temp Pulse Resp BP O2 Del Method 96.3 F L 74 16 111/38 L Room Air 04/29/23 10:50 04/20/23 00:50 04/29/23 10:50 04/20/23 00:50 04/29/23 10:50 Oxygen Delivery Method Room Air Weight: 220 lb 0.271 oz Body Mass Index (BMI) 33.4 Lab / Micro Data Attestation: I reviewed the patient's lab results. Physical Exam Const oriented x3 General Appearance: cooperative Exam Limitations: no limitations HEENT normocephalic Resp normal respiratory effort Effort and Inspection: able to speak in complete sentences Auscultation: clear to auscultation bilaterally Cardio regular rate and regular rhythm Palpation: normal PMI Rate: regular rate Rhythm: regular rhythm Extremity Extremity Narrative: Discoloration from knee to foot with swelling not pitting. Open wound with a dried hematoma on langley. Also has very dry scaly skin on lower extremity to foot General Extremity: edema Skin no rashes or lesions noted Neuro oriented x3 Psych Appearance: grossly normal Speech: normal speech Thought Content: normal thought content Judgement: judgement good Debridement Note Debridement Note Wound debrided: Right langley ulcer Type of Debridement: Excisional debridement Anesthesia Used: 5% Lidocaine Gel Depth: Down to and including healthy tissue Percentage of wound debrided: 100 Instrument Used: 7mm curette, #15 blade and Forceps Tissue Removed: Old blood and slough Severity: Fat Layer Exposed Amount of bleeding with debridement: None Bleeding Controlled with: Compression and gauze Patient tolerated procedure: Patient tolerated procedure well Post-Debridement Measurements and Additional Note: Post-Debridement Measurements/Treatment - Nurse 1 - General Ulcer Assessment Start: 04/29/23 10:50 Freq: Status: Active Protocol: [facility] Activity Type Activity Date Activity User E-sign Co-sign Detail Recorded Client Recorded Date Recorded By Document 04/29/23 10:50 E-Sign Desktop 04/29/23 11:03 [facility] 04/29/23 10:50 WC - Today's Visit Information Type of service Follow-up Visit (Physician/PERSONAL LINES INSURANCE ADVISOR ) Arrival Mode Wheelchair Transfer Assistance Other Transfer Assist (Other) 2 Accompanied by Patient Identification Verified (Name & Yes ) Patient Requires Transmission-Based No Precautions Height and Weight Body Mass Index (BMI) 33.4 BMI Classification Obese Vital Signs Temperature (97.8 F-99.1 F) 96.3 F L Temperature Source Temporal Pulse Location Monitor Respiratory Rate (12-18) 16 Respiratory rate source Observation Oxygen Delivery Method Room Air Source Monitor Position Sitting Blood Pressure Location Right Forearm History Since Last Visit- (Skip if this is Patient's initial visit) Have you changed medications since your No last visit? Any new allergies or adverse reactions No Had a fall/change in ADL's that may No increase risk of falls Signs or symptoms of abuse and/or No neglect since last visit Have you been in the hospital since your No last visit? Has dressing in place as prescribed Yes Has compression in place as prescribed Yes Has offloadiing in place as prescribed N/A Experienced any changes in pain level or No management Left Footwear Diabetic Shoe Right Footwear Diabetic Shoe Pain Scale: 0-10 Numeric Is Patient Pain Free? Yes - Nurse 1 - General Ulcer Measurement Start: 04/29/23 10:50 Freq: Status: Active Protocol: Activity Type Activity Date Activity User E-sign Co-sign Detail Recorded Client Recorded Date Recorded By Document 04/29/23 10:50 BMF Desktop 04/29/23 11:03 BMF 04/29/23 10:50 Wound Center Nurse 1 #5 R Langley -Combined with other wound No -Current Size (cm) - Length 2.6 -Current Size (cm) - Width 2.5 -Current Size (cm) - Depth 0.2 -Total Square Cm 6.50 -Date of Last Picture (Recall this 04/29/23 field) -Photo Taken Yes -Epithelialization None Present -Tunneling No -Undermining/Tunneling No -Circular Undermining No -Exudate Amt Medium -Exudate Type Serosanguineous -Wound Margin Distinct, Outline Attached -Granulation Amt Small (1-33%) -Granulation Quality Red -Slough/Fibrin Yes -Necrosis Amt Large (67-100%) -Necrotic Tissue Type Adherent Slough -Texture (Maribel-wound Skin Appearance) Assessed, Scarring -Moisture (Maribel-wound Skin Appearance) Assessed,Dry/ Scaly -Color (Maribel-wound Skin Appearance) Assessed, Erythema -Temperature (Maribel-wound Skin No Abnormality Appearance) (Pt Warm) -Tenderness on Palpation (Maribel-wound No Skin Appearance) -Ulcer Cleansing Rinsed/ Irrigated with Saline -Foul Odor after Cleansing No -Anesthetic Used 5% Lidocaine Gel Lower Limb Edema Present Yes Right Calf (cm) 38 Right Ankle (cm) 24.8 WC - Nurse 2 - General Ulcer CM Notes Start: 04/29/23 10:50 Freq: Status: Active Protocol: Activity Type Activity Date Activity User E-sign Co-sign Detail Recorded Client Recorded Date Recorded By Document 04/29/23 11:10 MW Desktop 04/29/23 11:18 MW 04/29/23 11:10 Wound Center Nurse 2 #5 R Langley -Time 11:12 -Correct Patient Yes -Correct Side, Site, Position Yes -Correct Procedure Yes -Procedure Performed Yes -Type of Procedure Debridement -Clinical Debridement Subcutaneous -Tissue Removed Subcutaneous -Post Debridement (cm) - Length 2.8 -Post Debridement (cm) - Width 2.5 -Post Debridement (cm) - Depth 0.3 -Total Square (Post) (cm) 7.00 -Area of Debridement (cm) - Length 2.8 -Area of Debridement (cm) - Width 2.5 -Total Square (Area) (cm) 7.00 -Tunneling No -Undermining/Tunneling No -Circular Undermining No -Wound/Ulcer Outcome Not Healed -Ulcer Cleansing Rinsed/ Irrigated with Saline -Foul Odor after Cleansing No -Bioengineered Tissue No -Bleeding Controlled with Pressure -Treatment Response Procedure Tolerated Well -Offloading No -Debridement - Subq, 1st 20sq cm Yes Pain Scale: 0-10 Numeric Is Patient Pain Free? Yes WC - Nurse 3 - General Ulcer D/C NN Start: 04/29/23 10:50 Freq: Status: Active Protocol: Activity Type Activity Date Activity User E-sign Co-sign Detail Recorded Client Recorded Date Recorded By Document 04/29/23 11:19 MW Desktop 04/29/23 11:20 MW 04/29/23 11:19 Wound Care Center Nurse 3 #5 R Langley -Ulcer Cleansing Rinsed/ Irrigated with Saline -Foul Odor after Cleansing No -Negative Pressure Wound Therapy N/A -Primary Dressing Applied Aquacel AG 4x4, NonAdherent Contact Layer -Primary Dressing Covered/Secured with Dry Gauze & Roll Gauze, Secured with Tape -Aquacel AG 4x4 1 Right -Lotion applied to leg before No compression wrap -Tubular Bandage Single Layer -Size of Tubigrip Used Size E -Size E ($) 1 Treatment Response Procedure Tolerated Well Pain Scale: 0-10 Numeric Is Patient Pain Free? Yes Teaching: Wound Center Dressing Your Wound -Person Taught Patient,Family -Teaching Method Discussion, Demonstration -Response to teaching Verbalize understanding WC - Visit Discharge Discharge Condition Stable Ambulatory Status Wheelchair Transportation Private Auto Accompanied by Medication Reconcilliation completed & No provided to patient/care provider Clinical Summary of Care Provided Yes Assessment/Plan Assessment/Plan (1) Diabetes type 2, uncontrolled: QUALIFIERS: Glycemic state: with hyperglycemia Qualified Code(s): E11.65 - Type 2 diabetes mellitus with hyperglycemia (2) Peripheral vascular disease in diabetes mellitus: CODE(S): E11.51 - Type 2 diabetes mellitus with diabetic peripheral angiopathy without gangrene (3) Non-pressure ulcer of right lower extremity: CODE(S): L97.919 - Non-pressure chronic ulcer of unspecified part of right lower leg with unspecified severity QUALIFIERS: Non-pressure ulcer stage: with fat layer exposed Qualified Code(s): L97.912 - Non-pressure chronic ulcer of unspecified part of right lower leg with fat layer exposed PLAN: Wash right leg with antibacterial soap and water pat dry apply Aquacel Ag l to wound base moistened with Adaptic over top and a gauze dressing over top daily dressings Patient is to wear single layer Tubigrip's to the right leg Also suggested AmLactin cream to lower leg for dry skin and scales of old skin. Follow-up in 2 weeks (4) PAD (peripheral artery disease): CODE(S): I73.9 - Peripheral vascular disease, unspecified
[2023-05-13 11:04] VITALS: BP 152/38; PULSE 105; RESP 16; TEMP 36.1; BMI 33.4
--- NOTE | 2023-05-13 11:29 | PN.PCM_ITS ---
History of Present Illness Date of Service: 05/13/23 Chief Complaint: Right langley blister that is open with blood clot in center. History of Wound: 83-year-old white male with history of A-fib diabetes and lower leg edema. Has some discoloration to the lower legs which might be part of his vascular problem. I developed a blister on his right langley that burst and then bled and now has a drying hematoma on the right tuberosity. Patient was recently hospitalized on IV antibiotics and has been given oral antibiotics but no one has cultured it. Progress of Wound: Today was their 61 wedding anniversary. His right langley still has slough and old scabbing that is very hard to get out from that hematoma. Patient is not very intolerant to debridement very difficult to get the slough and old blood off. Today the wound is cleaned out and he has had islands of new skin developing underneath. Will stop the silver and now go back to Aquacel extra with Adaptic over top Subjective Subjective and patient are agreeable to plan Objective Data Objective Data Wound is finally cleaned out debrided the last of the hematoma out and now patient is down to new skin and has like mosaic streaks through the wound of new skin developing. We will continue using Aquacel extra at this time and stop the silver and use Adaptic to keep moist wound bed Vital Signs: Vital Signs Temp Pulse Resp BP O2 Del Method 97 F L 105 H 16 152/38 H Room Air 05/13/23 11:04 05/13/23 11:04 05/13/23 11:04 05/13/23 11:04 05/13/23 11:04 Oxygen Delivery Method Room Air Weight: 220 lb 0.271 oz Body Mass Index (BMI) 33.4 Physical Exam Const oriented x3 General Appearance: cooperative Exam Limitations: no limitations HEENT normocephalic Resp normal respiratory effort Effort and Inspection: able to speak in complete sentences Auscultation: clear to auscultation bilaterally Cardio regular rate and regular rhythm Palpation: normal PMI Rate: regular rate Rhythm: regular rhythm Extremity Extremity Narrative: Discoloration from knee to foot with swelling not pitting. Open wound with a dried hematoma on langley. Also has very dry scaly skin on lower extremity to foot General Extremity: edema Skin no rashes or lesions noted Neuro oriented x3 Psych Appearance: grossly normal Speech: normal speech Thought Content: normal thought content Judgement: judgement good Debridement Note Debridement Note Wound debrided: Right langley ulcer Type of Debridement: Excisional debridement Anesthesia Used: 5% Lidocaine Gel Depth: Down to and including healthy tissue Percentage of wound debrided: 100 Instrument Used: 5mm curette, #15 blade and Forceps Tissue Removed: Old blood and slough fibrin band and fibrin in base Severity: Fat Layer Exposed Amount of bleeding with debridement: None Bleeding Controlled with: Compression and gauze Patient tolerated procedure: Patient tolerated procedure well Post-Debridement Measurements and Additional Note: Post-Debridement Measurements/Treatment - Nurse 1 - General Ulcer Assessment Start: 04/29/23 10:50 Freq: Status: Active Protocol: [employer] Activity Type Activity Date Activity User E-sign Co-sign Detail Recorded Client Recorded Date Recorded By Document 04/29/23 10:50 [facility] Desktop 04/29/23 11:03 [facility] Document 05/13/23 11:04 [facility] Desktop 05/13/23 11:13 F 04/29/23 05/13/23 10:50 11:04 - Today's Visit Information Type of service Follow-up Visit Follow-up Visit (Physician/[employer] SPECIALIST (Physician/[employer] SPECIALIST ) ) Arrival Mode Wheelchair Wheelchair Transfer Assistance Other Other Transfer Assist (Other) 2 2 Accompanied by Patient Identification Verified (Name & Yes Yes ) Patient Requires Transmission-Based No No Precautions Height and Weight Body Mass Index (BMI) 33.4 33.4 BMI Classification Obese Obese Vital Signs Temperature (97.8 F-99.1 F) 96.3 F L 97 F L Temperature Source Temporal Temporal Pulse Rate (60-100) 105 H Pulse Location Monitor Monitor Respiratory Rate (12-18) 16 16 Respiratory rate source Observation Observation Oxygen Delivery Method Room Air Room Air Blood Pressure (90/60-120/80) 152/38 H Blood Pressure Mean (mm Hg) 76 Source Monitor Monitor Position Sitting Sitting Blood Pressure Location Right Forearm Left Arm History Since Last Visit- (Skip if this is Patient's initial visit) Have you changed medications since your No No last visit? Any new allergies or adverse reactions No No Had a fall/change in ADL's that may No No increase risk of falls Signs or symptoms of abuse and/or No No neglect since last visit Have you been in the hospital since your No No last visit? Has dressing in place as prescribed Yes Yes Has compression in place as prescribed Yes No Has offloadiing in place as prescribed N/A N/A Experienced any changes in pain level or No No management Left Footwear Diabetic Shoe Diabetic Shoe Right Footwear Diabetic Shoe Diabetic Shoe Pain Scale: 0-10 Numeric Is Patient Pain Free? Yes Yes WC - Nurse 1 - General Ulcer Measurement Start: 04/29/23 10:50 Freq: Status: Active Protocol: Activity Type Activity Date Activity User E-sign Co-sign Detail Recorded Client Recorded Date Recorded By Document 04/29/23 10:50 [facility] Desktop 04/29/23 11:03 [facility] Document 05/13/23 11:04 [email or web address] Desktop 05/13/23 11:13 [facility] 04/29/23 05/13/23 10:50 11:04 Wound Center Nurse 1 #5 R Langley -Combined with other wound No No -Current Size (cm) - Length 2.6 2.9 -Current Size (cm) - Width 2.5 2.3 -Current Size (cm) - Depth 0.2 0.1 -Total Square Cm 6.50 6.67 -Date of Last Picture (Recall this 04/29/23 05/13/23 field) -Photo Taken Yes Yes -Epithelialization None Present None Present -Tunneling No No -Undermining/Tunneling No No -Circular Undermining No No -Exudate Amt Medium Medium -Exudate Type Serosanguineous Serosanguineous -Wound Margin Distinct, Distinct, Outline Outline Attached Attached -Granulation Amt Small (1-33%) Medium (34-66%) -Granulation Quality Red Red -Slough/Fibrin Yes Yes -Necrosis Amt Large (67-100%) Small (1-33%) -Necrotic Tissue Type Adherent Slough Eschar -Texture (Maribel-wound Skin Appearance) Assessed, Assessed, Scarring Scarring -Moisture (Maribel-wound Skin Appearance) Assessed,Dry/ Assessed,Dry/ Scaly Scaly -Color (Maribel-wound Skin Appearance) Assessed, Assessed, Erythema Hemosiderin Staining -Temperature (Maribel-wound Skin No Abnormality No Abnormality Appearance) (Pt Warm) (Pt Warm) -Tenderness on Palpation (Maribel-wound No No Skin Appearance) -Ulcer Cleansing Rinsed/ Rinsed/ Irrigated with Irrigated with Saline Saline -Foul Odor after Cleansing No No -Anesthetic Used 5% Lidocaine 5% Lidocaine Gel Gel Lower Limb Edema Present Yes Yes Right Calf (cm) 38 37 Right Ankle (cm) 24.8 23.2 - Nurse 2 - General Ulcer CM Notes Start: 04/29/23 10:50 Freq: Status: Active Protocol: Activity Type Activity Date Activity User E-sign Co-sign Detail Recorded Client Recorded Date Recorded By Document 04/29/23 11:10 MW Desktop 04/29/23 11:18 MW Document 05/13/23 11:25 MW Desktop 05/13/23 11:28 MW 04/29/23 05/13/23 11:10 11:25 Wound Center Nurse 2 #5 R Langley -Time 11:12 11:27 -Correct Patient Yes Yes -Correct Side, Site, Position Yes Yes -Correct Procedure Yes Yes -Procedure Performed Yes Yes -Type of Procedure Debridement Debridement -Clinical Debridement Subcutaneous Subcutaneous -Tissue Removed Subcutaneous Subcutaneous -Post Debridement (cm) - Length 2.8 2.5 -Post Debridement (cm) - Width 2.5 2.5 -Post Debridement (cm) - Depth 0.3 0.2 -Total Square (Post) (cm) 7.00 6.25 -Area of Debridement (cm) - Length 2.8 2.5 -Area of Debridement (cm) - Width 2.5 2.5 -Total Square (Area) (cm) 7.00 6.25 -Tunneling No No -Undermining/Tunneling No No -Circular Undermining No No -Wound/Ulcer Outcome Not Healed Not Healed -Ulcer Cleansing Rinsed/ Rinsed/ Irrigated with Irrigated with Saline Saline -Foul Odor after Cleansing No No -Bioengineered Tissue No No -Bleeding Controlled with Pressure Pressure -Treatment Response Procedure Procedure Tolerated Well Tolerated Well -Offloading No No -Debridement - Subq, 1st 20sq cm Yes Yes Pain Scale: 0-10 Numeric Is Patient Pain Free? Yes Yes - Nurse 3 - General Ulcer D/C NN Start: 04/29/23 10:50 Freq: Status: Active Protocol: Activity Type Activity Date Activity User E-sign Co-sign Detail Recorded Client Recorded Date Recorded By Document 04/29/23 11:19 MW Desktop 04/29/23 11:20 MW 04/29/23 11:19 Wound Care Center Nurse 3 #5 R Langley -Ulcer Cleansing Rinsed/ Irrigated with Saline -Foul Odor after Cleansing No -Negative Pressure Wound Therapy N/A -Primary Dressing Applied Aquacel AG 4x4, NonAdherent Contact Layer -Primary Dressing Covered/Secured with Dry Gauze & Roll Gauze, Secured with Tape -Aquacel AG 4x4 1 Right -Lotion applied to leg before No compression wrap -Tubular Bandage Single Layer -Size of Tubigrip Used Size E -Size E ($) 1 Treatment Response Procedure Tolerated Well Pain Scale: 0-10 Numeric Is Patient Pain Free? Yes Teaching: Wound Center Dressing Your Wound -Person Taught Patient,Family -Teaching Method Discussion, Demonstration -Response to teaching Verbalize understanding WC - Visit Discharge Discharge Condition Stable Ambulatory Status Wheelchair Transportation Private Auto Accompanied by Medication Reconcilliation completed & No provided to patient/care provider Clinical Summary of Care Provided Yes Assessment/Plan Assessment/Plan (1) Diabetes type 2, uncontrolled: QUALIFIERS: Glycemic state: with hyperglycemia Qualified Code(s): E11.65 - Type 2 diabetes mellitus with hyperglycemia (2) Peripheral vascular disease in diabetes mellitus: CODE(S): E11.51 - Type 2 diabetes mellitus with diabetic peripheral angiopathy without gangrene (3) Non-pressure ulcer of right lower extremity: CODE(S): L97.919 - Non-pressure chronic ulcer of unspecified part of right lower leg with unspecified severity QUALIFIERS: Non-pressure ulcer stage: with fat layer exposed Qualified Code(s): L97.912 - Non-pressure chronic ulcer of unspecified part of right lower leg with fat layer exposed PLAN: Wash right leg with antibacterial soap and water pat dry apply Aquacel to wound base moistened with Adaptic over top and a gauze dressing over top daily dressings Patient is to wear single layer Tubigrip's to the right leg refuses to wear suggested may be a compression knee sock Also suggested AmLactin cream to lower leg for dry skin and scales of old skin. Follow-up in 1 weeks (4) PAD (peripheral artery disease): CODE(S): I73.9 - Peripheral vascular disease, unspecified
[2023-05-20 10:53] VITALS: BP 133/51; PULSE 105; RESP 18; TEMP 36.3; BMI 33.4
== END 2023-05-20 23:59 | disposition home or self-care (01) ==
LOC: WC 11:00
PROVIDERS: PCP Family Medicine; Referring Provider Hospitalist; Visit Provider Nurse Practitioner
DX: E11.622 Type 2 diabetes mellitus with other skin ulcer (principal); E11.51 Type 2 diabetes mellitus with diabetic peripheral angiopathy without gangrene; L97.812 Non-pressure chronic ulcer of other part of right lower leg with fat layer exposed; E11.65 Type 2 diabetes mellitus with hyperglycemia; I48.91 Unspecified atrial fibrillation
CPT/HCPCS: 11042

== ENCOUNTER 2023-06-17 10:45 | Outpatient (RCR) | payer MEDICARE, SELFPAY ==
[2023-05-21 00:31] VITALS: BP 133/51; PULSE 105; RESP 18; TEMP 36.3; BMI 33.4
[2023-05-27 10:50] VITALS: BP 147/46; PULSE 96; RESP 20; TEMP 36.9; BMI 33.4
--- NOTE | 2023-05-27 11:17 | PN.PCM_ITS ---
History of Present Illness Date of Service: 05/27/23 Chief Complaint: Right langley blister that is open with blood clot in center. History of Wound: 83-year-old white male with history of A-fib diabetes and lower leg edema. Has some discoloration to the lower legs which might be part of his vascular problem. I developed a blister on his right langley that burst and then bled and now has a drying hematoma on the right tuberosity. Patient was recently hospitalized on IV antibiotics and has been given oral antibiotics but no one has cultured it. Progress of Wound: The wound looks very good its clean no sign of infection all hematomas out having striped sections of new skin going across wound. Patient was approved to have a EpiFix so #1 will be applied today Subjective Subjective and are agreeable to plan with EpiFix Objective Data Objective Data Wound is measuring smaller and less depth to reeks of new tissue across wound base. Will apply EpiFix #1 to wound Vital Signs: Vital Signs Temp Pulse Resp BP 98.4 F 96 20 H 147/46 H 05/27/23 10:50 05/27/23 10:50 05/27/23 10:50 05/27/23 10:50 Weight: 220 lb 0.271 oz Body Mass Index (BMI) 33.4 Lab / Micro Data Attestation: I reviewed the patient's lab results. Physical Exam Const oriented x3 General Appearance: cooperative Exam Limitations: no limitations HEENT normocephalic Resp normal respiratory effort Effort and Inspection: able to speak in complete sentences Auscultation: clear to auscultation bilaterally Cardio regular rate and regular rhythm Palpation: normal PMI Rate: regular rate Rhythm: regular rhythm Extremity Extremity Narrative: Discoloration from knee to foot with swelling not pitting. Open wound with a dried hematoma on langley. Also has very dry scaly skin on lower extremity to foot General Extremity: edema Skin no rashes or lesions noted Neuro oriented x3 Psych Appearance: grossly normal Speech: normal speech Thought Content: normal thought content Judgement: judgement good Debridement Note Debridement Note Wound debrided: Right langley ulcer Type of Debridement: Excisional debridement Anesthesia Used: 4% Lidocaine Solution and 5% Lidocaine Gel Depth: Down to and including healthy tissue Percentage of wound debrided: 100 Instrument Used: 5mm curette Tissue Removed: Old blood and slough fibrin band and fibrin in base Severity: Fat Layer Exposed Amount of bleeding with debridement: Mild Bleeding Controlled with: Compression and gauze Patient tolerated procedure: Patient tolerated procedure well Post-Debridement Measurements and Additional Note: Post-Debridement Measurements/Treatment WC - Nurse 1 - General Ulcer Assessment Start: 05/27/23 10:48 Freq: Status: Active Protocol: [employer] Activity Type Activity Date Activity User E-sign Co-sign Detail Recorded Client Recorded Date Recorded By Document 05/27/23 10:50 DL Desktop 05/27/23 10:58 DL 05/27/23 10:50 WC - Today's Visit Information Type of service Follow-up Visit (Physician/MEDICAL FRONT DESK SPECIALIST ) Arrival Mode Wheelchair Transfer Assistance Manual Transfer Assist (Other) x2 Patient Identification Verified (Name & Yes ) Patient Requires Transmission-Based No Precautions Finger Stick Blood Sugar(mg/dl) (if 169 indicated): Blood Sugar Stated by Patient Height and Weight Body Mass Index (BMI) 33.4 BMI Classification Obese Vital Signs Temperature (97.8 F-99.1 F) 98.4 F Temperature Source Temporal Pulse Rate (60-100) 96 Pulse Location Monitor Respiratory Rate (12-18) 20 H Respiratory rate source Observation Blood Pressure (90/60-120/80) 147/46 H Blood Pressure Mean (mm Hg) 79 Source Monitor History Since Last Visit- (Skip if this is Patient's initial visit) Have you changed medications since your No last visit? Any new allergies or adverse reactions No Had a fall/change in ADL's that may No increase risk of falls Signs or symptoms of abuse and/or No neglect since last visit Have you been in the hospital since your No last visit? Has dressing in place as prescribed Yes Has compression in place as prescribed N/A Has offloadiing in place as prescribed N/A Experienced any changes in pain level or No management Pain Scale: 0-10 Numeric Is Patient Pain Free? Yes - Nurse 1 - General Ulcer Measurement Start: 05/27/23 10:48 Freq: Status: Active Protocol: Activity Type Activity Date Activity User E-sign Co-sign Detail Recorded Client Recorded Date Recorded By Document 05/27/23 10:50 DL Desktop 05/27/23 10:58 DL 05/27/23 10:50 Wound Center Nurse 1 #5 R Langley -Current Size (cm) - Length 2.5 -Current Size (cm) - Width 2.5 -Current Size (cm) - Depth 0.2 -Total Square Cm 6.25 -Photo Taken No -Exudate Amt Small -Exudate Type Serosanguineous -Wound Margin Distinct, Outline Attached -Granulation Amt Medium (34-66%) -Granulation Quality Red -Necrosis Amt Medium (34-66%) -Necrotic Tissue Type Adherent Slough -Structure Exposed N/A -Texture (Maribel-wound Skin Appearance) Scarring -Moisture (Maribel-wound Skin Appearance) No Abnormality -Color (Maribel-wound Skin Appearance) No Abnormality, Hemosiderin Staining -Temperature (Maribel-wound Skin No Abnormality Appearance) (Pt Warm) -Ulcer Cleansing Soap and Water -Foul Odor after Cleansing No -Anesthetic Used 5% Lidocaine Gel WC - Nurse 2 - General Ulcer CM Notes Start: 05/27/23 10:48 Freq: Status: Active Protocol: Activity Type Activity Date Activity User E-sign Co-sign Detail Recorded Client Recorded Date Recorded By Document 05/27/23 11:04 MW Desktop 05/27/23 11:14 MW 05/27/23 11:04 Wound Center Nurse 2 -Time 11:10 -Correct Patient Yes -Correct Side, Site, Position Yes -Correct Procedure Yes -Procedure Performed Yes -Type of Procedure Debridement -Clinical Debridement Subcutaneous -Tissue Removed Subcutaneous -Post Debridement (cm) - Length 2.2 -Post Debridement (cm) - Width 2.4 -Post Debridement (cm) - Depth 0.2 -Total Square (Post) (cm) 5.28 -Area of Debridement (cm) - Length 2.2 -Area of Debridement (cm) - Width 2.4 -Total Square (Area) (cm) 5.28 -Tunneling No -Undermining/Tunneling No -Circular Undermining No -Wound/Ulcer Outcome Not Healed -Ulcer Cleansing Rinsed/ Irrigated with Saline -Foul Odor after Cleansing No -Bioengineered Tissue Yes -Type of Bioengineered Tissue Epifix -Expiration Date 01/17/26 -Product Lot Number [id number] -Percent Used 100 -Lot number of Saline Used [id number] -Bleeding Controlled with Pressure -Treatment Response Procedure Tolerated Well -Offloading No -Debridement - Subq, 1st 20sq cm No -Apply Skin Sub - 1st 25 sq cm - Legs 1 -Epifix (per sq cm) 4 Pain Scale: 0-10 Numeric Is Patient Pain Free? Yes WC - Nurse 3 - General Ulcer D/C NN Start: 05/27/23 10:48 Freq: Status: Active Protocol: Activity Type Activity Date Activity User E-sign Co-sign Detail Recorded Client Recorded Date Recorded By Document 05/27/23 11:15 MW Desktop 05/27/23 11:16 MW 05/27/23 11:15 Wound Care Center Nurse 3 #5 R Langley -Ulcer Cleansing Not Cleansed -Foul Odor after Cleansing No -Negative Pressure Wound Therapy N/A -Primary Dressing Applied Aquacel Extra, Mepilex Border -Aquacel Extra 1 -Mepilex Border 1 Treatment Response Procedure Tolerated Well Pain Scale: 0-10 Numeric Is Patient Pain Free? Yes Teaching: Wound Center Dressing Your Wound -Person Taught Patient,Family -Teaching Method Discussion, Demonstration -Response to teaching Verbalize understanding WC - Visit Discharge Discharge Condition Stable Ambulatory Status Wheelchair Transportation Private Auto Accompanied by Medication Reconcilliation completed & No provided to patient/care provider Clinical Summary of Care Provided Yes Assessment/Plan Assessment/Plan (1) Diabetes type 2, uncontrolled: QUALIFIERS: Glycemic state: with hyperglycemia Qualified Code(s): E11.65 - Type 2 diabetes mellitus with hyperglycemia (2) Peripheral vascular disease in diabetes mellitus: CODE(S): E11.51 - Type 2 diabetes mellitus with diabetic peripheral angiopathy without gangrene (3) Non-pressure ulcer of right lower extremity: CODE(S): L97.919 - Non-pressure chronic ulcer of unspecified part of right lower leg with unspecified severity QUALIFIERS: Non-pressure ulcer stage: with fat layer exposed Qualified Code(s): L97.912 - Non-pressure chronic ulcer of unspecified part of right lower leg with fat layer exposed PLAN: EpiFix #1 applied to wound base covered with wound veil and Steri-Strips and then Aquacel extra for protection. was told not to remove any of the dressing unless it lifts and she may go down to the Steri-Strips. Patient has not to get dressing wet and if he does let us know. Patient is to follow-up next week with another practitioner to get EpiFix #2 placed Patient is to wear single layer Tubigrip's to the right leg refuses to wear suggested may be a compression knee sock Also suggested AmLactin cream to lower leg for dry skin and scales of old skin. Follow-up in 1 weeks (4) PAD (peripheral artery disease): CODE(S): I73.9 - Peripheral vascular disease, unspecified
[2023-06-02 11:00] VITALS: BP 139/63; PULSE 92; RESP 18; TEMP 36.7; BMI 33.4
--- NOTE | 2023-06-02 11:51 | PCM.WC.HP ---
History of Present Illness Date of Service: 06/02/23 Chief Complaint: Ulceration of the right pretibial area History of Wound: This is an 83-year-old male who presented with an ulceration on the right pretibial surface. It occurred approximately 3 to 4 weeks ago. He is currently a patient of Meghana Vargas, and seen at this time in her absence. According to the patient and his , the ulceration started as a blister. It appears as though the patient has a longstanding history of swelling, edema, and dependent edema in his lower extremities. He leads a sedentary existence. He sits for long hours each day. He sleeps in a lift chair, with his legs in a dependent position. He is also obese, with a BMI of 33.5. Patient is known to have numerous pre-existing medical conditions, which include atrial fibrillation, diabetes mellitus, peripheral arterial occlusive disease, gout, congestive heart failure, and stage III chronic kidney disease. When seen 1 week ago, the first EpiFix allograft was applied, and AmLactin cream is being used to treat intact adjacent skin. Lower extremity compression has been recommended, but the patient has refused. In December 2021, a noninvasive lower extremity arterial study revealed moderate arterial occlusive disease bilaterally at ankle level. In February 2022, an angiogram was performed, and the patient was found not to be a candidate for traditional endovascular intervention. At that time, he was considered for referral to [facility] for deep vein arterialization. Progress of Wound: A small amount of bioburden is noted, but the base of the wound looks generally pink and healthy in appearance, with early granulation tissue. FOR[facility]LY [facility], [facility] Medical History (Updated 06/02/23 @ 12:[address] Nigel Prasad MD) Atrial fibrillation Atrial fibrillation Chronic kidney disease, stage III (moderate) Congestive heart failure Dependent edema Diabetes type 2, uncontrolled Edema of right lower leg Gout Gout Kidney disease Leg ulcer, left Peripheral vascular disease in diabetes mellitus Swelling of right lower extremity Type 2 diabetes mellitus with diabetic polyneuropathy Ulcer of right foot Home Medications spironolactone 25 mg tablet 25 mg PO BID BLOOD PRESSURE 11/13/21 [History Last Taken 04/02/23] clopidogrel 75 mg tablet 75 mg PO DAILY BLOOD THINNER 11/19/21 [History Last Taken 04/02/23] warfarin 10 mg tablet 5 mg PO DAILY BLOOD THINNER 01/07/22 [History Last Taken 04/02/23] TRIPLE MAGNSIUM 1 cap PO DAILY SUPPLEMENT 04/02/23 [History Last Taken 04/02/23] allopurinol 100 mg tablet 200 mg PO DAILY GOUT 04/02/23 [History Last Taken 04/02/23] furosemide 40 mg tablet 40 mg PO BID FLUID 04/02/23 [History Last Taken 04/02/23] levothyroxine 75 mcg tablet 75 mcg PO DAILY THYROID 04/02/23 [History Last Taken 04/02/23] rosuvastatin 5 mg tablet 5 mg PO DAILY CHOLESTEROL 04/02/23 [History Last Taken 04/02/23] amoxicillin 875 mg-potassium clavulanate 125 mg tablet 1 tab PO BID 5 days #10 tabs 04/04/23 [Rx Last Taken Unknown] carvedilol 6.25 mg tablet 6.25 mg PO BID 30 days #60 tabs 04/04/23 [Rx Last Taken Unknown] Allergy/AdvReac Type Severity Reaction Status Date / Time No Known Allergies Allergy Verified 04/02/23 16:11 Social History household members: spouse Smoking Status: Former smoker Vital Signs Vital Signs Vital Signs: 06/02/23 11:00 Temperature 98.1 F Temperature Source Temporal Pulse Rate 92 Respiratory Rate 18 Blood Pressure 139/63 H Blood Pressure Mean 88 Blood Pressure Source Monitor Blood Pressure Position Semi-Fowlers Blood Pressure Location Left Forearm Oxygen Delivery Method Room Air Weight Weight: 220 lb 0.271 oz Body Mass Index (BMI) 33.4 Physical Exam Const alert, oriented x3 and no apparent distress Constitutional Narrative: The patient is obese, with a BMI of 33.5. General Appearance: cooperative, comfortable and well developed Orientation / Consciousness: awake, oriented to person, oriented to place and oriented to time Exam Limitations: no limitations HEENT normocephalic and head/scalp atraumatic Head and Scalp: normal to inspection Resp normal respiratory effort, normal air movement, no retractions and no use of accessory muscles Effort and Inspection: able to speak in complete sentences Cardio regular rate and regular rhythm Extremity Extremity Narrative: Hyperpigmentation and lipodermatosclerosis are noted in the patient's right gaiter area. Mild swelling and edema are also noted. An open ulceration is noted on the right pretibial surface. There is no sign of infection or cellulitis. There is a small amount of bioburden. Dimensions are documented elsewhere. General Extremity: edema Skin no rashes or lesions noted Neuro oriented x3, CN's II-XII intact bilaterally, moves all extremities and no focal motor deficits Sensorium / Orientation: awake, alert, oriented to person, oriented to place and oriented to time Psych Appearance: grossly normal Speech: normal speech Thought Content: normal thought content Judgement: judgement good Debridement Note Debridement Note Wound debrided: Ulceration of the right pretibial surface Laterality: Right Type of Debridement: Excisional debridement Anesthesia Used: 5% Lidocaine Gel Depth: Down to and including healthy tissue and in the subcutaneous layer Percentage of wound debrided: 100 Instrument Used: 5mm curette Tissue Removed: Bioburden and nonviable tissue Severity: Fat Layer Exposed Amount of bleeding with debridement: Mild Bleeding Controlled with: Compression and gauze Patient tolerated procedure: Patient tolerated procedure well Debridement Free Text: Following a routine excisional debridement, which was well-tolerated by the patient, an EpiFix allograft was applied. This represents the second such application of an allograft. An 18 mm allograft was selected, and removed from its sterile packaging. It was applied in the appropriate orientation. 100% of the allograft was utilized. Once in place, the allograft was covered with Adaptic Touch, which was then secured using Steri-Strips. The patient tolerated the procedure well. Post-Debridement Measurements and Additional Note: Post-Debridement Measurements/Treatment - Nurse 1 - General Ulcer Assessment Start: 05/27/23 10:48 Freq: Status: Active Protocol: WC.LOWDARBYT Activity Type Activity Date Activity User E-sign Co-sign Detail Recorded Client Recorded Date Recorded By Document 05/27/23 10:50 DL Desktop 05/27/23 10:58 DL Document 06/02/23 11:00 KW Desktop 06/02/23 11:09 KW 05/27/23 06/02/23 10:50 11:00 - Today's Visit Information Type of service Follow-up Visit Follow-up Visit (Physician/[employer] (Physician/[employer] ) ) Arrival Mode Wheelchair Wheelchair Transfer Assistance Manual Transfer Assist (Other) x2 Patient Identification Verified (Name & Yes Yes ) Patient Requires Transmission-Based No Precautions Finger Stick Blood Sugar(mg/dl) (if 169 130 indicated): Blood Sugar Stated by Stated by Patient Patient Height and Weight Body Mass Index (BMI) 33.4 33.4 BMI Classification Obese Obese Vital Signs Temperature (97.8 F-99.1 F) 98.4 F 98.1 F Temperature Source Temporal Temporal Pulse Rate (60-100) 96 92 Pulse Location Monitor Monitor Respiratory Rate (12-18) 20 H 18 Respiratory rate source Observation Observation Oxygen Delivery Method Room Air Blood Pressure (90/60-120/80) 147/46 H 139/63 H Blood Pressure Mean 79 88 Source Monitor Monitor Position Semi-Fowlers Blood Pressure Location Left Forearm History Since Last Visit- (Skip if this is Patient's initial visit) Have you changed medications since your No No last visit? Any new allergies or adverse reactions No No Had a fall/change in ADL's that may No No increase risk of falls Signs or symptoms of abuse and/or No No neglect since last visit Have you been in the hospital since your No No last visit? Has dressing in place as prescribed Yes Yes Has compression in place as prescribed N/A Yes Has offloadiing in place as prescribed N/A N/A Experienced any changes in pain level or No No management Left Footwear Regular Shoe Right Footwear Regular Shoe Pain Scale: 0-10 Numeric Is Patient Pain Free? Yes Yes WC - Nurse 1 - General Ulcer Measurement Start: 05/27/23 10:48 Freq: Status: Active Protocol: Activity Type Activity Date Activity User E-sign Co-sign Detail Recorded Client Recorded Date Recorded By Document 05/27/23 10:50 DL Desktop 05/27/23 10:58 DL Document 06/02/23 11:00 KW Desktop 06/02/23 11:09 KW 05/27/23 06/02/23 10:50 11:00 Wound Center Nurse 1 #5 R Oden -Current Size (cm) - Length 2.5 2.1 -Current Size (cm) - Width 2.5 2.2 -Current Size (cm) - Depth 0.2 0.1 -Total Square Cm 6.25 4.62 -Photo Taken No -Exudate Amt Small Medium -Exudate Type Serosanguineous Serosanguineous -Wound Margin Distinct, Distinct, Outline Outline Attached Attached -Granulation Amt Medium (34-66%) Medium (34-66%) -Granulation Quality [place] -Necrosis Amt Medium (34-66%) Medium (34-66%) -Necrotic Tissue Type Adherent Slough Adherent Slough -Structure Exposed N/A -Texture (Maribel-wound Skin Appearance) Scarring Assessed -Moisture (Maribel-wound Skin Appearance) No Abnormality Assessed, Maceration -Color (Maribel-wound Skin Appearance) No Abnormality, Assessed Hemosiderin Staining -Temperature (Maribel-wound Skin No Abnormality No Abnormality Appearance) (Pt Warm) (Pt Warm) -Ulcer Cleansing Soap and Water Soap and Water -Foul Odor after Cleansing No -Anesthetic Used 5% Lidocaine 5% Lidocaine Gel Gel WC - Nurse 2 - General Ulcer CM Notes Start: 05/27/23 10:48 Freq: Status: Active Protocol: Activity Type Activity Date Activity User E-sign Co-sign Detail Recorded Client Recorded Date Recorded By Document 05/27/23 11:04 MW Desktop 05/27/23 11:14 MW 05/27/23 11:04 Wound Center Nurse 2 -Time 11:10 -Correct Patient Yes -Correct Side, Site, Position Yes -Correct Procedure Yes -Procedure Performed Yes -Type of Procedure Debridement -Clinical Debridement Subcutaneous -Tissue Removed Subcutaneous -Post Debridement (cm) - Length 2.2 -Post Debridement (cm) - Width 2.4 -Post Debridement (cm) - Depth 0.2 -Total Square (Post) (cm) 5.28 -Area of Debridement (cm) - Length 2.2 -Area of Debridement (cm) - Width 2.4 -Total Square (Area) (cm) 5.28 -Tunneling No -Undermining/Tunneling No -Circular Undermining No -Wound/Ulcer Outcome Not Healed -Ulcer Cleansing Rinsed/ Irrigated with Saline -Foul Odor after Cleansing No -Bioengineered Tissue Yes -Type of Bioengineered Tissue Epifix -Expiration Date 01/17/26 -Product Lot Number [id number] -Percent Used 100 -Lot number of Saline Used [id number] -Bleeding Controlled with Pressure -Treatment Response Procedure Tolerated Well -Offloading No -Debridement - Subq, 1st 20sq cm No -Apply Skin Sub - 1st 25 sq cm - Legs 1 -Epifix (per sq cm) 4 Pain Scale: 0-10 Numeric Is Patient Pain Free? Yes WC - Nurse 3 - General Ulcer D/C NN Start: 05/27/23 10:48 Freq: Status: Active Protocol: Activity Type Activity Date Activity User E-sign Co-sign Detail Recorded Client Recorded Date Recorded By Document 05/27/23 11:15 MW Desktop 05/27/23 11:16 MW 05/27/23 11:15 Wound Care Center Nurse 3 #5 R Oden -Ulcer Cleansing Not Cleansed -Foul Odor after Cleansing No -Negative Pressure Wound Therapy N/A -Primary Dressing Applied Aquacel Extra, Mepilex Border -Aquacel Extra 1 -Mepilex Border 1 Treatment Response Procedure Tolerated Well Pain Scale: 0-10 Numeric Is Patient Pain Free? Yes Teaching: Wound Center Dressing Your Wound -Person Taught Patient,Family -Teaching Method Discussion, Demonstration -Response to teaching Verbalize understanding WC - Visit Discharge Discharge Condition Stable Ambulatory Status Wheelchair Transportation Private Auto Accompanied by Medication Reconcilliation completed & No provided to patient/care provider Clinical Summary of Care Provided Yes Assessment/Plan Assessment/Plan (1) Non-pressure ulcer of right lower extremity: CODE(S): L97.919 - Non-pressure chronic ulcer of unspecified part of right lower leg with unspecified severity QUALIFIERS: Non-pressure ulcer stage: with fat layer exposed Qualified Code(s): L97.912 - Non-pressure chronic ulcer of unspecified part of right lower leg with fat layer exposed (2) Swelling of right lower extremity: CODE(S): M79.89 - Other specified soft tissue disorders (3) Edema of right lower leg: CODE(S): R60.0 - Localized edema (4) Dependent edema: CODE(S): R60.9 - Edema, unspecified (5) Diabetes type 2, uncontrolled: QUALIFIERS: Glycemic state: with hyperglycemia Qualified Code(s): E11.65 - Type 2 diabetes mellitus with hyperglycemia (6) Peripheral vascular disease in diabetes mellitus: CODE(S): E11.51 - Type 2 diabetes mellitus with diabetic peripheral angiopathy without gangrene (7) PAD (peripheral artery disease): CODE(S): I73.9 - Peripheral vascular disease, unspecified (8) Atrial fibrillation: CODE(S): I48.91 - Unspecified atrial fibrillation (9) Gout: CODE(S): M10.9 - Gout, unspecified (10) Congestive heart failure: CODE(S): I50.9 - Heart failure, unspecified (11) Chronic kidney disease, stage III (moderate): CODE(S): N18.30 - Chronic kidney disease, stage 3 unspecified PLAN: Plan This is an 83-year-old diabetic male with multiple pre-existing medical problems. He recently presented with an ulceration on the right pretibial surface, which originated as a blister. Patient has chronic swelling and edema in his lower extremities. He leads a very sedentary lifestyle, and sits a great deal of each day. He is not active. He sleeps in a lift chair, with his legs in a dependent position. He has refused compression to the lower extremities in the past. A lengthy discussion has been undertaken with the patient and his . Measures appropriate to the management of his lower extremity manifestations have been discussed in detail. Leg elevation has been recommended. His legs are to be elevated to heart level, or higher. Legs are to be elevated during both daytime and nighttime hours. Prolonged idle sitting has been discouraged. Activity has been encouraged, though significant enhancement of activity is unlikely. Compression has been advised, and is to be implemented by means of Tubigrip's, which will be applied today. An EpiFix allograft has been applied today, the second such allograft application. The allograft is to be left undisturbed, and the patient is to return in 1 week for reevaluation by Meghana Vargas. Total time: 48 minutes
[2023-06-10 10:51] VITALS: BP 143/57; PULSE 98; RESP 20; TEMP 36.1; BMI 33.4
--- NOTE | 2023-06-10 11:55 | PCM.WC.PN ---
History of Present Illness Date of Service: 06/10/23 Chief Complaint: Ulceration of the right pretibial area History of Wound: This is an 83-year-old male who presented with an ulceration on the right pretibial surface. It occurred approximately 3 to 4 weeks ago. He is currently a patient of Meghana Vargas, and seen at this time in her absence. According to the patient and his , the ulceration started as a blister. It appears as though the patient has a longstanding history of swelling, edema, and dependent edema in his lower extremities. He leads a sedentary existence. He sits for long hours each day. He sleeps in a lift chair, with his legs in a dependent position. He is also obese, with a BMI of 33.5. Patient is known to have numerous pre-existing medical conditions, which include atrial fibrillation, diabetes mellitus, peripheral arterial occlusive disease, gout, congestive heart failure, and stage III chronic kidney disease. When seen 1 week ago, the first EpiFix allograft was applied, and AmLactin cream is being used to treat intact adjacent skin. Lower extremity compression has been recommended, but the patient has refused. In December 2021, a noninvasive lower extremity arterial study revealed moderate arterial occlusive disease bilaterally at ankle level. In February 2022, an angiogram was performed, and the patient was found not to be a candidate for traditional endovascular intervention. At that time, he was considered for referral to [facility] for deep vein arterialization. Progress of Wound: A small amount of bioburden is noted, but the base of the wound looks generally pink and healthy in appearance, with early granulation tissue. Subjective Subjective and patient are very happy with outcome so far Objective Data Objective Data Will continue using EpiFix #3 healing is happening very quickly with no sign of infection Vital Signs: Vital Signs Temp Pulse Resp BP O2 Del Method 96.9 F L 98 20 H 143/57 H Room Air 06/10/23 10:51 06/10/23 10:51 06/10/23 10:51 06/10/23 10:51 06/02/23 11:00 Oxygen Delivery Method Room Air Weight: 220 lb 0.271 oz Body Mass Index (BMI) 33.4 Physical Exam Const oriented x3 General Appearance: cooperative Exam Limitations: no limitations HEENT normocephalic Resp normal respiratory effort Effort and Inspection: able to speak in complete sentences Auscultation: clear to auscultation bilaterally Cardio regular rate and regular rhythm Palpation: normal PMI Rate: regular rate Rhythm: regular rhythm Extremity Extremity Narrative: Discoloration from knee to foot with swelling not pitting. Open wound with a dried hematoma on langley. Also has very dry scaly skin on lower extremity to foot General Extremity: edema Skin no rashes or lesions noted Neuro oriented x3 Psych Appearance: grossly normal Speech: normal speech Thought Content: normal thought content Judgement: judgement good Debridement Note Debridement Note Wound debrided: Right langley ulcer Type of Debridement: Excisional debridement Anesthesia Used: 4% Lidocaine Solution and 5% Lidocaine Gel Depth: Down to and including healthy tissue Percentage of wound debrided: 100 Instrument Used: 5mm curette Tissue Removed: Fibrin Severity: Fat Layer Exposed Amount of bleeding with debridement: Mild Bleeding Controlled with: Compression and gauze Patient tolerated procedure: Patient tolerated procedure well Post-Debridement Measurements and Additional Note: Post-Debridement Measurements/Treatment - Nurse 1 - General Ulcer Assessment Start: 05/27/23 10:48 Freq: Status: Active Protocol: SUNSHINE Activity Type Activity Date Activity User E-sign Co-sign Detail Recorded Client Recorded Date Recorded By Document 05/27/23 10:50 DL Desktop 05/27/23 10:58 DL Document 06/02/23 11:00 KW Desktop 06/02/23 11:09 KW Document 06/10/23 10:51 DL Desktop 06/10/23 10:58 DL 05/27/23 06/02/23 06/10/23 10:50 11:00 10:51 - Today's Visit Information Type of service Follow-up Visit Follow-up Visit Follow-up Visit (Physician/CASING RUNNING MACHINE TENDER (Physician/CASING RUNNING MACHINE TENDER (Physician/CASING RUNNING MACHINE TENDER ) ) ) Arrival Mode Wheelchair Wheelchair Wheelchair Transfer Assistance Manual Manual Transfer Assist (Other) x2 x2 Patient Identification Verified (Name & Yes Yes Yes ) Patient Requires Transmission-Based No No Precautions Finger Stick Blood Sugar(mg/dl) (if 169 130 134 indicated): Blood Sugar Stated by Stated by Stated by Patient Patient Patient Height and Weight Body Mass Index (BMI) 33.4 33.4 33.4 BMI Classification Obese Obese Obese Vital Signs Temperature (97.8 F-99.1 F) 98.4 F 98.1 F 96.9 F L Temperature Source Temporal Temporal Temporal Pulse Rate (60-100) 96 92 98 Pulse Location Monitor Monitor Monitor Respiratory Rate (12-18) 20 H 18 20 H Respiratory rate source Observation Observation Observation Oxygen Delivery Method Room Air Blood Pressure (90/60-120/80) 147/46 H 139/63 H 143/57 H Blood Pressure Mean (mm Hg) 79 88 85 Source Monitor Monitor Monitor Position Semi-Fowlers Blood Pressure Location Left Forearm History Since Last Visit- (Skip if this is Patient's initial visit) Have you changed medications since your No No No last visit? Any new allergies or adverse reactions No No No Had a fall/change in ADL's that may No No No increase risk of falls Signs or symptoms of abuse and/or No No No neglect since last visit Have you been in the hospital since your No No No last visit? Has dressing in place as prescribed Yes Yes Yes Has compression in place as prescribed N/A Yes No Has offloadiing in place as prescribed N/A N/A N/A Experienced any changes in pain level or No No No management Left Footwear Regular Shoe Right Footwear Regular Shoe Pain Scale: 0-10 Numeric Is Patient Pain Free? Yes Yes Yes WC - Nurse 1 - General Ulcer Measurement Start: 05/27/23 10:48 Freq: Status: Active Protocol: Activity Type Activity Date Activity User E-sign Co-sign Detail Recorded Client Recorded Date Recorded By Document 05/27/23 10:50 DL Desktop 05/27/23 10:58 DL Document 06/02/23 11:00 KW Desktop 06/02/23 11:09 KW Document 06/10/23 10:51 DL Desktop 06/10/23 10:58 DL 05/27/23 06/02/23 06/10/23 10:50 11:00 10:51 Wound Center Nurse 1 #5 R Langley -Current Size (cm) - Length 2.5 2.1 1.9 -Current Size (cm) - Width 2.5 2.2 1.9 -Current Size (cm) - Depth 0.2 0.1 0.1 -Total Square Cm 6.25 4.62 3.61 -Photo Taken No Yes -Exudate Amt Small Medium Medium -Exudate Type Serosanguineous Serosanguineous Serosanguineous -Wound Margin Distinct, Distinct, Distinct, Outline Outline Outline Attached Attached Attached -Granulation Amt Medium (34-66%) Medium (34-66%) Medium (34-66%) -Granulation Quality Red [place] Red -Necrosis Amt Medium (34-66%) Medium (34-66%) Medium (34-66%) -Necrotic Tissue Type Adherent Slough Adherent Slough Adherent Slough -Structure Exposed N/A N/A -Texture (Maribel-wound Skin Appearance) Scarring Assessed Scarring -Moisture (Maribel-wound Skin Appearance) No Abnormality Assessed, Dry/Scaly Maceration -Color (Maribel-wound Skin Appearance) No Abnormality, Assessed Hemosiderin Hemosiderin Staining Staining -Temperature (Maribel-wound Skin No Abnormality No Abnormality No Abnormality Appearance) (Pt Warm) (Pt Warm) (Pt Warm) -Ulcer Cleansing Soap and Water Soap and Water Not Cleansed -Foul Odor after Cleansing No No -Anesthetic Used 5% Lidocaine 5% Lidocaine 5% Lidocaine Gel Gel Gel Right Calf (cm) 38.2 Right Ankle (cm) 23.4 WC - Nurse 2 - General Ulcer CM Notes Start: 05/27/23 10:48 Freq: Status: Active Protocol: Activity Type Activity Date Activity User E-sign Co-sign Detail Recorded Client Recorded Date Recorded By Document 05/27/23 11:04 MW Desktop 05/27/23 11:14 MW Document 06/02/23 11:54 PL [id number] 06/02/23 11:56 PL Document 06/10/23 11:09 MW Desktop 06/10/23 11:16 MW 05/27/23 06/02/23 06/10/23 11:04 11:54 11:09 Wound Center Nurse 2 #5 R Langley -Time 11:10 11:16 11:10 -Correct Patient Yes Yes Yes -Correct Side, Site, Position Yes Yes Yes -Correct Procedure Yes Yes Yes -Procedure Performed Yes Yes Yes -Type of Procedure Debridement Debridement Debridement -Clinical Debridement Subcutaneous Subcutaneous Subcutaneous -Tissue Removed Subcutaneous Subcutaneous Subcutaneous -Post Debridement (cm) - Length 2.2 2.1 1.8 -Post Debridement (cm) - Width 2.4 2.2 2.0 -Post Debridement (cm) - Depth 0.2 0.1 0.2 -Total Square (Post) (cm) 5.28 4.62 3.60 -Area of Debridement (cm) - Length 2.2 2.1 1.8 -Area of Debridement (cm) - Width 2.4 2.2 2.0 -Total Square (Area) (cm) 5.28 4.62 3.60 -Tunneling No No No -Undermining/Tunneling No No No -Circular Undermining No No No -Wound/Ulcer Outcome Not Healed Not Healed Not Healed -Ulcer Cleansing Rinsed/ Rinsed/ Rinsed/ Irrigated with Irrigated with Irrigated with Saline Saline Saline -Foul Odor after Cleansing No No No -Bioengineered Tissue Yes Yes Yes -Type of Bioengineered Tissue Epifix Epifix 18mm Epifix 18mm Disc Disc -Expiration Date 01/17/26 01/19/28 01/19/28 -Product Lot Number [id number] -Percent Used 100 100 100 -Lot number of Saline Used [id number] -Bleeding Controlled with Pressure Pressure Pressure -Treatment Response Procedure Procedure Procedure Tolerated Well Tolerated Well Tolerated Well -Offloading No No -Debridement - Subq, 1st 20sq cm No No No -Apply Skin Sub - 1st 25 sq cm - Legs 1 1 1 -Epifix (per sq cm) 4 -Epifix 18mm Disc 3 3 Pain Scale: 0-10 Numeric Is Patient Pain Free? Yes Yes Yes WC - Nurse 3 - General Ulcer D/C NN Start: 05/27/23 10:48 Freq: Status: Active Protocol: Activity Type Activity Date Activity User E-sign Co-sign Detail Recorded Client Recorded Date Recorded By Document 05/27/23 11:15 MW Desktop 05/27/23 11:16 MW Document 06/10/23 11:20 BMF Desktop 06/10/23 11:20 BMF 05/27/23 06/10/23 11:15 11:20 Wound Care Center Nurse 3 #5 R [place] -Ulcer Cleansing Not Cleansed -Foul Odor after Cleansing No -Negative Pressure Wound Therapy N/A -Primary Dressing Applied Aquacel Extra, Aquacel Extra, Mepilex Border Optilok 8x12 -Other Dressing epifix -Aquacel Extra 1 1 -Mepilex Border 1 -Optilok 8x12 1 Treatment Response Procedure Procedure Tolerated Well Tolerated Well Pain Scale: 0-10 Numeric Is Patient Pain Free? Yes Yes Teaching: Wound Center Dressing Your Wound -Person Taught Patient,Family -Teaching Method Discussion, Demonstration -Response to teaching Verbalize understanding WC - Visit Discharge Discharge Condition Stable Stable Ambulatory Status Wheelchair Wheelchair Transportation Private Auto Private Auto Accompanied by Medication Reconcilliation completed & No provided to patient/care provider Clinical Summary of Care Provided Yes Assessment/Plan Assessment/Plan (1) Diabetes type 2, uncontrolled: QUALIFIERS: Glycemic state: with hyperglycemia Qualified Code(s): E11.65 - Type 2 diabetes mellitus with hyperglycemia (2) Peripheral vascular disease in diabetes mellitus: CODE(S): E11.51 - Type 2 diabetes mellitus with diabetic peripheral angiopathy without gangrene (3) Non-pressure ulcer of right lower extremity: CODE(S): L97.919 - Non-pressure chronic ulcer of unspecified part of right lower leg with unspecified severity QUALIFIERS: Non-pressure ulcer stage: with fat layer exposed Qualified Code(s): L97.912 - Non-pressure chronic ulcer of unspecified part of right lower leg with fat layer exposed PLAN: EpiFix #3 applied to wound base covered with wound veil and Steri-Strips and then Aquacel extra for protection. was told not to remove any of the dressing unless it lifts and she may go down to the Steri-Strips. Patient is to wear single layer Tubigrip's to the right leg refuses to wear suggested may be a compression knee sock Also suggested AmLactin cream to lower leg for dry skin and scales of old skin. Follow-up in 1 weeks (4) PAD (peripheral artery disease): CODE(S): I73.9 - Peripheral vascular disease, unspecified
[2023-06-17 11:12] VITALS: BP 102/38; PULSE 89; RESP 16; TEMP 36.5; BMI 33.4
--- NOTE | 2023-06-17 12:10 | PN.PCM_ITS ---
History of Present Illness Date of Service: 06/17/23 Chief Complaint: Ulceration of the right pretibial area History of Wound: This is an 83-year-old male who presented with an ulceration on the right pretibial surface. It occurred approximately 3 to 4 weeks ago. He is currently a patient of Meghana Vargas, and seen at this time in her absence. According to the patient and his , the ulceration started as a blister. It appears as though the patient has a longstanding history of swelling, edema, and dependent edema in his lower extremities. He leads a sedentary existence. He sits for long hours each day. He sleeps in a lift chair, with his legs in a dependent position. He is also obese, with a BMI of 33.5. Patient is known to have numerous pre-existing medical conditions, which include atrial fibrillation, diabetes mellitus, peripheral arterial occlusive disease, gout, congestive heart failure, and stage III chronic kidney disease. When seen 1 week ago, the first EpiFix allograft was applied, and AmLactin cream is being used to treat intact adjacent skin. Lower extremity compression has been recommended, but the patient has refused. In December 2021, a noninvasive lower extremity arterial study revealed moderate arterial occlusive disease bilaterally at ankle level. In February 2022, an angiogram was performed, and the patient was found not to be a candidate for traditional endovascular intervention. At that time, he was considered for referral to [facility] for deep vein arterialization. Progress of Wound: A small amount of bioburden is noted, but the base of the wound looks generally pink and healthy in appearance, with early granulation tissue. Borders are becoming ill-defined looks beautiful healing quickly. Will continue using the EpiFix Subjective Subjective is agreeable to plan Objective Data Objective Data As stated above no sign of infection measures smaller flatter no depth at all now it is pretty flat looks very good healing quickly with the EpiFix Vital Signs: Vital Signs Temp Pulse Resp BP O2 Del Method 97.7 F L 89 16 102/38 L Room Air 06/17/23 11:12 06/17/23 11:12 06/17/23 11:12 06/17/23 11:12 06/17/23 11:12 Oxygen Delivery Method Room Air Weight: 220 lb 0.271 oz Body Mass Index (BMI) 33.4 Physical Exam Const oriented x3 General Appearance: cooperative Exam Limitations: no limitations HEENT normocephalic Resp normal respiratory effort Effort and Inspection: able to speak in complete sentences Auscultation: clear to auscultation bilaterally Cardio regular rate and regular rhythm Palpation: normal PMI Rate: regular rate Rhythm: regular rhythm Extremity Extremity Narrative: Discoloration from knee to foot with swelling not pitting. Open wound with a dried hematoma on langley. Also has very dry scaly skin on lower extremity to foot General Extremity: edema Skin no rashes or lesions noted Neuro oriented x3 Psych Appearance: grossly normal Speech: normal speech Thought Content: normal thought content Judgement: judgement good Debridement Note Debridement Note Wound debrided: Right langley ulcer Type of Debridement: Excisional debridement Anesthesia Used: 4% Lidocaine Solution and 5% Lidocaine Gel Depth: Down to and including healthy tissue Percentage of wound debrided: 100 Instrument Used: 5mm curette Tissue Removed: Fibrin Severity: Fat Layer Exposed Amount of bleeding with debridement: Mild Bleeding Controlled with: Compression and gauze Patient tolerated procedure: Patient tolerated procedure well Post-Debridement Measurements and Additional Note: Post-Debridement Measurements/Treatment - Nurse 1 - General Ulcer Assessment Start: 05/27/23 10:48 Freq: Status: Active Protocol: [email or web address] Activity Type Activity Date Activity User E-sign Co-sign Detail Recorded Client Recorded Date Recorded By Document 05/27/23 10:50 DL Desktop 05/27/23 10:58 DL Document 06/02/23 11:00 KW Desktop 06/02/23 11:09 KW Document 06/10/23 10:51 DL Desktop 06/10/23 10:58 DL Document 06/17/23 11:12 BMF Desktop 06/17/23 11:17 BMF 05/27/23 06/02/23 06/10/23 10:50 11:00 10:51 - Today's Visit Information Type of service Follow-up Visit Follow-up Visit Follow-up Visit (Physician/BRAZER INDUCTION (Physician/BRAZER INDUCTION (Physician/BRAZER INDUCTION ) ) ) Arrival Mode Wheelchair Wheelchair Wheelchair Transfer Assistance Manual Manual Transfer Assist (Other) x2 x2 Patient Identification Verified (Name & Yes Yes Yes ) Patient Requires Transmission-Based No No Precautions Finger Stick Blood Sugar(mg/dl) (if 169 130 134 indicated): Blood Sugar Stated by Stated by Stated by Patient Patient Patient Height and Weight Body Mass Index (BMI) 33.4 33.4 33.4 BMI Classification Obese Obese Obese Vital Signs Temperature (97.8 F-99.1 F) 98.4 F 98.1 F 96.9 F L Temperature Source Temporal Temporal Temporal Pulse Rate (60-100) 96 92 98 Pulse Location Monitor Monitor Monitor Respiratory Rate (12-18) 20 H 18 20 H Respiratory rate source Observation Observation Observation Oxygen Delivery Method Room Air Blood Pressure (90/60-120/80) 147/46 H 139/63 H 143/57 H Blood Pressure Mean (mm Hg) 79 88 85 Source Monitor Monitor Monitor Position Semi-Fowlers Blood Pressure Location Left Forearm History Since Last Visit- (Skip if this is Patient's initial visit) Have you changed medications since your No No No last visit? Any new allergies or adverse reactions No No No Had a fall/change in ADL's that may No No No increase risk of falls Signs or symptoms of abuse and/or No No No neglect since last visit Have you been in the hospital since your No No No last visit? Has dressing in place as prescribed Yes Yes Yes Has compression in place as prescribed N/A Yes No Has offloadiing in place as prescribed N/A N/A N/A Experienced any changes in pain level or No No No management Left Footwear Regular Shoe Right Footwear Regular Shoe Pain Scale: 0-10 Numeric Is Patient Pain Free? Yes Yes Yes 06/17/23 11:12 WC - Today's Visit Information Type of service Follow-up Visit (Physician/BRAZER INDUCTION ) Arrival Mode Wheelchair Transfer Assistance None Transfer Assist (Other) Patient Identification Verified (Name & Yes ) Patient Requires Transmission-Based No Precautions Finger Stick Blood Sugar(mg/dl) (if indicated): Blood Sugar Height and Weight Body Mass Index (BMI) 33.4 BMI Classification Obese Vital Signs Temperature (97.8 F-99.1 F) 97.7 F L Temperature Source Temporal Pulse Rate (60-100) 89 Pulse Location Monitor Respiratory Rate (12-18) 16 Respiratory rate source Observation Oxygen Delivery Method Room Air Blood Pressure (90/60-120/80) 102/38 L Blood Pressure Mean (mm Hg) 59 Source Monitor Position Sitting Blood Pressure Location Right Arm History Since Last Visit- (Skip if this is Patient's initial visit) Have you changed medications since your No last visit? Any new allergies or adverse reactions No Had a fall/change in ADL's that may No increase risk of falls Signs or symptoms of abuse and/or No neglect since last visit Have you been in the hospital since your No last visit? Has dressing in place as prescribed Yes Has compression in place as prescribed Yes Has offloadiing in place as prescribed N/A Experienced any changes in pain level or No management Left Footwear Diabetic Shoe Right Footwear Diabetic Shoe Pain Scale: 0-10 Numeric Is Patient Pain Free? Yes WC - Nurse 1 - General Ulcer Measurement Start: 05/27/23 10:48 Freq: Status: Active Protocol: Activity Type Activity Date Activity User E-sign Co-sign Detail Recorded Client Recorded Date Recorded By Document 05/27/23 10:50 DL Desktop 05/27/23 10:58 DL Document 06/02/23 11:00 KW Desktop 06/02/23 11:09 KW Document 06/10/23 10:51 DL Desktop 06/10/23 10:58 DL Document 06/17/23 11:12 BMF Desktop 06/17/23 11:17 BMF 05/27/23 06/02/23 06/10/23 10:50 11:00 10:51 Wound Center Nurse 1 #5 R Langley -Combined with other wound -Current Size (cm) - Length 2.5 2.1 1.9 -Current Size (cm) - Width 2.5 2.2 1.9 -Current Size (cm) - Depth 0.2 0.1 0.1 -Total Square Cm 6.25 4.62 3.61 -Date of Last Picture (Recall this field) -Photo Taken No Yes -Epithelialization -Tunneling -Undermining/Tunneling -Circular Undermining -Exudate Amt Small Medium Medium -Exudate Type Serosanguineous Serosanguineous Serosanguineous -Wound Margin Distinct, Distinct, Distinct, Outline Outline Outline Attached Attached Attached -Granulation Amt Medium (34-66%) Medium (34-66%) Medium (34-66%) -Granulation Quality Red [place] Red -Slough/Fibrin -Necrosis Amt Medium (34-66%) Medium (34-66%) Medium (34-66%) -Necrotic Tissue Type Adherent Slough Adherent Slough Adherent Slough -Structure Exposed N/A N/A -Texture (Maribel-wound Skin Appearance) Scarring Assessed Scarring -Moisture (Maribel-wound Skin Appearance) No Abnormality Assessed, Dry/Scaly Maceration -Color (Maribel-wound Skin Appearance) No Abnormality, Assessed Hemosiderin Hemosiderin Staining Staining -Temperature (Maribel-wound Skin No Abnormality No Abnormality No Abnormality Appearance) (Pt Warm) (Pt Warm) (Pt Warm) -Tenderness on Palpation (Maribel-wound Skin Appearance) -Ulcer Cleansing Soap and Water Soap and Water Not Cleansed -Foul Odor after Cleansing No No -Anesthetic Used 5% Lidocaine 5% Lidocaine 5% Lidocaine Gel Gel Gel Right Calf (cm) 38.2 Right Ankle (cm) 23.4 06/17/23 11:12 Wound Center Nurse 1 #5 R Langley -Combined with other wound No -Current Size (cm) - Length 1.8 -Current Size (cm) - Width 1.8 -Current Size (cm) - Depth 0.1 -Total Square Cm 3.24 -Date of Last Picture (Recall this 06/17/23 field) -Photo Taken Yes -Epithelialization Small 1-33% -Tunneling No -Undermining/Tunneling No -Circular Undermining No -Exudate Amt Medium -Exudate Type Serosanguineous -Wound Margin Distinct, Outline Attached -Granulation Amt Medium (34-66%) -Granulation Quality Red -Slough/Fibrin Yes -Necrosis Amt Small (1-33%) -Necrotic Tissue Type Adherent Slough -Structure Exposed -Texture (Maribel-wound Skin Appearance) Assessed, Scarring -Moisture (Maribel-wound Skin Appearance) Assessed -Color (Maribel-wound Skin Appearance) Assessed -Temperature (Maribel-wound Skin No Abnormality Appearance) (Pt Warm) -Tenderness on Palpation (Maribel-wound No Skin Appearance) -Ulcer Cleansing Rinsed/ Irrigated with Saline -Foul Odor after Cleansing No -Anesthetic Used 5% Lidocaine Gel Right Calf (cm) Right Ankle (cm) WC - Nurse 2 - General Ulcer CM Notes Start: 05/27/23 10:48 Freq: Status: Active Protocol: Activity Type Activity Date Activity User E-sign Co-sign Detail Recorded Client Recorded Date Recorded By Document 05/27/23 11:04 MW Desktop 05/27/23 11:14 MW Document 06/02/23 11:54 PL [id number] 06/02/23 11:56 PL Document 06/10/23 11:09 MW Desktop 06/10/23 11:16 MW Document 06/17/23 11:25 MW Desktop 06/17/23 11:31 MW 05/27/23 06/02/23 06/10/23 11:04 11:54 11:09 Wound Center Nurse 2 #5 R Langley -Time 11:10 11:16 11:10 -Correct Patient Yes Yes Yes -Correct Side, Site, Position Yes Yes Yes -Correct Procedure Yes Yes Yes -Procedure Performed Yes Yes Yes -Type of Procedure Debridement Debridement Debridement -Clinical Debridement Subcutaneous Subcutaneous Subcutaneous -Tissue Removed Subcutaneous Subcutaneous Subcutaneous -Post Debridement (cm) - Length 2.2 2.1 1.8 -Post Debridement (cm) - Width 2.4 2.2 2.0 -Post Debridement (cm) - Depth 0.2 0.1 0.2 -Total Square (Post) (cm) 5.28 4.62 3.60 -Area of Debridement (cm) - Length 2.2 2.1 1.8 -Area of Debridement (cm) - Width 2.4 2.2 2.0 -Total Square (Area) (cm) 5.28 4.62 3.60 -Tunneling No No No -Undermining/Tunneling No No No -Circular Undermining No No No -Wound/Ulcer Outcome Not Healed Not Healed Not Healed -Ulcer Cleansing Rinsed/ Rinsed/ Rinsed/ Irrigated with Irrigated with Irrigated with Saline Saline Saline -Foul Odor after Cleansing No No No -Bioengineered Tissue Yes Yes Yes -Type of Bioengineered Tissue Epifix Epifix 18mm Epifix 18mm Disc Disc -Expiration Date 01/17/26 01/19/28 01/19/28 -Product Lot Number [id number] -Percent Used 100 100 100 -Lot number of Saline Used [id number] -Bleeding Controlled with Pressure Pressure Pressure -Treatment Response Procedure Procedure Procedure Tolerated Well Tolerated Well Tolerated Well -Offloading No No -Debridement - Subq, 1st 20sq cm No No No -Apply Skin Sub - 1st 25 sq cm - Legs 1 1 1 -Epifix (per sq cm) 4 -Epifix 18mm Disc 3 3 Pain Scale: 0-10 Numeric Is Patient Pain Free? Yes Yes Yes 06/17/23 11:25 Wound Center Nurse 2 #5 R Langley -Time 11:27 -Correct Patient Yes -Correct Side, Site, Position Yes -Correct Procedure Yes -Procedure Performed Yes -Type of Procedure Debridement -Clinical Debridement Subcutaneous -Tissue Removed Subcutaneous -Post Debridement (cm) - Length 1.8 -Post Debridement (cm) - Width 1.5 -Post Debridement (cm) - Depth 0.1 -Total Square (Post) (cm) 2.70 -Area of Debridement (cm) - Length 1.8 -Area of Debridement (cm) - Width 1.5 -Total Square (Area) (cm) 2.70 -Tunneling No -Undermining/Tunneling No -Circular Undermining No -Wound/Ulcer Outcome Not Healed -Ulcer Cleansing Rinsed/ Irrigated with Saline -Foul Odor after Cleansing No -Bioengineered Tissue Yes -Type of Bioengineered Tissue Epifix 18mm Disc -Expiration Date 01/19/28 -Product Lot Number [id number] -Percent Used 100 -Lot number of Saline Used [id number] -Bleeding Controlled with Pressure -Treatment Response Procedure Tolerated Well -Offloading No -Debridement - Subq, 1st 20sq cm No -Apply Skin Sub - 1st 25 sq cm - Legs 1 -Epifix (per sq cm) -Epifix 18mm Disc 3 Pain Scale: 0-10 Numeric Is Patient Pain Free? Yes - Nurse 3 - General Ulcer D/C NN Start: 05/27/23 10:48 Freq: Status: Active Protocol: Activity Type Activity Date Activity User E-sign Co-sign Detail Recorded Client Recorded Date Recorded By Document 05/27/23 11:15 MW Desktop 05/27/23 11:16 MW Document 06/10/23 11:20 BMF Desktop 06/10/23 11:20 BMF Document 06/17/23 11:32 MW Desktop 06/17/23 11:33 MW 05/27/23 06/10/23 06/17/23 11:15 11:20 11:32 Wound Care Center Nurse 3 #5 R Langley -Ulcer Cleansing Not Cleansed Not Cleansed -Foul Odor after Cleansing No No -Negative Pressure Wound Therapy N/A N/A -Primary Dressing Applied Aquacel Extra, Aquacel Extra, Mepilex Border Mepilex Border Optilok 8x12 -Other Dressing epifix -Aquacel Extra 1 1 -Mepilex Border 1 1 -Optilok 8x12 1 Treatment Response Procedure Procedure Procedure Tolerated Well Tolerated Well Tolerated Well Pain Scale: 0-10 Numeric Is Patient Pain Free? Yes Yes Yes Teaching: Wound Center Dressing Your Wound -Person Taught Patient,Family Patient,Family -Teaching Method Discussion, Discussion, Demonstration Demonstration -Response to teaching Verbalize Verbalize understanding understanding WC - Visit Discharge Discharge Condition Stable Stable Stable Ambulatory Status Wheelchair Wheelchair Walker Transportation Private Auto Private Auto Private Auto Accompanied by Medication Reconcilliation completed & No No provided to patient/care provider Clinical Summary of Care Provided Yes Yes Assessment/Plan Assessment/Plan (1) Diabetes type 2, uncontrolled: QUALIFIERS: Glycemic state: with hyperglycemia Qualified Code(s): E11.65 - Type 2 diabetes mellitus with hyperglycemia (2) Peripheral vascular disease in diabetes mellitus: CODE(S): E11.51 - Type 2 diabetes mellitus with diabetic peripheral angiopathy without gangrene (3) Non-pressure ulcer of right lower extremity: CODE(S): L97.919 - Non-pressure chronic ulcer of unspecified part of right lower leg with unspecified severity QUALIFIERS: Non-pressure ulcer stage: with fat layer exposed Qualified Code(s): L97.912 - Non-pressure chronic ulcer of unspecified part of right lower leg with fat layer exposed PLAN: EpiFix #4 applied to wound base covered with wound veil and Steri-Strips and then Aquacel extra for protection. was told not to remove any of the dressing unless it lifts and she may go down to the Steri-Strips. Patient is to wear single layer Tubigrip's to the right leg refuses to wear suggested may be a compression knee sock Also suggested AmLactin cream to lower leg for dry skin and scales of old skin. Follow-up in 1 weeks (4) PAD (peripheral artery disease): CODE(S): I73.9 - Peripheral vascular disease, unspecified
== END 2023-06-18 23:59 | disposition home or self-care (01) ==
LOC: WC 10:45
PROVIDERS: PCP Family Medicine; Referring Provider Hospitalist; Visit Provider Nurse Practitioner
DX: E11.622 Type 2 diabetes mellitus with other skin ulcer (principal); L97.812 Non-pressure chronic ulcer of other part of right lower leg with fat layer exposed; I50.9 Heart failure, unspecified; I48.91 Unspecified atrial fibrillation; E11.22 Type 2 diabetes mellitus with diabetic chronic kidney disease; E11.51 Type 2 diabetes mellitus with diabetic peripheral angiopathy without gangrene; E11.42 Type 2 diabetes mellitus with diabetic polyneuropathy; N18.30 Chronic kidney disease, stage 3 unspecified; Z87.891 Personal history of nicotine dependence; Z79.02 Long term (current) use of antithrombotics/antiplatelets; M10.9 Gout, unspecified; Z79.01 Long term (current) use of anticoagulants
CPT/HCPCS: 15271; Q4186

== ENCOUNTER 2023-07-15 11:00 | Outpatient (RCR) | payer MEDICARE, SELFPAY ==
[2023-06-19 00:29] VITALS: BP 102/38; PULSE 89; RESP 16; TEMP 36.5; BMI 33.4
[2023-06-25 11:16] VITALS: BP 137/47; PULSE 84; RESP 20; TEMP 36.7; BMI 33.4
--- NOTE | 2023-06-25 12:28 | HP.PCM_ITS ---
History of Present Illness Date of Service: 06/25/23 Chief Complaint: Ulceration of the right pretibial area History of Wound: This is an 83-year-old male who presented with an ulceration on the right pretibial surface. It occurred approximately 3 to 4 weeks ago. He is currently a patient of Meghana Vargas, and seen at this time in her absence. According to the patient and his , the ulceration started as a blister. It appears as though the patient has a longstanding history of swelling, edema, and dependent edema in his lower extremities. He leads a sedentary existence. He sits for long hours each day. He sleeps in a lift chair, with his legs in a dependent position. He is also obese, with a BMI of 33.5. Patient is known to have numerous pre-existing medical conditions, which include atrial fibrillation, diabetes mellitus, peripheral arterial occlusive disease, gout, congestive heart failure, and stage III chronic kidney disease. When seen 1 week ago, the first EpiFix allograft was applied, and AmLactin cream is being used to treat intact adjacent skin. Lower extremity compression has been recommended, but the patient has refused. In December 2021, a noninvasive lower extremity arterial study revealed moderate arterial occlusive disease bilaterally at ankle level. In February 2022, an angiogram was performed, and the patient was found not to be a candidate for traditional endovascular intervention. At that time, he was considered for referral to [facility] for deep vein arterialization. [facility] Medical History (Updated 06/25/23 @ 12:[address] Gilbert Ruggiero, DPYvonne) Atrial fibrillation Atrial fibrillation Chronic kidney disease, stage III (moderate) Congestive heart failure Dependent edema Diabetes type 2, uncontrolled Edema of right lower leg Gout Gout Kidney disease Leg ulcer, left Peripheral vascular disease in diabetes mellitus Swelling of right lower extremity Type 2 diabetes mellitus with diabetic polyneuropathy Ulcer of right foot Home Medications spironolactone 25 mg tablet 25 mg PO BID BLOOD PRESSURE 11/13/21 [History Last Taken 04/02/23] clopidogrel 75 mg tablet 75 mg PO DAILY BLOOD THINNER 11/19/21 [History Last Taken 04/02/23] warfarin 10 mg tablet 5 mg PO DAILY BLOOD THINNER 01/07/22 [History Last Taken 04/02/23] TRIPLE MAGNSIUM 1 cap PO DAILY SUPPLEMENT 04/02/23 [History Last Taken 04/02/23] allopurinol 100 mg tablet 200 mg PO DAILY GOUT 04/02/23 [History Last Taken 04/02/23] furosemide 40 mg tablet 40 mg PO BID FLUID 04/02/23 [History Last Taken 04/02/23] levothyroxine 75 mcg tablet 75 mcg PO DAILY THYROID 04/02/23 [History Last Taken 04/02/23] rosuvastatin 5 mg tablet 5 mg PO DAILY CHOLESTEROL 04/02/23 [History Last Taken 04/02/23] amoxicillin 875 mg-potassium clavulanate 125 mg tablet 1 tab PO BID 5 days #10 t abs 04/04/23 [Rx Last Taken Unknown] carvedilol 6.25 mg tablet 6.25 mg PO BID 30 days #60 tabs 04/04/23 [Rx Last Taken Unknown] Allergy/AdvReac Type Severity Reaction Status Date / Time No Known Allergies Allergy Verified 04/02/23 16:11 Social History household members: spouse Smoking Status: Former smoker ROS Constitutional Constitutional: Denies anorexia, change in weight, chills, fatigue or fever(s) Eyes Eyes: Denies blurry vision, change in vision or double vision ENT HEENT: Denies dysphagia, nasal congestion, nasal discharge or sore throat Cardiovascular Cardiovascular: Denies chest pain, claudication or palpitations Respiratory/Chest Respiratory/Chest: Denies cough, productive cough, shortness of breath at rest or wheezing Gastrointestinal Gastrointestinal: Denies abdominal pain, constipation, diarrhea, nausea or vomiting Genitourinary Genitourinary: Denies dysuria, hematuria, urinary frequency or urinary urgency Musculoskeletal Musculoskeletal: Denies joint pain, joint stiffness or joint swelling Integumentary Integumentary: Denies lesions, pruritus or rash Neurologic Neurologic: Denies dizziness, numbness or seizures Psychiatric Psychiatric: Denies anxiety Endocrine Endocrinology: Denies cold intolerance or heat intolerance Hematologic/Lymphatic Hematologic/Lymphatic: Denies easy bleeding or easy bruising Vital Signs Vital Signs Vital Signs: 06/25/23 11:16 Temperature 98.1 F Temperature Source Temporal Pulse Rate 84 Respiratory Rate 20 H Blood Pressure 137/47 H Blood Pressure Mean 77 Blood Pressure Source Monitor Weight Weight: 99.798 kg Body Mass Index (BMI) 33.4 Physical Exam Const alert, oriented x3 and no apparent distress General Appearance: cooperative HEENT normocephalic Eyes General Eye: normal appearance of both eyes Neck General: normal visual inspection Lymph Lymphatic: no lymphadenopathy noted and no lymphedema noted Resp normal respiratory effort Cardio regular rate and regular rhythm Extremity normal capillary refill, no joint enlargement, no calf tenderness and no pedal edema Extremity Narrative: DP and PT pulses weakly palpable. Adequate capillary fill time to digits. Dermatological: There is darkened discoloration secondary to hemosiderin deposition from chronic peripheral venous stasis to both lower extremities. There is some edema from the foot to the tibial tuberosity with open ulceration pretibial region of the proximal leg. Ulceration demonstrates mixed fibrogranular layer with no signs of infection. Skin is mildly xerotic with dried scaling and trophic changes consistent with microvascular disease. Musculoskeletal: Muscle strength 5 of 5 age-appropriate. There is decreased range of motion of the ankle joint noted in dorsiflexion with the knee extended without pain or crepitus bilateral. Decreased range of motion of the first metatarsophalangeal joint without pain or crepitus bilateral. Skin no rashes or lesions noted, skin turgor normal and no jaundice General Skin Exam: venous stasis and dermatitis Neuro moves all extremities Debridement Note Debridement Note Wound debrided: Anterior right lower extremity Laterality: Right Wound Grade/Stage: Schwarz stage I Type of Debridement: Excisional debridement Anesthesia Used: 5% Lidocaine Gel Depth: Down to and including healthy tissue and in the subcutaneous layer Percentage of wound debrided: 100 Instrument Used: 5mm curette Tissue Removed: Fibrous, devitalized subcutaneous, biofilm, slough Severity: Fat Layer Exposed Amount of bleeding with debridement: Mild Bleeding Controlled with: Compression and gauze Patient tolerated procedure: Patient tolerated procedure well Post-Debridement Measurements and Additional Note: Post-Debridement Measurements/Treatment - Nurse 1 - General Ulcer Assessment Start: 06/25/23 11:16 Freq: Status: Active Protocol: [email or web address] Activity Type Activity Date Activity User E-sign Co-sign Detail Recorded Client Recorded Date Recorded By Document 06/25/23 11:16 Desktop 06/25/23 11:26 DL 06/25/23 11:16 - Today's Visit Information Type of service Follow-up Visit (Physician/CHEMIST INSTRUMENTATION ) Arrival Mode Wheelchair Transfer Assistance Manual Transfer Assist (Other) x2 Patient Identification Verified (Name & Yes ) Patient Requires Transmission-Based No Precautions Height and Weight Body Mass Index (BMI) 33.4 BMI Classification Obese Vital Signs Temperature (97.8 F-99.1 F) 98.1 F Temperature Source Temporal Pulse Rate (60-100) 84 Pulse Location Monitor Respiratory Rate (12-18) 20 H Respiratory rate source Observation Blood Pressure (90/60-120/80) 137/47 H Blood Pressure Mean 77 Source Monitor History Since Last Visit- (Skip if this is Patient's initial visit) Have you changed medications since your No last visit? Any new allergies or adverse reactions No Had a fall/change in ADL's that may No increase risk of falls Signs or symptoms of abuse and/or No neglect since last visit Have you been in the hospital since your No last visit? Has dressing in place as prescribed Yes Has compression in place as prescribed N/A Has offloadiing in place as prescribed N/A Experienced any changes in pain level or No management Pain Scale: 0-10 Numeric Is Patient Pain Free? Yes WC - Nurse 1 - General Ulcer Measurement Start: 06/25/23 11:16 Freq: Status: Active Protocol: Activity Type Activity Date Activity User E-sign Co-sign Detail Recorded Client Recorded Date Recorded By Document 06/25/23 11:16 DL Desktop 06/25/23 11:26 DL 06/25/23 11:16 Wound Center Nurse 1 #5 R [place] -Current Size (cm) - Length 1.9 -Current Size (cm) - Width 1.8 -Current Size (cm) - Depth 0.1 -Total Square Cm 3.42 -Photo Taken Yes -Exudate Amt Medium -Exudate Type Serous -Wound Margin Distinct, Outline Attached -Granulation Amt Medium (34-66%) -Granulation Quality [place] -Necrosis Amt Medium (34-66%) -Necrotic Tissue Type Adherent Slough -Structure Exposed N/A -Texture (Maribel-wound Skin Appearance) Scarring -Moisture (Maribel-wound Skin Appearance) No Abnormality -Color (Maribel-wound Skin Appearance) Hemosiderin Staining -Temperature (Maribel-wound Skin No Abnormality Appearance) (Pt Warm) -Ulcer Cleansing Soap and Water -Foul Odor after Cleansing No -Anesthetic Used 5% Lidocaine Gel WC - Nurse 2 - General Ulcer CM Notes Start: 06/25/23 11:16 Freq: Status: Active Protocol: Activity Type Activity Date Activity User E-sign Co-sign Detail Recorded Client Recorded Date Recorded By Document 06/25/23 12:12 [facility] Desktop 06/25/23 12:16 [facility] 06/25/23 12:12 Wound Center Nurse 2 -Time 12:12 -Correct Patient Yes -Correct Side, Site, Position Yes -Correct Procedure Yes -Procedure Performed Yes -Type of Procedure Debridement -Clinical Debridement Subcutaneous -Tissue Removed Subcutaneous -Post Debridement (cm) - Length 1.6 -Post Debridement (cm) - Width 1.8 -Post Debridement (cm) - Depth 0.1 -Total Square (Post) (cm) 2.88 -Area of Debridement (cm) - Length 1.6 -Area of Debridement (cm) - Width 1.8 -Total Square (Area) (cm) 2.88 -Tunneling No -Undermining/Tunneling No -Circular Undermining No -Wound/Ulcer Outcome Not Healed -Ulcer Cleansing Rinsed/ Irrigated with Saline -Foul Odor after Cleansing No -Type of Bioengineered Tissue Epifix 18mm Disc -Expiration Date 01/19/28 -Product Lot Number [id number] -Percent Used 100 -Lot number of Saline Used [id number] -Bleeding Controlled with Pressure -Treatment Response Procedure Tolerated Well -Debridement - Subq, 1st 20sq cm Yes -Apply Skin Sub - 1st 25 sq cm - Legs 1 -Epifix 18mm Disc 3 Pain Scale: 0-10 Numeric Is Patient Pain Free? Yes Assessment/Plan Assessment/Plan (1) Non-pressure chronic ulcer of right calf with fat layer exposed: CODE(S): L97.212 - Non-pressure chronic ulcer of right calf with fat layer exposed (2) Type 2 diabetes mellitus with diabetic polyneuropathy: CODE(S): E11.42 - Type 2 diabetes mellitus with diabetic polyneuropathy (3) Congestive heart failure: CODE(S): I50.9 - Heart failure, unspecified (4) Venous insufficiency (chronic) (peripheral): CODE(S): I87.2 - Venous insufficiency (chronic) (peripheral) (5) PAD (peripheral artery disease): CODE(S): I73.9 - Peripheral vascular disease, unspecified (6) Edema of right lower leg: CODE(S): R60.0 - Localized edema (7) Dependent edema: CODE(S): R60.9 - Edema, unspecified PLAN: Plan Patient seen and evaluated Patient is seen on behalf of Meghana Vargas she was out of office this week. Ulceration underwent debridement as noted in the clinical panel above. Ulceration measures 1.6 cm x 1.8 cm x 0.1 cm. No signs of infection. Following debridement ulceration underwent application of EpiFix #5 to the wound bed. Site was then dressed with Adaptic touch, Steri-Strips, dry sterile dressing and single-layer Tubigrip. He was recommended to not get the dressings wet. Discussed continuing to elevate lower extremities at all times rest for edema control. Recommended continued use of the Tubigrip stockings for edema control. He may continue the AmLactin lotion to lower extremity daily. Recommended continued adequate protein intake for wound healing. Jacob supplementation also recommended. The following work up and care recommendations were made: Dressing: EpiFix, Adaptic touch, Steri-Strips, dry sterile dressing, Tubigrip compression Wash: Do not get wet Tissue growth optimization: EpiFix graft Offload: Tubigrip compression and elevation of lower extremities Vascular: Palpable DP and PT pulses with adequate capillary fill time. Edema: Tubigrip compression and elevation of lower extremities Infection: No signs of infection Pain: May take OTC extra strength Tylenol as needed for discomfort Host factors: Chronic peripheral lower extremity edema/venous insufficiency, diabetes mellitus type 2 with peripheral polyneuropathy, patient compliance with continued use of compression stockings. Patient will return to clinic next week and continue to follow with Meghana Vargas NP for continued wound healing. I answered all the patient's questions. To return to the wound healing center in 1 week or call sooner if the patient has any questions or concerns.
[2023-07-01 10:48] VITALS: BP 180/68; PULSE 100; RESP 20; TEMP 36.3; BMI 33.4
--- NOTE | 2023-07-01 12:43 | PCM.WC.PN ---
History of Present Illness Date of Service: 07/01/23 Chief Complaint: Ulceration of the right pretibial area History of Wound: This is an 83-year-old male who presented with an ulceration on the right pretibial surface. It occurred approximately 3 to 4 weeks ago. He is currently a patient of Meghana Vargas, and seen at this time in her absence. According to the patient and his , the ulceration started as a blister. It appears as though the patient has a longstanding history of swelling, edema, and dependent edema in his lower extremities. He leads a sedentary existence. He sits for long hours each day. He sleeps in a lift chair, with his legs in a dependent position. He is also obese, with a BMI of 33.5. Patient is known to have numerous pre-existing medical conditions, which include atrial fibrillation, diabetes mellitus, peripheral arterial occlusive disease, gout, congestive heart failure, and stage III chronic kidney disease. When seen 1 week ago, the first EpiFix allograft was applied, and AmLactin cream is being used to treat intact adjacent skin. Lower extremity compression has been recommended, but the patient has refused. In December 2021, a noninvasive lower extremity arterial study revealed moderate arterial occlusive disease bilaterally at ankle level. In February 2022, an angiogram was performed, and the patient was found not to be a candidate for traditional endovascular intervention. At that time, he was considered for referral to [facility] for deep vein arterialization. Progress of Wound: Right lower leg wound is much improved flatter smaller beefy showing islands of little bumps of new skin. Tolerating the EpiFix well seems to be healing it nicely. Subjective Subjective Family is anxious to be done with this but will continue coming getting his EpiFix. Objective Data Objective Data No sign of infection no swelling or edema no pain this time EpiFix #6 applied with Aquacel over top Vital Signs: Vital Signs Temp Pulse Resp BP 97.4 F L 100 20 H 180/68 H 07/01/23 10:48 07/01/23 10:48 07/01/23 10:48 07/01/23 10:48 Weight: 220 lb 0.271 oz Body Mass Index (BMI) 33.4 Physical Exam Const oriented x3 General Appearance: cooperative Exam Limitations: no limitations HEENT normocephalic Resp normal respiratory effort Effort and Inspection: able to speak in complete sentences Auscultation: clear to auscultation bilaterally Cardio regular rate and regular rhythm Palpation: normal PMI Rate: regular rate Rhythm: regular rhythm Extremity Extremity Narrative: Discoloration from knee to foot with swelling not pitting. Open wound with a dried hematoma on langley. Also has very dry scaly skin on lower extremity to foot General Extremity: edema Skin no rashes or lesions noted Neuro oriented x3 Psych Appearance: grossly normal Speech: normal speech Thought Content: normal thought content Judgement: judgement good Debridement Note Debridement Note Wound debrided: Anterior right lower extremity Laterality: Right Wound Grade/Stage: Schwarz stage I Type of Debridement: Excisional debridement Anesthesia Used: 5% Lidocaine Gel and Cetacaine Depth: Down to and including healthy tissue and in the subcutaneous layer Percentage of wound debrided: 100 Instrument Used: 5mm curette Tissue Removed: Fibrous, devitalized subcutaneous, biofilm, slough Severity: Fat Layer Exposed Amount of bleeding with debridement: Mild Bleeding Controlled with: Compression and gauze Patient tolerated procedure: Patient tolerated procedure well Post-Debridement Measurements and Additional Note: Post-Debridement Measurements/Treatment - Nurse 1 - General Ulcer Assessment Start: 06/25/23 11:16 Freq: Status: Active Protocol: [email or web address].GOLDEN Activity Type Activity Date Activity User E-sign Co-sign Detail Recorded Client Recorded Date Recorded By Document 06/25/23 11:16 DL Desktop 06/25/23 11:26 DL Document 07/01/23 10:48 DL Desktop 07/01/23 10:58 DL 06/25/23 07/01/23 11:16 10:48 - Today's Visit Information Type of service Follow-up Visit Follow-up Visit (Physician/READING ASSISTANT (Physician/READING ASSISTANT ) ) Arrival Mode Wheelchair Wheelchair Transfer Assistance Manual Manual Transfer Assist (Other) x2 x2 Patient Identification Verified (Name & Yes Yes ) Patient Requires Transmission-Based No No Precautions Finger Stick Blood Sugar(mg/dl) (if 190 indicated): Blood Sugar Stated by Patient Height and Weight Body Mass Index (BMI) 33.4 33.4 BMI Classification Obese Obese Vital Signs Temperature (97.8 F-99.1 F) 98.1 F 97.4 F L Temperature Source Temporal Temporal Pulse Rate (60-100) 84 100 Pulse Location Monitor Monitor Respiratory Rate (12-18) 20 H 20 H Respiratory rate source Observation Observation Blood Pressure (90/60-120/80) 137/47 H 180/68 H Blood Pressure Mean (mm Hg) 77 105 Source Monitor Monitor History Since Last Visit- (Skip if this is Patient's initial visit) Have you changed medications since your No No last visit? Any new allergies or adverse reactions No No Had a fall/change in ADL's that may No No increase risk of falls Signs or symptoms of abuse and/or No No neglect since last visit Have you been in the hospital since your No No last visit? Has dressing in place as prescribed Yes Yes Has compression in place as prescribed N/A N/A Has offloadiing in place as prescribed N/A Yes Experienced any changes in pain level or No No management Pain Scale: 0-10 Numeric Is Patient Pain Free? Yes Yes WC - Nurse 1 - General Ulcer Measurement Start: 06/25/23 11:16 Freq: Status: Active Protocol: Activity Type Activity Date Activity User E-sign Co-sign Detail Recorded Client Recorded Date Recorded By Document 06/25/23 11:16 DL [employer] 06/25/23 11:26 DL Document 07/01/23 10:48 DL Desktop 07/01/23 10:58 DL 06/25/23 07/01/23 11:16 10:48 Wound Center Nurse 1 #5 R [place] -Current Size (cm) - Length 1.9 1.4 -Current Size (cm) - Width 1.8 1.1 -Current Size (cm) - Depth 0.1 0.1 -Total Square Cm 3.42 1.54 -Photo Taken Yes No -Exudate Amt Medium Small -Exudate Type Serous Serosanguineous -Wound Margin Distinct, Distinct, Outline Outline Attached Attached -Granulation Amt Medium (34-66%) Large (67-100%) -Granulation Quality [place] Red -Necrosis Amt Medium (34-66%) None Present (0 %) -Necrotic Tissue Type Adherent Slough -Structure Exposed N/A N/A -Texture (Maribel-wound Skin Appearance) Scarring Scarring -Moisture (Maribel-wound Skin Appearance) No Abnormality Assessed -Color (Maribel-wound Skin Appearance) Hemosiderin Hemosiderin Staining Staining -Temperature (Maribel-wound Skin No Abnormality No Abnormality Appearance) (Pt Warm) (Pt Warm) -Tenderness on Palpation (Maribel-wound No Skin Appearance) -Ulcer Cleansing Soap and Water Soap and Water -Foul Odor after Cleansing No No -Anesthetic Used 5% Lidocaine 5% Lidocaine Gel Gel WC - Nurse 2 - General Ulcer CM Notes Start: 06/25/23 11:16 Freq: Status: Active Protocol: Activity Type Activity Date Activity User E-sign Co-sign Detail Recorded Client Recorded Date Recorded By Document 06/25/23 12:12 BMF Desktop 06/25/23 12:16 BMF Edit Result 06/25/23 12:12 BMF (1) [id number] 06/25/23 13:34 BMF Document 07/01/23 11:09 BMF Desktop 07/01/23 11:13 BMF (1) #5 R [place] - Debridement - Subq, 1st 20sq cm Yes => No 06/25/23 07/01/23 12:12 11:09 Wound Center Nurse 2 #5 R [place] -Time 12:12 11:09 -Correct Patient Yes Yes -Correct Side, Site, Position Yes Yes -Correct Procedure Yes Yes -Procedure Performed Yes Yes -Type of Procedure Debridement Debridement -Clinical Debridement Subcutaneous Subcutaneous -Tissue Removed Subcutaneous Subcutaneous -Post Debridement (cm) - Length 1.6 2 -Post Debridement (cm) - Width 1.8 1.5 -Post Debridement (cm) - Depth 0.1 0.1 -Total Square (Post) (cm) 2.88 3.0 -Area of Debridement (cm) - Length 1.6 2 -Area of Debridement (cm) - Width 1.8 1.5 -Total Square (Area) (cm) 2.88 3.0 -Tunneling No No -Undermining/Tunneling No No -Circular Undermining No No -Wound/Ulcer Outcome Not Healed Not Healed -Ulcer Cleansing Rinsed/ Rinsed/ Irrigated with Irrigated with Saline Saline -Foul Odor after Cleansing No No -Bioengineered Tissue No -Type of Bioengineered Tissue Epifix 18mm Epifix 18mm Disc Disc -Expiration Date 01/19/28 02/19/28 -Product Lot Number [id number] -Percent Used 100 100 -Lot number of Saline Used [id number] -Bleeding Controlled with Pressure Pressure -Treatment Response Procedure Procedure Tolerated Well Tolerated Well -Offloading No -Debridement - Subq, 1st 20sq cm No No -Apply Skin Sub - 1st 25 sq cm - Legs 1 1 -Epifix 18mm Disc 3 3 Pain Scale: 0-10 Numeric Is Patient Pain Free? Yes Yes Assessment/Plan Assessment/Plan (1) Diabetes type 2, uncontrolled: QUALIFIERS: Glycemic state: with hyperglycemia Qualified Code(s): E11.65 - Type 2 diabetes mellitus with hyperglycemia (2) Peripheral vascular disease in diabetes mellitus: CODE(S): E11.51 - Type 2 diabetes mellitus with diabetic peripheral angiopathy without gangrene (3) Non-pressure ulcer of right lower extremity: CODE(S): L97.919 - Non-pressure chronic ulcer of unspecified part of right lower leg with unspecified severity QUALIFIERS: Non-pressure ulcer stage: with fat layer exposed Qualified Code(s): L97.912 - Non-pressure chronic ulcer of unspecified part of right lower leg with fat layer exposed PLAN: EpiFix #6 applied to wound base covered with wound veil and Steri-Strips and then Aquacel extra for protection. was told not to remove any of the dressing unless it lifts and she may go down to the Steri-Strips. Patient is to wear single layer Tubigrip's to the right leg refuses to wear suggested may be a compression knee sock Also suggested AmLactin cream to lower leg for dry skin and scales of old skin. Follow-up in 1 weeks (4) PAD (peripheral artery disease): CODE(S): I73.9 - Peripheral vascular disease, unspecified
[2023-07-08 10:49] VITALS: BP 143/75; PULSE 116; RESP 18; TEMP 36.6; BMI 33.4
--- NOTE | 2023-07-08 11:48 | PCM.WC.PN ---
History of Present Illness Date of Service: 07/08/23 Chief Complaint: Ulceration of the right pretibial area History of Wound: This is an 83-year-old male who presented with an ulceration on the right pretibial surface. It occurred approximately 3 to 4 weeks ago. He is currently a patient of Meghana Vargas, and seen at this time in her absence. According to the patient and his , the ulceration started as a blister. It appears as though the patient has a longstanding history of swelling, edema, and dependent edema in his lower extremities. He leads a sedentary existence. He sits for long hours each day. He sleeps in a lift chair, with his legs in a dependent position. He is also obese, with a BMI of 33.5. Patient is known to have numerous pre-existing medical conditions, which include atrial fibrillation, diabetes mellitus, peripheral arterial occlusive disease, gout, congestive heart failure, and stage III chronic kidney disease. When seen 1 week ago, the first EpiFix allograft was applied, and AmLactin cream is being used to treat intact adjacent skin. Lower extremity compression has been recommended, but the patient has refused. In December 2021, a noninvasive lower extremity arterial study revealed moderate arterial occlusive disease bilaterally at ankle level. In February 2022, an angiogram was performed, and the patient was found not to be a candidate for traditional endovascular intervention. At that time, he was considered for referral to [facility] for deep vein arterialization. Progress of Wound: Right lower leg wound is much improved flatter smaller beefy showing islands of little bumps of new skin. Tolerating the EpiFix well seems to be healing it nicely. Subjective Subjective Agreeable to plan happy it is healing well Objective Data Objective Data Continue with the EpiFix #7 to wound base no sign of infections noted no redness no pain Vital Signs: Vital Signs Temp Pulse Resp BP O2 Del Method 97.9 F 116 H 18 143/75 H Room Air 07/08/23 10:49 07/08/23 10:49 07/08/23 10:49 07/08/23 10:49 07/08/23 10:49 Oxygen Delivery Method Room Air Weight: 220 lb 0.271 oz Body Mass Index (BMI) 33.4 Lab / Micro Data Attestation: I reviewed the patient's lab results. Physical Exam Const oriented x3 General Appearance: cooperative Exam Limitations: no limitations HEENT normocephalic Resp normal respiratory effort Effort and Inspection: able to speak in complete sentences Auscultation: clear to auscultation bilaterally Cardio regular rate and regular rhythm Palpation: normal PMI Rate: regular rate Rhythm: regular rhythm Extremity Extremity Narrative: Discoloration from knee to foot with swelling not pitting. Open wound with a dried hematoma on langley. Also has very dry scaly skin on lower extremity to foot General Extremity: edema Skin no rashes or lesions noted Neuro oriented x3 Psych Appearance: grossly normal Speech: normal speech Thought Content: normal thought content Judgement: judgement good Debridement Note Debridement Note Wound debrided: Anterior right lower extremity Laterality: Right Type of Debridement: Excisional debridement Anesthesia Used: 5% Lidocaine Gel and Cetacaine Depth: Down to and including healthy tissue and in the subcutaneous layer Percentage of wound debrided: 100 Instrument Used: 5mm curette Tissue Removed: Fibrous, devitalized subcutaneous, biofilm, slough Severity: Fat Layer Exposed Amount of bleeding with debridement: Mild Bleeding Controlled with: Compression and gauze Patient tolerated procedure: Patient tolerated procedure well Post-Debridement Measurements and Additional Note: Post-Debridement Measurements/Treatment - Nurse 1 - General Ulcer Assessment Start: 06/25/23 11:16 Freq: Status: Active Protocol: SUNSHINE Activity Type Activity Date Activity User E-sign Co-sign Detail Recorded Client Recorded Date Recorded By Document 06/25/23 11:16 DL Desktop 06/25/23 11:26 DL Document 07/01/23 10:48 DL Desktop 07/01/23 10:58 DL Document 07/08/23 10:49 DL Desktop 07/08/23 10:54 DL 06/25/23 07/01/23 07/08/23 11:16 10:48 10:49 - Today's Visit Information Type of service Follow-up Visit Follow-up Visit Follow-up Visit (Physician/ORTHODONTIC TREATMENT COORDINATOR (Physician/ORTHODONTIC TREATMENT COORDINATOR (Physician/ORTHODONTIC TREATMENT COORDINATOR ) ) ) Arrival Mode Wheelchair Wheelchair Wheelchair Transfer Assistance Manual Manual Other Transfer Assist (Other) x2 x2 2 Accompanied by Patient Identification Verified (Name & Yes Yes Yes ) Patient Requires Transmission-Based No No No Precautions Finger Stick Blood Sugar(mg/dl) (if 190 indicated): Blood Sugar Stated by Patient Height and Weight Body Mass Index (BMI) 33.4 33.4 33.4 BMI Classification Obese Obese Obese Vital Signs Temperature (97.8 F-99.1 F) 98.1 F 97.4 F L 97.9 F Temperature Source Temporal Temporal Temporal Pulse Rate (60-100) 84 100 116 H Pulse Location Monitor Monitor Monitor Respiratory Rate (12-18) 20 H 20 H 18 Respiratory rate source Observation Observation Observation Oxygen Delivery Method Room Air Blood Pressure (90/60-120/80) 137/47 H 180/68 H 143/75 H Blood Pressure Mean (mm Hg) 77 105 97 Source Monitor Monitor Monitor Position Sitting Blood Pressure Location Right Forearm History Since Last Visit- (Skip if this is Patient's initial visit) Have you changed medications since your No No No last visit? Any new allergies or adverse reactions No No No Had a fall/change in ADL's that may No No No increase risk of falls Signs or symptoms of abuse and/or No No No neglect since last visit Have you been in the hospital since your No No No last visit? Has dressing in place as prescribed Yes Yes Yes Has compression in place as prescribed N/A N/A N/A Has offloadiing in place as prescribed N/A Yes N/A Experienced any changes in pain level or No No No management Left Footwear Diabetic Shoe Right Footwear Diabetic Shoe Pain Scale: 0-10 Numeric Is Patient Pain Free? Yes Yes Yes WC - Nurse 1 - General Ulcer Measurement Start: 06/25/23 11:16 Freq: Status: Active Protocol: Activity Type Activity Date Activity User E-sign Co-sign Detail Recorded Client Recorded Date Recorded By Document 06/25/23 11:16 DL Desktop 06/25/23 11:26 DL Document 07/01/23 10:48 DL Desktop 07/01/23 10:58 DL Document 07/08/23 10:49 DL Desktop 07/08/23 10:54 DL 06/25/23 07/01/23 07/08/23 11:16 10:48 10:49 Wound Center Nurse 1 #5 R Langley -Combined with other wound No -Current Size (cm) - Length 1.9 1.4 1.7 -Current Size (cm) - Width 1.8 1.1 1.4 -Current Size (cm) - Depth 0.1 0.1 0.1 -Total Square Cm 3.42 1.54 2.38 -Photo Taken Yes No -Epithelialization Small 1-33% -Tunneling No -Undermining/Tunneling No -Circular Undermining No -Exudate Amt Medium Small Medium -Exudate Type Serous Serosanguineous Serosanguineous -Wound Margin Distinct, Distinct, Distinct, Outline Outline Outline Attached Attached Attached -Granulation Amt Medium (34-66%) Large (67-100%) Large (67-100%) -Granulation Quality [place] Red Pale,[place] -Slough/Fibrin Yes -Necrosis Amt Medium (34-66%) None Present (0 Small (1-33%) %) -Necrotic Tissue Type Adherent Slough Adherent Slough -Structure Exposed N/A N/A -Texture (Maribel-wound Skin Appearance) Scarring Scarring Assessed, Scarring -Moisture (Maribel-wound Skin Appearance) No Abnormality Assessed Assessed,Dry/ Scaly -Color (Maribel-wound Skin Appearance) Hemosiderin Hemosiderin Assessed Staining Staining -Temperature ([place]-wound Skin No Abnormality No Abnormality No Abnormality Appearance) (Pt Warm) (Pt Warm) (Pt Warm) -Tenderness on Palpation (Maribel-wound No No Skin Appearance) -Ulcer Cleansing Soap and Water Soap and Water Soap and Water -Foul Odor after Cleansing No No No -Anesthetic Used 5% Lidocaine 5% Lidocaine 5% Lidocaine Gel Gel Gel Lower Limb Edema Present Yes Right Calf (cm) 39.2 Right Ankle (cm) 25.2 WC - Nurse 2 - General Ulcer CM Notes Start: 06/25/23 11:16 Freq: Status: Active Protocol: Activity Type Activity Date Activity User E-sign Co-sign Detail Recorded Client Recorded Date Recorded By Document 06/25/23 12:12 BMF Desktop 06/25/23 12:16 BMF Edit Result 06/25/23 12:12 BMF (1) [id number] 06/25/23 13:34 BMF Document 07/01/23 11:09 BMF Desktop 07/01/23 11:13 BMF Document 07/08/23 11:03 MW Desktop 07/08/23 11:08 MW (1) #5 R Langley - Debridement - Subq, 1st 20sq cm Yes => No 06/25/23 07/01/23 07/08/23 12:12 11:09 11:03 Wound Center Nurse 2 #5 R Langley -Time 12:12 11:09 11:05 -Correct Patient Yes Yes Yes -Correct Side, Site, Position Yes Yes Yes -Correct Procedure Yes Yes Yes -Procedure Performed Yes Yes Yes -Type of Procedure Debridement Debridement Debridement -Clinical Debridement Subcutaneous Subcutaneous Subcutaneous -Tissue Removed Subcutaneous Subcutaneous Subcutaneous -Post Debridement (cm) - Length 1.6 2 1.5 -Post Debridement (cm) - Width 1.8 1.5 1.5 -Post Debridement (cm) - Depth 0.1 0.1 0.1 -Total Square (Post) (cm) 2.88 3.0 2.25 -Area of Debridement (cm) - Length 1.6 2 1.5 -Area of Debridement (cm) - Width 1.8 1.5 1.5 -Total Square (Area) (cm) 2.88 3.0 2.25 -Tunneling No No No -Undermining/Tunneling No No No -Circular Undermining No No No -Wound/Ulcer Outcome Not Healed Not Healed Not Healed -Ulcer Cleansing Rinsed/ Rinsed/ Rinsed/ Irrigated with Irrigated with Irrigated with Saline Saline Saline -Foul Odor after Cleansing No No No -Bioengineered Tissue No Yes -Type of Bioengineered Tissue Epifix 18mm Epifix 18mm Epifix 18mm Disc Disc Disc -Expiration Date 01/19/28 02/19/28 02/19/28 -Product Lot Number [id number] -Percent Used 100 100 100 -Lot number of Saline Used [id number] -Bleeding Controlled with Pressure Pressure Pressure -Treatment Response Procedure Procedure Procedure Tolerated Well Tolerated Well Tolerated Well -Offloading No No -Debridement - Subq, 1st 20sq cm No No No -Apply Skin Sub - 1st 25 sq cm - Legs 1 1 1 -Epifix 18mm Disc 3 3 3 Pain Scale: 0-10 Numeric Is Patient Pain Free? Yes Yes Yes WC - Nurse 3 - General Ulcer D/C NN Start: 06/25/23 11:16 Freq: Status: Active Protocol: Activity Type Activity Date Activity User E-sign Co-sign Detail Recorded Client Recorded Date Recorded By Document 07/08/23 11:14 MW Desktop 07/08/23 11:14 MW 07/08/23 11:14 Wound Care Center Nurse 3 #5 R Langley -Ulcer Cleansing Not Cleansed -Foul Odor after Cleansing No -Negative Pressure Wound Therapy N/A -Primary Dressing Applied Aquacel Extra -Aquacel Extra 1 Treatment Response Procedure Tolerated Well Pain Scale: 0-10 Numeric Is Patient Pain Free? Yes Teaching: Wound Center Dressing Your Wound -Person Taught Patient,Family -Teaching Method Discussion, Demonstration -Response to teaching Verbalize understanding WC - Visit Discharge Discharge Condition Stable Ambulatory Status Wheelchair Transportation Private Auto Accompanied by Medication Reconcilliation completed & No provided to patient/care provider Clinical Summary of Care Provided Yes Assessment/Plan Assessment/Plan (1) Diabetes type 2, uncontrolled: QUALIFIERS: Glycemic state: with hyperglycemia Qualified Code(s): E11.65 - Type 2 diabetes mellitus with hyperglycemia (2) Peripheral vascular disease in diabetes mellitus: CODE(S): E11.51 - Type 2 diabetes mellitus with diabetic peripheral angiopathy without gangrene (3) Non-pressure ulcer of right lower extremity: CODE(S): L97.919 - Non-pressure chronic ulcer of unspecified part of right lower leg with unspecified severity QUALIFIERS: Non-pressure ulcer stage: with fat layer exposed Qualified Code(s): L97.912 - Non-pressure chronic ulcer of unspecified part of right lower leg with fat layer exposed PLAN: EpiFix #7 applied to wound base covered with wound veil and Steri-Strips and then Aquacel extra for protection. was told not to remove any of the dressing unless it lifts and she may go down to the Steri-Strips. Patient is to wear single layer Tubigrip's to the right leg refuses to wear suggested may be a compression knee sock Also suggested AmLactin cream to lower leg for dry skin and scales of old skin. Follow-up in 1 weeks (4) PAD (peripheral artery disease): CODE(S): I73.9 - Peripheral vascular disease, unspecified
[2023-07-15 10:53] VITALS: BP 143/57; PULSE 104; RESP 18; TEMP 36.3; BMI 33.4
--- NOTE | 2023-07-15 11:53 | PN.PCM_ITS ---
History of Present Illness Date of Service: 07/15/23 Chief Complaint: Ulceration of the right pretibial area History of Wound: This is an 83-year-old male who presented with an ulceration on the right pretibial surface. It occurred approximately 3 to 4 weeks ago. He is currently a patient of Meghana Vargas, and seen at this time in her absence. According to the patient and his , the ulceration started as a blister. It appears as though the patient has a longstanding history of swelling, edema, and dependent edema in his lower extremities. He leads a sedentary existence. He sits for long hours each day. He sleeps in a lift chair, with his legs in a dependent position. He is also obese, with a BMI of 33.5. Patient is known to have numerous pre-existing medical conditions, which include atrial fibrillation, diabetes mellitus, peripheral arterial occlusive disease, gout, congestive heart failure, and stage III chronic kidney disease. When seen 1 week ago, the first EpiFix allograft was applied, and AmLactin cream is being used to treat intact adjacent skin. Lower extremity compression has been recommended, but the patient has refused. In December 2021, a noninvasive lower extremity arterial study revealed moderate arterial occlusive disease bilaterally at ankle level. In February 2022, an angiogram was performed, and the patient was found not to be a candidate for traditional endovascular intervention. At that time, he was considered for referral to [facility] for deep vein arterialization. Progress of Wound: Right lower leg wound is much improved flatter smaller beefy showing islands of little bumps of new skin. Tolerating the EpiFix well seems to be healing it nicely. Subjective Subjective Still agreeable to the EpiFix Objective Data Objective Data Slow-moving but smaller using the EpiFix no sign of infection noted Vital Signs: Vital Signs Temp Pulse Resp BP O2 Del Method 97.3 F L 104 H 18 143/57 H Room Air 07/15/23 10:53 07/15/23 10:53 07/15/23 10:53 07/15/23 10:53 07/15/23 10:53 Oxygen Delivery Method Room Air Weight: 220 lb 0.271 oz Body Mass Index (BMI) 33.4 Physical Exam Const oriented x3 General Appearance: cooperative Exam Limitations: no limitations HEENT normocephalic Resp normal respiratory effort Effort and Inspection: able to speak in complete sentences Auscultation: clear to auscultation bilaterally Cardio regular rate and regular rhythm Palpation: normal PMI Rate: regular rate Rhythm: regular rhythm Extremity Extremity Narrative: Discoloration from knee to foot with swelling not pitting. Open wound with a dried hematoma on langley. Also has very dry scaly skin on lower extremity to foot General Extremity: edema Skin no rashes or lesions noted Neuro oriented x3 Psych Appearance: grossly normal Speech: normal speech Thought Content: normal thought content Judgement: judgement good Debridement Note Debridement Note Wound debrided: Anterior right lower extremity Laterality: Right Type of Debridement: Excisional debridement Anesthesia Used: 5% Lidocaine Gel and Cetacaine Depth: Down to and including healthy tissue and in the subcutaneous layer Percentage of wound debrided: 100 Instrument Used: 5mm curette Tissue Removed: Fibrous, devitalized subcutaneous, biofilm, slough Severity: Fat Layer Exposed Amount of bleeding with debridement: Mild Bleeding Controlled with: Compression and gauze Patient tolerated procedure: Patient tolerated procedure well Post-Debridement Measurements and Additional Note: Post-Debridement Measurements/Treatment - Nurse 1 - General Ulcer Assessment Start: 06/25/23 11:16 Freq: Status: Active Protocol: [email or web address] Activity Type Activity Date Activity User E-sign Co-sign Detail Recorded Client Recorded Date Recorded By Document 06/25/23 11:16 DL Desktop 06/25/23 11:26 DL Document 07/01/23 10:48 DL Desktop 07/01/23 10:58 DL Document 07/08/23 10:49 DL Desktop 07/08/23 10:54 DL Document 07/15/23 10:53 [facility] Desktop 07/15/23 10:58 [facility] 06/25/23 07/01/23 07/08/23 11:16 10:48 10:49 - Today's Visit Information Type of service Follow-up Visit Follow-up Visit Follow-up Visit (Physician/BOX COVERING MACHINE OPERATOR (Physician/BOX COVERING MACHINE OPERATOR (Physician/BOX COVERING MACHINE OPERATOR ) ) ) Arrival Mode Wheelchair Wheelchair Wheelchair Transfer Assistance Manual Manual Other Transfer Assist (Other) x2 x2 2 Accompanied by Patient Identification Verified (Name & Yes Yes Yes ) Patient Requires Transmission-Based No No No Precautions Finger Stick Blood Sugar(mg/dl) (if 190 indicated): Blood Sugar Stated by Patient Height and Weight Body Mass Index (BMI) 33.4 33.4 33.4 BMI Classification Obese Obese Obese Vital Signs Temperature (97.8 F-99.1 F) 98.1 F 97.4 F L 97.9 F Temperature Source Temporal Temporal Temporal Pulse Rate (60-100) 84 100 116 H Pulse Location Monitor Monitor Monitor Respiratory Rate (12-18) 20 H 20 H 18 Respiratory rate source Observation Observation Observation Oxygen Delivery Method Room Air Blood Pressure (90/60-120/80) 137/47 H 180/68 H 143/75 H Blood Pressure Mean (mm Hg) 77 105 97 Source Monitor Monitor Monitor Position Sitting Blood Pressure Location Right Forearm History Since Last Visit- (Skip if this is Patient's initial visit) Have you changed medications since your No No No last visit? Any new allergies or adverse reactions No No No Had a fall/change in ADL's that may No No No increase risk of falls Signs or symptoms of abuse and/or No No No neglect since last visit Have you been in the hospital since your No No No last visit? Has dressing in place as prescribed Yes Yes Yes Has compression in place as prescribed N/A N/A N/A Has offloadiing in place as prescribed N/A Yes N/A Experienced any changes in pain level or No No No management Left Footwear Diabetic Shoe Right Footwear Diabetic Shoe Pain Scale: 0-10 Numeric Is Patient Pain Free? Yes Yes Yes 07/15/23 10:53 WC - Today's Visit Information Type of service Follow-up Visit (Physician/BOX COVERING MACHINE OPERATOR ) Arrival Mode Wheelchair Transfer Assistance Other Transfer Assist (Other) 2 Accompanied by Patient Identification Verified (Name & Yes ) Patient Requires Transmission-Based No Precautions Finger Stick Blood Sugar(mg/dl) (if indicated): Blood Sugar Height and Weight Body Mass Index (BMI) 33.4 BMI Classification Obese Vital Signs Temperature (97.8 F-99.1 F) 97.3 F L Temperature Source Temporal Pulse Rate (60-100) 104 H Pulse Location Monitor Respiratory Rate (12-18) 18 Respiratory rate source Observation Oxygen Delivery Method Room Air Blood Pressure (90/60-120/80) 143/57 H Blood Pressure Mean (mm Hg) 85 Source Monitor Position Sitting Blood Pressure Location Right Forearm History Since Last Visit- (Skip if this is Patient's initial visit) Have you changed medications since your No last visit? Any new allergies or adverse reactions No Had a fall/change in ADL's that may No increase risk of falls Signs or symptoms of abuse and/or No neglect since last visit Have you been in the hospital since your No last visit? Has dressing in place as prescribed Yes Has compression in place as prescribed No Has offloadiing in place as prescribed N/A Experienced any changes in pain level or No management Left Footwear Diabetic Shoe Right Footwear Diabetic Shoe Pain Scale: 0-10 Numeric Is Patient Pain Free? Yes WC - Nurse 1 - General Ulcer Measurement Start: 06/25/23 11:16 Freq: Status: Active Protocol: Activity Type Activity Date Activity User E-sign Co-sign Detail Recorded Client Recorded Date Recorded By Document 06/25/23 11:16 DL Desktop 06/25/23 11:26 DL Document 07/01/23 10:48 DL Desktop 07/01/23 10:58 DL Document 07/08/23 10:49 DL Desktop 07/08/23 10:54 DL Document 07/15/23 10:53 BMF Desktop 07/15/23 10:58 BMF 06/25/23 07/01/23 07/08/23 11:16 10:48 10:49 Wound Center Nurse 1 #5 R Langley -Combined with other wound No -Current Size (cm) - Length 1.9 1.4 1.7 -Current Size (cm) - Width 1.8 1.1 1.4 -Current Size (cm) - Depth 0.1 0.1 0.1 -Total Square Cm 3.42 1.54 2.38 -Date of Last Picture (Recall this field) -Photo Taken Yes No -Epithelialization Small 1-33% -Tunneling No -Undermining/Tunneling No -Circular Undermining No -Exudate Amt Medium Small Medium -Exudate Type Serous Serosanguineous Serosanguineous -Wound Margin Distinct, Distinct, Distinct, Outline Outline Outline Attached Attached Attached -Granulation Amt Medium (34-66%) Large (67-100%) Large (67-100%) -Granulation Quality [place] Red Pale,[place] -Slough/Fibrin Yes -Necrosis Amt Medium (34-66%) None Present (0 Small (1-33%) %) -Necrotic Tissue Type Adherent Slough Adherent Slough -Structure Exposed N/A N/A -Texture (Maribel-wound Skin Appearance) Scarring Scarring Assessed, Scarring -Moisture (Maribel-wound Skin Appearance) No Abnormality Assessed Assessed,Dry/ Scaly -Color (Marbiel-wound Skin Appearance) Hemosiderin Hemosiderin Assessed Staining Staining -Temperature (Maribel-wound Skin No Abnormality No Abnormality No Abnormality Appearance) (Pt Warm) (Pt Warm) (Pt Warm) -Tenderness on Palpation (Maribel-wound No No Skin Appearance) -Ulcer Cleansing Soap and Water Soap and Water Soap and Water -Foul Odor after Cleansing No No No -Anesthetic Used 5% Lidocaine 5% Lidocaine 5% Lidocaine Gel Gel Gel Lower Limb Edema Present Yes Right Calf (cm) 39.2 Right Ankle (cm) 25.2 07/15/23 10:53 Wound Center Nurse 1 #5 R Langley -Combined with other wound No -Current Size (cm) - Length 1.3 -Current Size (cm) - Width 0.8 -Current Size (cm) - Depth 0.1 -Total Square Cm 1.04 -Date of Last Picture (Recall this 07/15/23 field) -Photo Taken Yes -Epithelialization Small 1-33% -Tunneling No -Undermining/Tunneling No -Circular Undermining No -Exudate Amt Medium -Exudate Type Serosanguineous -Wound Margin Distinct, Outline Attached -Granulation Amt Large (67-100%) -Granulation Quality [place] -Slough/Fibrin Yes -Necrosis Amt Small (1-33%) -Necrotic Tissue Type Adherent Slough -Structure Exposed -Texture (Maribel-wound Skin Appearance) Assessed, Scarring -Moisture (Maribel-wound Skin Appearance) Assessed,Dry/ Scaly -Color (Maribel-wound Skin Appearance) Assessed -Temperature (Maribel-wound Skin No Abnormality Appearance) (Pt Warm) -Tenderness on Palpation (Maribel-wound No Skin Appearance) -Ulcer Cleansing Soap and Water -Foul Odor after Cleansing No -Anesthetic Used 5% Lidocaine Gel Lower Limb Edema Present Yes Right Calf (cm) 40 Right Ankle (cm) 26 WC - Nurse 2 - General Ulcer CM Notes Start: 06/25/23 11:16 Freq: Status: Active Protocol: Activity Type Activity Date Activity User E-sign Co-sign Detail Recorded Client Recorded Date Recorded By Document 06/25/23 12:12 BMF Desktop 06/25/23 12:16 BMF Edit Result 06/25/23 12:12 BMF (1) [id number] 06/25/23 13:34 BMF Document 07/01/23 11:09 BMF Desktop 07/01/23 11:13 BMF Document 07/08/23 11:03 MW Desktop 07/08/23 11:08 MW Document 07/15/23 11:03 BMF Desktop 07/15/23 11:08 BMF (1) #5 R Langley - Debridement - Subq, 1st 20sq cm Yes => No 06/25/23 07/01/23 07/08/23 12:12 11:09 11:03 Wound Center Nurse 2 #5 R Langley -Time 12:12 11:09 11:05 -Correct Patient Yes Yes Yes -Correct Side, Site, Position Yes Yes Yes -Correct Procedure Yes Yes Yes -Procedure Performed Yes Yes Yes -Type of Procedure Debridement Debridement Debridement -Clinical Debridement Subcutaneous Subcutaneous Subcutaneous -Tissue Removed Subcutaneous Subcutaneous Subcutaneous -Post Debridement (cm) - Length 1.6 2 1.5 -Post Debridement (cm) - Width 1.8 1.5 1.5 -Post Debridement (cm) - Depth 0.1 0.1 0.1 -Total Square (Post) (cm) 2.88 3.0 2.25 -Area of Debridement (cm) - Length 1.6 2 1.5 -Area of Debridement (cm) - Width 1.8 1.5 1.5 -Total Square (Area) (cm) 2.88 3.0 2.25 -Tunneling No No No -Undermining/Tunneling No No No -Circular Undermining No No No -Wound/Ulcer Outcome Not Healed Not Healed Not Healed -Ulcer Cleansing Rinsed/ Rinsed/ Rinsed/ Irrigated with Irrigated with Irrigated with Saline Saline Saline -Foul Odor after Cleansing No No No -Bioengineered Tissue No Yes -Type of Bioengineered Tissue Epifix 18mm Epifix 18mm Epifix 18mm Disc Disc Disc -Expiration Date 01/19/28 02/19/28 02/19/28 -Product Lot Number [id number] -Percent Used 100 100 100 -Lot number of Saline Used [id number] -Bleeding Controlled with Pressure Pressure Pressure -Treatment Response Procedure Procedure Procedure Tolerated Well Tolerated Well Tolerated Well -Offloading No No -Debridement - Subq, 1st 20sq cm No No No -Apply Skin Sub - 1st 25 sq cm - Legs 1 1 1 -Epifix (per sq cm) -Epifix 18mm Disc 3 3 3 Pain Scale: 0-10 Numeric Is Patient Pain Free? Yes Yes Yes 07/15/23 11:03 Wound Center Nurse 2 #5 R Langley -Time 11:03 -Correct Patient Yes -Correct Side, Site, Position Yes -Correct Procedure Yes -Procedure Performed Yes -Type of Procedure Debridement -Clinical Debridement Subcutaneous -Tissue Removed Subcutaneous -Post Debridement (cm) - Length 1.5 -Post Debridement (cm) - Width 1.3 -Post Debridement (cm) - Depth 0.1 -Total Square (Post) (cm) 1.95 -Area of Debridement (cm) - Length 1.5 -Area of Debridement (cm) - Width 1.3 -Total Square (Area) (cm) 1.95 -Tunneling No -Undermining/Tunneling No -Circular Undermining No -Wound/Ulcer Outcome Not Healed -Ulcer Cleansing Rinsed/ Irrigated with Saline -Foul Odor after Cleansing No -Bioengineered Tissue Yes -Type of Bioengineered Tissue Epifix -Expiration Date 02/19/28 -Product Lot Number [id number] -Percent Used 100 -Lot number of Saline Used [id number] -Bleeding Controlled with Pressure -Treatment Response Procedure Tolerated Well -Offloading -Debridement - Subq, 1st 20sq cm No -Apply Skin Sub - 1st 25 sq cm - Legs 1 -Epifix (per sq cm) 4 -Epifix 18mm Disc Pain Scale: 0-10 Numeric Is Patient Pain Free? Yes - Nurse 3 - General Ulcer D/C NN Start: 06/25/23 11:16 Freq: Status: Active Protocol: Activity Type Activity Date Activity User E-sign Co-sign Detail Recorded Client Recorded Date Recorded By Document 07/08/23 11:14 MW Desktop 07/08/23 11:14 MW Document 07/15/23 11:10 BMF Desktop 07/15/23 11:11 BMF 07/08/23 07/15/23 11:14 11:10 Wound Care Center Nurse 3 #5 R [place] -Ulcer Cleansing Not Cleansed -Foul Odor after Cleansing No -Negative Pressure Wound Therapy N/A -Primary Dressing Applied Aquacel Extra Aquacel Extra, Mepilex Border -Other Dressing EPIFIX #8 -Other Covering DRSG PER MW RN -Aquacel Extra 1 1 -Mepilex Border 1 Right -Other REFUSES Treatment Response Procedure Procedure Tolerated Well Tolerated Well Pain Scale: 0-10 Numeric Is Patient Pain Free? Yes Yes Teaching: Wound Center Dressing Your Wound -Person Taught Patient,Family -Teaching Method Discussion, Demonstration -Response to teaching Verbalize understanding WC - Visit Discharge Discharge Condition Stable Stable Ambulatory Status Wheelchair Wheelchair Transportation Private Auto Private Auto Accompanied by Medication Reconcilliation completed & No provided to patient/care provider Clinical Summary of Care Provided Yes Assessment/Plan Assessment/Plan (1) Diabetes type 2, uncontrolled: QUALIFIERS: Glycemic state: with hyperglycemia Qualified Code(s): E11.65 - Type 2 diabetes mellitus with hyperglycemia (2) Peripheral vascular disease in diabetes mellitus: CODE(S): E11.51 - Type 2 diabetes mellitus with diabetic peripheral angiopathy without gangrene (3) Non-pressure ulcer of right lower extremity: CODE(S): L97.919 - Non-pressure chronic ulcer of unspecified part of right lower leg with unspecified severity QUALIFIERS: Non-pressure ulcer stage: with fat layer exposed Qualified Code(s): L97.912 - Non-pressure chronic ulcer of unspecified part of right lower leg with fat layer exposed PLAN: EpiFix #8applied to wound base covered with wound veil and Steri-Strips and then Aquacel extra for protection. was told not to remove any of the dressing unless it lifts and she may go down to the Steri-Strips. Patient is to wear single layer Tubigrip's to the right leg refuses to wear suggested may be a compression knee sock Also suggested AmLactin cream to lower leg for dry skin and scales of old skin. Follow-up in 1 weeks (4) PAD (peripheral artery disease): CODE(S): I73.9 - Peripheral vascular disease, unspecified
== END 2023-07-19 23:59 | disposition home or self-care (01) ==
LOC: WC 11:00
PROVIDERS: PCP Family Medicine; Referring Provider Hospitalist; Visit Provider Nurse Practitioner
DX: E11.622 Type 2 diabetes mellitus with other skin ulcer (principal); L97.212 Non-pressure chronic ulcer of right calf with fat layer exposed; I50.9 Heart failure, unspecified; E11.59 Type 2 diabetes mellitus with other circulatory complications; E11.22 Type 2 diabetes mellitus with diabetic chronic kidney disease; E11.42 Type 2 diabetes mellitus with diabetic polyneuropathy; E11.51 Type 2 diabetes mellitus with diabetic peripheral angiopathy without gangrene; N18.30 Chronic kidney disease, stage 3 unspecified; I87.2 Venous insufficiency (chronic) (peripheral); M10.9 Gout, unspecified; Z79.02 Long term (current) use of antithrombotics/antiplatelets; Z87.891 Personal history of nicotine dependence; Z79.01 Long term (current) use of anticoagulants; R60.0 Localized edema
CPT/HCPCS: 11042; 15271; Q4186

== ENCOUNTER 2023-08-12 11:00 | Outpatient (RCR) | payer MEDICARE, SELFPAY ==
[2023-07-20 00:23] VITALS: BP 143/57; PULSE 104; RESP 18; TEMP 36.3; BMI 33.4
[2023-07-22 10:52] VITALS: BP 152/61; PULSE 97; RESP 20; TEMP 36.6; BMI 33.4
--- NOTE | 2023-07-22 11:48 | PCM.WC.PN ---
History of Present Illness Date of Service: 07/22/23 Chief Complaint: Ulceration of the right pretibial area History of Wound: This is an 83-year-old male who presented with an ulceration on the right pretibial surface. It occurred approximately 3 to 4 weeks ago. He is currently a patient of Meghana Vargas, and seen at this time in her absence. According to the patient and his , the ulceration started as a blister. It appears as though the patient has a longstanding history of swelling, edema, and dependent edema in his lower extremities. He leads a sedentary existence. He sits for long hours each day. He sleeps in a lift chair, with his legs in a dependent position. He is also obese, with a BMI of 33.5. Patient is known to have numerous pre-existing medical conditions, which include atrial fibrillation, diabetes mellitus, peripheral arterial occlusive disease, gout, congestive heart failure, and stage III chronic kidney disease. When seen 1 week ago, the first EpiFix allograft was applied, and AmLactin cream is being used to treat intact adjacent skin. Lower extremity compression has been recommended, but the patient has refused. In December 2021, a noninvasive lower extremity arterial study revealed moderate arterial occlusive disease bilaterally at ankle level. In February 2022, an angiogram was performed, and the patient was found not to be a candidate for traditional endovascular intervention. At that time, he was considered for referral to [facility] for deep vein arterialization. Progress of Wound: Healing well is very flat and just needs skin over top EpiFix's are working well for him he just had #9 applied today Subjective Subjective Surrounding tissue looks good there is no sign of infection or redness or any drainage Objective Data Objective Data Will continue with the EpiFix healing well measuring smaller Vital Signs: Vital Signs Temp Pulse Resp BP 97.8 F 97 20 H 152/61 H 07/22/23 10:52 07/22/23 10:52 07/22/23 10:52 07/22/23 10:52 Weight: 220 lb 0.271 oz Body Mass Index (BMI) 33.4 Physical Exam Const oriented x3 General Appearance: cooperative Exam Limitations: no limitations HEENT normocephalic Resp normal respiratory effort Effort and Inspection: able to speak in complete sentences Auscultation: clear to auscultation bilaterally Cardio regular rate and regular rhythm Palpation: normal PMI Rate: regular rate Rhythm: regular rhythm Extremity Extremity Narrative: Discoloration from knee to foot with swelling not pitting. Open wound with a dried hematoma on langley. Also has very dry scaly skin on lower extremity to foot General Extremity: edema Skin no rashes or lesions noted Neuro oriented x3 Psych Appearance: grossly normal Speech: normal speech Thought Content: normal thought content Judgement: judgement good Debridement Note Debridement Note Wound debrided: Anterior right lower extremity Laterality: Right Type of Debridement: Excisional debridement Anesthesia Used: 5% Lidocaine Gel and Cetacaine Depth: Down to and including healthy tissue and in the subcutaneous layer Percentage of wound debrided: 100 Instrument Used: 5mm curette Tissue Removed: Fibrous, devitalized subcutaneous, biofilm, slough Severity: Fat Layer Exposed Amount of bleeding with debridement: Mild Bleeding Controlled with: Compression and gauze Patient tolerated procedure: Patient tolerated procedure well Post-Debridement Measurements and Additional Note: Post-Debridement Measurements/Treatment - Nurse 1 - General Ulcer Assessment Start: 07/22/23 10:51 Freq: Status: Active Protocol: SUNSHINE Activity Type Activity Date Activity User E-sign Co-sign Detail Recorded Client Recorded Date Recorded By Document 07/22/23 10:52 DL Desktop 07/22/23 11:00 DL 07/22/23 10:52 - Today's Visit Information Type of service Follow-up Visit (Physician/SKIN CARE THERAPIST ) Arrival Mode Wheelchair Transfer Assistance Manual Transfer Assist (Other) x2 Patient Identification Verified (Name & Yes ) Patient Requires Transmission-Based No Precautions Finger Stick Blood Sugar(mg/dl) (if 147 indicated): Blood Sugar Stated by Patient Height and Weight Body Mass Index (BMI) 33.4 BMI Classification Obese Vital Signs Temperature (97.8 F-99.1 F) 97.8 F Temperature Source Temporal Pulse Rate (60-100) 97 Pulse Location Monitor Respiratory Rate (12-18) 20 H Respiratory rate source Observation Blood Pressure (90/60-120/80) 152/61 H Blood Pressure Mean (mm Hg) 91 Source Monitor History Since Last Visit- (Skip if this is Patient's initial visit) Have you changed medications since your No last visit? Any new allergies or adverse reactions No Had a fall/change in ADL's that may No increase risk of falls Signs or symptoms of abuse and/or No neglect since last visit Have you been in the hospital since your No last visit? Has dressing in place as prescribed Yes Has compression in place as prescribed Yes Has offloadiing in place as prescribed Yes Experienced any changes in pain level or No management Pain Scale: 0-10 Numeric Is Patient Pain Free? Yes WC - Nurse 1 - General Ulcer Measurement Start: 07/22/23 10:51 Freq: Status: Active Protocol: Activity Type Activity Date Activity User E-sign Co-sign Detail Recorded Client Recorded Date Recorded By Document 07/22/23 10:52 DL Desktop 07/22/23 11:00 DL 07/22/23 10:52 Wound Center Nurse 1 #5 R [place] -Current Size (cm) - Length 1.1 -Current Size (cm) - Width 1.2 -Current Size (cm) - Depth 0.1 -Total Square Cm 1.32 -Photo Taken Yes -Exudate Amt Small -Wound Margin Distinct, Outline Attached -Granulation Amt Large (67-100%) -Granulation Quality [place] -Necrosis Amt Small (1-33%) -Necrotic Tissue Type Adherent Slough -Structure Exposed Fat Layer Exposed -Texture (Maribel-wound Skin Appearance) Scarring -Moisture (Maribel-wound Skin Appearance) No Abnormality -Color (Maribel-wound Skin Appearance) Hemosiderin Staining -Temperature (Maribel-wound Skin No Abnormality Appearance) (Pt Warm) -Tenderness on Palpation (Maribel-wound No Skin Appearance) -Ulcer Cleansing Soap and Water -Foul Odor after Cleansing No -Anesthetic Used 5% Lidocaine Gel YVETTE - Nurse 2 - General Ulcer CM Notes Start: 07/22/23 10:51 Freq: Status: Active Protocol: Activity Type Activity Date Activity User E-sign Co-sign Detail Recorded Client Recorded Date Recorded By Document 07/22/23 11:10 MW Desktop 07/22/23 11:17 MW 07/22/23 11:10 Wound Center Nurse 2 -Time 11:13 -Correct Patient Yes -Correct Side, Site, Position Yes -Correct Procedure Yes -Procedure Performed Yes -Type of Procedure Debridement -Clinical Debridement Subcutaneous -Tissue Removed Subcutaneous -Post Debridement (cm) - Length 1.4 -Post Debridement (cm) - Width 1.0 -Post Debridement (cm) - Depth 0.1 -Total Square (Post) (cm) 1.40 -Area of Debridement (cm) - Length 1.4 -Area of Debridement (cm) - Width 1.0 -Total Square (Area) (cm) 1.40 -Tunneling No -Undermining/Tunneling No -Circular Undermining No -Wound/Ulcer Outcome Not Healed -Ulcer Cleansing Rinsed/ Irrigated with Saline -Foul Odor after Cleansing No -Bioengineered Tissue Yes -Type of Bioengineered Tissue Epifix 18mm Disc -Expiration Date 02/19/28 -Product Lot Number [id number] -Percent Used 100 -Lot number of Saline Used [id number] -Bleeding Controlled with Pressure -Treatment Response Procedure Tolerated Well -Debridement - Subq, 1st 20sq cm No -Apply Skin Sub - 1st 25 sq cm - Legs 1 -Epifix 18mm Disc 3 Pain Scale: 0-10 Numeric Is Patient Pain Free? Yes - Nurse 3 - General Ulcer D/C NN Start: 07/22/23 10:51 Freq: Status: Active Protocol: Activity Type Activity Date Activity User E-sign Co-sign Detail Recorded Client Recorded Date Recorded By Document 07/22/23 11:19 MW Desktop 07/22/23 11:20 MW 07/22/23 11:19 Wound Care Center Nurse 3 #5 R [place] -Ulcer Cleansing Not Cleansed -Foul Odor after Cleansing No -Negative Pressure Wound Therapy N/A -Primary Dressing Applied Mepilex Border -Other Dressing AQUACEL EXTRA -Mepilex Border 1 Treatment Response Procedure Tolerated Well Pain Scale: 0-10 Numeric Is Patient Pain Free? Yes Teaching: Wound Center Dressing Your Wound -Person Taught Patient,Family -Teaching Method Discussion -Response to teaching Verbalize understanding - Visit Discharge Discharge Condition Stable Ambulatory Status Wheelchair Transportation Private Auto Accompanied by , SON Medication Reconcilliation completed & No provided to patient/care provider Clinical Summary of Care Provided Yes Assessment/Plan Assessment/Plan (1) Diabetes type 2, uncontrolled: QUALIFIERS: Glycemic state: with hyperglycemia Qualified Code(s): E11.65 - Type 2 diabetes mellitus with hyperglycemia (2) Peripheral vascular disease in diabetes mellitus: CODE(S): E11.51 - Type 2 diabetes mellitus with diabetic peripheral angiopathy without gangrene (3) Non-pressure ulcer of right lower extremity: CODE(S): L97.919 - Non-pressure chronic ulcer of unspecified part of right lower leg with unspecified severity QUALIFIERS: Non-pressure ulcer stage: with fat layer exposed Qualified Code(s): L97.912 - Non-pressure chronic ulcer of unspecified part of right lower leg with fat layer exposed PLAN: EpiFix #9 applied to wound base covered with wound veil and Steri-Strips and then Aquacel extra for protection. was told not to remove any of the dressing unless it lifts and she may go down to the Steri-Strips. Patient is to wear single layer Tubigrip's to the right leg refuses to wear suggested may be a compression knee sock Also suggested AmLactin cream to lower leg for dry skin and scales of old skin. Follow-up in 1 weeks (4) PAD (peripheral artery disease): CODE(S): I73.9 - Peripheral vascular disease, unspecified
[2023-07-29 11:06] VITALS: BP 136/64; PULSE 93; RESP 16; TEMP 36.6; BMI 33.4
--- NOTE | 2023-07-29 12:29 | PN.PCM_ITS ---
History of Present Illness Date of Service: 07/29/23 Chief Complaint: Ulceration of the right pretibial area History of Wound: This is an 83-year-old male who presented with an ulceration on the right pretibial surface. It occurred approximately 3 to 4 weeks ago. He is currently a patient of Meghana Vargas, and seen at this time in her absence. According to the patient and his , the ulceration started as a blister. It appears as though the patient has a longstanding history of swelling, edema, and dependent edema in his lower extremities. He leads a sedentary existence. He sits for long hours each day. He sleeps in a lift chair, with his legs in a dependent position. He is also obese, with a BMI of 33.5. Patient is known to have numerous pre-existing medical conditions, which include atrial fibrillation, diabetes mellitus, peripheral arterial occlusive disease, gout, congestive heart failure, and stage III chronic kidney disease. When seen 1 week ago, the first EpiFix allograft was applied, and AmLactin cream is being used to treat intact adjacent skin. Lower extremity compression has been recommended, but the patient has refused. In December 2021, a noninvasive lower extremity arterial study revealed moderate arterial occlusive disease bilaterally at ankle level. In February 2022, an angiogram was performed, and the patient was found not to be a candidate for traditional endovascular intervention. At that time, he was considered for referral to [facility] for deep vein arterialization. Progress of Wound: Healing well is very flat and just needs skin over top EpiFix's are working well for him he just had #10 applied today Subjective Subjective Agreeable to plan Objective Data Objective Data No sign of infection nerve or swelling or discolorations new skin buds just has not closed yet. Patient will receive his last EpiFix this week Vital Signs: Vital Signs Temp Pulse Resp BP O2 Del Method 97.9 F 93 16 136/64 H Room Air 07/29/23 11:06 07/29/23 11:06 07/29/23 11:06 07/29/23 11:07/29/23 11:06 Oxygen Delivery Method Room Air Weight: 220 lb 0.271 oz Body Mass Index (BMI) 33.4 Lab / Micro Data Attestation: I reviewed the patient's lab results. Physical Exam Const oriented x3 General Appearance: cooperative Exam Limitations: no limitations HEENT normocephalic Resp normal respiratory effort Effort and Inspection: able to speak in complete sentences Auscultation: clear to auscultation bilaterally Cardio regular rate and regular rhythm Palpation: normal PMI Rate: regular rate Rhythm: regular rhythm Extremity Extremity Narrative: Discoloration from knee to foot with swelling not pitting. Open wound with a dried hematoma on langley. Also has very dry scaly skin on lower extremity to foot General Extremity: edema Skin no rashes or lesions noted Neuro oriented x3 Psych Appearance: grossly normal Speech: normal speech Thought Content: normal thought content Judgement: judgement good Debridement Note Debridement Note Wound debrided: Anterior right lower extremity Laterality: Right Type of Debridement: Excisional debridement Anesthesia Used: 5% Lidocaine Gel and Cetacaine Depth: Down to and including healthy tissue and in the subcutaneous layer Percentage of wound debrided: 100 Instrument Used: 5mm curette Tissue Removed: Fibrous, devitalized subcutaneous, biofilm, slough Severity: Fat Layer Exposed Amount of bleeding with debridement: Mild Bleeding Controlled with: Compression and gauze Patient tolerated procedure: Patient tolerated procedure well Post-Debridement Measurements and Additional Note: Post-Debridement Measurements/Treatment - Nurse 1 - General Ulcer Assessment Start: 07/22/23 10:51 Freq: Status: Active Protocol: [email or web address].[email or web address] Activity Type Activity Date Activity User E-sign Co-sign Detail Recorded Client Recorded Date Recorded By Document 07/22/23 10:52 DL Desktop 07/22/23 11:00 DL Document 07/29/23 11:06 MW Desktop 07/29/23 11:09 MW 07/22/23 07/29/23 10:52 11:06 - Today's Visit Information Type of service Follow-up Visit Follow-up Visit (Physician/POLITICAL SCIENTIST (Physician/POLITICAL SCIENTIST ) ) Arrival Mode Wheelchair Wheelchair Transfer Assistance Manual Manual Transfer Assist (Other) x2 Accompanied by Patient Identification Verified (Name & Yes Yes ) Patient Requires Transmission-Based No No Precautions Safety Precautions Fall Prevention Finger Stick Blood Sugar(mg/dl) (if 147 145 indicated): Blood Sugar Stated by Stated by Patient Patient Height and Weight Body Mass Index (BMI) 33.4 33.4 BMI Classification Obese Obese Vital Signs Temperature (97.8 F-99.1 F) 97.8 F 97.9 F Temperature Source Temporal Temporal Pulse Rate (60-100) 97 93 Pulse Location Monitor Monitor Respiratory Rate (12-18) 20 H 16 Respiratory rate source Observation Observation Oxygen Delivery Method Room Air Blood Pressure (90/60-120/80) 152/61 H 136/64 H Blood Pressure Mean (mm Hg) 91 88 Source Monitor Monitor Position Sitting Blood Pressure Location Left Arm History Since Last Visit- (Skip if this is Patient's initial visit) Have you changed medications since your No No last visit? Any new allergies or adverse reactions No No Had a fall/change in ADL's that may No No increase risk of falls Signs or symptoms of abuse and/or No No neglect since last visit Have you been in the hospital since your No No last visit? Has dressing in place as prescribed Yes Yes Has compression in place as prescribed Yes N/A Has offloadiing in place as prescribed Yes N/A Experienced any changes in pain level or No No management Left Footwear Regular Shoe Right Footwear Regular Shoe Pain Scale: 0-10 Numeric Is Patient Pain Free? Yes Yes Teaching: Wound Center Dressing Your Wound -Person Taught Patient,Family -Teaching Method Discussion -Response to teaching Verbalize understanding WC - Nurse 1 - General Ulcer Measurement Start: 07/22/23 10:51 Freq: Status: Active Protocol: Activity Type Activity Date Activity User E-sign Co-sign Detail Recorded Client Recorded Date Recorded By Document 07/22/23 10:52 DL Desktop 07/22/23 11:00 DL Document 07/29/23 11:06 MW Desktop 07/29/23 11:09 MW 07/22/23 07/29/23 10:52 11:06 Wound Center Nurse 1 #5 R [place] -Combined with other wound No -Current Size (cm) - Length 1.1 0.6 -Current Size (cm) - Width 1.2 0.4 -Current Size (cm) - Depth 0.1 0.1 -Total Square Cm 1.32 0.24 -Photo Taken Yes No -Epithelialization Small 1-33% -Tunneling No -Undermining/Tunneling No -Circular Undermining No -Exudate Amt Small Small -Exudate Type Serosanguineous -Wound Margin Distinct, Flat & Intact Outline Attached -Granulation Amt Large (67-100%) Large (67-100%) -Granulation Quality [place] -Slough/Fibrin Yes -Necrosis Amt Small (1-33%) Small (1-33%) -Necrotic Tissue Type Adherent Slough Adherent Slough -Structure Exposed Fat Layer N/A Exposed -Texture (Maribel-wound Skin Appearance) Scarring Assessed, Localized Edema ,Scarring -Moisture (Maribel-wound Skin Appearance) No Abnormality No Abnormality, Assessed -Color (Maribel-wound Skin Appearance) Hemosiderin No Abnormality, Staining Hemosiderin Staining -Temperature (Maribel-wound Skin No Abnormality No Abnormality Appearance) (Pt Warm) (Pt Warm) -Tenderness on Palpation (Maribel-wound No No Skin Appearance) -Ulcer Cleansing Soap and Water Rinsed/ Irrigated with Saline -Foul Odor after Cleansing No No -Anesthetic Used 5% Lidocaine 5% Lidocaine Gel Gel Lower Limb Edema Present No WC - Nurse 2 - General Ulcer CM Notes Start: 07/22/23 10:51 Freq: Status: Active Protocol: Activity Type Activity Date Activity User E-sign Co-sign Detail Recorded Client Recorded Date Recorded By Document 07/22/23 11:10 MW Desktop 07/22/23 11:17 MW Document 07/29/23 11:21 MW Desktop 07/29/23 11:27 MW 07/22/23 07/29/23 11:10 11:21 Wound Center Nurse 2 #5 R [place] -Time 11:13 11:22 -Correct Patient Yes Yes -Correct Side, Site, Position Yes Yes -Correct Procedure Yes Yes -Procedure Performed Yes Yes -Type of Procedure Debridement Debridement -Clinical Debridement Subcutaneous Subcutaneous -Tissue Removed Subcutaneous Subcutaneous -Post Debridement (cm) - Length 1.4 1.2 -Post Debridement (cm) - Width 1.0 1.0 -Post Debridement (cm) - Depth 0.1 0.1 -Total Square (Post) (cm) 1.40 1.20 -Area of Debridement (cm) - Length 1.4 1.2 -Area of Debridement (cm) - Width 1.0 1.0 -Total Square (Area) (cm) 1.40 1.20 -Tunneling No No -Undermining/Tunneling No No -Circular Undermining No No -Wound/Ulcer Outcome Not Healed Not Healed -Ulcer Cleansing Rinsed/ Rinsed/ Irrigated with Irrigated with Saline Saline -Foul Odor after Cleansing No No -Bioengineered Tissue Yes Yes -Type of Bioengineered Tissue Epifix 18mm Epifix 18mm Disc Disc -Expiration Date 02/19/28 02/19/28 -Product Lot Number [id number] -Percent Used 100 100 -Lot number of Saline Used [id number] -Bleeding Controlled with Pressure Pressure -Treatment Response Procedure Procedure Tolerated Well Tolerated Well -Offloading No -Debridement - Subq, 1st 20sq cm No No -Apply Skin Sub - 1st 25 sq cm - Legs 1 1 -Epifix 18mm Disc 3 3 Pain Scale: 0-10 Numeric Is Patient Pain Free? Yes Yes - Nurse 3 - General Ulcer D/C NN Start: 07/22/23 10:51 Freq: Status: Active Protocol: Activity Type Activity Date Activity User E-sign Co-sign Detail Recorded Client Recorded Date Recorded By Document 07/22/23 11:19 MW Desktop 07/22/23 11:20 MW Document 07/29/23 11:30 MW Desktop 07/29/23 11:31 MW 07/22/23 07/29/23 11:19 11:30 Wound Care Center Nurse 3 #5 R [place] -Ulcer Cleansing Not Cleansed Not Cleansed -Foul Odor after Cleansing No No -Negative Pressure Wound Therapy N/A N/A -Primary Dressing Applied Mepilex Border Mepilex Border -Other Dressing AQUACEL EXTRA AQUACEL EXTRA -Mepilex Border 1 1 Treatment Response Procedure Procedure Tolerated Well Tolerated Well Pain Scale: 0-10 Numeric Is Patient Pain Free? Yes Yes Teaching: Wound Center Dressing Your Wound -Person Taught Patient,Family Patient,Family -Teaching Method Discussion Discussion, Demonstration -Response to teaching Verbalize Verbalize understanding understanding WC - Visit Discharge Discharge Condition Stable Stable Ambulatory Status Wheelchair Wheelchair Transportation Private Auto Private Auto Accompanied by , SON Medication Reconcilliation completed & No No provided to patient/care provider Clinical Summary of Care Provided Yes Yes Assessment/Plan Assessment/Plan (1) Diabetes type 2, uncontrolled: QUALIFIERS: Glycemic state: with hyperglycemia Qualified Code(s): E11.65 - Type 2 diabetes mellitus with hyperglycemia (2) Peripheral vascular disease in diabetes mellitus: CODE(S): E11.51 - Type 2 diabetes mellitus with diabetic peripheral angiopathy without gangrene (3) Non-pressure ulcer of right lower extremity: CODE(S): L97.919 - Non-pressure chronic ulcer of unspecified part of right lower leg with unspecified severity QUALIFIERS: Non-pressure ulcer stage: with fat layer exposed Qualified Code(s): L97.912 - Non-pressure chronic ulcer of unspecified part of right lower leg with fat layer exposed PLAN: EpiFix #10 applied to wound base covered with wound veil and Steri-Strips and then Aquacel extra for protection. was told not to remove any of the dressing unless it lifts and she may go down to the Steri-Strips. Patient is to wear single layer Tubigrip's to the right leg refuses to wear suggested may be a compression knee sock Also suggested AmLactin cream to lower leg for dry skin and scales of old skin. Follow-up in 1 weeks (4) PAD (peripheral artery disease): CODE(S): I73.9 - Peripheral vascular disease, unspecified
[2023-08-05 10:50] VITALS: BP 111/82; PULSE 96; RESP 16; TEMP 36.2; BMI 33.4
--- NOTE | 2023-08-05 11:14 | PCM.WC.PN ---
History of Present Illness Date of Service: 08/05/23 Chief Complaint: Ulceration of the right pretibial area History of Wound: This is an 83-year-old male who presented with an ulceration on the right pretibial surface. It occurred approximately 3 to 4 weeks ago. He is currently a patient of Meghana Vargas, and seen at this time in her absence. According to the patient and his , the ulceration started as a blister. It appears as though the patient has a longstanding history of swelling, edema, and dependent edema in his lower extremities. He leads a sedentary existence. He sits for long hours each day. He sleeps in a lift chair, with his legs in a dependent position. He is also obese, with a BMI of 33.5. Patient is known to have numerous pre-existing medical conditions, which include atrial fibrillation, diabetes mellitus, peripheral arterial occlusive disease, gout, congestive heart failure, and stage III chronic kidney disease. When seen 1 week ago, the first EpiFix allograft was applied, and AmLactin cream is being used to treat intact adjacent skin. Lower extremity compression has been recommended, but the patient has refused. In December 2021, a noninvasive lower extremity arterial study revealed moderate arterial occlusive disease bilaterally at ankle level. In February 2022, an angiogram was performed, and the patient was found not to be a candidate for traditional endovascular intervention. At that time, he was considered for referral to [facility] for deep vein arterialization. Progress of Wound: Healing well is very flat and just needs skin over top EpiFix's are working well for him he just had #10 applied today. Will continue another week with the 10th EpiFix still on we removed the veil and Steri-Strips and will reapply Subjective Subjective and patient are agreeable to plan Objective Data Objective Data No sign of infection doing well this EpiFix still has not adhered we will leave it on another week Vital Signs: Vital Signs Temp Pulse Resp BP O2 Del Method 97.2 F L 96 16 111/82 H Room Air 08/05/23 10:50 08/05/23 10:50 08/05/23 10:50 08/05/23 10:50 08/05/23 10:50 Oxygen Delivery Method Room Air Weight: 220 lb 0.271 oz Body Mass Index (BMI) 33.4 Lab / Micro Data Attestation: I reviewed the patient's lab results. Physical Exam Const oriented x3 General Appearance: cooperative Exam Limitations: no limitations HEENT normocephalic Resp normal respiratory effort Effort and Inspection: able to speak in complete sentences Auscultation: clear to auscultation bilaterally Cardio regular rate and regular rhythm Palpation: normal PMI Rate: regular rate Rhythm: regular rhythm Extremity Extremity Narrative: Discoloration from knee to foot with swelling not pitting. Open wound with a dried hematoma on langley. Also has very dry scaly skin on lower extremity to foot General Extremity: edema Skin no rashes or lesions noted Neuro oriented x3 Psych Appearance: grossly normal Speech: normal speech Thought Content: normal thought content Judgement: judgement good Debridement Note Debridement Note No debridement was completed: No debridement was completed today Post-Debridement Measurements and Additional Note: Post-Debridement Measurements/Treatment - Nurse 1 - General Ulcer Assessment Start: 07/22/23 10:51 Freq: Status: Active Protocol: [email or web address] Activity Type Activity Date Activity User E-sign Co-sign Detail Recorded Client Recorded Date Recorded By Document 07/22/23 10:52 DL Desktop 07/22/23 11:00 DL Document 07/29/23 11:06 MW Desktop 07/29/23 11:09 MW Document 08/05/23 10:50 BMF Desktop 08/05/23 10:52 BMF 07/22/23 07/29/23 08/05/23 10:52 11:06 10:50 - Today's Visit Information Type of service Follow-up Visit Follow-up Visit Follow-up Visit (Physician/PAPER [employer]E MACHINE TENDER (Physician/PAPER [employer]E MACHINE TENDER (Physician/PAPER [employer]E MACHINE TENDER ) ) ) Arrival Mode Wheelchair Wheelchair Wheelchair Transfer Assistance Manual Manual Other Transfer Assist (Other) x2 2 assist Accompanied by Patient Identification Verified (Name & Yes Yes Yes ) Patient Requires Transmission-Based No No No Precautions Safety Precautions Fall Prevention Finger Stick Blood Sugar(mg/dl) (if 147 145 indicated): Blood Sugar Stated by Stated by Patient Patient Height and Weight Body Mass Index (BMI) 33.4 33.4 33.4 BMI Classification Obese Obese Obese Vital Signs Temperature (97.8 F-99.1 F) 97.8 F 97.9 F 97.2 F L Temperature Source Temporal Temporal Temporal Pulse Rate (60-100) 97 93 96 Pulse Location Monitor Monitor Monitor Respiratory Rate (12-18) 20 H 16 16 Respiratory rate source Observation Observation Observation Oxygen Delivery Method Room Air Room Air Blood Pressure (90/60-120/80) 152/61 H 136/64 H 111/82 H Blood Pressure Mean (mm Hg) 91 88 91 Source Monitor Monitor Monitor Position Sitting Sitting Blood Pressure Location Left Arm Left Forearm History Since Last Visit- (Skip if this is Patient's initial visit) Have you changed medications since your No No No last visit? Any new allergies or adverse reactions No No No Had a fall/change in ADL's that may No No No increase risk of falls Signs or symptoms of abuse and/or No No No neglect since last visit Have you been in the hospital since your No No No last visit? Has dressing in place as prescribed Yes Yes Yes Has compression in place as prescribed Yes N/A Has offloadiing in place as prescribed Yes N/A N/A Experienced any changes in pain level or No No No management Left Footwear Regular Shoe Diabetic Shoe Right Footwear Regular Shoe Diabetic Shoe Pain Scale: 0-10 Numeric Is Patient Pain Free? Yes Yes Yes Teaching: Wound Center Dressing Your Wound -Person Taught Patient,Family -Teaching Method Discussion -Response to teaching Verbalize understanding WC - Nurse 1 - General Ulcer Measurement Start: 07/22/23 10:51 Freq: Status: Active Protocol: Activity Type Activity Date Activity User E-sign Co-sign Detail Recorded Client Recorded Date Recorded By Document 07/22/23 10:52 DL Desktop 07/22/23 11:00 DL Document 07/29/23 11:06 MW Desktop 07/29/23 11:09 MW Document 08/05/23 10:50 BMF Desktop 08/05/23 10:52 BMF 07/22/23 07/29/23 08/05/23 10:52 11:06 10:50 Wound Center Nurse 1 #5 R [place] -Combined with other wound No No -Current Size (cm) - Length 1.1 0.6 0.1 -Current Size (cm) - Width 1.2 0.4 0.1 -Current Size (cm) - Depth 0.1 0.1 0.1 -Total Square Cm 1.32 0.24 0.01 -Photo Taken Yes No -Epithelialization Small 1-33% -Tunneling No -Undermining/Tunneling No -Circular Undermining No -Exudate Amt Small Small -Exudate Type Serosanguineous -Wound Margin Distinct, Flat & Intact Outline Attached -Granulation Amt Large (67-100%) Large (67-100%) -Granulation Quality [place] -Slough/Fibrin Yes -Necrosis Amt Small (1-33%) Small (1-33%) -Necrotic Tissue Type Adherent Slough Adherent Slough -Structure Exposed Fat Layer N/A Exposed -Texture (Maribel-wound Skin Appearance) Scarring Assessed, Localized Edema ,Scarring -Moisture (Maribel-wound Skin Appearance) No Abnormality No Abnormality, Assessed -Color (Maribel-wound Skin Appearance) Hemosiderin No Abnormality, Staining Hemosiderin Staining -Temperature (Maribel-wound Skin No Abnormality No Abnormality Appearance) (Pt Warm) (Pt Warm) -Tenderness on Palpation (Maribel-wound No No Skin Appearance) -Ulcer Cleansing Soap and Water Rinsed/ Irrigated with Saline -Foul Odor after Cleansing No No -Anesthetic Used 5% Lidocaine 5% Lidocaine Gel Gel -Wound Comment(s) epifix #10 and steris intact. left in place per reading recovery teacher instruction pt refuses compression Lower Limb Edema Present No Yes Right Calf (cm) 37.5 Right Ankle (cm) 23.7 WC - Nurse 2 - General Ulcer CM Notes Start: 07/22/23 10:51 Freq: Status: Active Protocol: Activity Type Activity Date Activity User E-sign Co-sign Detail Recorded Client Recorded Date Recorded By Document 07/22/23 11:10 MW Desktop 07/22/23 11:17 MW Document 07/29/23 11:21 MW Desktop 07/29/23 11:27 MW Document 08/05/23 11:00 MW Desktop 08/05/23 11:03 MW 07/22/23 07/29/23 08/05/23 11:10 11:21 11:00 Wound Center Nurse 2 #5 R [place] -Time 11:13 11:22 11:00 -Correct Patient Yes Yes Yes -Correct Side, Site, Position Yes Yes Yes -Correct Procedure Yes Yes Yes -Procedure Performed Yes Yes No -Type of Procedure Debridement Debridement -Clinical Debridement Subcutaneous Subcutaneous -Tissue Removed Subcutaneous Subcutaneous -Post Debridement (cm) - Length 1.4 1.2 -Post Debridement (cm) - Width 1.0 1.0 -Post Debridement (cm) - Depth 0.1 0.1 -Total Square (Post) (cm) 1.40 1.20 -Area of Debridement (cm) - Length 1.4 1.2 -Area of Debridement (cm) - Width 1.0 1.0 -Total Square (Area) (cm) 1.40 1.20 -Tunneling No No No -Undermining/Tunneling No No No -Circular Undermining No No No -Wound/Ulcer Outcome Not Healed Not Healed Not Healed -Ulcer Cleansing Rinsed/ Rinsed/ Rinsed/ Irrigated with Irrigated with Irrigated with Saline Saline Saline -Foul Odor after Cleansing No No No -Bioengineered Tissue Yes Yes No -Type of Bioengineered Tissue Epifix 18mm Epifix 18mm Disc Disc -Expiration Date 02/19/28 02/19/28 -Product Lot Number [id number] -Percent Used 100 100 -Lot number of Saline Used [id number] -Bleeding Controlled with Pressure Pressure NA -Treatment Response Procedure Procedure Procedure Tolerated Well Tolerated Well Tolerated Well -Offloading No No -Debridement - Subq, 1st 20sq cm No No -Apply Skin Sub - 1st 25 sq cm - Legs 1 1 -Epifix 18mm Disc 3 3 Pain Scale: 0-10 Numeric Is Patient Pain Free? Yes Yes Yes WC - Nurse 3 - General Ulcer D/C NN Start: 07/22/23 10:51 Freq: Status: Active Protocol: Activity Type Activity Date Activity User E-sign Co-sign Detail Recorded Client Recorded Date Recorded By Document 07/22/23 11:19 MW Desktop 07/22/23 11:20 MW Document 07/29/23 11:30 MW Desktop 07/29/23 11:31 MW Document 08/05/23 11:10 BMF Desktop 08/05/23 11:11 BM 07/22/23 07/29/23 08/05/23 11:19 11:30 11:10 Wound Care Center Nurse 3 #5 R [place] -Ulcer Cleansing Not Cleansed Not Cleansed -Foul Odor after Cleansing No No -Negative Pressure Wound Therapy N/A N/A -Primary Dressing Applied Mepilex Border Mepilex Border Mepilex Border -Other Dressing AQUACEL EXTRA AQUACEL EXTRA aquacel extra -Other Covering epi -Mepilex Border 1 1 1 Right -Other refuses any compression Treatment Response Procedure Procedure Procedure Tolerated Well Tolerated Well Tolerated Well Pain Scale: 0-10 Numeric Is Patient Pain Free? Yes Yes Yes Teaching: Wound Center Dressing Your Wound -Person Taught Patient,Family Patient,Family -Teaching Method Discussion Discussion, Demonstration -Response to teaching Verbalize Verbalize understanding understanding WC - Visit Discharge Discharge Condition Stable Stable Stable Ambulatory Status Wheelchair Wheelchair Wheelchair Transportation Private Auto Private Auto Private Auto Accompanied by , SON ; son waits in car Medication Reconcilliation completed & No No provided to patient/care provider Clinical Summary of Care Provided Yes Yes Assessment/Plan Assessment/Plan (1) Diabetes type 2, uncontrolled: QUALIFIERS: Glycemic state: with hyperglycemia Qualified Code(s): E11.65 - Type 2 diabetes mellitus with hyperglycemia (2) Peripheral vascular disease in diabetes mellitus: CODE(S): E11.51 - Type 2 diabetes mellitus with diabetic peripheral angiopathy without gangrene (3) Non-pressure ulcer of right lower extremity: CODE(S): L97.919 - Non-pressure chronic ulcer of unspecified part of right lower leg with unspecified severity QUALIFIERS: Non-pressure ulcer stage: with fat layer exposed Qualified Code(s): L97.912 - Non-pressure chronic ulcer of unspecified part of right lower leg with fat layer exposed PLAN: Leave EpiFix #10 applied to wound base covered with wound veil and Steri-Strips and then Aquacel extra for protection. We will reevaluate next week was told not to remove any of the dressing unless it lifts and she may go down to the Steri-Strips. Patient is to wear single layer Tubigrip's to the right leg refuses to wear suggested may be a compression knee sock Also suggested AmLactin cream to lower leg for dry skin and scales of old skin. Follow-up in 1 weeks (4) PAD (peripheral artery disease): CODE(S): I73.9 - Peripheral vascular disease, unspecified
[2023-08-12 10:55] VITALS: BP 164/63; PULSE 90; RESP 16; TEMP 35.8; BMI 33.4
--- NOTE | 2023-08-12 12:55 | PCM.WC.PN ---
History of Present Illness Date of Service: 08/12/23 Chief Complaint: Ulceration of the right pretibial area History of Wound: This is an 83-year-old male who presented with an ulceration on the right pretibial surface. It occurred approximately 3 to 4 weeks ago. He is currently a patient of Meghana Vargas, and seen at this time in her absence. According to the patient and his , the ulceration started as a blister. It appears as though the patient has a longstanding history of swelling, edema, and dependent edema in his lower extremities. He leads a sedentary existence. He sits for long hours each day. He sleeps in a lift chair, with his legs in a dependent position. He is also obese, with a BMI of 33.5. Patient is known to have numerous pre-existing medical conditions, which include atrial fibrillation, diabetes mellitus, peripheral arterial occlusive disease, gout, congestive heart failure, and stage III chronic kidney disease. When seen 1 week ago, the first EpiFix allograft was applied, and AmLactin cream is being used to treat intact adjacent skin. Lower extremity compression has been recommended, but the patient has refused. In December 2021, a noninvasive lower extremity arterial study revealed moderate arterial occlusive disease bilaterally at ankle level. In February 2022, an angiogram was performed, and the patient was found not to be a candidate for traditional endovascular intervention. At that time, he was considered for referral to [facility] for deep vein arterialization. Progress of Wound: Patient has healed and will be discharged from the wound center Subjective Subjective Patient and are very happy Objective Data Objective Data Nice new skin suggested covering for another week with a dry dressing but does not need to return Vital Signs: Vital Signs Temp Pulse Resp BP O2 Del Method 96.4 F L 90 16 164/63 H Room Air 08/12/23 10:55 08/12/23 10:55 08/12/23 10:55 08/12/23 10:55 08/12/23 10:55 Oxygen Delivery Method Room Air Weight: 220 lb 0.271 oz Body Mass Index (BMI) 33.4 Physical Exam Const oriented x3 General Appearance: cooperative Exam Limitations: no limitations HEENT normocephalic Resp normal respiratory effort Effort and Inspection: able to speak in complete sentences Auscultation: clear to auscultation bilaterally Cardio regular rate and regular rhythm Palpation: normal PMI Rate: regular rate Rhythm: regular rhythm Extremity Extremity Narrative: Discoloration from knee to foot with swelling not pitting. Open wound with a dried hematoma on langley. Also has very dry scaly skin on lower extremity to foot General Extremity: edema Skin no rashes or lesions noted Neuro oriented x3 Psych Appearance: grossly normal Speech: normal speech Thought Content: normal thought content Judgement: judgement good Debridement Note Debridement Note No debridement was completed: No debridement was completed today Post-Debridement Measurements and Additional Note: Post-Debridement Measurements/Treatment - Nurse 1 - General Ulcer Assessment Start: 07/22/23 10:51 Freq: Status: Active Protocol: [email or web address] Activity Type Activity Date Activity User E-sign Co-sign Detail Recorded Client Recorded Date Recorded By Document 07/22/23 10:52 DL Desktop 07/22/23 11:00 DL Document 07/29/23 11:06 MW Desktop 07/29/23 11:09 MW Document 08/05/23 10:50 BMF Desktop 08/05/23 10:52 BMF Document 08/12/23 10:55 BMF Desktop 08/12/23 11:02 BMF 07/22/23 07/29/23 08/05/23 10:52 11:06 10:50 - Today's Visit Information Type of service Follow-up Visit Follow-up Visit Follow-up Visit (Physician/ENVIRONMENTAL ENGINEERING TECHNICIAN (Physician/ENVIRONMENTAL ENGINEERING TECHNICIAN (Physician/ENVIRONMENTAL ENGINEERING TECHNICIAN ) ) ) Arrival Mode Wheelchair Wheelchair Wheelchair Transfer Assistance Manual Manual Other Transfer Assist (Other) x2 2 assist Accompanied by Patient Identification Verified (Name & Yes Yes Yes ) Patient Requires Transmission-Based No No No Precautions Safety Precautions Fall Prevention Finger Stick Blood Sugar(mg/dl) (if 147 145 indicated): Blood Sugar Stated by Stated by Patient Patient Height and Weight Body Mass Index (BMI) 33.4 33.4 33.4 BMI Classification Obese Obese Obese Vital Signs Temperature (97.8 F-99.1 F) 97.8 F 97.9 F 97.2 F L Temperature Source Temporal Temporal Temporal Pulse Rate (60-100) 97 93 96 Pulse Location Monitor Monitor Monitor Respiratory Rate (12-18) 20 H 16 16 Respiratory rate source Observation Observation Observation Oxygen Delivery Method Room Air Room Air Blood Pressure (90/60-120/80) 152/61 H 136/64 H 111/82 H Blood Pressure Mean (mm Hg) 91 88 91 Source Monitor Monitor Monitor Position Sitting Sitting Blood Pressure Location Left Arm Left Forearm History Since Last Visit- (Skip if this is Patient's initial visit) Have you changed medications since your No No No last visit? Any new allergies or adverse reactions No No No Had a fall/change in ADL's that may No No No increase risk of falls Signs or symptoms of abuse and/or No No No neglect since last visit Have you been in the hospital since your No No No last visit? Has dressing in place as prescribed Yes Yes Yes Has compression in place as prescribed Yes N/A Has offloadiing in place as prescribed Yes N/A N/A Experienced any changes in pain level or No No No management Left Footwear Regular Shoe Diabetic Shoe Right Footwear Regular Shoe Diabetic Shoe Pain Scale: 0-10 Numeric Is Patient Pain Free? Yes Yes Yes Teaching: Wound Center Dressing Your Wound -Person Taught Patient,Family -Teaching Method Discussion -Response to teaching Verbalize understanding 08/12/23 10:55 WC - Today's Visit Information Type of service Follow-up Visit (Physician/ENVIRONMENTAL ENGINEERING TECHNICIAN ) Arrival Mode Wheelchair Transfer Assistance Other Transfer Assist (Other) 2 Accompanied by Patient Identification Verified (Name & Yes ) Patient Requires Transmission-Based No Precautions Safety Precautions Finger Stick Blood Sugar(mg/dl) (if indicated): Blood Sugar Height and Weight Body Mass Index (BMI) 33.4 BMI Classification Obese Vital Signs Temperature (97.8 F-99.1 F) 96.4 F L Temperature Source Temporal Pulse Rate (60-100) 90 Pulse Location Monitor Respiratory Rate (12-18) 16 Respiratory rate source Observation Oxygen Delivery Method Room Air Blood Pressure (90/60-120/80) 164/63 H Blood Pressure Mean (mm Hg) 96 Source Monitor Position Sitting Blood Pressure Location Right Forearm History Since Last Visit- (Skip if this is Patient's initial visit) Have you changed medications since your No last visit? Any new allergies or adverse reactions No Had a fall/change in ADL's that may No increase risk of falls Signs or symptoms of abuse and/or No neglect since last visit Have you been in the hospital since your No last visit? Has dressing in place as prescribed Yes Has compression in place as prescribed N/A Has offloadiing in place as prescribed N/A Experienced any changes in pain level or No management Left Footwear Diabetic Shoe Right Footwear Diabetic Shoe Pain Scale: 0-10 Numeric Is Patient Pain Free? Yes Teaching: Wound Center Dressing Your Wound -Person Taught -Teaching Method -Response to teaching WC - Nurse 1 - General Ulcer Measurement Start: 07/22/23 10:51 Freq: Status: Active Protocol: Activity Type Activity Date Activity User E-sign Co-sign Detail Recorded Client Recorded Date Recorded By Document 07/22/23 10:52 DL Desktop 07/22/23 11:00 DL Document 07/29/23 11:06 MW Desktop 07/29/23 11:09 MW Document 08/05/23 10:50 BMF Desktop 08/05/23 10:52 BMF Document 08/12/23 10:55 BMF Desktop 08/12/23 11:02 BMF 07/22/23 07/29/23 08/05/23 10:52 11:06 10:50 Wound Center Nurse 1 #5 R Langley -Combined with other wound No No -Current Size (cm) - Length 1.1 0.6 0.1 -Current Size (cm) - Width 1.2 0.4 0.1 -Current Size (cm) - Depth 0.1 0.1 0.1 -Total Square Cm 1.32 0.24 0.01 -Photo Taken Yes No -Epithelialization Small 1-33% -Tunneling No -Undermining/Tunneling No -Circular Undermining No -Exudate Amt Small Small -Exudate Type Serosanguineous -Wound Margin Distinct, Flat & Intact Outline Attached -Granulation Amt Large (67-100%) Large (67-100%) -Granulation Quality [place] -Slough/Fibrin Yes -Necrosis Amt Small (1-33%) Small (1-33%) -Necrotic Tissue Type Adherent Slough Adherent Slough -Structure Exposed Fat Layer N/A Exposed -Texture (Maribel-wound Skin Appearance) Scarring Assessed, Localized Edema ,Scarring -Moisture (Maribel-wound Skin Appearance) No Abnormality No Abnormality, Assessed -Color (Maribel-wound Skin Appearance) Hemosiderin No Abnormality, Staining Hemosiderin Staining -Temperature (Maribel-wound Skin No Abnormality No Abnormality Appearance) (Pt Warm) (Pt Warm) -Tenderness on Palpation (Maribel-wound No No Skin Appearance) -Ulcer Cleansing Soap and Water Rinsed/ Irrigated with Saline -Foul Odor after Cleansing No No -Anesthetic Used 5% Lidocaine 5% Lidocaine Gel Gel -Wound Comment(s) epifix #10 and steris intact. left in place per capsule machine operator instruction pt refuses compression Lower Limb Edema Present No Yes Right Calf (cm) 37.5 Right Ankle (cm) 23.7 08/12/23 10:55 Wound Center Nurse 1 #5 R Langley -Combined with other wound -Current Size (cm) - Length 0.1 -Current Size (cm) - Width 0.1 -Current Size (cm) - Depth 0.1 -Total Square Cm 0.01 -Photo Taken Yes -Epithelialization -Tunneling -Undermining/Tunneling -Circular Undermining -Exudate Amt -Exudate Type Serosanguineous -Wound Margin Distinct, Outline Attached -Granulation Amt Large (67-100%) -Granulation Quality Pale,[place] -Slough/Fibrin -Necrosis Amt None Present (0 %) -Necrotic Tissue Type -Structure Exposed N/A -Texture (Maribel-wound Skin Appearance) Scarring -Moisture (Maribel-wound Skin Appearance) No Abnormality -Color (Maribel-wound Skin Appearance) No Abnormality -Temperature (Maribel-wound Skin No Abnormality Appearance) (Pt Warm) -Tenderness on Palpation (Maribel-wound No Skin Appearance) -Ulcer Cleansing Soap and Water -Foul Odor after Cleansing No -Anesthetic Used 5% Lidocaine Gel -Wound Comment(s) Lower Limb Edema Present Right Calf (cm) Right Ankle (cm) WC - Nurse 2 - General Ulcer CM Notes Start: 07/22/23 10:51 Freq: Status: Active Protocol: Activity Type Activity Date Activity User E-sign Co-sign Detail Recorded Client Recorded Date Recorded By Document 07/22/23 11:10 MW Desktop 07/22/23 11:17 MW Document 07/29/23 11:21 MW Desktop 07/29/23 11:27 MW Document 08/05/23 11:00 MW Desktop 08/05/23 11:03 MW Document 08/12/23 11:11 MW Desktop 08/12/23 11:12 MW 07/22/23 07/29/23 08/05/23 11:10 11:21 11:00 Wound Center Nurse 2 #5 R Langley -Time 11:13 11:22 11:00 -Correct Patient Yes Yes Yes -Correct Side, Site, Position Yes Yes Yes -Correct Procedure Yes Yes Yes -Procedure Performed Yes Yes No -Type of Procedure Debridement Debridement -Clinical Debridement Subcutaneous Subcutaneous -Tissue Removed Subcutaneous Subcutaneous -Post Debridement (cm) - Length 1.4 1.2 -Post Debridement (cm) - Width 1.0 1.0 -Post Debridement (cm) - Depth 0.1 0.1 -Total Square (Post) (cm) 1.40 1.20 -Area of Debridement (cm) - Length 1.4 1.2 -Area of Debridement (cm) - Width 1.0 1.0 -Total Square (Area) (cm) 1.40 1.20 -Tunneling No No No -Undermining/Tunneling No No No -Circular Undermining No No No -Wound/Ulcer Outcome Not Healed Not Healed Not Healed -Ulcer Cleansing Rinsed/ Rinsed/ Rinsed/ Irrigated with Irrigated with Irrigated with Saline Saline Saline -Foul Odor after Cleansing No No No -Bioengineered Tissue Yes Yes No -Type of Bioengineered Tissue Epifix 18mm Epifix 18mm Disc Disc -Expiration Date 02/19/28 02/19/28 -Product Lot Number [id number] -Percent Used 100 100 -Lot number of Saline Used [id number] -Bleeding Controlled with Pressure Pressure NA -Treatment Response Procedure Procedure Procedure Tolerated Well Tolerated Well Tolerated Well -Offloading No No -Debridement - Subq, 1st 20sq cm No No -Apply Skin Sub - 1st 25 sq cm - Legs 1 1 -Epifix 18mm Disc 3 3 Pain Scale: 0-10 Numeric Is Patient Pain Free? Yes Yes Yes 08/12/23 11:11 Wound Center Nurse 2 #5 R Langley -Time 11:11 -Correct Patient Yes -Correct Side, Site, Position Yes -Correct Procedure Yes -Procedure Performed No -Type of Procedure -Clinical Debridement -Tissue Removed -Post Debridement (cm) - Length 0 -Post Debridement (cm) - Width 0 -Post Debridement (cm) - Depth 0 -Total Square (Post) (cm) 0 -Area of Debridement (cm) - Length -Area of Debridement (cm) - Width -Total Square (Area) (cm) -Tunneling -Undermining/Tunneling -Circular Undermining -Wound/Ulcer Outcome Healed- Epithelialized -Ulcer Cleansing -Foul Odor after Cleansing -Bioengineered Tissue -Type of Bioengineered Tissue -Expiration Date -Product Lot Number -Percent Used -Lot number of Saline Used -Bleeding Controlled with -Treatment Response -Offloading -Debridement - Subq, 1st 20sq cm -Apply Skin Sub - 1st 25 sq cm - Legs -Epifix 18mm Disc Pain Scale: 0-10 Numeric Is Patient Pain Free? Yes - Nurse 3 - General Ulcer D/C NN Start: 07/22/23 10:51 Freq: Status: Active Protocol: Activity Type Activity Date Activity User E-sign Co-sign Detail Recorded Client Recorded Date Recorded By Document 07/22/23 11:19 MW Desktop 07/22/23 11:20 MW Document 07/29/23 11:30 MW Desktop 07/29/23 11:31 MW Document 08/05/23 11:10 BMF Desktop 08/05/23 11:11 BMF Document 08/12/23 11:12 MW Desktop 08/12/23 11:14 MW 07/22/23 07/29/23 08/05/23 11:19 11:30 11:10 Wound Care Center Nurse 3 #5 R [place] -Ulcer Cleansing Not Cleansed Not Cleansed -Foul Odor after Cleansing No No -Negative Pressure Wound Therapy N/A N/A -Primary Dressing Applied Mepilex Border Mepilex Border Mepilex Border -Other Dressing AQUACEL EXTRA AQUACEL EXTRA aquacel extra -Primary Dressing Covered/Secured with -Other Covering epi -Mepilex Border 1 1 1 Right -Other refuses any compression Treatment Response Procedure Procedure Procedure Tolerated Well Tolerated Well Tolerated Well Pain Scale: 0-10 Numeric Is Patient Pain Free? Yes Yes Yes Teaching: Wound Center Discharge Instructions -Person Taught -Teaching Method -Response to teaching Dressing Your Wound -Person Taught Patient,Family Patient,Family -Teaching Method Discussion Discussion, Demonstration -Response to teaching Verbalize Verbalize understanding understanding WC - Visit Discharge Discharge Condition Stable Stable Stable Ambulatory Status Wheelchair Wheelchair Wheelchair Transportation Private Auto Private Auto Private Auto Accompanied by , SON ; son waits in car Medication Reconcilliation completed & No No provided to patient/care provider Clinical Summary of Care Provided Yes Yes 08/12/23 11:12 Wound Care Center Nurse 3 #5 R [place] -Ulcer Cleansing Not Cleansed -Foul Odor after Cleansing No -Negative Pressure Wound Therapy N/A -Primary Dressing Applied Mepilex Border -Other Dressing -Primary Dressing Covered/Secured with Dry Gauze -Other Covering -Mepilex Border 1 Right -Other Treatment Response Procedure Tolerated Well Pain Scale: 0-10 Numeric Is Patient Pain Free? Yes Teaching: Wound Center Discharge Instructions -Person Taught Patient,Family -Teaching Method Discussion, Demonstration -Response to teaching Verbalize understanding Dressing Your Wound -Person Taught Patient,Family -Teaching Method Discussion, Demonstration -Response to teaching Verbalize understanding WC - Visit Discharge Discharge Condition Stable Ambulatory Status Wheelchair Transportation Private Auto Accompanied by , son Medication Reconcilliation completed & No provided to patient/care provider Clinical Summary of Care Provided Yes Assessment/Plan Assessment/Plan (1) Diabetes type 2, uncontrolled: QUALIFIERS: Glycemic state: with hyperglycemia Qualified Code(s): E11.65 - Type 2 diabetes mellitus with hyperglycemia (2) Peripheral vascular disease in diabetes mellitus: CODE(S): E11.51 - Type 2 diabetes mellitus with diabetic peripheral angiopathy without gangrene (3) Non-pressure ulcer of right lower extremity: CODE(S): L97.919 - Non-pressure chronic ulcer of unspecified part of right lower leg with unspecified severity QUALIFIERS: Non-pressure ulcer stage: with fat layer exposed Qualified Code(s): L97.912 - Non-pressure chronic ulcer of unspecified part of right lower leg with fat layer exposed PLAN: Wound is healed patient will be discharged from the wound center and can follow-up as needed (4) PAD (peripheral artery disease): CODE(S): I73.9 - Peripheral vascular disease, unspecified
== END 2023-08-18 23:59 | disposition home or self-care (01) ==
LOC: WC 11:00
PROVIDERS: PCP Family Medicine; Referring Provider Hospitalist; Visit Provider Nurse Practitioner
DX: E11.622 Type 2 diabetes mellitus with other skin ulcer (principal); L97.812 Non-pressure chronic ulcer of other part of right lower leg with fat layer exposed; I50.9 Heart failure, unspecified; I48.91 Unspecified atrial fibrillation; E11.22 Type 2 diabetes mellitus with diabetic chronic kidney disease; E11.51 Type 2 diabetes mellitus with diabetic peripheral angiopathy without gangrene; N18.30 Chronic kidney disease, stage 3 unspecified; R60.0 Localized edema; E66.9 Obesity, unspecified; Z68.33 Body mass index [BMI] 33.0-33.9, adult
CPT/HCPCS: 15271; 99213; Q4186; G0463